=== PATIENT | female | born 1975 ===

== ENCOUNTER 2017-01-21 16:38 | Inpatient (IN) | payer MEDICAID ==
[2017-01-21 16:39] VITALS: BMI 31.3
--- NOTE | 2017-01-21 16:41 | ED PDOC ---
Arrival/HPI - General Time Seen by Provider: 01/21/17 16:39 Historian: Patient - History of Present Illness Narrative History of Present Illness (Text): 01/21/17 17:04 41 y/o female, no significant pmh, c/o feeling depression and nervous x 1 day. Pt. stated that she has chronic anxiety and depression, took her medication today but still feeling depressed and anxious, no chest pain or shortness of breath, admits feeling occasionally wants to hurt herself but not recently or now, no numbness or tingling, no other medical or psychological complaints. Past Medical History - Provider Review Nursing Documentation Reviewed: Yes - Past Medical History Past Medical History: No Previous - Cardiac Hx Cardiac Disorders: No (denies) Hx Hypertension: No - Pulmonary Hx Respiratory Disorders: No (denies) - Neurological Hx Neurological Disorder: No (denies) - HEENT Hx HEENT Disorder: No (denies) - Renal Hx Renal Disorder: No (denies) - Endocrine/Metabolic Hx Endocrine Disorders: No (denies) - Hematological/Oncological Hx Blood Disorders: No (denies) - Integumentary Hx Dermatological Disorder: No (denies) - Musculoskeletal/Rheumatological Hx Falls: Yes - Gastrointestinal Hx Gastrointestinal Disorders: No (denies) - Genitourinary/Gynecological Hx Genitourinary Disorders: No (denies) - Psychiatric Hx Depression: Yes Hx Substance Use: No - Past Surgical History Past Surgical History: No Previous - Anesthesia Hx Anesthesia: No - Suicidal Assessment Feels Threatened In Home Enviroment: No Family/Social History - Physician Review Nursing Documentation Reviewed: Yes Family/Social History: Unknown Family HX Smoking Status: Never Smoked Hx Alcohol Use: No Hx Substance Use: No Hx Substance Use Treatment: No Allergies/Home Meds Allergies/Adverse Reactions: Allergies No Known Allergies Allergy (Verified 01/21/17 22:40) Home Medications: Home Meds Medication Instructions Recorded Confirmed PARoxetine [Paxil] 20 mg PO DAILY 01/21/17 01/21/17 risperiDONE [RisperDAL] 2 mg PO HS 01/21/17 01/21/17 Review of Systems - Review of Systems Constitutional: absent: Fatigue, Fevers Eyes: absent: Vision Changes ENT: absent: Hearing Changes Respiratory: absent: SOB, Cough Cardiovascular: absent: Chest Pain Gastrointestinal: absent: Abdominal Pain, Nausea, Vomiting Neurological: absent: Headache, Dizziness Psychiatric: Depression. absent: Anxiety, Suicidal Ideation Physical Exam Vital Signs Reviewed: Yes Vital Signs Temp Pulse Resp BP Pulse Ox 01/21/17 18:11 116/81 01/21/17 17:30 72 18 119/77 99 01/21/17 16:53 98.6 F 70 16 99 Temperature: Afebrile Blood Pressure: Normal Pulse: Regular Respiratory Rate: Normal Appearance: Positive for: Well-Appearing, Non-Toxic, Comfortable Pain Distress: None Mental Status: Positive for: Alert and Oriented X 3 - Systems Exam Head: Present: Atraumatic, Normocephalic Pupils: Present: PERRL Extroacular Muscles: Present: EOMI Conjunctiva: Present: Normal Mouth: Present: Moist Mucous Membranes Neck: Present: Normal Range of Motion Respiratory/Chest: Present: Clear to Auscultation, Good Air Exchange. No: Respiratory Distress, Accessory Muscle Use Cardiovascular: Present: Regular Rate and Rhythm, Normal S1, S2. No: Murmurs Abdomen: Present: Normal Bowel Sounds. No: Tenderness, Distention, Peritoneal Signs Back: Present: Normal Inspection Upper Extremity: Present: Normal Inspection. No: Cyanosis, Edema Lower Extremity: Present: Normal Inspection. No: Edema Neurological: Present: GCS=15, Speech Normal, Motor Func Grossly Intact, Gait Normal, Memory Normal Skin: Present: Warm, Dry, Normal Color. No: Rashes Psychiatric: Present: Alert, Oriented x 3, Normal Insight, Normal Concentration , Depressed Mood Medical Decision Making ED Course and Treatment: 01/21/17 16:40 -labs/ua -ekg -chest x-ray -will call PES 01/21/17 18:54 -EKG: NSR @ 65 BPM, no ST elevation or depression, no T wave inversion. -Chest xray -Labs are non-significant -UA show +UTI, macrobid ordered. -Pt. evaluated by the PES Josephine, suggest to admit with dx depression to Dr. Nikki Lamb's service. -I discussed with Dr. Shaw about the case and he will put in the admission order. - Lab Interpretations Lab Results: 01/21/17 17:50 01/21/17 17:50 Lab Results 01/21/17 18:00: Urine Opiates Screen Negative, Urine Methadone Screen Negative, Ur Barbiturates Screen Negative, Ur Phencyclidine Scrn Negative, Ur Amphetamines Screen Negative, U Benzodiazepines Scrn Negative, U Oth Cocaine Metabols Negative, U Cannabinoids Screen Negative 01/21/17 18:00: Urine Color Yellow, Urine Appearance Cloudy, Urine pH 6.0, Ur Specific Sebastian 1.025, Urine Protein Negative, Urine Glucose (UA) Negative, Urine Ketones Trace H, Urine Blood Trace-lysed H, Urine Nitrate Negative, Urine Bilirubin Negative, Urine Urobilinogen 1.0 H, Ur Leukocyte Esterase Moderate H, Urine RBC 1 - 3, Urine WBC 15 - 20, Ur Epithelial Cells 10 - 12, Urine Bacteria Mod 01/21/17 17:50: Alcohol, Quantitative < 10 01/21/17 17:50: Sodium 140, Potassium 3.6, Chloride 103, Carbon Dioxide 26, Anion Gap 15, BUN 15, Creatinine 0.6, Est GFR ( Amer) > 60, Est GFR (Non- Af Amer) > 60, Random Glucose 84, Calcium 9.4, Total Bilirubin 1.0, AST 28, ALT 58 H, Alkaline Phosphatase 104, Total Protein 8.3, Albumin 4.6, Globulin 3.7, Albumin/Globulin Ratio 1.2 01/21/17 17:50: WBC 4.7, RBC 4.23, Hgb 13.0, Hct 37.0, MCV 87.5, MCH 30.7, MCHC 35.1, RDW 12.8, Plt Count 229, MPV 10.2, Gran % 52.6, Lymph % (Auto) 40.9 H, [place] % (Auto) 5.5, Eos % (Auto) 0.6 L, Baso % (Auto) 0.4, Gran # 2.48, Lymph # 1.9, [place] # 0.3, Eos # 0.0, Baso # 0.02 I have reviewed the lab results: Yes Interpretation: Abnormal lab values (+UTI) - RAD Interpretation Radiology Orders: 01/21/17 17:00 CHEST PORTABLE [RAD] Stat no active disease Rate Examiner: Radiologist - EKG Interpretation EKG Interpretation (Text): 01/21/17 17:45 NSR @ 65 BPM, no ST elevation or depression, no T wave inversion. Interpreted by ED Physician: Yes Type: 12 lead EKG - Medication Orders Current Medication Orders: Acetaminophen (Tylenol 325mg Tab) 650 mg PO Q4H PRN PRN Reason: Pain, Mild (1-3) Al Hydrox/Mg Hydrox/Simethicone (Maalox Plus 30 Ml) 30 ml PO DAILY PRN PRN Reason: Upset Stomach Fluoxetine HCl (Prozac) 10 mg PO DAILY [facility] Last Admin: 01/24/17 14:50 Dose: 10 mg Lorazepam (Ativan) 0.5 mg PO AMHS ENMANUEL PRN Reason: Protocol Last Admin: 01/24/17 11:38 Dose: 0.5 mg Re-Assess: Reassess Psych Meds Document 01/24/17 12:38 KM (Rec: 01/24/17 14:42 KM [id number]) Reassess Psych Med Effective Lorazepam (Ativan) 0.5 mg PO 1600 ENMANUEL PRN Reason: Protocol Last Admin: 01/24/17 15:33 Dose: 0.5 mg Magnesium Hydroxide (Milk Of Magnesia) 30 ml PO DAILY PRN PRN Reason: Constipation Mirtazapine (Remeron) 15 mg PO HS PRN PRN Reason: Insomnia Nitrofurantoin Macrocrystals (Macrobid) 100 mg PO Q12 [facility]EL Stop: 01/27/17 23:59 Last Admin: 01/24/17 07:58 Dose: 100 mg Paroxetine HCl (Paxil) 20 mg PO HS EN[facility]UEL Quetiapine Fumarate (Seroquel) 100 mg PO HS ENMANUEL PRN Reason: Protocol Discontinued Medications Lorazepam (Ativan) 1 mg PO ONCE ONE PRN Reason: Protocol Stop: 01/21/17 21:28 Last Admin: 01/21/17 22:09 Dose: 1 mg Mirtazapine (Remeron) 15 mg PO HS EN[facility]EL Last Admin: 01/23/17 21:22 Dose: 15 mg Nitrofurantoin Macrocrystals (Macrobid) 100 mg PO STAT STA Stop: 01/21/17 18:39 Last Admin: 01/21/17 19:15 Dose: 100 mg Paroxetine HCl (Paxil) 20 mg PO ONCE ONE Stop: 01/22/17 21:29 Paroxetine HCl (Paxil) 20 mg PO ONCE ONE Stop: 01/21/17 21:58 Last Admin: 01/21/17 22:09 Dose: 20 mg Paroxetine HCl (Paxil) 30 mg PO HS ENMANUEL Last Admin: 01/23/17 21:22 Dose: 30 mg Paroxetine HCl (Paxil) 40 mg PO HS EN[facility]EL Risperidone (Risperdal Tab) 1 mg PO ONCE ONE PRN Reason: Protocol Stop: 01/22/17 21:30 Risperidone (Risperdal Tab) 1 mg PO ONCE ONE PRN Reason: Protocol Stop: 01/21/17 21:56 Last Admin: 01/21/17 22:10 Dose: 1 mg Risperidone (Risperdal Tab) 1 mg PO HS ENMANUEL PRN Reason: Protocol Last Admin: 01/23/17 21:22 Dose: 1 mg - PA / [employer] / Resident Statement / has reviewed & agrees with the documentation as recorded. Disposition/Present on Arrival - Present on Arrival Any Indicators Present on Arrival: No History of DVT/PE: No History of Uncontrolled Diabetes: No Urinary Catheter: No History of Decub. Ulcer: No History Surgical Site Infection Following: None - Disposition Have Diagnosis and Disposition been Completed?: Yes Diagnosis: UTI (urinary tract infection), Depression Disposition: HOSPITALIZED Disposition Time: 17:05 Patient Plan: Admission Patient Problems: Current Active Problems Problem Status Onset UTI (urinary tract infection) Acute Depression Acute Condition: STABLE
[2017-01-21 17:05] VITALS: O2SAT 99
[2017-01-21 18:13] LABS: BASO # 0.02 K/mm3 (0.0-2.0); BASO % 0.4 % (0.0-3.0); EOS % 0.6 % (1.5-5.0); GRAN # 2.48 (1.4-6.5); GRAN % 52.6 % (50.0-68.0); LYMPH # 1.9 (1.2-3.4); LYMPH % 40.9 % (22.0-35.0); MEAN CELL VOLUME 87.5 fL (80.0-105.0); MEAN CORPUSCULAR HEMOGLOBIN 30.7 pg (25.0-35.0); MEAN CORPUSCULAR HGB CONC 35.1 g/dl (31.0-37.0); MEAN PLATELET VOLUME 10.2 fl (7.0-11.0); MONO # 0.3 (0.1-0.6); MONO % 5.5 % (1.0-6.0); PLATELET COUNT 229 10^3/uL (120.0-450.0); RBC 4.23 10^6/uL (3.5-6.1); RED CELL DISTRIBUTION WIDTH 12.8 % (11.5-14.5); WHITE BLOOD COUNT 4.7 10^3/ul (4.5-11.0)
[2017-01-21 18:15] LABS: ALB/GLOB RATIO 1.2 (1.1-1.8); ALBUMIN 4.6 g/dL (3.0-4.8); ALT/SGPT 58 U/L (7-56); AST/SGOT 28 U/L (15-39); BLOOD UREA NITROGEN 15 mg/dL (7-21); CALCIUM 9.4 mg/dL (8.4-10.5); GFR AFRICAN-AMERICAN > 60; GFR NON-AFRICAN AMERICAN > 60
[2017-01-21 18:24] LABS: URINE BILIRUBIN NEGATIVE (NEGATIVE); URINE BLOOD TRACE-LYSED (NEGATIVE); URINE GLUCOSE (UA) NEGATIVE (NEGATIVE); URINE LEUKOCYTE ESTERASE MODERATE Leu/uL (NEGATIVE); URINE NITRATE NEGATIVE (NEGATIVE); URINE PROTEIN NEGATIVE mg/dL (<30 mg/dL)
[2017-01-21 18:25] LABS: URINE APPEARANCE CLOUDY (CLEAR); URINE COLOR YELLOW (YELLOW)
[2017-01-21 18:41] LABS: URINE BACTERIA MOD (NEG); URINE WBC 15 - 20 /hpf (0-6)
[2017-01-21 18:49] LABS: BARBITURATES, UR NEGATIVE (NEGATIVE); BENZODIAZEPINES, UR NEGATIVE (NEGATIVE); OPIATES, UR NEGATIVE (NEGATIVE); PHENCYCLIDINE, UR NEGATIVE (NEGATIVE)
--- NOTE | 2017-01-22 06:07 | PCM.BM ---
<Aaron Bang O - Last Filed: 01/22/17 06:04> Treatment Plan Problems - Problems identified on initial assessmt poor sleep Date Initiated: 01/21/17 Time Initiated: 21:00 Assessment reference: NA Status: Active anxiety Date Initiated: 01/21/17 Time Initiated: 21:20 Assessment reference: NA Status: Active depression Date Initiated: 01/21/17 Time Initiated: 21:00 Assessment reference: NA Status: Active Treatment assets and liabiliti Patient Assests: cooperative, ADL independent, good past tx response Patient Liabilities: poor support system - Milieu Protocol Maintain good personal hygiene: daily Encourage regular showers, daily Remind patient to perform daily oral care, daily Assist patient to perform ADL's Maintain personal safety: daily Educate patient to report safety concerns to staff, daily Monitor environment for contraband/sharps Medication safety: Monitor for expected outcome, potential side effects: daily, Assess barriers to learning: daily, Assess readiness for medication education: daily Milieu Narrative: * group, mile[place] and supportive tx * risperdal 1 mg am and 1 mg hs for psychosis * paxil 20mg po hs for depression and anxiety * ativan 1 mg HS for anxiety * Remeron 7.5 mg with depression and insomnia * Awaiting medical consult * Vitals reviewed and noted below: Selected Entries 04/27/16 01/21/17 01/21/17 09:30 16:53 17:30 Temperature 98.6 F Pulse Rate 92 H 70 72 Respiratory 16 18 Rate Blood Pressure 112/67 119/77 O2 Sat by Pulse 99 99 Oximetry 01/21/17 18:11 Temperature Pulse Rate Respiratory Rate Blood Pressure 116/81 O2 Sat by Pulse Oximetry ER LABS AND STUDIES 01/21/17 18:54 -EKG: NSR @ 65 BPM, no ST elevation or depression, no T wave inversion. -UA show +UTI, macrobid ordered. 01/21/17 18:00: Urine Color Yellow, Urine Appearance Cloudy, Urine pH 6.0, Ur Specific [place] 1.025, Urine Protein Negative, Urine Glucose (UA) Negative, Urine Ketones Trace H, Urine Blood Trace-lysed H, Urine Nitrate Negative, Urine Bilirubin Negative, Urine Urobilinogen 1.0 H, Ur Leukocyte Esterase Moderate H, Urine RBC 1 - 3, Urine WBC 15 - 20, Ur Epithelial Cells 10 - 12, Urine Bacteria Mod 01/21/17 17:50: Alcohol, Quantitative < 10 01/21/17 17:50: Sodium 140, Potassium 3.6, Chloride 103, Carbon Dioxide 26, Anion Gap 15, BUN 15, Creatinine 0.6, Est GFR ( Amer) > 60, Est GFR (Non- Af Amer) > 60, Random Glucose 84, Calcium 9.4, Total Bilirubin 1.0, AST 28, ALT 58 H, Alkaline Phosphatase 104, Total Protein 8.3, Albumin 4.6, Globulin 3.7, Albumin/Globulin Ratio 1.2 01/21/17 17:50: WBC 4.7, RBC 4.23, Hgb 13.0, Hct 37.0, MCV 87.5, MCH 30.7, MCHC 35.1, RDW 12.8, Plt Count 229, MPV 10.2, Gran % 52.6, Lymph % (Auto) 40.9 H, [place] % (Auto) 5.5, Eos % (Auto) 0.6 L, Baso % (Auto) 0.4, Gran # 2.48, Lymph # 1.9, [place] # 0.3, Eos # 0.0, Baso # 0.02 Family Contact Family involvement: Patient does not wish Family/SO involvement Family contact: Patient declines to allow family contact at present Family contact name: Kam Discharge/Continuing Care - Education Needs Education Needs: Patient Medication, Patient Diagnosis/Disease Process, Patient Coping Skills, Patient Activities of Daily Living, Patient Nutrition - Treatment Team Participation Patient/Family/SO Statement: * group, mile[place] and supportive tx * risperdal 1 mg am and 1 mg hs for psychosis * paxil 20mg po hs for depression and anxiety * ativan 1 mg HS for anxiety * Remeron 7.5 mg with depression and insomnia * Awaiting medical consult * Vitals reviewed and noted below: Selected Entries 04/27/16 01/21/17 01/21/17 09:30 16:53 17:30 Temperature 98.6 F Pulse Rate 92 H 70 72 Respiratory 16 18 Rate Blood Pressure 112/67 119/77 O2 Sat by Pulse 99 99 Oximetry 01/21/17 18:11 Temperature Pulse Rate Respiratory Rate Blood Pressure 116/81 O2 Sat by Pulse Oximetry ER LABS AND STUDIES 01/21/17 18:54 -EKG: NSR @ 65 BPM, no ST elevation or depression, no T wave inversion. -UA show +UTI, macrobid ordered. 01/21/17 18:00: Urine Color Yellow, Urine Appearance Cloudy, Urine pH 6.0, Ur Specific [place] 1.025, Urine Protein Negative, Urine Glucose (UA) Negative, Urine Ketones Trace H, Urine Blood Trace-lysed H, Urine Nitrate Negative, Urine Bilirubin Negative, Urine Urobilinogen 1.0 H, Ur Leukocyte Esterase Moderate H, Urine RBC 1 - 3, Urine WBC 15 - 20, Ur Epithelial Cells 10 - 12, Urine Bacteria Mod 01/21/17 17:50: Alcohol, Quantitative < 10 01/21/17 17:50: Sodium 140, Potassium 3.6, Chloride 103, Carbon Dioxide 26, Anion Gap 15, BUN 15, Creatinine 0.6, Est GFR ( Amer) > 60, Est GFR (Non- Af Amer) > 60, Random Glucose 84, Calcium 9.4, Total Bilirubin 1.0, AST 28, ALT 58 H, Alkaline Phosphatase 104, Total Protein 8.3, Albumin 4.6, Globulin 3.7, Albumin/Globulin Ratio 1.2 01/21/17 17:50: WBC 4.7, RBC 4.23, Hgb 13.0, Hct 37.0, MCV 87.5, MCH 30.7, MCHC 35.1, RDW 12.8, Plt Count 229, MPV 10.2, Gran % 52.6, Lymph % (Auto) 40.9 H, [place] % (Auto) 5.5, Eos % (Auto) 0.6 L, Baso % (Auto) 0.4, Gran # 2.48, Lymph # 1.9, [place] # 0.3, Eos # 0.0, Baso # 0.02 <Reyna Hardin - Last Filed: 01/24/17 16:36> Family Contact - Outside Agency [facility] Care involvment: Following patient during stay, Not involved <Nikki Lockhart - Last Filed: 01/26/17 13:39> - Diagnosis (1) MDD (major depressive disorder), recurrent episode Status: Acute Interventions: 01/26/17 13:39 Psychoeducation Psychopharmacology/adjustment of medications as needed/ monitoring possible side effects Evaluate pt on daily basis Compliance with medications and follow up appointments Suicide and homicide risk assessment and prevention Relapse prevention Reduction of symptoms Improve functional status Family intervention As outpatient: cognitive behavioral therapy/interpersonal psychotherapy/ psychodynamic psychotherapy/problem-solving therapy
[2017-01-22 07:49] VITALS: RESP 20
--- NOTE | 2017-01-22 08:36 | CP.PCM.CON ---
<Irving Olson - Last Filed: 01/22/17 15:12> History of Present Illness - History of Present Illness History of Present Illness: Medicine Consult Note for Dr. Winkler 41 y/o F with PMH of depression/psychosis presented to the ED after feeling depressed and anxious for the past 2 days. Pt states she has been progressively feeling worse over the past several days. She states she has been taking all of her medication routinely. She also admits to having suicidal ideation. She does have a plan in which to harm herself, which she states she would overdose on pills. 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 During this time she stayed in the hospital for several days and was discharged home on Paxil and Risperdal, which she still currently takes. She currently denies CP, SOB, N/V/D, dysuria, fevers, chills. PMH: Post psychosis/depression Surgical Hx: None FMH: Noncontributory Social Hx: Denies alcohol, tobacco, or illicit drug use Allergies: NKDA Review of Systems - Constitutional Constitutional: Fatigue. absent: Chills, Fever - EENT Eyes: absent: Change in Vision, Diplopia - Cardiovascular Cardiovascular: absent: Chest Pain, Irregular Heart Rhythm - Respiratory Respiratory: absent: Cough, Dyspnea - Gastrointestinal Gastrointestinal: absent: Abdominal Pain, Diarrhea, Nausea, Vomiting - Genitourinary Genitourinary: absent: Dysuria, Urinary Frequency - Integumentary Integumentary: absent: New Lesions, Rash - Neurological Neurological: absent: Numbness, Tingling - Psychiatric Psychiatric: Anxiety, Depression - Hematologic/Lymphatic Hematologic: absent: Easy Bleeding, Easy Bruising Past Patient History - Past Medical History & Family History Past Medical History?: No - Past Social History Smoking Status: Never Smoked - CARDIAC Hx Cardiac Disorders: No (denies) Hx Hypertension: No - PULMONARY Hx Respiratory Disorders: No (denies) - NEUROLOGICAL Hx Neurological Disorder: No (denies) - HEENT Hx HEENT Problems: No (denies) - RENAL Hx Chronic Kidney Disease: No (denies) - ENDOCRINE/METABOLIC Hx Endocrine Disorders: No (denies) - HEMATOLOGICAL/ONCOLOGICAL Hx Blood Disorders: No (denies) - INTEGUMENTARY Hx Dermatological Problems: No (denies) - MUSCULOSKELETAL/RHEUMATOLOGICAL Hx Falls: Yes - GASTROINTESTINAL Hx Gastrointestinal Disorders: No (denies) - GENITOURINARY/GYNECOLOGICAL Hx Genitourinary Disorders: No (denies) - PSYCHIATRIC Hx Anxiety: Yes Hx Depression: Yes Hx Substance Use: No - SURGICAL HISTORY Hx Surgeries: No (denies) - ANESTHESIA Hx Anesthesia: No Meds Allergies/Adverse Reactions: Allergies Allergy/AdvReac Type Severity Reaction Status Date / Time No Known Allergies Allergy Verified 01/21/17 22:40 Physical Exam - Constitutional Appears: Well, No Acute Distress - Head Exam Head Exam: ATRAUMATIC, NORMAL INSPECTION, NORMOCEPHALIC - Eye Exam Eye Exam: EOMI - ENT Exam ENT Exam: Mucous Membranes Moist - Neck Exam Neck exam: Negative for: Lymphadenopathy, Normal Inspection - Respiratory Exam Respiratory Exam: Clear to Auscultation Bilateral, NORMAL BREATHING PATTERN. absent: Rales, Rhonchi, Wheezes - Cardiovascular Exam Cardiovascular Exam: RRR, +S1, +S2 - GI/Abdominal Exam GI & Abdominal Exam: Normal Bowel Sounds, Soft. absent: Tenderness - Extremities Exam Extremities exam: Positive for: normal inspection. Negative for: calf tenderness, pedal edema - Neurological Exam Neurological exam: Alert, CN II-XII Intact, Oriented x3 - Psychiatric Exam Psychiatric exam: Depressed, Normal Affect - Skin Skin Exam: Intact, Normal Color, Warm Results - Vital Signs Recent Vital Signs: Last Vital Signs Temp 97.9 F 01/22/17 07:49 Pulse 85 01/22/17 07:49 Resp 20 01/22/17 07:49 BP 98/61 L 01/22/17 07:49 Pulse Ox 99 01/21/17 17:30 - Labs Result Diagrams: 01/21/17 17:50 01/21/17 17:50 Assessment & Plan - Assessment and Plan (Free Text) Plan: 41 y/o F with PMH of post depression/psychosis presents to with worsening depression and anxiety. Pt was found to have a UTI on UA and will be started on Macrobid for 5 days. Pt has been admitted to the psychiatric unit and will continue treatment there. Pt is stable from medical standpoint, will sign off at this time. Please reconsult as needed. 1. Depression and Anxiety - Management as per psych - Will check TSH 2. UTI - Macrobid x 5 days - Will follow urine culture 3. PPX Protonix Seen, reviewed, and discussed with attending Wesley, PGY-2 <Santiago Winkler - Last Filed: 01/22/17 16:22> Meds - Medications Medications: Current Medications Mirtazapine (Remeron) 15 mg PO HS ENMANUEL Nitrofurantoin Macrocrystals (Macrobid) 100 mg PO Q12 ENMANUEL Stop: 01/27/17 23:59 Last Admin: 01/22/17 09:43 Dose: 100 mg Paroxetine HCl (Paxil) 30 mg PO HS ENMANUEL Risperidone (Risperdal Tab) 1 mg PO HS ENMANUEL PRN Reason: Protocol Results - Vital Signs Recent Vital Signs: Last Vital Signs Temp 97.9 F 01/22/17 07:49 Pulse 85 01/22/17 07:49 Resp 20 01/22/17 07:49 BP 98/61 L 01/22/17 07:49 Pulse Ox 99 01/21/17 17:30 - Labs Result Diagrams: 01/21/17 17:50 01/21/17 17:50 Labs: Laboratory Results - last 24 hr 01/22/17 01/22/17 07:10 08:30 Triglycerides 72 Cholesterol 170 LDL Cholesterol Direct 98 HDL Cholesterol 53 TSH 3rd Generation 0.58 Attending/Attestation - Attestation I have personally seen and examined this patient.: Yes I have fully participated in the care of the patient.: Yes I have reviewed all pertinent clinical information: Yes Notes (Text): 01/22/17 16:20 attending note; Patient seen and examined with resident in psychiatric floor. Patient is resting comfortably. denies any fevers, Chills. Denies any urinary symptoms. Patient is currently getting treated for depression. positive UA; urine culture ordered. Started on nitrofurantoin. Please follow up culture results. Patient is medically stable. Please reconsult as needed. Thank you for the courtesy of this consultation.
[2017-01-22 09:00] LABS: HDL CHOLESTEROL 53 mg/dL (29-60)
[2017-01-22 09:11] LABS: LDL CHOLESTEROL 98 mg/dL (0-129)
--- NOTE | 2017-01-22 09:27 | PCM.PSYCH ---
Initial Psychiatric Evaluation - Initial Psychiatric Evaluation Type of Admission: Voluntary Legal Status: Capacity History of Present Illness and Precipitating Events: Patient is 41 years old female with history of depression and psychosis, one prior admission at [facility] in 03/2016, denied history of suicidal attempts, reportedly compliant with Risperdal 2 mg HS and Paxil 20 mg HS prescribed by her outpatient psychiatrist who presented to the ER with depression, anxiety and SI to overdose on pills. I reviewed prior admission records and recent notes. I met with patient at bedside. Iraqi translation was aided by staff member, Mona. Patient is calm, cooperative and oriented x3. Patient reports depression x 8 months with symptoms of low mood, low energy, moodiness, poor sleep and low self-esteem. She admits to having suicidal thoughts to overdose on pills however denies any thoughts of harming her children, including her 1 year old son. Patient indicates she has been compliant with her medications. Presently denies any suicidal thoughts or hallucinations (please note, patient presented with hallucinations during her previous admission). Patient has been in good control on the unit thus far. Of note: patient received Macrobid 100 mg po x1 dose in the ER for UTI PSYCHIATRIC HISTORY 04/15/16-04/27/16 Admitted to [facility] with diagnosis of Severe depressive episode with psychotic symptoms in period. Patient also had UTI during that admission, given additional possible diagnosis of r/o delirium due to UTI. Discharge medications: risperdal 1mg am and 2mg hs for psychosis paxil 30mg po hs for depression and anxiety Remeron 15mg for depression and insomnia Patient has been following up with a psychiatrist in [place]. Last follow up was 2 months ago and she is prescribed Paxil and Risperdal. Patient reports compliance with medications. Patient cannot recall the name of her psychiatrist. SOCIAL HISTORY Patient was born and raised in [facility]. She lives with her two children 1-year- old son and a 13-year-old. Her boyfriend is the father of her one year-old son. Boyfriend is currently watching her two children. Patient is unemployed. Patient denies any tobacco, alcohol or drug use. Past Psychiatric History - Past Psychiatric History Pertinent Medical Hx (Current Medical&Sleep Prob, Allergies): Allergies Allergy/AdvReac Type Severity Reaction Status Date / Time No Known Allergies Allergy Verified 01/21/17 22:40 PARoxetine [Paxil] 20 mg PO DAILY 01/21/17 risperiDONE [RisperDAL] 2 mg PO HS 01/21/17 Mental Status Examination - Personal Presentation Personal Presentation: Looks stated age - Affect Affect: Constricted - Motor Activity Motor Activity: Calm - Reliability in Providing Information Reliability in Providing Information: Fair - Speech Speech: Organized - Mood Mood: Depressed - Formal Thought Process Formal Thought Process: No Impairment, Other (internally preoccupied) - Obsessions/Compulsions Obsessions: No Compulsions: No - Cognitive Functions Orientation: Person, Place, Situation Sensorium: Alert Attention/Concentration: Attentive Estimate of Intelligence: Average Judgement: Intact, as evidence by: Insight regarding need for hospitalization - Risk Risk: Suicidal, Diminished functioning - Strength & Assets Inventory Strength & Assets Inventory: Family support DSM 5 DX - DSM 5 DSM 5 Diagnosis: Severe depressive episode with psychotic symptoms in period r/o delirium due to UTI r/o psychosis r/o depression with psychosis - Recommended/Plan of Treatment Treatment Recommendations and Plan of Treatment: * group, mileau and supportive tx * risperdal 1 mg hs for history of psychosis * paxil 30mg po hs for depression and anxiety * Remeron 15 mg with depression and insomnia * Appreciate f/u by Dr. Olson on 01/22/17~to continue macrobid x5 days for UTI, checking TSH * Vitals reviewed and noted below: Selected Entries 04/27/16 01/21/17 01/21/17 09:30 16:53 17:30 Temperature 98.6 F Pulse Rate 92 H 70 72 Respiratory 16 18 Rate Blood Pressure 112/67 119/77 O2 Sat by Pulse 99 99 Oximetry 01/21/17 18:11 Temperature Pulse Rate Respiratory Rate Blood Pressure 116/81 O2 Sat by Pulse Oximetry ER LABS AND STUDIES 01/21/17 18:54 -EKG: NSR @ 65 BPM, no ST elevation or depression, no T wave inversion. 01/21/17 18:00: Urine Color Yellow, Urine Appearance Cloudy, Urine pH 6.0, Ur Specific [place] 1.025, Urine Protein Negative, Urine Glucose (UA) Negative, Urine Ketones Trace H, Urine Blood Trace-lysed H, Urine Nitrate Negative, Urine Bilirubin Negative, Urine Urobilinogen 1.0 H, Ur Leukocyte Esterase Moderate H, Urine RBC 1 - 3, Urine WBC 15 - 20, Ur Epithelial Cells 10 - 12, Urine Bacteria Mod 01/21/17 17:50: Alcohol, Quantitative < 10 01/21/17 17:50: Sodium 140, Potassium 3.6, Chloride 103, Carbon Dioxide 26, Anion Gap 15, BUN 15, Creatinine 0.6, Est GFR ( Amer) > 60, Est GFR (Non- Af Amer) > 60, Random Glucose 84, Calcium 9.4, Total Bilirubin 1.0, AST 28, ALT 58 H, Alkaline Phosphatase 104, Total Protein 8.3, Albumin 4.6, Globulin 3.7, Albumin/Globulin Ratio 1.2 01/21/17 17:50: WBC 4.7, RBC 4.23, Hgb 13.0, Hct 37.0, MCV 87.5, MCH 30.7, MCHC 35.1, RDW 12.8, Plt Count 229, MPV 10.2, Gran % 52.6, Lymph % (Auto) 40.9 H, [place] % (Auto) 5.5, Eos % (Auto) 0.6 L, Baso % (Auto) 0.4, Gran # 2.48, Lymph # 1.9, [place] # 0.3, Eos # 0.0, Baso # 0.02 FLOOR LABS 01/22/17 07:10 Triglycerides 72 Cholesterol 170 LDL Cholesterol Direct 98 HDL Cholesterol 53 - Smoking Cessation Smoking Cessation Initiated: No
--- NOTE | 2017-01-22 10:49 | CARD ---
APPROVED REPORT EKG Measurement Heart [id number] <Conclusion> Normal sinus rhythm NSSTW changes Q in 3
--- NOTE | 2017-01-22 12:15 | RAD ---
HISTORY: medical clearance COMPARISON: 04/13/2016 FINDINGS: LUNGS: No active pulmonary disease. PLEURA: No significant pleural effusion identified, no pneumothorax apparent. CARDIOVASCULAR: Normal. OSSEOUS STRUCTURES: No significant abnormalities. VISUALIZED UPPER ABDOMEN: Normal. OTHER FINDINGS: None. IMPRESSION: No active disease.
--- NOTE | 2017-01-23 09:30 | PCM.PYCHPN ---
Psychiatric Progress Note - Psychiatric Progress Note Patient seen today, length of contact: 25 min Problems Identified/Issues Discussed: History of Present Illness and Precipitating Events: Patient is 41 years old female with history of depression and psychosis, one prior admission at [facility] in 03/2016, denied history of suicidal attempts, reportedly compliant with Risperdal 2 mg HS and Paxil 20 mg HS prescribed by her outpatient psychiatrist who presented to the ER with depression, anxiety and SI to overdose on pills. I reviewed prior admission records and recent notes. I met with patient at bedside. Thai translation was aided by staff member, Mona. Patient is calm, cooperative and oriented x3. Patient reports depression x 8 months with symptoms of low mood, low energy, moodiness, poor sleep and low self-esteem. She admits to having suicidal thoughts to overdose on pills however denies any thoughts of harming her children, including her 1 year old son. Patient indicates she has been compliant with her medications. Presently denies any suicidal thoughts or hallucinations (please note, patient presented with hallucinations during her previous admission). Patient has been in good control on the unit thus far. Of note: patient received Macrobid 100 mg po x1 dose in the ER for UTI PSYCHIATRIC HISTORY 04/15/16-04/27/16 Admitted to [facility] with diagnosis of Severe depressive episode with psychotic symptoms in period. Patient also had UTI during that admission, given additional possible diagnosis of r/o delirium due to UTI. Discharge medications: risperdal 1mg am and 2mg hs for psychosis paxil 30mg po hs for depression and anxiety Remeron 15mg for depression and insomnia Patient has been following up with a psychiatrist in [place]. Last follow up was 2 months ago and she is prescribed Paxil and Risperdal. Patient reports compliance with medications. Patient cannot recall the name of her psychiatrist. SOCIAL HISTORY Patient was born and raised in [facility]. She lives with her two children 1-year- old son and a 13-year-old. Her boyfriend is the father of her one year-old son. Boyfriend is currently watching her two children. Patient is unemployed. Patient denies any tobacco, alcohol or drug use. ~~~~~~~~~~~~~~~~~~~~~~~~~~~~~~~~ I reviewed recent notes and met with patient at bedside. She has been calm and quiet on the unit. Generally keeps to herself. Patient remains well oriented to circumstances. Indicates she is still depressed but no longer suicidal. She is hopeful. Affect is constricted and preoccupied. Continues to deny hallucinations or paranoia. Responses remain relevant to questioning. Thus far patient is tolerating her medications well. Denies any new discomfort or pain. Slept well last night. There were no behavioral issues over the weekend. Diagnostic Results: Severe depressive episode with psychotic symptoms in period r/o delirium due to UTI r/o psychosis r/o depression with psychosis Medication Change: No Medical Record Reviewed: Yes Mental Status Examination - Cognitive Function Orientation: Person, Place, Situation - Mood Mood: Depressed (better) - Affect Affect: Constricted - Formal Thought Process Formal Thought Process: No Impairment, Other (internally preoccupied) - Suicidal Ideation Suicidal Ideation: No - Homicidal Ideation Homicidal Ideation: No Goal/Treatment Plan - Goal/Treatment Plan Progress Toward Problem(s) and Goals/Treatment Plan: * group, mileau and supportive tx * risperdal 1 mg hs for history of psychosis * paxil 30 mg po hs for depression and anxiety * Remeron 15 mg with depression and insomnia * Appreciate f/u by Dr. Olson/Cathi on 01/22/17~to continue macrobid x5 days for UTI, f/u Ucx, checking TSH ~signed off * Vitals reviewed and noted below: Selected Entries 01/22/17 01/22/17 07:49 16:00 Temperature 97.9 F Pulse Rate 85 65 Respiratory 20 Rate Blood Pressure 98/61 L 101/62 ER LABS AND STUDIES 01/21/17 18:54 -EKG: NSR @ 65 BPM, no ST elevation or depression, no T wave inversion. 01/21/17 18:00: Urine Color Yellow, Urine Appearance Cloudy, Urine pH 6.0, Ur Specific [place] 1.025, Urine Protein Negative, Urine Glucose (UA) Negative, Urine Ketones Trace H, Urine Blood Trace-lysed H, Urine Nitrate Negative, Urine Bilirubin Negative, Urine Urobilinogen 1.0 H, Ur Leukocyte Esterase Moderate H, Urine RBC 1 - 3, Urine WBC 15 - 20, Ur Epithelial Cells 10 - 12, Urine Bacteria Mod 01/21/17 17:50: Alcohol, Quantitative < 10 08/04/17 17:50: Sodium 140, Potassium 3.6, Chloride 103, Carbon Dioxide 26, Anion Gap 15, BUN 15, Creatinine 0.6, Est GFR ( Amer) > 60, Est GFR (Non- Af Amer) > 60, Random Glucose 84, Calcium 9.4, Total Bilirubin 1.0, AST 28, ALT 58 H, Alkaline Phosphatase 104, Total Protein 8.3, Albumin 4.6, Globulin 3.7, Albumin/Globulin Ratio 1.2 01/21/17 17:50: WBC 4.7, RBC 4.23, Hgb 13.0, Hct 37.0, MCV 87.5, MCH 30.7, MCHC 35.1, RDW 12.8, Plt Count 229, MPV 10.2, Gran % 52.6, Lymph % (Auto) 40.9 H, [place] % (Auto) 5.5, Eos % (Auto) 0.6 L, Baso % (Auto) 0.4, Gran # 2.48, Lymph # 1.9, [place] # 0.3, Eos # 0.0, Baso # 0.02 FLOOR LABS 01/22/17 07:10 Triglycerides 72 Cholesterol 170 LDL Cholesterol Direct 98 HDL Cholesterol 53 01/22/17 08:30 TSH 3rd Generation 0.58
[2017-01-23] MEDS ORDERED: Alum-Mag Hydrox-Simethicone Susp (30 mL) PO PRN (21:56)
[2017-01-23] MEDS ORDERED: Magnesium Hydroxide Susp 30 ml UD PO PRN (21:56)
--- NOTE | 2017-01-24 15:17 | PCM.PYCHPN ---
Psychiatric Progress Note - Psychiatric Progress Note Patient seen today, length of contact: 30min Patient Chief Complaint: "I came here because I had thought of overdose on medication, but I don't want to kill myself or others" Problems Identified/Issues Discussed: Suicide/ homicide prevention, past psychiatric h/o, current psychiatric symptoms , medical problems, risk/benefits and alternatives of medications, medications compliance, coping strategies, substance abuse h/o, relapse prevention, importance of follow up with psychiatrist and therapist, discharge plan. Medical Problems: UTI, on abx Diagnostic Results: 01/21/17 17:50 01/21/17 17:50 Lab Results 01/23/17 07:48: Hemoglobin A1c 5.5 01/22/17 08:30: TSH 3rd Generation 0.58 01/22/17 07:10: Triglycerides 72, Cholesterol 170, LDL Cholesterol Direct 98, HDL Cholesterol 53 01/21/17 18:00: Urine Opiates Screen Negative, Urine Methadone Screen Negative, Ur Barbiturates Screen Negative, Ur Phencyclidine Scrn Negative, Ur Amphetamines Screen Negative, U Benzodiazepines Scrn Negative, U Oth Cocaine Metabols Negative, U Cannabinoids Screen Negative 01/21/17 18:00: Urine Color Yellow, Urine Appearance Cloudy, Urine pH 6.0, Ur Specific [place] 1.025, Urine Protein Negative, Urine Glucose (UA) Negative, Urine Ketones Trace H, Urine Blood Trace-lysed H, Urine Nitrate Negative, Urine Bilirubin Negative, Urine Urobilinogen 1.0 H, Ur Leukocyte Esterase Moderate H, Urine RBC 1 - 3, Urine WBC 15 - 20, Ur Epithelial Cells 10 - 12, Urine Bacteria Mod 01/21/17 17:50: Alcohol, Quantitative < 10 01/21/17 17:50: Sodium 140, Potassium 3.6, Chloride 103, Carbon Dioxide 26, Anion Gap 15, BUN 15, Creatinine 0.6, Est GFR ( Amer) > 60, Est GFR (Non- Af Amer) > 60, Random Glucose 84, Calcium 9.4, Total Bilirubin 1.0, AST 28, ALT 58 H, Alkaline Phosphatase 104, Total Protein 8.3, Albumin 4.6, Globulin 3.7, Albumin/Globulin Ratio 1.2 01/21/17 17:50: WBC 4.7, RBC 4.23, Hgb 13.0, Hct 37.0, MCV 87.5, MCH 30.7, MCHC 35.1, RDW 12.8, Plt Count 229, MPV 10.2, Gran % 52.6, Lymph % (Auto) 40.9 H, [place] % (Auto) 5.5, Eos % (Auto) 0.6 L, Baso % (Auto) 0.4, Gran # 2.48, Lymph # 1.9, [place] # 0.3, Eos # 0.0, Baso # 0.02 Vital Signs Temp Pulse Resp BP Pulse Ox 01/23/17 16:00 63 114/58 L 01/23/17 07:00 98.4 F 72 20 110/67 01/22/17 16:00 65 101/62 01/22/17 07:49 97.9 F 85 20 98/61 L 01/21/17 18:11 116/81 01/21/17 17:30 72 18 119/77 99 01/21/17 16:53 98.6 F 70 16 99 DSM 5 Symptoms Update: as per 's assessment: Patient is 41 years old female with history of depression and psychosis, one prior admission at [facility] in 03/2016, denied history of suicidal attempts, reportedly compliant with Risperdal 2 mg HS and Paxil 20 mg HS prescribed by her outpatient psychiatrist who presented to the ER with depression, anxiety and SI to overdose on pills. pt was seen at the treatment team meeting, pt was interviewed with SW, pt is Kinyarwanda speaking, utilized [facility]. pt said that she was feeling more depressed than usual, pt also said that she had thoughts of overdosing on pills, but "it was just thought, I didn't want to kill myself", pt said that at night she cannot sleep, pt also said that she has poor appetite, pt denied losing weight. Pt reported that she was compliant with meds. pt denied any plan or intent of killing self or others. pt was seen by medical team, was started on abx. RN obtain collaterals from the pt's aunt who loves in [place], as per Ms. Arvizu [phone]/ [phone] pt had low energy, was sleepy, was not able to function well, pt condition affect pt's functionality. pt also was paranoid was afraid what other people would think about her. this sba underwriter will wean pt off from the paxil due to somnolence, will start prozac , d/c risperdal, start seroquel at the night time. Impression: r/o schizoaffective r/o mdd with psychosis Medication Change: Yes (paxil increased, ativan added, ) Medical Record Reviewed: Yes Consults ordered or reviewed: medical consult appreciated Mental Status Examination - Cognitive Function Orientation: Person, Place, Situation Memory: Intact Attention: Poor Concentration: Poor Association: WNL Fund of Knowledge: WNL - Mood Mood: Depressed (better) - Affect Affect: Constricted - Formal Thought Process Formal Thought Process: No Impairment, Paranoia (pt was concern what other people would think about her. ), Other (internally preoccupied) - Suicidal Ideation Suicidal Ideation: No - Homicidal Ideation Homicidal Ideation: No Goal/Treatment Plan - Goal/Treatment Plan Need for Continued Stay: Remain at risks for inpatient hospitalization, Severe depression anxiety, Discharge may exacerbated symptoms, Severe functional impairment Progress Toward Problem(s) and Goals/Treatment Plan: milieu, structure, supportive therapy and Risperdal will be discontinued Seroquel 100 mg will be started at the nighttime from mood stabilization as well as insomnia as well as psychosis Paxil will be weaned off today will be 20 mg at the nighttime with a plan to discontinue that within couple of days Prozac is more activating and 20 mg was started today at the morning time for depression as well as for anxiety We'll we will give Ativan for restlessness patient was observed moving lower extremity is constantly Collaterals were obtained from the patient on and from the [place] office worker evaluation Family involvement We'll monitor closely Estimated Date of D/C: 01/28/17
--- NOTE | 2017-01-25 13:29 | PCM.PYCHPN ---
Psychiatric Progress Note - Psychiatric Progress Note Patient seen today, length of contact: 30min Patient Chief Complaint: "I am doing little better" Problems Identified/Issues Discussed: Suicide/ homicide prevention, past psychiatric h/o, current psychiatric symptoms , medical problems, risk/benefits and alternatives of medications, medications compliance, coping strategies, substance abuse h/o, relapse prevention, importance of follow up with psychiatrist and therapist, discharge plan. Medical Problems: UTI, on abx Diagnostic Results: 01/21/17 17:50 01/21/17 17:50 Lab Results 01/23/17 07:48: Hemoglobin A1c 5.5 01/22/17 08:30: TSH 3rd Generation 0.58 01/22/17 07:10: Triglycerides 72, Cholesterol 170, LDL Cholesterol Direct 98, HDL Cholesterol 53 01/21/17 18:00: Urine Opiates Screen Negative, Urine Methadone Screen Negative, Ur Barbiturates Screen Negative, Ur Phencyclidine Scrn Negative, Ur Amphetamines Screen Negative, U Benzodiazepines Scrn Negative, U Oth Cocaine Metabols Negative, U Cannabinoids Screen Negative 01/21/17 18:00: Urine Color Yellow, Urine Appearance Cloudy, Urine pH 6.0, Ur Specific [place] 1.025, Urine Protein Negative, Urine Glucose (UA) Negative, Urine Ketones Trace H, Urine Blood Trace-lysed H, Urine Nitrate Negative, Urine Bilirubin Negative, Urine Urobilinogen 1.0 H, Ur Leukocyte Esterase Moderate H, Urine RBC 1 - 3, Urine WBC 15 - 20, Ur Epithelial Cells 10 - 12, Urine Bacteria Mod 01/21/17 17:50: Alcohol, Quantitative < 10 01/21/17 17:50: Sodium 140, Potassium 3.6, Chloride 103, Carbon Dioxide 26, Anion Gap 15, BUN 15, Creatinine 0.6, Est GFR ( Amer) > 60, Est GFR (Non- Af Amer) > 60, Random Glucose 84, Calcium 9.4, Total Bilirubin 1.0, AST 28, ALT 58 H, Alkaline Phosphatase 104, Total Protein 8.3, Albumin 4.6, Globulin 3.7, Albumin/Globulin Ratio 1.2 01/21/17 17:50: WBC 4.7, RBC 4.23, Hgb 13.0, Hct 37.0, MCV 87.5, MCH 30.7, MCHC 35.1, RDW 12.8, Plt Count 229, MPV 10.2, Gran % 52.6, Lymph % (Auto) 40.9 H, [place] % (Auto) 5.5, Eos % (Auto) 0.6 L, Baso % (Auto) 0.4, Gran # 2.48, Lymph # 1.9, [place] # 0.3, Eos # 0.0, Baso # 0.02 Vital Signs Temp Pulse Resp BP Pulse Ox 01/23/17 16:00 63 114/58 L 01/23/17 07:00 98.4 F 72 20 110/67 01/22/17 16:00 65 101/62 01/22/17 07:49 97.9 F 85 20 98/61 L 01/21/17 18:11 116/81 01/21/17 17:30 72 18 119/77 99 01/21/17 16:53 98.6 F 70 16 99 DSM 5 Symptoms Update: Patient is 41 years old female with history of depression and psychosis, one prior admission at [facility] [facility] in 03/2016, denied history of suicidal attempts, reportedly compliant with Risperdal 2 mg HS and Paxil 20 mg HS prescribed by her outpatient psychiatrist who presented to the ER with depression, anxiety and SI to overdose on pills. pt was seen at the treatment team meeting, pt was interviewed with SW, pt is Maltese speaking, utilized RN for translation. pt presented better, affect is more reactive, pt tolerates meds well, reported sleep is better, pt was educated about all meds and tx plan. pt was seen by medical team, was started on abx for UTI. RN obtain collaterals from the pt's aunt who loves in [place], as per Ms. Arvizu [phone]/ [phone] pt had low energy, was sleepy, was not able to function well, pt condition affect pt's functionality. pt also was paranoid was afraid what other people would think about her. this jingle writer will wean pt off from the paxil due to somnolence,was start seroquel at the night time. Impression: r/o schizoaffective r/o mdd with psychosis Medication Change: Yes (paxil increased, ativan added, ) Medical Record Reviewed: Yes Consults ordered or reviewed: medical consult appreciated, UTI Mental Status Examination - Cognitive Function Orientation: Person, Place, Situation Memory: Intact Attention: Poor Concentration: Poor Association: WNL Fund of Knowledge: WNL - Mood Mood: Depressed (better) - Affect Affect: Constricted - Formal Thought Process Formal Thought Process: No Impairment, Paranoia (pt was concern what other people would think about her. ), Other (internally preoccupied) - Suicidal Ideation Suicidal Ideation: No - Homicidal Ideation Homicidal Ideation: No Goal/Treatment Plan - Goal/Treatment Plan Need for Continued Stay: Remain at risks for inpatient hospitalization, Severe depression anxiety, Discharge may exacerbated symptoms, Severe functional impairment Progress Toward Problem(s) and Goals/Treatment Plan: milieu, structure, supportive therapy and Seroquel 100 mgfor mood stabilization as well as insomnia as well as psychosis Paxil will be weaned off today will be 10 mg at the nighttime with a plan to discontinue that within couple of days Prozac 20 mg at the morning time for depression as well as for anxiety Ativan for restlessness patient was observed moving lower extremity yesterday, much better today, will taper it down 0.5 bid today Collaterals were obtained from the patient on and from the [place] christmas tree farm worker evaluation Family involvement We'll monitor closely Estimated Date of D/C: 01/28/17
--- NOTE | 2017-01-26 15:18 | PCM.PYCHPN ---
Psychiatric Progress Note - Psychiatric Progress Note Patient seen today, length of contact: 30min Patient Chief Complaint: "I have difficulties to organize my thoughts" Problems Identified/Issues Discussed: Suicide/ homicide prevention, past psychiatric h/o, current psychiatric symptoms , medical problems, risk/benefits and alternatives of medications, medications compliance, coping strategies, substance abuse h/o, relapse prevention, importance of follow up with psychiatrist and therapist, discharge plan. Medical Problems: UTI, on abx Diagnostic Results: 01/21/17 17:50 01/21/17 17:50 Lab Results 01/23/17 07:48: Hemoglobin A1c 5.5 01/22/17 08:30: TSH 3rd Generation 0.58 01/22/17 07:10: Triglycerides 72, Cholesterol 170, LDL Cholesterol Direct 98, HDL Cholesterol 53 01/21/17 18:00: Urine Opiates Screen Negative, Urine Methadone Screen Negative, Ur Barbiturates Screen Negative, Ur Phencyclidine Scrn Negative, Ur Amphetamines Screen Negative, U Benzodiazepines Scrn Negative, U Oth Cocaine Metabols Negative, U Cannabinoids Screen Negative 01/21/17 18:00: Urine Color Yellow, Urine Appearance Cloudy, Urine pH 6.0, Ur Specific [place] 1.025, Urine Protein Negative, Urine Glucose (UA) Negative, Urine Ketones Trace H, Urine Blood Trace-lysed H, Urine Nitrate Negative, Urine Bilirubin Negative, Urine Urobilinogen 1.0 H, Ur Leukocyte Esterase Moderate H, Urine RBC 1 - 3, Urine WBC 15 - 20, Ur Epithelial Cells 10 - 12, Urine Bacteria Mod 01/21/17 17:50: Alcohol, Quantitative < 10 01/21/17 17:50: Sodium 140, Potassium 3.6, Chloride 103, Carbon Dioxide 26, Anion Gap 15, BUN 15, Creatinine 0.6, Est GFR ( Amer) > 60, Est GFR (Non- Af Amer) > 60, Random Glucose 84, Calcium 9.4, Total Bilirubin 1.0, AST 28, ALT 58 H, Alkaline Phosphatase 104, Total Protein 8.3, Albumin 4.6, Globulin 3.7, Albumin/Globulin Ratio 1.2 01/21/17 17:50: WBC 4.7, RBC 4.23, Hgb 13.0, Hct 37.0, MCV 87.5, MCH 30.7, MCHC 35.1, RDW 12.8, Plt Count 229, MPV 10.2, Gran % 52.6, Lymph % (Auto) 40.9 H, [place] % (Auto) 5.5, Eos % (Auto) 0.6 L, Baso % (Auto) 0.4, Gran # 2.48, Lymph # 1.9, [place] # 0.3, Eos # 0.0, Baso # 0.02 Vital Signs Temp Pulse Resp BP Pulse Ox 01/23/17 16:00 63 114/58 L 01/23/17 07:00 98.4 F 72 20 110/67 01/22/17 16:00 65 101/62 01/22/17 07:49 97.9 F 85 20 98/61 L 01/21/17 18:11 116/81 01/21/17 17:30 72 18 119/77 99 01/21/17 16:53 98.6 F 70 16 99 DSM 5 Symptoms Update: Patient is 41 years old female with history of depression and psychosis, one prior admission at [facility] [place] [facility] in 03/2016, denied history of suicidal attempts, reportedly compliant with Risperdal 2 mg HS and Paxil 20 mg HS prescribed by her outpatient psychiatrist who presented to the ER with depression, anxiety and SI to overdose on pills. pt was seen nest to the nursing station, pt was interviewed with SW, pt is Indonesian speaking, utilized RN for translation. pt presented better, affect is more reactive, pt tolerates meds well, reported sleep is better, pt was educated about all meds and tx plan. pt reported that her mood and energy is better, pt denied thoughts of harming self or others but pt c/o "difficulties to organized my thoughts" pt was seen by medical team, was started on abx for UTI. RN obtain collaterals from the pt's aunt who loves in [place], as per Ms. Arvizu [phone]/ [phone] pt had low energy, was sleepy, was not able to function well, pt condition affect pt's functionality. pt also was paranoid was afraid what other people would think about her. pt tolerated change in meds well, pt denied side effects, AIMS 0, no EPS. As per nursing report. Patient started going to groups, socializing with others , no behavioral incidents. Impression: r/o schizoaffective r/o mdd with psychosis Medication Change: Yes (paxil increased, ativan added, ) Medical Record Reviewed: Yes Mental Status Examination - Cognitive Function Orientation: Person, Place, Situation Memory: Intact Attention: Poor (some improvement) Concentration: Poor (some improvment) Association: WNL Fund of Knowledge: WNL - Mood Mood: Depressed (better) - Affect Affect: Constricted - Formal Thought Process Formal Thought Process: No Impairment, Paranoia (denied), Other (internally preoccupied) - Suicidal Ideation Suicidal Ideation: No - Homicidal Ideation Homicidal Ideation: No Goal/Treatment Plan - Goal/Treatment Plan Need for Continued Stay: Remain at risks for inpatient hospitalization, Severe depression anxiety, Discharge may exacerbated symptoms, Severe functional impairment Progress Toward Problem(s) and Goals/Treatment Plan: milieu, structure, supportive therapy and Seroquel 100 mgfor mood stabilization as well as insomnia as well as psychosis Paxil d/c today Prozac 30 mg at the morning time for depression as well as for anxiety Ativan 0.5 bid anxiety and restlessness Collaterals were obtained from the patient on and from the [place] foot worker evaluation Family involvement We'll monitor closely Estimated Date of D/C: 01/28/17
[2017-01-27 07:29] VITALS: TEMP 97.8
--- NOTE | 2017-01-27 18:00 | PCM.PYCHPN ---
Psychiatric Progress Note - Psychiatric Progress Note Patient seen today, length of contact: 30min Patient Chief Complaint: "I feel much better" Problems Identified/Issues Discussed: Suicide/ homicide prevention, past psychiatric h/o, current psychiatric symptoms , medical problems, risk/benefits and alternatives of medications, medications compliance, coping strategies, substance abuse h/o, relapse prevention, importance of follow up with psychiatrist and therapist, discharge plan. Medical Problems: UTI, on abx Diagnostic Results: 01/21/17 17:50 01/21/17 17:50 Lab Results 01/23/17 07:48: Hemoglobin A1c 5.5 01/22/17 08:30: TSH 3rd Generation 0.58 01/22/17 07:10: Triglycerides 72, Cholesterol 170, LDL Cholesterol Direct 98, HDL Cholesterol 53 01/21/17 18:00: Urine Opiates Screen Negative, Urine Methadone Screen Negative, Ur Barbiturates Screen Negative, Ur Phencyclidine Scrn Negative, Ur Amphetamines Screen Negative, U Benzodiazepines Scrn Negative, U Oth Cocaine Metabols Negative, U Cannabinoids Screen Negative 01/21/17 18:00: Urine Color Yellow, Urine Appearance Cloudy, Urine pH 6.0, Ur Specific [place] 1.025, Urine Protein Negative, Urine Glucose (UA) Negative, Urine Ketones Trace H, Urine Blood Trace-lysed H, Urine Nitrate Negative, Urine Bilirubin Negative, Urine Urobilinogen 1.0 H, Ur Leukocyte Esterase Moderate H, Urine RBC 1 - 3, Urine WBC 15 - 20, Ur Epithelial Cells 10 - 12, Urine Bacteria Mod 01/21/17 17:50: Alcohol, Quantitative < 10 01/21/17 17:50: Sodium 140, Potassium 3.6, Chloride 103, Carbon Dioxide 26, Anion Gap 15, BUN 15, Creatinine 0.6, Est GFR ( Amer) > 60, Est GFR (Non- Af Amer) > 60, Random Glucose 84, Calcium 9.4, Total Bilirubin 1.0, AST 28, ALT 58 H, Alkaline Phosphatase 104, Total Protein 8.3, Albumin 4.6, Globulin 3.7, Albumin/Globulin Ratio 1.2 01/21/17 17:50: WBC 4.7, RBC 4.23, Hgb 13.0, Hct 37.0, MCV 87.5, MCH 30.7, MCHC 35.1, RDW 12.8, Plt Count 229, MPV 10.2, Gran % 52.6, Lymph % (Auto) 40.9 H, [place] % (Auto) 5.5, Eos % (Auto) 0.6 L, Baso % (Auto) 0.4, Gran # 2.48, Lymph # 1.9, [place] # 0.3, Eos # 0.0, Baso # 0.02 Vital Signs Temp Pulse Resp BP Pulse Ox 01/23/17 16:00 63 114/58 L 01/23/17 07:00 98.4 F 72 20 110/67 01/22/17 16:00 65 101/62 01/22/17 07:49 97.9 F 85 20 98/61 L 01/21/17 18:11 116/81 01/21/17 17:30 72 18 119/77 99 01/21/17 16:53 98.6 F 70 16 99 DSM 5 Symptoms Update: Patient is 41 years old female with history of depression and psychosis, [place] [facility], denied history of suicidal attempts, reportedly compliant with Risperdal 2 mg HS and Paxil 20 mg HS prescribed by her outpatient psychiatrist who presented to the ER with depression, anxiety and SI to overdose on pills. pt was seen in her room, pt is less depressed, affect was more reactive, pt said she likes meds what she is taking now. pt said that she wants to continue on her current meds, willing to be f/u with outpatient psychiatrist. pt denied thoughts of harming self or others. Brought herself to the hospital looking for admission, patient was compliant with the medications, no signs of psychosis, behavioral control, right now patient has support in the community, patient has associate relations specialist, pt lives with the father of a child. SW will call him for collaterals. pt was seen by medical team, currently on abx for UTI. RN obtain collaterals from the pt's aunt who loves in [place], as per Ms. Arvizu [phone]/ [phone] pt had low energy, was sleepy, was not able to function well, pt condition affect pt's functionality. pt also was paranoid was afraid what other people would think about her. pt tolerated change in meds well, pt denied side effects, AIMS 0, no EPS. As per nursing report. Patient started going to groups, socializing with others , no behavioral incidents. Impression: r/o schizoaffective r/o mdd with psychosis Medication Change: No (djusted yesterday) Medical Record Reviewed: Yes Consults ordered or reviewed: medical consult appreciated, UTI Mental Status Examination - Cognitive Function Orientation: Person, Place, Situation Memory: Intact Attention: Poor (improvement) Concentration: Poor (improvement) Association: WNL Fund of Knowledge: WNL - Mood Mood: Depressed (I feel much better) - Affect Affect: Constricted (but reactive mood congruent) - Speech Speech: Appropriate - Formal Thought Process Formal Thought Process: No Impairment, Paranoia (denied), Other (internally preoccupied) - Suicidal Ideation Suicidal Ideation: No - Homicidal Ideation Homicidal Ideation: No Goal/Treatment Plan - Goal/Treatment Plan Need for Continued Stay: Remain at risks for inpatient hospitalization, Severe depression anxiety, Discharge may exacerbated symptoms, Severe functional impairment Progress Toward Problem(s) and Goals/Treatment Plan: milieu, structure, supportive therapy and Seroquel 100 mgfor mood stabilization as well as insomnia as well as psychosis Prozac 30 mg at the morning time for depression as well as for anxiety Ativan 0.5 bid anxiety and restlessness Collaterals were obtained from the patient on and from the [place] nursing home social worker will call to the patient for collateral information Family involvement We'll monitor closely Estimated Date of D/C: 01/28/17
[2017-01-28 07:50] VITALS: BP 95/57; PULSE 54
--- NOTE | 2017-01-28 15:24 | PCM.PYCHDC ---
Mental Status Examination - Mental Status Examination Orientation: Person, Place, Situation, Time Memory: Intact Mood: Neutral Affect: Broad (and mood congruent) Speech: Appropriate Attention: WNL Concentration: WNL Association: WNL Fund of Knowledge: WNL Formal Thought Process: No Impairment Description of patient's judgement and insight: Pt has improved insight into mental and medical illness, pt was compliant with medications and unit rules and regulations, pt was going to groups, was calm, cooperative, socially appropriate, no behavioral incidents, no agitation, no aggression. Psychotic Thoughts and Behaviors: Pt denied v/a/t hallucinations, denied paranoid ideations, pt does not appear to be psychotic, and thought process is goal directed. Suicidal Ideation: No Current Homicidal Ideation?: No Plan: pt adamantly denied thoughts of harming self or others denied intent or plan. Discharge Summary - Discharge Note Reason for Hospitalization: depression, possible suicidal ideation, inability to function Psychiatric History (includes Medical, Family, Personal Hx): patient has depression with psychosis Laboratory Data: 01/21/17 17:50 01/21/17 17:50 Lab Results 01/23/17 07:48: Hemoglobin A1c 5.5 01/22/17 08:30: TSH 3rd Generation 0.58 01/22/17 07:10: Triglycerides 72, Cholesterol 170, LDL Cholesterol Direct 98, HDL Cholesterol 53 01/21/17 18:00: Urine Opiates Screen Negative, Urine Methadone Screen Negative, Ur Barbiturates Screen Negative, Ur Phencyclidine Scrn Negative, Ur Amphetamines Screen Negative, U Benzodiazepines Scrn Negative, U Oth Cocaine Metabols Negative, U Cannabinoids Screen Negative 01/21/17 18:00: Urine Color Yellow, Urine Appearance Cloudy, Urine pH 6.0, Ur Specific [place] 1.025, Urine Protein Negative, Urine Glucose (UA) Negative, Urine Ketones Trace H, Urine Blood Trace-lysed H, Urine Nitrate Negative, Urine Bilirubin Negative, Urine Urobilinogen 1.0 H, Ur Leukocyte Esterase Moderate H, Urine RBC 1 - 3, Urine WBC 15 - 20, Ur Epithelial Cells 10 - 12, Urine Bacteria Mod 01/21/17 17:50: Alcohol, Quantitative < 10 01/21/17 17:50: Sodium 140, Potassium 3.6, Chloride 103, Carbon Dioxide 26, Anion Gap 15, BUN 15, Creatinine 0.6, Est GFR ( Amer) > 60, Est GFR (Non- Af Amer) > 60, Random Glucose 84, Calcium 9.4, Total Bilirubin 1.0, AST 28, ALT 58 H, Alkaline Phosphatase 104, Total Protein 8.3, Albumin 4.6, Globulin 3.7, Albumin/Globulin Ratio 1.2 01/21/17 17:50: WBC 4.7, RBC 4.23, Hgb 13.0, Hct 37.0, MCV 87.5, MCH 30.7, MCHC 35.1, RDW 12.8, Plt Count 229, MPV 10.2, Gran % 52.6, Lymph % (Auto) 40.9 H, [place] % (Auto) 5.5, Eos % (Auto) 0.6 L, Baso % (Auto) 0.4, Gran # 2.48, Lymph # 1.9, [place] # 0.3, Eos # 0.0, Baso # 0.02 Vital Signs Temp Pulse Resp BP Pulse Ox 01/28/17 07:49 97.8 F 54 L 20 95/57 L 01/27/17 22:00 50 L 98/52 L 01/27/17 07:28 97.8 F 48 L 20 91/54 L 01/26/17 18:41 59 L 97/55 L 01/26/17 07:26 97.9 F 59 L 106/64 01/25/17 16:00 54 L 99/58 L 01/25/17 07:51 98.1 F 54 L 20 93/60 L 01/24/17 15:34 85 131/86 01/23/17 16:00 63 114/58 L 01/23/17 07:00 98.4 F 72 20 110/67 01/22/17 16:00 65 101/62 01/22/17 07:49 97.9 F 85 20 98/61 L 01/21/17 18:11 116/81 01/21/17 17:30 72 18 119/77 99 01/21/17 16:53 98.6 F 70 16 99 Consultations:: List each consultation separately and include: 1. Reason for request. 2. Findings. 3. Follow-up Consultations: medical consult appreciated, UTI patient completed course of antibiotics Summary of Hospital Course include:: 1. Description of specific treatment plan utilized for patients during their course of treatmen. 2. Summarize the time- course for resolution of acute symptoms and/or regressed behaviors. 3. Describe issues identified and worked on during hospitalization. 4. Describe medication utilized. 5. Describe medical problems identified and treated. 6. Reassessment of suicide risk Summary of Hospital Course: Patient is 41 years old female with history of depression and psychosis, one prior admission at [facility] [place] in 03/2016, denied history of suicidal attempts, reportedly compliant with Risperdal 2 mg HS and Paxil 20 mg HS prescribed by her outpatient psychiatrist who presented to the ER with depression, anxiety and SI to overdose on pills. initially pt was seen at the treatment team meeting, pt was interviewed with SW , pt is Bel[place]ian speaking, utilized [employer]. pt said that she was feeling more depressed than usual, pt also said that she had thoughts of overdosing on pills, but "it was just thought, I didn't want to kill myself", pt said that at night she cannot sleep, pt also said that she has poor appetite, pt denied losing weight. Pt reported that she was compliant with meds. pt denied any plan or intent of killing self or others. pt was seen by medical team, was started on abx. RN obtain collaterals from the pt's aunt who loves in [place], as per Ms. Arvizu [phone]/ [phone] pt had low energy, was sleepy, was not able to function well, pt condition affect pt's functionality. pt also was paranoid was afraid what other people would think about her. ocial worker had prolonged conversation with patient's boyfriend and father of her 1 year old child, as per collateral information patient was stressed out about 2 old early kids, and about child support patient needs to pay for them. Please see executive secretary social welfare notes for more detailed information, at the same time patient boyfriend is willing to accept patient back home has no concerns at present moment. DY case was closed in November, no need to call them back again. patient initiated this admission herself, was compliant with the medication and follow- up appointments, no agitation, no aggression, was able to take care of her 1 year old child. pt was stabilized on the following meds: Seroquel 100 mgfor mood stabilization as well as insomnia as well as psychosis Prozac 30 mg at the morning time for depression as well as for anxiety Ativan 0.5 bid anxiety and restlessness Risperdal and Paxil for weaned off. Over the course of this hospitalization pt was attending groups, pt also had medication management, had therapeutic milieu. Overall pt improved significantly, pt's affect became brighter, pt was less depressed, has realistic future oriented plans, pt also does not appear to be psychotic, or anxious, pt was socially appropriate, no behavioral issues, pts insight improved as well and soon pt deemed to be ready for discharge. At the time of the discharge pt denied been depressed, denied thoughts of harming self or others, denied psychotic symptoms, and pt does not appeared to be psychotic, denied been anxious, was considered to pose no threat to self or others, will be following up with outpatient psychiatrist, information about follow up appointment, time and address provided to the pt, it is patient responsibility to follow up with outpatient clinic, PMD as well as specialists ( see SW note for more detailed information). In case pt will need to obtain results of studies pending at discharge pt was provided with contact information of Psychiatric Inpatient unit [phone] as well as Medical Record Department [phone]. pt was provided with prescriptions for all of medications (please see medication reconciliation form) Pt was educated about safety plan in case of worsening of symptoms or in case of suicidal or homicidal ideation call 911 or go to the nearest ER, also was educated to take meds as prescribed and stay away from drugs, pt verbalized understanding. - Diagnosis (1) MDD (major depressive disorder), recurrent episode Status: Chronic Priority: Medium - Final Diagnosis (DSM 5) Condition upon Discharge: STABLE Disposition: HOME/ ROUTINE Follow-up Treatment Plan: At the time of the discharge pt denied been depressed, denied thoughts of harming self or others, denied psychotic symptoms, and pt does not appeared to be psychotic, denied been anxious, was considered to pose no threat to self or others, will be following up with outpatient psychiatrist, information about follow up appointment, time and address provided to the pt, it is patient responsibility to follow up with outpatient clinic, PMD as well as specialists ( see SW note for more detailed information). In case pt will need to obtain results of studies pending at discharge pt was provided with contact information of Psychiatric Inpatient unit [phone] as well as Medical Record Department [phone]. pt was provided with prescriptions for all of medications (please see medication reconciliation form) Pt was educated about safety plan in case of worsening of symptoms or in case of suicidal or homicidal ideation call 911 or go to the nearest ER, also was educated to take meds as prescribed and stay away from drugs, pt verbalized understanding. Prescriptions/Medication Reconciliation: FLUoxetine [Prozac] 30 mg PO DAILY #45 cap LORazepam [Ativan] 0.5 mg PO AMHS #30 tab QUEtiapine [Seroquel] 100 mg PO HS #14 tab - Smoking Cessation Smoking Cessation Medication prescribed: No Reason for not providing: pt does not smoke - Antipsychotic Medications Pt discharged on 2 or more routine antipsychotic medications: No
== END 2017-01-28 14:46 | disposition home or self-care (01) | DRG 430 ==
LOC: ED 16:38 → ERH 18:55 → PSYC 20:51
PROVIDERS: ADMIT Psychiatry & Neurology Psychiatry; ATTEND Psychiatry & Neurology Psychiatry
DX: F33.9 Major depressive disorder, recurrent, unspecified (principal); N39.0 Urinary tract infection, site not specified

== ENCOUNTER 2017-02-25 12:39 | Inpatient (IN) | payer MEDICAID ==
[2017-02-25 12:42] VITALS: BMI 28.1
--- NOTE | 2017-02-25 13:06 | ED PDOC ---
Arrival/HPI - General Historian: Patient - History of Present Illness Time/Duration: Prior to Arrival Context: Home - General Chief Complaint: Psychiatric Evaluation Time Seen by Provider: 02/25/17 13:04 - History of Present Illness Narrative History of Present Illness (Text): 02/25/17 13:04 This 41 yo female presents to this ED tearful, anxious, and depressed. Patient admits stating that sometimes she wants to take a lot of pills , so she would not wake up. Patient denies HI, paranoia. Patient is not compliant to her meds. (Elise Parrish) Past Medical History - Provider Review Nursing Documentation Reviewed: Yes - Infectious Disease Hx of Infectious Diseases: None - Past Medical History Past Medical History: No Previous - Cardiac Hx Cardiac Disorders: No (denies) Hx Hypertension: No - Pulmonary Hx Respiratory Disorders: No (denies) - Neurological Hx Neurological Disorder: No (denies) - HEENT Hx HEENT Disorder: No (denies) - Renal Hx Renal Disorder: No (denies) - Endocrine/Metabolic Hx Endocrine Disorders: No (denies) - Hematological/Oncological Hx Blood Disorders: No (denies) - Integumentary Hx Dermatological Disorder: No (denies) - Musculoskeletal/Rheumatological Hx Falls: Yes - Gastrointestinal Hx Gastrointestinal Disorders: No (denies) - Genitourinary/Gynecological Hx Genitourinary Disorders: No (denies) - Psychiatric Hx Depression: Yes Hx Substance Use: No - Past Surgical History Past Surgical History: No Previous - Anesthesia Hx Anesthesia: No - Suicidal Assessment Feels Threatened In Home Enviroment: No Family/Social History - Physician Review Nursing Documentation Reviewed: Yes Family/Social History: Other (non-contributory) Smoking Status: Never Smoked Hx Alcohol Use: No Hx Substance Use: No Hx Substance Use Treatment: No Allergies/Home Meds Allergies/Adverse Reactions: Allergies No Known Allergies Allergy (Verified 01/21/17 22:40) Home Medications: Home Meds Medication Instructions Recorded Confirmed FLUoxetine [Prozac] 30 mg PO DAILY 02/25/17 02/25/17 Review of Systems - Review of Systems Constitutional: Normal. absent: Fatigue, Weight Change, Fevers, Night Sweats Eyes: Normal ENT: Normal Respiratory: Normal Cardiovascular: Normal Gastrointestinal: Normal Genitourinary Female: Normal Musculoskeletal: Normal Skin: Normal Neurological: Normal Endocrine: Normal Hemo/Lymphatic: Normal Psychiatric: Anxiety, Depression, Suicidal Ideation Physical Exam Temperature: Afebrile Blood Pressure: Normal Pulse: Regular Respiratory Rate: Normal Appearance: Positive for: Well-Appearing, Non-Toxic, Comfortable Pain Distress: None Mental Status: Positive for: Alert and Oriented X 3 - Systems Exam Head: Present: Atraumatic, Normocephalic Pupils: Present: PERRL Extroacular Muscles: Present: EOMI Conjunctiva: Present: Normal Mouth: Present: Moist Mucous Membranes Neck: Present: Normal Range of Motion Respiratory/Chest: Present: Clear to Auscultation, Good Air Exchange, Decreased Breath Sounds. No: Respiratory Distress, Accessory Muscle Use, Wheezes, Rales, Retracting Cardiovascular: Present: Regular Rate and Rhythm, Normal S1, S2. No: Murmurs Medical Decision Making Re-evaluation Time: 16:18 Reassessment Condition: Re-examined, Improved - Lab Interpretations I have reviewed the lab results: Yes Interpretation: No clinic. lab abnormalty - EKG Interpretation Interpreted by ED Physician: Yes (NSR @ 63 bpm. Normal interval) Type: 12 lead EKG Comparison: No previous EKG avail. ED Course and Treatment: 02/25/17 16:20 Justina MANCINI screener spoke with Psychiatrist and they are recommending admission ( Elise Parrish) I was available for consultation during PA evaluation. The chart was reviewed by me, and I agree with disposition. The documented history was done by the physician experience specialist. The documented procedures were done by the physician experience specialist. (Randal Kenyon) - Lab Interpretations Lab Results: 02/25/17 13:58 02/25/17 13:58 Lab Results 02/25/17 15:26: Urine Opiates Screen Negative, Urine Methadone Screen Negative, Ur Barbiturates Screen Negative, Ur Phencyclidine Scrn Negative, Ur Amphetamines Screen Negative, U Benzodiazepines Scrn Negative, U Oth Cocaine Metabols Negative, U Cannabinoids Screen Negative 02/25/17 15:26: Urine Color Straw, Urine Appearance Clear, Urine pH 6.5, Ur Specific [place] <= 1.005, Urine Protein Negative, Urine Glucose (UA) Negative, Urine Ketones Negative, Urine Blood Negative, Urine Nitrate Negative, Urine Bilirubin Negative, Urine Urobilinogen 0.2, Ur Leukocyte Esterase Negative, Urine HCG, Qual Negative 02/25/17 13:58: Alcohol, Quantitative < 10 02/25/17 13:58: Salicylates < 1 L, Acetaminophen < 10.0 L 02/25/17 13:58: Sodium 139, Potassium 3.7, Chloride 103, Carbon Dioxide 26, Anion Gap 14, BUN 12, Creatinine 0.6, Est GFR ( Amer) > 60, Est GFR (Non- Af Amer) > 60, Random Glucose 126 H, Calcium 9.4, Total Bilirubin 0.8, AST 41 H , ALT 80 H, Alkaline Phosphatase 99, Total Protein 7.7, Albumin 4.5, Globulin 3.2, Albumin/Globulin Ratio 1.4 02/25/17 13:58: WBC 5.7 D, RBC 4.26, Hgb 13.0, Hct 37.8, MCV 88.7, MCH 30.5, MCHC 34.4, RDW 12.9, Plt Count 210, MPV 10.4, Gran % 65.5, Lymph % (Auto) 30.5, [place] % (Auto) 3.3, Eos % (Auto) 0.5 L, Baso % (Auto) 0.2, Gran # 3.75, Lymph # 1.8, [place] # 0.2, Eos # 0.0, Baso # 0.01 02/25/17 13:56: POC Glucose (mg/dL) 126 H - RAD Interpretation Narrative RAD Interpretations (Text): 02/25/17 16:18 Chest x-rays: NAD (ParrishNahcam P) Radiology Orders: 02/25/17 13:06 CHEST PORTABLE [RAD] Stat - Medication Orders Current Medication Orders: Discontinued Medications Ibuprofen (Motrin Tab) 600 mg PO STAT STA Stop: 02/25/17 16:18 Last Admin: 02/25/17 17:06 Dose: 600 mg Disposition/Present on Arrival - Present on Arrival Any Indicators Present on Arrival: No History of DVT/PE: No History of Uncontrolled Diabetes: No Urinary Catheter: No History of Decub. Ulcer: No History Surgical Site Infection Following: None - Disposition Have Diagnosis and Disposition been Completed?: Yes Disposition Time: 16:22 Patient Plan: Admission - Disposition Diagnosis: MDD (major depressive disorder), recurrent episode Disposition: HOSPITALIZED Condition: STABLE Referrals: Essence Jaimes DO [Primary Care Provider] - Follow up with primary Forms: [facility] (Kazakh)
[2017-02-25 14:25] LABS: BASO # 0.01 K/mm3 (0.0-2.0); BASO % 0.2 % (0.0-3.0); EOS % 0.5 % (1.5-5.0); GRAN # 3.75 (1.4-6.5); GRAN % 65.5 % (50.0-68.0); HEMATOCRIT 37.8 % (36.0-48.0); LYMPH # 1.8 (1.2-3.4); LYMPH % 30.5 % (22.0-35.0); MEAN CELL VOLUME 88.7 fl (80.0-105.0); MEAN CORPUSCULAR HEMOGLOBIN 30.5 pg (25.0-35.0); MEAN CORPUSCULAR HGB CONC 34.4 g/dl (31.0-37.0); MEAN PLATELET VOLUME 10.4 fl (7.0-11.0); MONO # 0.2 (0.1-0.6); MONO % 3.3 % (1.0-6.0); RED CELL DISTRIBUTION WIDTH 12.9 % (11.5-14.5); WHITE BLOOD COUNT 5.7 10^3/ul (4.5-11.0)
[2017-02-25 14:35] LABS: ALB/GLOB RATIO 1.4 (1.1-1.8); ALKALINE PHOSPHATASE 99 U/L (38-126); ALT/SGPT 80 U/L (7-56); AST/SGOT 41 U/L (14-36); BILIRUBIN,TOTAL 0.8 mg/dL (0.2-1.3); BLOOD UREA NITROGEN 12 mg/dL (7-21); CALCIUM 9.4 mg/dL (8.4-10.5); CARBON DIOXIDE 26 mmol/L (21-33); CHLORIDE 103 mmol/L (98-107); GFR AFRICAN-AMERICAN > 60; GLUCOSE,RANDOM 126 mg/dL (70-110); POTASSIUM 3.7 mmol/L (3.6-5.0); SODIUM 139 mmol/L (132-148); TOTAL PROTEIN 7.7 g/dL (5.8-8.3)
[2017-02-25 15:37] LABS: PH,URINE 6.5 (4.7-8.0); URINE BILIRUBIN NEGATIVE (NEGATIVE); URINE BLOOD NEGATIVE (NEGATIVE); URINE GLUCOSE (UA) NEGATIVE (NEGATIVE); URINE KETONE NEGATIVE (NEGATIVE); URINE LEUKOCYTE ESTERASE NEGATIVE Leu/uL (NEGATIVE); URINE PROTEIN NEGATIVE mg/dL (<30 mg/dL); URINE UROBILINOGEN 0.2 E.U./dL (<1 E.U./dL)
[2017-02-25 15:38] LABS: URINE APPEARANCE CLEAR (CLEAR); URINE COLOR STRAW (YELLOW)
--- NOTE | 2017-02-25 16:48 | RAD ---
HISTORY: PES eval COMPARISON: 01/21/2017 FINDINGS: LUNGS: No active pulmonary disease. PLEURA: No significant pleural effusion identified, no pneumothorax apparent. CARDIOVASCULAR: Normal. OSSEOUS STRUCTURES: No significant abnormalities. VISUALIZED UPPER ABDOMEN: Normal. OTHER FINDINGS: None. IMPRESSION: No active disease.
--- NOTE | 2017-02-25 20:24 | CARD ---
APPROVED REPORT EKG Measurement Heart [id number] CT 118P60 [id number] <Conclusion> Normal sinus rhythm Normal ECG
[2017-02-25 20:47] VITALS: O2SAT 99
--- NOTE | 2017-02-26 00:51 | PCM.BM ---
Treatment Plan Problems - Problems identified on initial assessmt Depression Date Initiated: 02/25/17 Time Initiated: 22:00 Status: Active Priority: 1 Treatment assets and liabiliti Patient Assests: cooperative, ADL independent, good past tx response
[2017-02-26 06:54] VITALS: RESP 20
[2017-02-26] MEDS ORDERED: FLUoxetine Elix 20 MG/5 ML PO SCH ×2 (08:00→09:08)
--- NOTE | 2017-02-26 09:07 | PCM.PSYCH ---
Initial Psychiatric Evaluation - Initial Psychiatric Evaluation Type of Admission: Voluntary Chief Complaint (in patient's own words): depressed History of Present Illness and Precipitating Events: Patient is 41 year old single [place]ian female with history of depression and psychosis, two prior [place] [facility] [place], no reported history of suicidal attempts, noncompliant with aftercare recommendations after her admission last month who presented to the ER with depression, anxiety and SI to overdose on pills--similar to prior presentations. I reviewed prior admission records and recent notes. I met with patient at bedside. Nigerian translation was aided by a staff member. Patient is calm, cooperative and oriented x3. Patient reports depression with symptoms of low mood, lability, poor sleep and anxiety. She becomes emotional when discussing stressors however she appears reluctant to discuss them. Denies being abused by anyone. She is quite anxious about the possibility of [facility] being called again. They were involved in her life a year ago. Patient admits to having suicidal thoughts to overdose on pills prior to admission however denies any thoughts of harming her children. Patient indicates she was compliant with her discharge medications however did not follow up with aftercare referral so her supply of medications ran out. Presently denies any suicidal thoughts or hallucinations (please note, patient presented with hallucinations during her first admission). Patient has been in good control on the unit thus far. PSYCHIATRIC HISTORY 01/21/17-01/28/17 Admitted to [facility] with diagnosis of Major Depressive disorder, recurrent episode. Discharged medications: Prozac 30 mg PO DAILY Ativan 0.5 mg PO AMHS Seroquel 100 mg PO HS 04/15/16-04/27/16 Admitted to [facility] with diagnosis of Severe Depressive Episode with psychotic symptoms in period. Patient also had UTI during that admission, given additional possible diagnosis of r/o delirium due to UTI. Discharge medications: risperdal 1mg am and 2mg hs for psychosis paxil 30mg po hs for depression and anxiety Remeron 15mg for depression and insomnia Patient did not follow up with aftercare recommendations upon discharge from [facility] last month. Previously she had been following up with a psychiatrist in [place]. SOCIAL HISTORY Patient was born and raised in [facility]. She lives with her two children 1-year- old son and a 13-year-old. Her boyfriend is the father of her one year-old son. Boyfriend is currently watching her two children. Patient is unemployed. Patient denies any tobacco, alcohol or drug use. Current Medications: Active Medications Generic Name Dose Route Start Last Admin Trade Name Freq PRN Reason Stop Dose Admin Acetaminophen 650 mg 02/26/17 00:09 02/26/17 00:27 Tylenol 325mg Tab PO 650 mg Q4H PRN Administration Pain, moderate (4-7) Fluoxetine HCl 20 mg 02/26/17 08:00 Prozac PO DAILY ENMANUEL Lorazepam 0.5 mg 02/26/17 08:00 Ativan PO BID [facility] Protocol Quetiapine Fumarate 50 mg 02/26/17 10:00 Seroquel PO AMHS ENMANUEL Protocol Ziprasidone 20 mg 02/25/17 22:18 Geodon Inj IM TID PRN Agitation Protocol Past Psychiatric History - Past Psychiatric History Pertinent Medical Hx (Current Medical&Sleep Prob, Allergies): Allergies Allergy/AdvReac Type Severity Reaction Status Date / Time No Known Allergies Allergy Verified 02/25/17 22:34 LORazepam [Ativan] 0.5 mg PO AMHS #30 tab 01/27/17 QUEtiapine [Seroquel] 100 mg PO HS #14 tab 01/27/17 FLUoxetine [Prozac] 30 mg PO DAILY 02/25/17 Mental Status Examination - Personal Presentation Personal Presentation: Looks stated age - Affect Affect: Constricted - Motor Activity Motor Activity: Calm - Reliability in Providing Information Reliability in Providing Information: Fair - Speech Speech: Organized - Mood Mood: Depressed - Formal Thought Process Formal Thought Process: No Impairment - Obsessions/Compulsions Obsessions: No Compulsions: No - Cognitive Functions Orientation: Person, Place, Situation Sensorium: Alert Attention/Concentration: Attentive Estimate of Intelligence: Average Judgement: Imparied, as evidence by: Poor judgement, Imparied, as evidence by: Lack of insight into illness - Risk Risk: Suicidal, Diminished functioning - Strength & Assets Inventory Strength & Assets Inventory: Cooperative DSM 5 DX - DSM 5 DSM 5 Diagnosis: Major Depressive disorder, Severe, recurrent episode - Recommended/Plan of Treatment Treatment Recommendations and Plan of Treatment: * group, mileau and supportive tx * Seroquel 100 mg HS for history of psychosis * Prozac 30 mg po daily for depression and anxiety * Ativan 0.5 mg po bid for anxiety * Awaiting medical follow up * Vitals reviewed and noted below: Selected Entries 02/25/17 02/25/17 02/25/17 12:39 20:00 23:00 Temperature 98.1 F Pulse Rate 76 59 L Respiratory 18 16 16 Rate Blood Pressure 119/85 110/64 ER LABS AND STUDIES 02/25/17 15:26: Urine Opiates Screen Negative, Urine Methadone Screen Negative, Ur Barbiturates Screen Negative, Ur Phencyclidine Scrn Negative, Ur Amphetamines Screen Negative, U Benzodiazepines Scrn Negative, U Oth Cocaine Metabols Negative, U Cannabinoids Screen Negative 02/25/17 15:26: Urine Color Straw, Urine Appearance Clear, Urine pH 6.5, Ur Specific [place] <= 1.005, Urine Protein Negative, Urine Glucose (UA) Negative, Urine Ketones Negative, Urine Blood Negative, Urine Nitrate Negative, Urine Bilirubin Negative, Urine Urobilinogen 0.2, Ur Leukocyte Esterase Negative, Urine HCG, Qual Negative 02/25/17 13:58: Alcohol, Quantitative < 10 02/25/17 13:58: Salicylates < 1 L, Acetaminophen < 10.0 L 02/25/17 13:58: Sodium 139, Potassium 3.7, Chloride 103, Carbon Dioxide 26, Anion Gap 14, BUN 12, Creatinine 0.6, Est GFR ( Amer) > 60, Est GFR (Non- Af Amer) > 60, Random Glucose 126 H, Calcium 9.4, Total Bilirubin 0.8, AST 41 H , ALT 80 H, Alkaline Phosphatase 99, Total Protein 7.7, Albumin 4.5, Globulin 3.2, Albumin/Globulin Ratio 1.4 02/25/17 13:58: WBC 5.7 D, RBC 4.26, Hgb 13.0, Hct 37.8, MCV 88.7, MCH 30.5, MCHC 34.4, RDW 12.9, Plt Count 210, MPV 10.4, Gran % 65.5, Lymph % (Auto) 30.5, [place] % (Auto) 3.3, Eos % (Auto) 0.5 L, Baso % (Auto) 0.2, Gran # 3.75, Lymph # 1.8, [place] # 0.2, Eos # 0.0, Baso # 0.01 02/25/17 13:56: POC Glucose (mg/dL) 126 H 02/25/17 16:18 Chest x-rays: NAD - Smoking Cessation Smoking Cessation Initiated: No
--- NOTE | 2017-02-27 08:43 | PCM.PYCHPN ---
Psychiatric Progress Note - Psychiatric Progress Note Patient seen today, length of contact: 25 min Patient Chief Complaint: depressed Problems Identified/Issues Discussed: History of Present Illness and Precipitating Events: Patient is 41 year old single [place]ian female with history of depression and psychosis, two prior admissions at [facility] in 01/2017 and 03/2016, no reported history of suicidal attempts, noncompliant with aftercare recommendations after her admission last month who presented to the ER with depression, anxiety and SI to overdose on pills--similar to prior presentations. I reviewed prior admission records and recent notes. I met with patient at bedside. Mauritanian translation was aided by a staff member Karena Vegas. Patient is calm, cooperative and oriented x3. Patient reports depression with symptoms of low mood, lability, poor sleep and anxiety. She becomes emotional when discussing stressors however she appears reluctant to discuss them. Denies being abused by anyone. She is quite anxious about the possibility of [facility] being called again. They were involved in her life a year ago. Patient admits to having suicidal thoughts to overdose on pills prior to admission however denies any thoughts of harming her children. Patient indicates she was compliant with her discharge medications however did not follow up with aftercare referral so her supply of medications ran out. Presently denies any suicidal thoughts or hallucinations (please note, patient presented with hallucinations during her first admission). Patient has been in good control on the unit thus far. PSYCHIATRIC HISTORY 01/21/17-01/28/17 Admitted to [facility] with diagnosis of Major Depressive disorder, recurrent episode. Discharged medications: Prozac 30 mg PO DAILY Ativan 0.5 mg PO AMHS Seroquel 100 mg PO HS 04/15/16-04/27/16 Admitted to [facility] with diagnosis of Severe Depressive Episode with psychotic symptoms in period. Patient also had UTI during that admission, given additional possible diagnosis of r/o delirium due to UTI. Discharge medications: risperdal 1mg am and 2mg hs for psychosis paxil 30mg po hs for depression and anxiety Remeron 15mg for depression and insomnia Patient did not follow up with aftercare recommendations upon discharge from [facility] last month. Previously she had been following up with a psychiatrist in [place]. SOCIAL HISTORY Patient was born and raised in [facility]. She lives with her two children 1-year- old son and a 13-year-old. Her boyfriend is the father of her one year-old son. Boyfriend is currently watching her two children. Patient is unemployed. Patient denies any tobacco, alcohol or drug use. ~~~~~~~~~~~~~~~~~~~~~~ I reviewed recent notes and met with patient at bedside. She has been calm and quiet on the unit. Generally keeps to herself. Patient remains well oriented to circumstances. Indicates she is still depressed but no longer suicidal. She is hopeful. Affect is constricted and preoccupied. Indicates her headache is improved from yesterday. Patient continues to deny hallucinations or paranoia. Responses remain relevant to questioning. Thus far patient is tolerating her medications well. Denies any new discomfort or pain. Slept better last night. Appears anxious and tearful on the unit. There were no behavioral issues over the weekend. Diagnostic Results: Major Depressive disorder, Severe, recurrent episode Medication Change: No Medical Record Reviewed: Yes Mental Status Examination - Cognitive Function Orientation: Person, Place, Situation Attention: WNL Concentration: Poor - Mood Mood: Depressed - Affect Affect: Constricted - Formal Thought Process Formal Thought Process: No Impairment - Suicidal Ideation Suicidal Ideation: No - Homicidal Ideation Homicidal Ideation: No Goal/Treatment Plan - Goal/Treatment Plan Progress Toward Problem(s) and Goals/Treatment Plan: * group, [facility]au and supportive tx * Seroquel 100 mg HS for history of psychosis * Prozac 30 mg po daily for depression and anxiety * Ativan 0.5 mg po bid for anxiety * Awaiting medical follow up * Vitals reviewed and noted below: 02/26/17 02/26/17 06:53 16:38 Temperature 98.1 F Pulse Rate 56 L 80 Respiratory 20 Rate Blood Pressure 112/65 110/71 ER LABS AND STUDIES 02/25/17 15:26: Urine Opiates Screen Negative, Urine Methadone Screen Negative, Ur Barbiturates Screen Negative, Ur Phencyclidine Scrn Negative, Ur Amphetamines Screen Negative, U Benzodiazepines Scrn Negative, U Oth Cocaine Metabols Negative, U Cannabinoids Screen Negative 02/25/17 15:26: Urine Color Straw, Urine Appearance Clear, Urine pH 6.5, Ur Specific [place] <= 1.005, Urine Protein Negative, Urine Glucose (UA) Negative, Urine Ketones Negative, Urine Blood Negative, Urine Nitrate Negative, Urine Bilirubin Negative, Urine Urobilinogen 0.2, Ur Leukocyte Esterase Negative, Urine HCG, Qual Negative 02/25/17 13:58: Alcohol, Quantitative < 10 02/25/17 13:58: Salicylates < 1 L, Acetaminophen < 10.0 L 02/25/17 13:58: Sodium 139, Potassium 3.7, Chloride 103, Carbon Dioxide 26, Anion Gap 14, BUN 12, Creatinine 0.6, Est GFR ( Amer) > 60, Est GFR (Non- Af Amer) > 60, Random Glucose 126 H, Calcium 9.4, Total Bilirubin 0.8, AST 41 H , ALT 80 H, Alkaline Phosphatase 99, Total Protein 7.7, Albumin 4.5, Globulin 3.2, Albumin/Globulin Ratio 1.4 02/25/17 13:58: WBC 5.7 D, RBC 4.26, Hgb 13.0, Hct 37.8, MCV 88.7, MCH 30.5, MCHC 34.4, RDW 12.9, Plt Count 210, MPV 10.4, Gran % 65.5, Lymph % (Auto) 30.5, [place] % (Auto) 3.3, Eos % (Auto) 0.5 L, Baso % (Auto) 0.2, Gran # 3.75, Lymph # 1.8, [place] # 0.2, Eos # 0.0, Baso # 0.01 02/25/17 13:56: POC Glucose (mg/dL) 126 H 02/25/17 16:18 Chest x-rays: NAD
[2017-02-28 07:36] LABS: ALB/GLOB RATIO 1.2 (1.1-1.8); BILIRUBIN,DIRECT 0.2 mg/dL (0.0-0.4); BILIRUBIN,TOTAL 0.6 mg/dL (0.2-1.3)
--- NOTE | 2017-02-28 15:12 | PCM.PYCHPN ---
Psychiatric Progress Note - Psychiatric Progress Note Patient seen today, length of contact: 30 minutes Patient Chief Complaint: "I did not know that they have refill of my medications, my friend saw me crying and crying, I came to the pharmacy with my friend, but I never said that I want to harm myself" Problems Identified/Issues Discussed: Suicide/ homicide prevention, past psychiatric h/o, current psychiatric symptoms , medical problems, risk/benefits and alternatives of medications, medications compliance, coping strategies, substance abuse h/o, relapse prevention, importance of follow up with psychiatrist and therapist, discharge plan. Medical Problems: pt is healthy Diagnostic Results: 02/25/17 13:58 02/25/17 13:58 Lab Results 02/28/17 07:21: Hepatitis A IgM Ab Negative, Hep Bs Antigen Negative, Hep B Core IgM Ab Negative, Hepatitis C Antibody Negative 02/28/17 07:21: Hemoglobin A1c 5.5 02/28/17 07:21: Total Bilirubin 0.6, Direct Bilirubin 0.2, AST 36, ALT 83 H, Alkaline Phosphatase 90, Total Protein 7.0, Albumin 3.9, Globulin 3.1, Albumin/ Globulin Ratio 1.2 02/25/17 15:26: Urine Opiates Screen Negative, Urine Methadone Screen Negative, Ur Barbiturates Screen Negative, Ur Phencyclidine Scrn Negative, Ur Amphetamines Screen Negative, U Benzodiazepines Scrn Negative, U Oth Cocaine Metabols Negative, U Cannabinoids Screen Negative 02/25/17 15:26: Urine Color Straw, Urine Appearance Clear, Urine pH 6.5, Ur Specific [place] <= 1.005, Urine Protein Negative, Urine Glucose (UA) Negative, Urine Ketones Negative, Urine Blood Negative, Urine Nitrate Negative, Urine Bilirubin Negative, Urine Urobilinogen 0.2, Ur Leukocyte Esterase Negative, Urine HCG, Qual Negative 02/25/17 13:58: Alcohol, Quantitative < 10 02/25/17 13:58: Salicylates < 1 L, Acetaminophen < 10.0 L 02/25/17 13:58: Sodium 139, Potassium 3.7, Chloride 103, Carbon Dioxide 26, Anion Gap 14, BUN 12, Creatinine 0.6, Est GFR ( Amer) > 60, Est GFR (Non- Af Amer) > 60, Random Glucose 126 H, Calcium 9.4, Total Bilirubin 0.8, AST 41 H , ALT 80 H, Alkaline Phosphatase 99, Total Protein 7.7, Albumin 4.5, Globulin 3.2, Albumin/Globulin Ratio 1.4 02/25/17 13:58: WBC 5.7 D, RBC 4.26, Hgb 13.0, Hct 37.8, MCV 88.7, MCH 30.5, MCHC 34.4, RDW 12.9, Plt Count 210, MPV 10.4, Gran % 65.5, Lymph % (Auto) 30.5, [place] % (Auto) 3.3, Eos % (Auto) 0.5 L, Baso % (Auto) 0.2, Gran # 3.75, Lymph # 1.8, [place] # 0.2, Eos # 0.0, Baso # 0.01 02/25/17 13:56: POC Glucose (mg/dL) 126 H Vital Signs Temp Pulse Resp BP Pulse Ox 02/28/17 07:29 9801 F H 60 20 121/60 02/27/17 16:35 64 112/65 02/27/17 07:22 98.0 F 57 L 20 118/71 02/26/17 16:38 80 110/71 02/26/17 06:53 98.1 F 56 L 20 112/65 02/25/17 23:00 16 02/25/17 20:00 59 L 16 110/64 99 02/25/17 12:39 98.1 F 76 18 119/85 96 DSM 5 Symptoms Update: as per 's note: Patient is 41 year old single [place] female with history of depression and psychosis, two prior admissions at [facility] [place] in 01/2017 and 03/2016, no reported history of suicidal attempts, noncompliant with aftercare recommendations after her admission last month who presented to the ER with depression, anxiety and SI to overdose on pills--similar to prior presentations. pt was seen at the tx team meeting, acceptable personal hygiene, fair ADLs. pt said she never verbalized any thoughts of harming self or others, but as per ED report pt said she wants to take a lot of pills. pt said she did not realized that she has refill for her meds, that is why pt was feeling "depressed and crying". as per [facility] pt was at the [facility] outpatient program, was seen by psychiatrist, will call for collaterals. pt said when she was on meds she was feeling better. pt asked when she will be d/c, seems to be concerned about her kids (currently they are under care of pt's and DYFS involved). as per staff, no acute issues, pt is not agitated or aggressive. pt tolerates meds well, no side effects observed or reported, AIMS 0, no EPS. Impression: DSM 5 Diagnosis: Major Depressive disorder, Severe, recurrent episode Medication Change: Yes (was resumed by ) Medical Record Reviewed: Yes Consults ordered or reviewed: medical consult will be called Mental Status Examination - Cognitive Function Orientation: Person, Place, Situation Memory: Intact Attention: WNL Concentration: Poor Association: Loose Fund of Knowledge: Poor (baseline) - Mood Mood: Depressed - Affect Affect: Constricted - Formal Thought Process Formal Thought Process: No Impairment - Suicidal Ideation Suicidal Ideation: No - Homicidal Ideation Homicidal Ideation: No Goal/Treatment Plan - Goal/Treatment Plan Need for Continued Stay: Remain at risks for inpatient hospitalization, Severe depression anxiety, Discharge may exacerbated symptoms, Severe functional impairment Progress Toward Problem(s) and Goals/Treatment Plan: group, [place] and supportive tx Seroquel 100 mg HS for history of psychosis Prozac 30 mg po daily for depression and anxiety Ativan 0.5 mg po bid for anxiety ating medical follow up NANCY echevarria collaterals from psychiatrist, family Estimated Date of D/C: 03/04/17
--- NOTE | 2017-02-28 16:49 | CP.PCM.CON ---
"<Mac Marquez - Last Filed: 02/28/17 18:32> History of Present Illness - History of Present Illness History of Present Illness: This patient is a 41 year old female who was admitted to psych unit for treatment and evaluation of depression and anxiety. We were consulted on this patient for evaluation of any medical issues. Patient states she still feels depressed which has not improved since admission. She has no acute physical complaints. ROS Complains of: depression. Amenorrhea (6 months) Denies: Headache, changes in vision, lightheadedness, CP, SOB, palpitations, abdominal pain, N/V/D, constipation, urinary symptoms. PMH: Denies PSH: Denies Allergies: Denies Social: Denies tobacco, alcohol, or illicit drug use Hos: Denies Family Hx: Diabetes on maternal side Meds: per MAR Review of Systems - Review of Systems Review of Systems: As per HPI Past Patient History - Infectious Disease Hx of Infectious Diseases: None - Past Medical History & Family History Past Medical History?: No - Past Social History Smoking Status: Never Smoked - CARDIAC Hx Cardiac Disorders: No (denies) Hx Hypertension: No - PULMONARY Hx Respiratory Disorders: No (denies) - NEUROLOGICAL Hx Neurological Disorder: No (denies) - HEENT Hx HEENT Problems: No (denies) - RENAL Hx Chronic Kidney Disease: No (denies) - ENDOCRINE/METABOLIC Hx Endocrine Disorders: No (denies) - HEMATOLOGICAL/ONCOLOGICAL Hx Blood Disorders: No (denies) - INTEGUMENTARY Hx Dermatological Problems: No (denies) - MUSCULOSKELETAL/RHEUMATOLOGICAL Hx Falls: Yes - GASTROINTESTINAL Hx Gastrointestinal Disorders: No (denies) - GENITOURINARY/GYNECOLOGICAL Hx Genitourinary Disorders: No (denies) - PSYCHIATRIC Hx Psychophysiologic Disorder: No Hx Anxiety: No Hx Bipolar Disorder: No Hx Depression: Yes Hx Emotional Abuse: No Hx Physical Abuse: No Hx Schizophrenia: No Hx Sexual Abuse: No Hx Substance Use: No - SURGICAL HISTORY Hx Surgeries: No (denies) - ANESTHESIA Hx Anesthesia: No Meds Allergies/Adverse Reactions: Allergies Allergy/AdvReac Type Severity Reaction Status Date / Time No Known Allergies Allergy Verified 02/25/17 22:34 - Medications Medications: Current Medications Acetaminophen (Tylenol 325mg Tab) 650 mg PO Q4H PRN PRN Reason: Pain, moderate (4-7) Last Admin: 02/26/17 07:07 Dose: 650 mg Fluoxetine HCl (Prozac) 30 mg PO DAILY ENMANUEL Last Admin: 02/28/17 08:39 Dose: 30 mg Lorazepam (Ativan) 0.5 mg PO BID ENMANUEL PRN Reason: Protocol Last Admin: 02/28/17 08:39 Dose: 0.5 mg Quetiapine Fumarate (Seroquel) 100 mg PO HS ENMANULE PRN Reason: Protocol Last Admin: 02/27/17 21:19 Dose: 100 mg Ziprasidone (Geodon Inj) 20 mg IM TID PRN; Protocol PRN Reason: Agitation Physical Exam - Head Exam Head Exam: ATRAUMATIC, NORMOCEPHALIC - Eye Exam Eye Exam: EOMI, Normal appearance - ENT Exam ENT Exam: Mucous Membranes Moist - Respiratory Exam Respiratory Exam: Clear to Auscultation Bilateral, NORMAL BREATHING PATTERN. absent: Rales, Rhonchi, Wheezes, Stridor - Cardiovascular Exam Cardiovascular Exam: RRR, +S1, +S2. absent: JVD - GI/Abdominal Exam GI & Abdominal Exam: Normal Bowel Sounds, Soft. absent: Organomegaly, Tenderness - Extremities Exam Extremities exam: Positive for: normal inspection - Back Exam Back exam: absent: CVA tenderness (L), CVA tenderness (R) - Neurological Exam Neurological exam: Alert, Oriented x3 - Psychiatric Exam Psychiatric exam: Depressed - Skin Skin Exam: Dry, Intact, Normal Color, Warm Results - Vital Signs Recent Vital Signs: Last Vital Signs Temp 9801 F H 02/28/17 07:29 Pulse 60 02/28/17 16:00 Resp 20 02/28/17 07:29 BP 99/59 L 02/28/17 16:00 Pulse Ox 99 02/25/17 20:00 - Labs Result Diagrams: 02/25/17 13:58 02/25/17 13:58 Labs: Laboratory Results - last 24 hr 02/28/17 02/28/17 02/28/17 07:21 07:21 07:21 Hemoglobin A1c 5.5 Total Bilirubin 0.6 Direct Bilirubin 0.2 AST 36 ALT 83 H Alkaline Phosphatase 90 Total Protein 7.0 Albumin 3.9 Globulin 3.1 Albumin/Globulin Ratio 1.2 Hepatitis A IgM Ab Negative Hep Bs Antigen Negative Hep B Core IgM Ab Negative Hepatitis C Antibody Negative Assessment & Plan - Assessment and Plan (Free Text) Assessment: 41 y.o female with no significant medical history admitted to Psych unit for treatment and evaluation of depression an anxiety. 1.Hx of Amenorrhea -Outpatient [facility] f/u Dispo: We will sign off on this patient. Please feel free to contact us with any questions. Patient seen, examined, and reviewed with Attending Mac Marquez | PGY-1 - Date & Time Date: 02/28/17 Time: 18:38 <Santiago Winkler - Last Filed: 03/01/17 13:56> Meds - Medications Medications: Current Medications Acetaminophen (Tylenol 325mg Tab) 650 mg PO Q4H PRN PRN Reason: Pain, moderate (4-7) Last Admin: 02/26/17 07:07 Dose: 650 mg Fluoxetine HCl (Prozac) 30 mg PO DAILY ENMANUEL Last Admin: 03/01/17 09:19 Dose: 30 mg Lorazepam (Ativan) 0.5 mg PO BID ENMANUEL PRN Reason: Protocol Last Admin: 03/01/17 09:19 Dose: 0.5 mg Quetiapine Fumarate (Seroquel) 100 mg PO HS ENMANUEL PRN Reason: Protocol Last Admin: 02/28/17 21:12 Dose: 100 mg Ziprasidone (Geodon Inj) 20 mg IM TID PRN; Protocol PRN Reason: Agitation Results - Vital Signs Recent Vital Signs: Last Vital Signs Temp 97.5 F L 03/01/17 06:51 Pulse 95 H 03/01/17 06:51 Resp 20 03/01/17 06:51 BP 135/75 03/01/17 06:51 Pulse Ox 99 02/25/17 20:00 - Labs Result Diagrams: 02/25/17 13:58 02/25/17 13:58 Attending/Attestation - Attestation I have personally seen and examined this patient.: Yes I have fully participated in the care of the patient.: Yes I have reviewed all pertinent clinical information: Yes Notes (Text): 03/01/17 13:54 attending note; Patient seen and examined with the resident in psychiatric floor. History by Tajik-speaking nurse taking care of this patient. Patient is a 41-year-old female admitted with depression. No acute medical issues. Mildly elevated LFTs. Improved. Hepatitis profile negative. Patient is a nonsmoker. Denies history of alcohol abuse and drug abuse. amenorrhea; needs outpatient follow-up with [facility] to regulate menses. Urine test is negative. Patient is medically stable. Please reconsult as needed. Thank you for the courtesy of this consultation."
--- NOTE | 2017-03-01 14:12 | PCM.PYCHPN ---
Psychiatric Progress Note - Psychiatric Progress Note Patient seen today, length of contact: 30 minutes Patient Chief Complaint: "I feel better" Problems Identified/Issues Discussed: Suicide/ homicide prevention, past psychiatric h/o, current psychiatric symptoms , medical problems, risk/benefits and alternatives of medications, medications compliance, coping strategies, substance abuse h/o, relapse prevention, importance of follow up with psychiatrist and therapist, discharge plan. Medical Problems: pt is healthy Diagnostic Results: 02/25/17 13:58 02/25/17 13:58 Lab Results 02/28/17 07:21: Hepatitis A IgM Ab Negative, Hep Bs Antigen Negative, Hep B Core IgM Ab Negative, Hepatitis C Antibody Negative 02/28/17 07:21: Hemoglobin A1c 5.5 02/28/17 07:21: Total Bilirubin 0.6, Direct Bilirubin 0.2, AST 36, ALT 83 H, Alkaline Phosphatase 90, Total Protein 7.0, Albumin 3.9, Globulin 3.1, Albumin/ Globulin Ratio 1.2 02/25/17 15:26: Urine Opiates Screen Negative, Urine Methadone Screen Negative, Ur Barbiturates Screen Negative, Ur Phencyclidine Scrn Negative, Ur Amphetamines Screen Negative, U Benzodiazepines Scrn Negative, U Oth Cocaine Metabols Negative, U Cannabinoids Screen Negative 02/25/17 15:26: Urine Color Straw, Urine Appearance Clear, Urine pH 6.5, Ur Specific [place] <= 1.005, Urine Protein Negative, Urine Glucose (UA) Negative, Urine Ketones Negative, Urine Blood Negative, Urine Nitrate Negative, Urine Bilirubin Negative, Urine Urobilinogen 0.2, Ur Leukocyte Esterase Negative, Urine HCG, Qual Negative 02/25/17 13:58: Alcohol, Quantitative < 10 02/25/17 13:58: Salicylates < 1 L, Acetaminophen < 10.0 L 02/25/17 13:58: Sodium 139, Potassium 3.7, Chloride 103, Carbon Dioxide 26, Anion Gap 14, BUN 12, Creatinine 0.6, Est GFR ( Amer) > 60, Est GFR (Non- Af Amer) > 60, Random Glucose 126 H, Calcium 9.4, Total Bilirubin 0.8, AST 41 H , ALT 80 H, Alkaline Phosphatase 99, Total Protein 7.7, Albumin 4.5, Globulin 3.2, Albumin/Globulin Ratio 1.4 02/25/17 13:58: WBC 5.7 D, RBC 4.26, Hgb 13.0, Hct 37.8, MCV 88.7, MCH 30.5, MCHC 34.4, RDW 12.9, Plt Count 210, MPV 10.4, Gran % 65.5, Lymph % (Auto) 30.5, [place] % (Auto) 3.3, Eos % (Auto) 0.5 L, Baso % (Auto) 0.2, Gran # 3.75, Lymph # 1.8, [place] # 0.2, Eos # 0.0, Baso # 0.01 02/25/17 13:56: POC Glucose (mg/dL) 126 H Vital Signs Temp Pulse Resp BP Pulse Ox 02/28/17 07:29 9801 F H 60 20 121/60 02/27/17 16:35 64 112/65 02/27/17 07:22 98.0 F 57 L 20 118/71 02/26/17 16:38 80 110/71 02/26/17 06:53 98.1 F 56 L 20 112/65 02/25/17 23:00 16 02/25/17 20:00 59 L 16 110/64 99 02/25/17 12:39 98.1 F 76 18 119/85 96 DSM 5 Symptoms Update: Patient is 41 year old single [place] female with history of depression and psychosis, two prior admissions at [facility] [place] [place] in 01/2017 and 03/2016, no reported history of suicidal attempts, noncompliant with aftercare recommendations after her admission last month who presented to the ER with depression, anxiety and SI to overdose on pills--similar to prior presentations. pt was seen in her room, acceptable personal hygiene, fair ADLs. pt said that she feels better, pt no signs of psychosis, denied thoughts of harming self or others. as per collaterals from the outpatient clinic, pt missed two appts, pt has no reasonable explanation why. ICMS referral was made. as per staff, no acute issues, pt is not agitated or aggressive. pt tolerates meds well, no side effects observed or reported, AIMS 0, no EPS. Impression: DSM 5 Diagnosis: Major Depressive disorder, Severe, recurrent episode Medication Change: Yes (was resumed by ) Medical Record Reviewed: Yes Consults ordered or reviewed: medical consult appreciated Mental Status Examination - Cognitive Function Orientation: Person, Place, Situation Memory: Intact Attention: WNL Concentration: Poor Association: Loose Fund of Knowledge: Poor (baseline) - Mood Mood: Depressed - Affect Affect: Constricted - Formal Thought Process Formal Thought Process: No Impairment - Suicidal Ideation Suicidal Ideation: No - Homicidal Ideation Homicidal Ideation: No Goal/Treatment Plan - Goal/Treatment Plan Need for Continued Stay: Remain at risks for inpatient hospitalization, Severe depression anxiety, Discharge may exacerbated symptoms, Severe functional impairment Progress Toward Problem(s) and Goals/Treatment Plan: group, [place] and supportive tx Seroquel 100 mg HS for history of psychosis Prozac 30 mg po daily for depression and anxiety Ativan 0.5 mg po bid for anxiety medical evaluation appreciated NANCY echevarria collaterals from psychiatrist appreciated family involvement Estimated Date of D/C: 03/04/17
[2017-03-02 07:22] VITALS: BP 112/60; PULSE 62; TEMP 98.2
--- NOTE | 2017-03-02 16:05 | PCM.PYCHDC ---
Mental Status Examination - Mental Status Examination Orientation: Person, Place, Situation, Time Memory: Intact Mood: Neutral Affect: Constricted (but reactive mood congruent) Speech: Appropriate Attention: WNL Concentration: WNL Association: WNL Fund of Knowledge: WNL Formal Thought Process: No Impairment (I) Description of patient's judgement and insight: Pt has improved insight into mental and medical illness, pt was compliant with medications and unit rules and regulations, pt was going to groups, was calm, cooperative, socially appropriate, no behavioral incidents, no agitation, no aggression. Psychotic Thoughts and Behaviors: Pt denied v/a/t hallucinations, denied paranoid ideations, pt does not appear to be psychotic, and thought process is goal directed. Suicidal Ideation: No Current Homicidal Ideation?: No Plan: pt adamantly denied thoughts of harming self or others denied intent or plan. Discharge Summary - Discharge Note Reason for Hospitalization: worsening of depression, possible suicidal ideation, noncompliance with the medication, inability to function Psychiatric History (includes Medical, Family, Personal Hx): please see HPI Laboratory Data: 02/25/17 13:58 02/25/17 13:58 Lab Results 02/28/17 07:21: Hepatitis A IgM Ab Negative, Hep Bs Antigen Negative, Hep B Core IgM Ab Negative, Hepatitis C Antibody Negative 02/28/17 07:21: Hemoglobin A1c 5.5 02/28/17 07:21: Total Bilirubin 0.6, Direct Bilirubin 0.2, AST 36, ALT 83 H, Alkaline Phosphatase 90, Total Protein 7.0, Albumin 3.9, Globulin 3.1, Albumin/ Globulin Ratio 1.2 02/25/17 15:26: Urine Opiates Screen Negative, Urine Methadone Screen Negative, Ur Barbiturates Screen Negative, Ur Phencyclidine Scrn Negative, Ur Amphetamines Screen Negative, U Benzodiazepines Scrn Negative, U Oth Cocaine Metabols Negative, U Cannabinoids Screen Negative 02/25/17 15:26: Urine Color Straw, Urine Appearance Clear, Urine pH 6.5, Ur Specific [place] <= 1.005, Urine Protein Negative, Urine Glucose (UA) Negative, Urine Ketones Negative, Urine Blood Negative, Urine Nitrate Negative, Urine Bilirubin Negative, Urine Urobilinogen 0.2, Ur Leukocyte Esterase Negative, Urine HCG, Qual Negative 02/25/17 13:58: Alcohol, Quantitative < 10 02/25/17 13:58: Salicylates < 1 L, Acetaminophen < 10.0 L 02/25/17 13:58: Sodium 139, Potassium 3.7, Chloride 103, Carbon Dioxide 26, Anion Gap 14, BUN 12, Creatinine 0.6, Est GFR ( Amer) > 60, Est GFR (Non- Af Amer) > 60, Random Glucose 126 H, Calcium 9.4, Total Bilirubin 0.8, AST 41 H , ALT 80 H, Alkaline Phosphatase 99, Total Protein 7.7, Albumin 4.5, Globulin 3.2, Albumin/Globulin Ratio 1.4 02/25/17 13:58: WBC 5.7 D, RBC 4.26, Hgb 13.0, Hct 37.8, MCV 88.7, MCH 30.5, MCHC 34.4, RDW 12.9, Plt Count 210, MPV 10.4, Gran % 65.5, Lymph % (Auto) 30.5, [place] % (Auto) 3.3, Eos % (Auto) 0.5 L, Baso % (Auto) 0.2, Gran # 3.75, Lymph # 1.8, [place] # 0.2, Eos # 0.0, Baso # 0.01 02/25/17 13:56: POC Glucose (mg/dL) 126 H Vital Signs Temp Pulse Resp BP Pulse Ox 03/02/17 07:21 98.2 F 62 20 112/60 03/01/17 06:51 97.5 F L 95 H 20 135/75 02/28/17 16:00 60 99/59 L 02/28/17 07:29 9801 F H 60 20 121/60 02/27/17 16:35 64 112/65 02/27/17 07:22 98.0 F 57 L 20 118/71 02/26/17 16:38 80 110/71 02/26/17 06:53 98.1 F 56 L 20 112/65 02/25/17 23:00 16 02/25/17 20:00 59 L 16 110/64 99 02/25/17 12:39 98.1 F 76 18 119/85 96 Consultations:: List each consultation separately and include: 1. Reason for request. 2. Findings. 3. Follow-up Consultations: medical consult appreciated please see notes for more detailed information Summary of Hospital Course include:: 1. Description of specific treatment plan utilized for patients during their course of treatmen. 2. Summarize the time- course for resolution of acute symptoms and/or regressed behaviors. 3. Describe issues identified and worked on during hospitalization. 4. Describe medication utilized. 5. Describe medical problems identified and treated. 6. Reassessment of suicide risk Summary of Hospital Course: as per 's note: Patient is 41 year old single [place] female with history of depression and psychosis, two [place] [facility] [place], no reported history of suicidal attempts, noncompliant with aftercare recommendations after her admission last month who presented to the ER with depression, anxiety and SI to overdose on pills--similar to prior presentations. pt was seen at the tx team meeting, acceptable personal hygiene, fair ADLs. pt said she never verbalized any thoughts of harming self or others, but as per ED report pt said she wants to take a lot of pills. pt said she did not realized that she has refill for her meds, that is why pt was feeling "depressed and crying". as per [employer] pt was at the [facility] outpatient program, was seen by psychiatrist, ut as per [facility] reported, patient missed 2 appointments. pt said when she was on meds she was feeling better. pt asked when she will be d/c, seems to be concerned about her kids (currently they are under care of pt's and DYFS involved). as per staff, no acute issues, pt is not agitated or aggressive. pt tolerates meds well, no side effects observed or reported, AIMS 0, no EPS. patient was stabilized on the following medications: Seroquel 100 mg HS for history of psychosis Prozac 30 mg po daily for depression and anxiety Ativan 0.5 mg po bid for anxiety Over the course of this hospitalization pt was attending groups, pt also had medication management, had therapeutic milieu. Overall pt improved significantly, pt's affect became brighter, pt was less depressed, has realistic future oriented plans, pt also does not appear to be psychotic, or anxious, pt was socially appropriate, no behavioral issues, pts insight improved as well and soon pt deemed to be ready for discharge. this contract writer is really concerned about this patient because patient has chronic noncompliance with the medication and follow-up appointments, keep coming back to the hospital, patient might benefit from ICMS worker, case was referred, patient was accepted, patient will be seen by ICMS worker in the community. Please see public health social worker evaluation for more detailed information. At the time of the discharge pt denied been depressed, denied thoughts of harming self or others, denied psychotic symptoms, and pt does not appeared to be psychotic, denied been anxious, pt is not in imminent danger to self or others, will be following up at [facility], information about follow up appointment, time and address provided to the pt, it is patient responsibility to follow up with outpatient clinic, PMD as well as specialists ( see SW note for more detailed information). In case pt will need to obtain results of studies pending at discharge pt was provided with contact information of Psychiatric Inpatient unit [phone] as well as Medical Record Department [phone]. pt was provided with prescriptions for all of medications (please see medication reconciliation form) Pt was educated about safety plan in case of worsening of symptoms or in case of suicidal or homicidal ideation call 911 or go to the nearest ER, also was educated to take meds as prescribed and stay away from drugs, pt verbalized understanding. - Diagnosis (1) MDD (major depressive disorder), recurrent episode Current Visit: Yes Status: Chronic Priority: Medium - Final Diagnosis (DSM 5) Condition upon Discharge: STABLE Disposition: HOME/ ROUTINE Follow-up Treatment Plan: At the time of the discharge pt denied been depressed, denied thoughts of harming self or others, denied psychotic symptoms, and pt does not appeared to be psychotic, denied been anxious, pt is not in imminent danger to self or others, will be following up at [facility], information about follow up appointment, time and address provided to the pt, it is patient responsibility to follow up with outpatient clinic, PMD as well as specialists ( see SW note for more detailed information). In case pt will need to obtain results of studies pending at discharge pt was provided with contact information of Psychiatric Inpatient unit [phone] as well as Medical Record Department [phone]. pt was provided with prescriptions for all of medications, this contract writer called in to [facility] [place] all of the medications Pt was educated about safety plan in case of worsening of symptoms or in case of suicidal or homicidal ideation call 911 or go to the nearest ER, also was educated to take meds as prescribed and stay away from drugs, pt verbalized understanding. Prescriptions/Medication Reconciliation: FLUoxetine [Prozac] 30 mg PO DAILY #30 LORazepam [Ativan] 0.5 mg PO AMHS #30 tab QUEtiapine [Seroquel] 100 mg PO HS #14 tab - Smoking Cessation Smoking Cessation Medication prescribed: No Reason for not providing: patient denied smoking - Antipsychotic Medications Pt discharged on 2 or more routine antipsychotic medications: No
== END 2017-03-02 15:45 | disposition home or self-care (01) | DRG 430 ==
LOC: ED 12:39 → ERH 16:22 → PSYC 21:59
PROVIDERS: ADMIT Psychiatry & Neurology Psychiatry; ATTEND Psychiatry & Neurology Psychiatry
DX: F33.2 Major depressive disorder, recurrent severe without psychotic features (principal); Z91.14 Patient's other noncompliance with medication regimen

== ENCOUNTER 2017-08-13 16:28 | Emergency (ER) | payer MEDICAID ==
[2017-08-13 16:56] VITALS: BMI 27.1
--- NOTE | 2017-08-13 16:57 | ED PDOC ---
Arrival/HPI - General Historian: Patient <Amee Kovacs A - Last Filed: 08/14/17 01:22> <Jon Jara - Last Filed: 08/14/17 08:05> - General Chief Complaint: Psychiatric Evaluation Time Seen by Provider: 08/13/17 16:35 - History of Present Illness Narrative History of Present Illness (Text): 08/13/17 16:54 41yo female with psychiatric history of Major depression and anxiety bib BLS with complaint of anxiety and depression. Patient states she couldn't find her apartment, and she knocked on her neighbor's doors. the neighbors called the Police who called EMS. Pt however report nervousness, depression and hunger in Emergency department. She denies SI/Hi, hallucination, nausea, vomiting, abdominal pain, any other complaint. (Amee Kovacs A) Past Medical History - Provider Review Nursing Documentation Reviewed: Yes - Infectious Disease Hx of Infectious Diseases: None - Past Medical History Past Medical History: No Previous - Cardiac Hx Cardiac Disorders: No (denies) Hx Hypertension: No - Pulmonary Hx Respiratory Disorders: No (denies) - Neurological Hx Neurological Disorder: No (denies) - HEENT Hx HEENT Disorder: No (denies) - Renal Hx Renal Disorder: No (denies) - Endocrine/Metabolic Hx Endocrine Disorders: No (denies) - Hematological/Oncological Hx Blood Disorders: No (denies) - Integumentary Hx Dermatological Disorder: No (denies) - Musculoskeletal/Rheumatological Hx Falls: Yes - Gastrointestinal Hx Gastrointestinal Disorders: No (denies) - Genitourinary/Gynecological Hx Genitourinary Disorders: No (denies) - Psychiatric Hx Psychophysiologic Disorder: No Hx Anxiety: No Hx Bipolar Disorder: No Hx Depression: Yes Hx Emotional Abuse: No Hx Physical Abuse: No Hx Schizophrenia: No Hx Sexual Abuse: No Hx Substance Use: No - Past Surgical History Past Surgical History: No Previous - Anesthesia Hx Anesthesia: No - Suicidal Assessment Feels Threatened In Home Enviroment: No <Amee Kovacs A - Last Filed: 08/14/17 01:22> Family/Social History - Physician Review Nursing Documentation Reviewed: Yes Family/Social History: Unknown Family HX Smoking Status: Never Smoked Hx Alcohol Use: No Hx Substance Use: No Hx Substance Use Treatment: No <Amee Kovacs A - Last Filed: 08/14/17 01:22> Allergies/Home Meds <Amee Kovacs A - Last Filed: 08/14/17 01:22> <TolericoRickJon - Last Filed: 08/14/17 08:05> Allergies/Adverse Reactions: Allergies No Known Allergies Allergy (Verified 08/13/17 16:39) Review of Systems - Physician Review All systems were reviewed & negative as marked: Yes - Review of Systems Constitutional: Normal Eyes: Normal ENT: Normal Respiratory: Normal Cardiovascular: Normal Gastrointestinal: Normal Genitourinary Female: Normal Musculoskeletal: Normal Skin: Normal Neurological: Normal Endocrine: Normal Hemo/Lymphatic: Normal Psychiatric: Anxiety, Depression <uHappiness A - Last Filed: 08/14/17 01:22> Physical Exam Vital Signs Reviewed: Yes Temperature: Afebrile Blood Pressure: Hypertensive Pulse: Tachycardic Respiratory Rate: Normal Appearance: Positive for: Well-Appearing, Non-Toxic, Comfortable Pain Distress: None Mental Status: Positive for: Alert and Oriented X 3 - Systems Exam Head: Present: Atraumatic, Normocephalic Pupils: Present: PERRL Extroacular Muscles: Present: EOMI Conjunctiva: Present: Normal Mouth: Present: Moist Mucous Membranes Neck: Present: Normal Range of Motion Respiratory/Chest: Present: Clear to Auscultation, Good Air Exchange. No: Respiratory Distress, Accessory Muscle Use Cardiovascular: Present: Regular Rate and Rhythm, Normal S1, S2. No: Murmurs Abdomen: Present: Normal Bowel Sounds. No: Tenderness, Distention, Peritoneal Signs Back: Present: Normal Inspection Upper Extremity: Present: Normal Inspection. No: Cyanosis, Edema Lower Extremity: Present: Normal Inspection. No: Edema Neurological: Present: GCS=15, CN II-XII Intact, Speech Normal Skin: Present: Warm, Dry, Normal Color. No: Rashes Psychiatric: Present: Alert, Oriented x 3, Normal Insight, Normal Concentration , Anxious <Amee Kovacs A - Last Filed: 08/14/17 01:22> Vital Signs Temp Pulse Resp BP Pulse Ox 08/14/17 07:38 98.7 F 99 H 16 111/51 L 96 08/14/17 06:00 77 16 128/62 100 08/14/17 04:00 78 18 128/60 99 08/14/17 02:18 89 18 127/50 L 100 08/13/17 21:12 147/80 08/13/17 20:39 100 H 20 156/115 H 99 Medical Decision Making <Amee Kovacs - Last Filed: 08/14/17 01:22> <Jon Jara - Last Filed: 08/14/17 08:05> ED Course and Treatment: 08/13/17 22:00 PT was medically cleared for psych evaluation. she was seen in Emergency department by LIVE Rivera. He DC with the psychiatrist and pt will be admitted for MDD. PT will be transferred to [place]. EKG sinus tachy @105bpm Chest X-ray NAD He DC plan with the pt and she agreed. PT came to Emergency department with her two son's and states she have nobody to take the children. DYRADHA was notified and will come to Emergency department for the children. While Osiel was in Emergency department, the mother requested that both children go to the father and they went with the father who came to the Emergency department and Osiel was aware. She is pending transfer to [place] (Amee Kovacs) - Lab Interpretations Lab Results: 08/13/17 17:30 08/13/17 17:30 Lab Results 08/13/17 17:55: Urine HCG, Qual Negative 08/13/17 17:55: Urine Opiates Screen Negative, Urine Methadone Screen Negative, Ur Barbiturates Screen Negative, Ur Phencyclidine Scrn Negative, Ur Amphetamines Screen Negative, U Benzodiazepines Scrn Negative, U Oth Cocaine Metabols Negative, U Cannabinoids Screen Negative 08/13/17 17:55: Urine Color Light yellow, Urine Appearance Clear, Urine pH 6.5, Ur Specific [place] <= 1.005, Urine Protein Negative, Urine Glucose (UA) Negative, Urine Ketones Trace H, Urine Blood Negative, Urine Nitrate Negative, Urine Bilirubin Negative, Urine Urobilinogen 0.2, Ur Leukocyte Esterase Trace H , Urine RBC 0 - 2, Urine WBC 2 - 5, Ur Epithelial Cells 4 - 5, Urine Bacteria Many, Urine Other Uyeast 08/13/17 17:30: Alcohol, Quantitative < 10 08/13/17 17:30: Salicylates < 1 L, Acetaminophen < 10.0 L 08/13/17 17:30: Sodium 134, Potassium 3.3 L, Chloride 97 L, Carbon Dioxide 24, Anion Gap 17, BUN 7, Creatinine 0.5 L, Est GFR ( Amer) > 60, Est GFR (Non -Af Amer) > 60, Random Glucose 134 H, Calcium 10.5, Total Bilirubin 0.8, AST 27 , ALT 33, Alkaline Phosphatase 100, Total Protein 8.4 H, Albumin 4.8, Globulin 3.6, Albumin/Globulin Ratio 1.3 08/13/17 17:30: WBC 8.0 D, RBC 4.27, Hgb 13.2, Hct 37.7, MCV 88.3, MCH 30.9, MCHC 35.0, RDW 12.7, Plt Count 271, MPV 10.4, Gran % 75.8 H, Lymph % (Auto) 20.0 L, [place] % (Auto) 4.1, Eos % (Auto) 0.0 L, Baso % (Auto) 0.1, Gran # 6.08, Lymph # (Auto) 1.6, [place] # (Auto) 0.3, Eos # (Auto) 0.0, Baso # (Auto) 0.01 - RAD Interpretation Radiology Orders: 08/14/17 00:43 CHEST PORTABLE [RAD] Stat - Medication Orders Current Medication Orders: Discontinued Medications Potassium Chloride (K-Dur 20 Meq Er Tab) 20 meq PO STAT STA Stop: 08/13/17 18:02 Last Admin: 08/13/17 18:14 Dose: 20 meq Disposition/Present on Arrival - Present on Arrival Any Indicators Present on Arrival: No History of DVT/PE: No History of Uncontrolled Diabetes: No Urinary Catheter: No History of Decub. Ulcer: No History Surgical Site Infection Following: None - Disposition Have Diagnosis and Disposition been Completed?: Yes <Amee Kovacs A - Last Filed: 08/14/17 01:22> - Present on Arrival Any Indicators Present on Arrival: No History of DVT/PE: No History of Uncontrolled Diabetes: No Urinary Catheter: No History of Decub. Ulcer: No - Disposition Have Diagnosis and Disposition been Completed?: Yes Disposition Time: 08:05 Patient Plan: Transfer To <Jon Jara - Last Filed: 08/14/17 08:05> - Disposition Diagnosis: MDD (major depressive disorder), recurrent episode Disposition: Transfer [facility] Patient Problems: Current Active Problems Problem Status Onset MDD (major depressive disorder), recurrent episode Chronic Condition: STABLE Referrals: [email or web address], [Primary Care Provider] - Follow up with primary Forms: [employer] ([place]ian)
[2017-08-13 17:47] LABS: BASO # 0.01 K/mm3 (0.0-2.0); BASO % 0.1 % (0.0-3.0); GRAN # 6.08 (1.4-6.5); GRAN % 75.8 % (50.0-68.0); HEMOGLOBIN 13.2 g/dL (12.0-16.0); LYMPH # 1.6 (1.2-3.4); MEAN CELL VOLUME 88.3 fl (80.0-105.0); MEAN CORPUSCULAR HEMOGLOBIN 30.9 pg (25.0-35.0); MEAN PLATELET VOLUME 10.4 fl (7.0-11.0); MONO # 0.3 (0.1-0.6); MONO % 4.1 % (1.0-6.0); RBC 4.27 10^6/uL (3.5-6.1); RED CELL DISTRIBUTION WIDTH 12.7 % (11.5-14.5)
[2017-08-13 18:00] LABS: ALB/GLOB RATIO 1.3 (1.1-1.8); ALBUMIN 4.8 g/dL (3.0-4.8); ALT/SGPT 33 U/L (7-56); AST/SGOT 27 U/L (14-36); BLOOD UREA NITROGEN 7 mg/dL (7-21); CALCIUM 10.5 mg/dL (8.4-10.5); GFR AFRICAN-AMERICAN > 60; GFR NON-AFRICAN AMERICAN > 60
[2017-08-13 18:01] LABS: ACETAMINOPHEN < 10.0 ug/ml (10.0-20.0); SALICYLATE < 1 mg/dL (2.0-20.0)
[2017-08-13] MEDS ORDERED: Potassium Chloride 20 mEq ER Tab PO STA (18:01)
[2017-08-13 18:06] LABS: PH,URINE 6.5 (4.7-8.0); URINE BILIRUBIN NEGATIVE (NEGATIVE); URINE BLOOD NEGATIVE (NEGATIVE); URINE GLUCOSE (UA) NEGATIVE (NEGATIVE); URINE LEUKOCYTE ESTERASE TRACE Leu/uL (NEGATIVE); URINE NITRATE NEGATIVE (NEGATIVE); URINE PROTEIN NEGATIVE mg/dL (<30 mg/dL); URINE UROBILINOGEN 0.2 E.U./dL (<1 E.U./dL)
[2017-08-13 18:11] LABS: URINE APPEARANCE CLEAR (CLEAR); URINE COLOR LIGHT YELLOW (YELLOW)
[2017-08-13 18:14] LABS: URINE RBC 0 - 2 /hpf (0-2)
[2017-08-13 18:15] LABS: URINE BACTERIA MANY (NEG)
[2017-08-13 19:11] LABS: BARBITURATES, UR NEGATIVE (NEGATIVE); BENZODIAZEPINES, UR NEGATIVE (NEGATIVE); OPIATES, UR NEGATIVE (NEGATIVE); PHENCYCLIDINE, UR NEGATIVE (NEGATIVE)
[2017-08-14 07:34] VITALS: RESP 16
[2017-08-14 07:39] VITALS: BP 111/51; PULSE 99; TEMP 98.7; O2SAT 96
--- NOTE | 2017-08-14 09:00 | RAD ---
HISTORY: admission COMPARISON: 02/25/2017. FINDINGS: LUNGS: The lungs are clear. PLEURA: No significant pleural effusion identified, no pneumothorax apparent. CARDIOVASCULAR: Normal. OSSEOUS STRUCTURES: No significant abnormalities. VISUALIZED UPPER ABDOMEN: Normal. OTHER FINDINGS: None. IMPRESSION: No active pulmonary disease.
--- NOTE | 2017-08-14 15:01 | CARD ---
APPROVED REPORT EKG Measurement Heart [id number] <Conclusion> Normal sinus rhythm Possible Left atrial enlargement Inferior infarct, age undetermined Cannot rule out Anterior infarct, age undetermined Abnormal ECG
== END 2017-08-14 07:54 | disposition short-term general hospital (02) ==
LOC: ED 16:28
DX: F33.9 Major depressive disorder, recurrent, unspecified (principal)

== ENCOUNTER 2017-09-13 16:54 | Emergency (ER) | payer MEDICAID ==
[2017-09-13 17:29] VITALS: RESP 18; BMI 24.7
[2017-09-13 18:06] LABS: BASO # 0.01 K/mm3 (0.0-2.0); BASO % 0.1 % (0.0-3.0); EOS % 0.3 % (1.5-5.0); GRAN # 4.16 (1.4-6.5); GRAN % 59.7 % (50.0-68.0); HEMOGLOBIN 13.6 g/dL (12.0-16.0); LYMPH # 2.4 (1.2-3.4); LYMPH % 34.9 % (22.0-35.0); MEAN CELL VOLUME 89.2 fl (80.0-105.0); MEAN CORPUSCULAR HEMOGLOBIN 30.5 pg (25.0-35.0); MEAN CORPUSCULAR HGB CONC 34.2 g/dl (31.0-37.0); MEAN PLATELET VOLUME 10.6 fl (7.0-11.0); MONO # 0.4 (0.1-0.6); RBC 4.46 10^6/uL (3.5-6.1); RED CELL DISTRIBUTION WIDTH 12.9 % (11.5-14.5)
[2017-09-13 18:31] LABS: ALB/GLOB RATIO 1.3 (1.1-1.8); ALT/SGPT 66 U/L (7-56); AST/SGOT 73 U/L (14-36); BLOOD UREA NITROGEN 19 mg/dL (7-21); GFR AFRICAN-AMERICAN > 60; GFR NON-AFRICAN AMERICAN > 60
[2017-09-13 18:33] LABS: ACETAMINOPHEN < 10.0 ug/ml (10.0-20.0); SALICYLATE < 1 mg/dL (2.0-20.0)
[2017-09-13 19:03] LABS: URINE BILIRUBIN NEGATIVE (NEGATIVE); URINE BLOOD NEGATIVE (NEGATIVE); URINE GLUCOSE (UA) NEGATIVE (NEGATIVE); URINE LEUKOCYTE ESTERASE NEGATIVE Leu/uL (NEGATIVE); URINE PROTEIN 30 mg/dL (<30 mg/dL)
[2017-09-13 19:05] LABS: URINE APPEARANCE SL CLOUDY (CLEAR); URINE COLOR YELLOW (YELLOW)
[2017-09-13 19:13] LABS: URINE RBC NEGATIVE /hpf (0-2); URINE WBC 0 - 2 /hpf (0-6)
[2017-09-13 19:14] LABS: URINE BACTERIA FEW (NEG); URINE EPITHELIAL CELLS MANY /hpf (0-5)
[2017-09-13 19:24] LABS: BARBITURATES, UR NEGATIVE (NEGATIVE); BENZODIAZEPINES, UR NEGATIVE (NEGATIVE); OPIATES, UR NEGATIVE (NEGATIVE); PHENCYCLIDINE, UR NEGATIVE (NEGATIVE)
[2017-09-13] MEDS ORDERED: Potassium Chloride 20 mEq ER Tab PO STA (19:54)
--- NOTE | 2017-09-13 19:54 | ED PDOC ---
Arrival/HPI - General Historian: Patient - History of Present Illness Time/Duration: Prior to Arrival <Josephine Aranda - Last Filed: 09/14/17 10:28> <Fermin Rios - Last Filed: 09/14/17 19:37> - General Chief Complaint: Psychiatric Evaluation Time Seen by Provider: 09/13/17 17:25 - History of Present Illness Narrative History of Present Illness (Text): 09/13/17 19:55 42yr old female with hx of anxiety and depression presents today brought in by ambulance for evaluation for depression. Per EMS the patient was experiencing bizarre behavior during a child protective services evaluation in the home today. pt does not want to give much information. pt is C/o depression. denies SI. denies trauma or injury. denies abdominal pain. no other complaints. (Josephine Aranda) Past Medical History - Provider Review Nursing Documentation Reviewed: Yes - Travel History Have you recently traveled outside [place] w/in the past 3 mons?: No - Infectious Disease Hx of Infectious Diseases: None - Past Medical History Past Medical History: No Previous - Cardiac Hx Cardiac Disorders: No (denies) Hx Hypertension: No - Pulmonary Hx Respiratory Disorders: No (denies) - Neurological Hx Neurological Disorder: No (denies) - HEENT Hx HEENT Disorder: No (denies) - Renal Hx Renal Disorder: No (denies) - Endocrine/Metabolic Hx Endocrine Disorders: No (denies) - Hematological/Oncological Hx Blood Disorders: No (denies) - Integumentary Hx Dermatological Disorder: No (denies) - Musculoskeletal/Rheumatological Hx Falls: Yes - Gastrointestinal Hx Gastrointestinal Disorders: No (denies) - Genitourinary/Gynecological Hx Genitourinary Disorders: No (denies) - Psychiatric Hx Psychophysiologic Disorder: No Hx Anxiety: No Hx Bipolar Disorder: No Hx Depression: Yes Hx Emotional Abuse: No Hx Physical Abuse: No Hx Schizophrenia: No Hx Sexual Abuse: No Hx Substance Use: No - Past Surgical History Past Surgical History: No Previous - Anesthesia Hx Anesthesia: No - Suicidal Assessment Feels Threatened In Home Enviroment: No <Josephine Aranda - Last Filed: 09/14/17 10:28> Family/Social History - Physician Review Nursing Documentation Reviewed: Yes Family/Social History: Unknown Family HX Smoking Status: Never Smoked Hx Alcohol Use: No Hx Substance Use: No Hx Substance Use Treatment: No <ManojJosephine T - Last Filed: 09/14/17 10:28> Allergies/Home Meds <Josephine Aranda - Last Filed: 09/14/17 10:28> <Fermin Rios - Last Filed: 09/14/17 19:37> Allergies/Adverse Reactions: Allergies No Known Allergies Allergy (Verified 09/13/17 17:19) Home Medications: Home Meds Medication Instructions Recorded Confirmed Unobtainable 09/13/17 09/13/17 Review of Systems - Review of Systems Systems not reviewed;Unavailable: Psychotic Respiratory: absent: SOB, Cough Cardiovascular: absent: Chest Pain, Palpitations Gastrointestinal: absent: Abdominal Pain, Nausea, Vomiting Genitourinary Female: absent: Dysuria Musculoskeletal: absent: Arthralgias Skin: absent: Rash, Pruritis Neurological: absent: Headache, Dizziness Psychiatric: Anxiety, Depression. absent: Suicidal Ideation <Josephine Aranda - Last Filed: 09/14/17 10:28> Physical Exam Vital Signs Reviewed: Yes Temperature: Afebrile Blood Pressure: Normal Pulse: Regular Respiratory Rate: Normal Appearance: Positive for: Well-Appearing, Non-Toxic, Comfortable Pain Distress: None Mental Status: Positive for: Alert and Oriented X 3 - Systems Exam Head: Present: Atraumatic Mouth: Present: Moist Mucous Membranes Respiratory/Chest: Present: Clear to Auscultation Cardiovascular: Present: Regular Rate and Rhythm Abdomen: No: Tenderness Upper Extremity: Present: Normal ROM Lower Extremity: Present: Normal ROM Neurological: Present: Gait Normal Skin: Present: Warm, Dry, Normal Color. No: Rashes Psychiatric: Present: Alert, Depressed Mood. No: Suicidal Ideation <Josephine Aranda - Last Filed: 09/14/17 10:28> Vital Signs Temp Pulse Resp BP Pulse Ox 09/14/17 03:50 97.6 F 87 18 133/62 99 09/14/17 02:47 92 H 18 137/84 100 09/13/17 23:13 95 H 18 134/82 100 09/13/17 17:10 98.0 F 82 18 134/88 99 Medical Decision Making <Josephine Aranda - Last Filed: 09/14/17 10:28> <Fermin Rios - Last Filed: 09/14/17 19:37> ED Course and Treatment: 09/13/17 20:07 Patient is nontoxic well-appearing in no distress vital signs are stable. CBC WNL CMP potassium; 3.2 Tylenol WNL Salicylate WNL Alcohol level WNL Urine drug screen wnl UA; wnl cxr: wnl ekg: NSR 86b/m no st elevations; qtc 488, normal axis. pt is medically cleared for PES evaluation/psychiatric admission. Patient was seen and evaluated by PES screener: amelia pt does not want to sign voluntarily; will get [facility] screener. 09/13/17 20:41 pt became agitated; tried to elope from ER; pushing staff in an attempt to run; pt placed in 4 point restraints and 5mg of haldol given IM. 09/13/17 20:56 case signed out to dr. rios pending [facility] Screening and re-evaluation. (Josephine Aranda) [place] [facility] [place] (Fremin Rios) - Lab Interpretations Lab Results: 09/13/17 17:56 09/13/17 17:56 Lab Results 09/13/17 22:36: Urine HCG, Qual Negative 09/13/17 18:18: Urine Opiates Screen Negative, Urine Methadone Screen Negative, Ur Barbiturates Screen Negative, Ur Phencyclidine Scrn Negative, Ur Amphetamines Screen Negative, U Benzodiazepines Scrn Negative, U Oth Cocaine Metabols Negative, U Cannabinoids Screen Negative 09/13/17 18:18: Urine Color Yellow, Urine Appearance Sl cloudy, Urine pH 6.0, Ur Specific [place] >= 1.030, Urine Protein 30 H, Urine Glucose (UA) Negative, Urine Ketones >=80, Urine Blood Negative, Urine Nitrate Negative, Urine Bilirubin Negative, Urine Urobilinogen 1.0 H, Ur Leukocyte Esterase Negative, Urine RBC Negative, Urine WBC 0 - 2, Ur Epithelial Cells Many, Urine Bacteria Few 09/13/17 17:56: Alcohol, Quantitative < 10 09/13/17 17:56: Salicylates < 1 L, Acetaminophen < 10.0 L 09/13/17 17:56: Sodium 142, Potassium 3.2 L, Chloride 102, Carbon Dioxide 22, Anion Gap 20, BUN 19, Creatinine 0.6 L, Est GFR ( Amer) > 60, Est GFR ( Non-Af Amer) > 60, Random Glucose 95, Calcium 10.0, Total Bilirubin 1.4 H, AST 73 H D, ALT 66 H, Alkaline Phosphatase 110, Total Protein 8.8 H, Albumin 5.0 H, Globulin 3.8, Albumin/Globulin Ratio 1.3 09/13/17 17:56: WBC 7.0, RBC 4.46, Hgb 13.6, Hct 39.8, MCV 89.2, MCH 30.5, MCHC 34.2, RDW 12.9, Plt Count 299, MPV 10.6, Gran % 59.7, Lymph % (Auto) 34.9, Mcleod % (Auto) 5.0, Eos % (Auto) 0.3 L, Baso % (Auto) 0.1, Gran # 4.16, Lymph # (Auto ) 2.4, Mcleod # (Auto) 0.4, Eos # (Auto) 0.0, Baso # (Auto) 0.01 - RAD Interpretation Radiology Orders: 09/13/17 19:52 CHEST PORTABLE [RAD] Stat - Medication Orders Current Medication Orders: Discontinued Medications Haloperidol Lactate (Haldol) 5 mg IM STAT STA PRN Reason: Protocol Stop: 09/13/17 20:42 Last Admin: 09/13/17 20:41 Dose: 5 mg IM Administration Charges Document 09/13/17 20:41 AD (Rec: 09/13/17 21:23 AD [id number]) Injection Site MAR Injection Site Left Deltoid Charges for Administration # of IM Administrations 1 Potassium Chloride (K-Dur 20 Meq Er Tab) 40 meq PO STAT STA Stop: 09/13/17 19:55 Last Admin: 09/13/17 20:23 Dose: Not Given Non-Admin Reason: Patient Refused - PA / SENIOR NET ENGINEER / Resident Statement / has reviewed & agrees with the documentation as recorded. <Fermin Rios - Last Filed: 09/14/17 19:37> Disposition/Present on Arrival - Present on Arrival Any Indicators Present on Arrival: No History of DVT/PE: No History of Uncontrolled Diabetes: No Urinary Catheter: No History of Decub. Ulcer: No History Surgical Site Infection Following: None - Disposition Have Diagnosis and Disposition been Completed?: Yes Disposition Time: 04:00 <Josephine Aranda - Last Filed: 09/14/17 10:28> - Present on Arrival Any Indicators Present on Arrival: No - Disposition Have Diagnosis and Disposition been Completed?: Yes <Fermin Rios - Last Filed: 09/14/17 19:37> - Disposition Diagnosis: Depression Disposition: Transfer [facility] Condition: FAIR Additional Instructions: chest x ray nad pt medically stable for transfer Referrals: Rhina Carbone NP [Primary Care Provider] - Follow up with primary Forms: [employer] (Syrian)
[2017-09-14 03:50] VITALS: BP 133/62; PULSE 87; TEMP 97.6; O2SAT 99
--- NOTE | 2017-09-14 09:20 | RAD ---
HISTORY: pes eval COMPARISON: 08/14/2017 FINDINGS: LUNGS: No active pulmonary disease. PLEURA: No significant pleural effusion identified, no pneumothorax apparent. CARDIOVASCULAR: Normal. OSSEOUS STRUCTURES: No significant abnormalities. VISUALIZED UPPER ABDOMEN: Normal. OTHER FINDINGS: None. IMPRESSION: No active disease.
--- NOTE | 2017-09-14 19:38 | CARD ---
APPROVED REPORT EKG Measurement Heart [id number] <Conclusion> Normal sinus rhythm Prolonged QT Abnormal ECG
== END 2017-09-14 04:04 | disposition short-term general hospital (02) ==
LOC: ED 16:54
DX: F32.9 Major depressive disorder, single episode, unspecified (principal)
CPT/HCPCS: 71045; 80053; 80320; 80324; 80329; 80345; 80346; 80349; 80353; 80358; 80361; 81001; 83992; 84703; 85025; 90791; 93005; 96372; 99284; J1630

== ENCOUNTER 2017-12-19 20:30 | Emergency (ER) | payer MEDICAID ==
[2017-12-19 20:47] VITALS: BMI 27.3
--- NOTE | 2017-12-19 21:39 | ED PDOC ---
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 As per collateral info, EMS were notified by family after patient stated she was hearing voices and wanted to hurt herself. Limited HPI and ROS as patient is withdrawn, with slow responses/responding only partially to questions. Symptom Onset: Gradual Symptom Course: Unchanged Activities at Onset: Light Context: Home Past Medical History - Provider Review Nursing Documentation Reviewed: Yes - Infectious Disease Hx of Infectious Diseases: None - Past Medical History Past Medical History: No Previous - Cardiac Hx Cardiac Disorders: No (denies) - Pulmonary Hx Respiratory Disorders: No (denies) - Neurological Hx Neurological Disorder: No (denies) - HEENT Hx HEENT Disorder: No (denies) - Renal Hx Renal Disorder: No (denies) - Endocrine/Metabolic Hx Endocrine Disorders: No (denies) - Hematological/Oncological Hx Blood Disorders: No (denies) - Integumentary Hx Dermatological Disorder: No (denies) - Musculoskeletal/Rheumatological Hx Musculoskeletal Disorders: Yes Hx Falls: Yes - Gastrointestinal Hx Gastrointestinal Disorders: No (denies) - Genitourinary/Gynecological Hx Genitourinary Disorders: No (denies) - Psychiatric Hx Psychophysiologic Disorder: Yes Hx Depression: Yes Hx Substance Use: No - Past Surgical History Past Surgical History: No Previous - Anesthesia Hx Anesthesia: No - Suicidal Assessment Feels Threatened In Home Enviroment: No Family/Social History - Physician Review Nursing Documentation Reviewed: Yes Family/Social History: Unknown Family HX Smoking Status: Never Smoked Hx Alcohol Use: No Hx Substance Use: No Hx Substance Use Treatment: No Allergies/Home Meds Allergies/Adverse Reactions: Allergies No Known Allergies Allergy (Verified 12/19/17 20:46) Home Medications: Home Meds Medication Instructions Recorded Confirmed Unobtainable 09/13/17 12/19/17 Review of Systems - Review of Systems Systems not reviewed;Unavailable: Other (Depressed, withdrawn, slow/partial response to questioning) Psychiatric: Depression, Suicidal Ideation Physical Exam Vital Signs Reviewed: Yes Vital Signs Temp Pulse Resp BP Pulse Ox 12/19/17 20:45 98.7 F 93 H 18 117/77 100 Temperature: Afebrile Blood Pressure: Normal Pulse: Regular Respiratory Rate: Normal Appearance: Positive for: Well-Appearing, Non-Toxic, Comfortable Pain Distress: None Mental Status: Positive for: Alert and Oriented X 3 - Systems Exam Head: Present: Atraumatic, Normocephalic Pupils: Present: PERRL Extroacular Muscles: Present: EOMI Conjunctiva: Present: Normal Mouth: Present: Moist Mucous Membranes Neck: Present: Normal Range of Motion Respiratory/Chest: Present: Clear to Auscultation, Good Air Exchange. No: Respiratory Distress, Accessory Muscle Use Cardiovascular: Present: Regular Rate and Rhythm, Normal S1, S2. No: Murmurs Abdomen: No: Tenderness, Distention, Peritoneal Signs Back: Present: Normal Inspection Upper Extremity: Present: Normal Inspection. No: Cyanosis, Edema Lower Extremity: Present: Normal Inspection. No: Edema Neurological: Present: GCS=15, CN II-XII Intact Skin: Present: Warm, Dry, Normal Color. No: Rashes Psychiatric: Present: Depressed Mood (Withdrawn), Other (Slow/partial response to questioning). No: Normal Affect (Tyrese affect) Medical Decision Making ED Course and Treatment: 12/19/17 21:37 Impression: 42 year old female brought in for depression and suicidal ideation. Plan: -- EKG -- Chest X-ray -- Labs, alcohol level -- Urine drug screen -- Reassess and disposition Prior Visits: Notes and results from previous visits were reviewed. On 09/13/2017, pt was seen in the Emergency department for evaluation of depression and bizarre behavior. Pt was transferred to [facility] for psychiatric admission. Progress Notes: Reviewed EKG, NSR at 86 bpm. Inferior and anterior infarct. No acute changes. Unchanged from EKG on 08/13/2017. 12/20/17 01:16 Pt seen and evaluated PES screenyamileth Verde, who discussed case with psychiatrist program evaluation consultant. Pt will be screened by [facility]. 12/20/17 02:18 Chest X-ray reviewed, shows no acute processes. 12/20/17 07:[address] Cardenas, pending [facility] PES screening and disposition. - Lab Interpretations Lab Results: 12/19/17 23:39 12/19/17 23:39 Lab Results 12/20/17 00:17: Urine Color Yellow, Urine Appearance Sl cloudy, Urine pH 7.5, Ur Specific [place] 1.015, Urine Protein Trace H, Urine Glucose (UA) Negative, Urine Ketones Trace H, Urine Blood Negative, Urine Nitrate Negative, Urine Bilirubin Negative, Urine Urobilinogen 0.2, Ur Leukocyte Esterase Negative, Urine RBC 0 - 2, Urine WBC 0 - 2, Ur Epithelial Cells 1 - 3, Amorphous Sediment Small, Urine Bacteria Occ 12/20/17 00:17: Urine Opiates Screen Negative, Urine Methadone Screen Negative, Ur Barbiturates Screen Negative, Ur Phencyclidine Scrn Negative, Ur Amphetamines Screen Negative, U Benzodiazepines Scrn Negative, U Oth Cocaine Metabols Negative, U Cannabinoids Screen Negative 12/19/17 23:39: WBC 7.2, RBC 3.98, Hgb 12.3, Hct 35.5 L, MCV 89.2, MCH 30.9, MCHC 34.6, RDW 13.4, Plt Count 255, MPV 9.8 12/19/17 23:39: Alcohol, Quantitative < 10 12/19/17 23:39: Sodium 141, Potassium 3.7, Chloride 102, Carbon Dioxide 27, Anion Gap 16, BUN 11, Creatinine 0.5 L, Est GFR ( Amer) > 60, Est GFR ( Non-Af Amer) > 60, Random Glucose 120 H, Calcium 9.1, Total Bilirubin 0.9, AST 40 H D, ALT 50, Alkaline Phosphatase 86, Total Protein 7.7, Albumin 4.4, Globulin 3.3, Albumin/Globulin Ratio 1.4 I have reviewed the lab results: Yes - RAD Interpretation Radiology Orders: 12/19/17 21:38 CHEST PORTABLE [RAD] Stat Clinical Transformation Specialist: ED Physician - EKG Interpretation Interpreted by ED Physician: Yes Type: 12 lead EKG - Scribe Statement The provider has reviewed the documentation as recorded by the Rafita Bundy Provider Scribe Attestation: All medical record entries made by the Scribe were at my direction and personally dictated by me. I have reviewed the chart and agree that the record accurately reflects my personal performance of the history, physical exam, medical decision making, and the department course for this patient. I have also personally directed, reviewed, and agree with the discharge instructions and disposition. Disposition/Present on Arrival - Present on Arrival Any Indicators Present on Arrival: No History of DVT/PE: No History of Uncontrolled Diabetes: No Urinary Catheter: No History of Decub. Ulcer: No History Surgical Site Infection Following: None - Disposition Have Diagnosis and Disposition been Completed?: No Diagnosis: Depression Disposition Time: 07:00 Condition: STABLE Referrals: Rhina Carbone NP [Primary Care Provider] - Follow up with primary Forms: [employer] (Cameroonian)
[2017-12-20 00:07] LABS: HEMOGLOBIN 12.3 g/dL (12.0-16.0); MEAN CELL VOLUME 89.2 fl (80.0-105.0); MEAN CORPUSCULAR HEMOGLOBIN 30.9 pg (25.0-35.0); MEAN CORPUSCULAR HGB CONC 34.6 g/dl (31.0-37.0); MEAN PLATELET VOLUME 9.8 fl (7.0-11.0); RBC 3.98 10^6/uL (3.5-6.1); RED CELL DISTRIBUTION WIDTH 13.4 % (11.5-14.5); WHITE BLOOD COUNT 7.2 10^3/ul (4.5-11.0)
[2017-12-20 00:20] LABS: ALB/GLOB RATIO 1.4 (1.1-1.8); ALBUMIN 4.4 g/dL (3.0-4.8); ALT/SGPT 50 U/L (7-56); AST/SGOT 40 U/L (14-36); BLOOD UREA NITROGEN 11 mg/dL (7-21); CALCIUM 9.1 mg/dL (8.4-10.5); GFR AFRICAN-AMERICAN > 60; GFR NON-AFRICAN AMERICAN > 60
[2017-12-20 01:15] LABS: BARBITURATES, UR NEGATIVE (NEGATIVE); BENZODIAZEPINES, UR NEGATIVE (NEGATIVE); OPIATES, UR NEGATIVE (NEGATIVE); PHENCYCLIDINE, UR NEGATIVE (NEGATIVE)
[2017-12-20 03:13] LABS: PH,URINE 7.5 (4.7-8.0); URINE BILIRUBIN NEGATIVE (NEGATIVE); URINE BLOOD NEGATIVE (NEGATIVE); URINE GLUCOSE (UA) NEGATIVE (NEGATIVE); URINE LEUKOCYTE ESTERASE NEGATIVE Leu/uL (NEGATIVE); URINE PROTEIN TRACE mg/dL (<30 mg/dL); URINE UROBILINOGEN 0.2 E.U./dL (<1 E.U./dL)
[2017-12-20 03:21] LABS: URINE APPEARANCE SL CLOUDY (CLEAR); URINE COLOR YELLOW (YELLOW)
[2017-12-20 03:23] LABS: URINE RBC 0 - 2 /hpf (0-2); URINE WBC 0 - 2 /hpf (0-6)
[2017-12-20 03:24] LABS: URINE AMORPHOUS SEDIMENT SMALL; URINE BACTERIA OCC (NEG)
--- NOTE | 2017-12-20 07:36 | ED PDOC ---
Physical Exam Vital Signs Reviewed: Yes Vital Signs Temp Pulse Resp BP Pulse Ox 12/20/17 00:15 90 18 119/82 98 12/19/17 20:45 98.7 F 93 H 18 117/77 100 Temperature: Afebrile Blood Pressure: Normal Pulse: Tachycardic Respiratory Rate: Normal Medical Decision Making ED Course and Treatment: 12/20/17 07:36 Patient endorsed to me by Dr. Santos, pending [facility] PES screening. - Lab Interpretations Lab Results: 12/19/17 23:39 12/19/17 23:39 Lab Results 12/20/17 00:17: Urine Color Yellow, Urine Appearance Sl cloudy, Urine pH 7.5, Ur Specific [place] 1.015, Urine Protein Trace H, Urine Glucose (UA) Negative, Urine Ketones Trace H, Urine Blood Negative, Urine Nitrate Negative, Urine Bilirubin Negative, Urine Urobilinogen 0.2, Ur Leukocyte Esterase Negative, Urine RBC 0 - 2, Urine WBC 0 - 2, Ur Epithelial Cells 1 - 3, Amorphous Sediment Small, Urine Bacteria Occ 12/20/17 00:17: Urine Opiates Screen Negative, Urine Methadone Screen Negative, Ur Barbiturates Screen Negative, Ur Phencyclidine Scrn Negative, Ur Amphetamines Screen Negative, U Benzodiazepines Scrn Negative, U Oth Cocaine Metabols Negative, U Cannabinoids Screen Negative 12/19/17 23:39: WBC 7.2, RBC 3.98, Hgb 12.3, Hct 35.5 L, MCV 89.2, MCH 30.9, MCHC 34.6, RDW 13.4, Plt Count 255, MPV 9.8 12/19/17 23:39: Alcohol, Quantitative < 10 12/19/17 23:39: Sodium 141, Potassium 3.7, Chloride 102, Carbon Dioxide 27, Anion Gap 16, BUN 11, Creatinine 0.5 L, Est GFR ( Amer) > 60, Est GFR ( Non-Af Amer) > 60, Random Glucose 120 H, Calcium 9.1, Total Bilirubin 0.9, AST 40 H D, ALT 50, Alkaline Phosphatase 86, Total Protein 7.7, Albumin 4.4, Globulin 3.3, Albumin/Globulin Ratio 1.4 - RAD Interpretation Radiology Orders: 12/19/17 21:38 CHEST PORTABLE [RAD] Stat - Scribe Statement The provider has reviewed the documentation as recorded by the Sydniibjoyce Huerta Provider Scribe Attestation: All medical record entries made by the Scribe were at my direction and personally dictated by me. I have reviewed the chart and agree that the record accurately reflects my personal performance of the history, physical exam, medical decision making, and the department course for this patient. I have also personally directed, reviewed, and agree with the discharge instructions and disposition. Disposition/Present on Arrival - Present on Arrival Any Indicators Present on Arrival: No History of DVT/PE: No History of Uncontrolled Diabetes: No Urinary Catheter: No History of Decub. Ulcer: No History Surgical Site Infection Following: None - Disposition Have Diagnosis and Disposition been Completed?: Yes Diagnosis: Depression Disposition: Transfer [facility] Disposition Time: 10:00 Condition: STABLE Referrals: Rhina Carbone NP [Primary Care Provider] - Follow up with primary Forms: [employer] (Khmer)
--- NOTE | 2017-12-20 08:14 | RAD ---
HISTORY: medical clearance COMPARISON: 09/13/2017 FINDINGS: LUNGS: No active pulmonary disease. Current lung volumes less than before PLEURA: No significant pleural effusion identified, no pneumothorax apparent. CARDIOVASCULAR: Normal. OSSEOUS STRUCTURES: No significant abnormalities. VISUALIZED UPPER ABDOMEN: Normal. OTHER FINDINGS: None. IMPRESSION: No active disease. No interval pathology noted.
--- NOTE | 2017-12-20 10:27 | CARD ---
APPROVED REPORT EKG Measurement Heart [id number] [place] [id number] <Conclusion> Normal sinus rhythm Possible Left atrial enlargement Inferior infarct, age undetermined PRWP NSSTW changes Prolonged QTc
--- NOTE | 2017-12-20 16:12 | CON ---
DATE: 12/20/2017 HISTORY OF PRESENT ILLNESS: In short, the patient is 42-year-old female with reported history of schizophrenia, possible schizoaffective disorder. The patient has chronic noncompliance with the medications and followup appointments. This typewriters functional tester is very familiar with this patient with the multiple admissions to the Psychiatric Inpatient Unit, most recent took place in [facility] in 01/2017. The patient was brought in by EMS after the patient was verbalizing that she is hearing voices and had suicidal ideations. The patient was evaluated by PAS worker overnight. The patient was recommended to be seen by [facility] and recommended screening process. The patient is waiting for [facility] screeners. The patient was seen in the emergency room at the morning time as per medical team request. The patient presented to be older than her chronological age, did not look good to compare with the previous admission. The patient presented to be completely psychotic. The patient is pacing in the room nonstop. The patient has no eye contact and mumbling something to herself. The patient presented to be psychotic, disorganized in her thoughts and disorganized in her behavior and also the patient appears to be responding to internal stimuli. Based on the previous history, the patient was discharged from [facility] In[facility] Unit in 08/2017. Medications were haloperidol 3 mg at the nighttime, Cogentin as well as Prozac 40 mg daily. The patient most likely was noncompliant with the medications and followup appointments. This typewriters functional tester reviewed the vital signs. Temperature 98.8, pulse of 72, blood pressure 126/72, respirations 18. Medications reviewed, nothing. Labs reviewed. Chemistry reviewed. AST seems to be elevated. Urinalysis negative for any substances and there are no signs of infection. MENTAL STATUS EXAMINATION: The patient presented to be alert, disorganized. No eye contact. Speech was incoherent, mumbling something to herself. The patient was not able to describe her mood. Affect flat. Thought process disorganized. Thought content, the patient was not able to tell if she is hearing voices or seeing things, but obviously the patient is responding to internal stimuli. The patient has history of psychosis. The patient has history of paranoia as well. Insight and judgment seems to be impaired. Impulses are unpredictable. IMPRESSION: As per history, schizophrenia spectrum or schizoaffective, history of depressive disorder in the past. PLANS: Screening was initiated by psychiatrist on-call. This typewriters functional tester will start psychotropic medications, most likely it will be Zyprexa to help the patient with her psychotic symptoms. We will follow up on this patient and advise accordingly. The patient meets criteria for involuntary commitment and the patient has 2 kids, which are minors and under care of the patient and PES worker was advised to call Child Protective Services as well. Thank you very much for letting me participate in the care of your patient. Should you have any questions, give me a call back. Nikki Lockhart MD
[2017-12-21 00:51] VITALS: RESP 18; TEMP 98.2
[2017-12-21 04:06] VITALS: BP 109/66; PULSE 79; O2SAT 99
== END 2017-12-21 01:35 | disposition short-term general hospital (02) ==
LOC: ED 20:30
DX: F32.9 Major depressive disorder, single episode, unspecified (principal)

== ENCOUNTER 2018-04-22 21:04 | Inpatient (IN) | payer MEDICAID ==
[2018-04-22 21:05] VITALS: BMI 27.3
--- NOTE | 2018-04-22 21:38 | ED PDOC ---
Arrival/HPI <DanielleMarvel - Last Filed: 04/23/18 00:43> - General Historian: Patient, Parent, EMS - History of Present Illness Narrative History of Present Illness (Text): 04/22/18 21:35 42 y/o female, no significant pmh, nkda, psychiatric history including dep ression/psychosis, airway controller provided by ER staff Pita Sharp as patient requested, reggie as she was found outside wondering around the street c/o rt. lower back pain started today after bending down and get up from bend position. Aching pain, aggravated by movement, no urinary or bowel incontinence or retention, no palpitation or chest pain, no change in vision, no rash, no auditory or visual hallucination, no homocidal or suicidal ideation, no other medical or psychological complaints. <Lloyd Aldridge - Last Filed: 04/23/18 01:55 EDT> - General Time Seen by Provider: 04/22/18 21:32 Past Medical History - Provider Review Nursing Documentation Reviewed: Yes - Infectious Disease Hx of Infectious Diseases: None - Past Medical History Past Medical History: No Previous - Cardiac Hx Cardiac Disorders: No (denies) - Pulmonary Hx Respiratory Disorders: No (denies) - Neurological Hx Neurological Disorder: No (denies) - HEENT Hx HEENT Disorder: No (denies) - Renal Hx Renal Disorder: No (denies) - Endocrine/Metabolic Hx Endocrine Disorders: No (denies) - Hematological/Oncological Hx Blood Disorders: No (denies) - Integumentary Hx Dermatological Disorder: No (denies) - Musculoskeletal/Rheumatological Hx Musculoskeletal Disorders: Yes Hx Falls: Yes - Gastrointestinal Hx Gastrointestinal Disorders: No (denies) - Genitourinary/Gynecological Hx Genitourinary Disorders: No (denies) - Psychiatric Hx Psychophysiologic Disorder: Yes Hx Depression: Yes Hx Substance Use: No - Past Surgical History Past Surgical History: No Previous - Anesthesia Hx Anesthesia: No - Suicidal Assessment Feels Threatened In Home Enviroment: No <Lloyd Aldridge - Last Filed: 04/23/18 01:55 EDT> Family/Social History - Physician Review Nursing Documentation Reviewed: Yes Family/Social History: Unknown Family HX Smoking Status: Never Smoked Hx Alcohol Use: No Hx Substance Use: No Hx Substance Use Treatment: No <Lloyd Aldridge - Last Filed: 04/23/18 01:55 EDT> Allergies/Home Meds <DanielleMarvel - Last Filed: 04/23/18 00:43> <Lloyd Aldridge - Last Filed: 04/23/18 01:55 EDT> Allergies/Adverse Reactions: Allergies No Known Allergies Allergy (Verified 12/19/17 20:46) Home Medications: Home Meds Medication Instructions Recorded Confirmed Unobtainable 09/13/17 12/19/17 Review of Systems - Review of Systems Constitutional: absent: Fatigue, Fevers Eyes: absent: Vision Changes ENT: absent: Hearing Changes Respiratory: absent: SOB, Cough Cardiovascular: absent: Chest Pain Gastrointestinal: absent: Abdominal Pain, Diarrhea, Nausea, Vomiting Musculoskeletal: Back Pain, Myalgias. absent: Arthralgias, Neck Pain, Joint Swelling Skin: absent: Rash, Pruritis, Skin Lesions Neurological: absent: Headache, Dizziness Psychiatric: absent: Anxiety, Depression, Suicidal Ideation <Lloyd Aldridge Monica - Last Filed: 04/23/18 01:55 EDT> Physical Exam Vital Signs Temp Pulse Resp BP Pulse Ox 04/22/18 22:57 98.0 F 90 17 128/80 100 <DanielleMarvel - Last Filed: 04/23/18 00:43> Vital Signs Reviewed: Yes Temperature: Afebrile Blood Pressure: Normal Pulse: Regular Respiratory Rate: Normal Appearance: Positive for: Well-Appearing, Non-Toxic, Comfortable Pain Distress: None Mental Status: Positive for: Alert and Oriented X 3 - Systems Exam Head: Present: Atraumatic, Normocephalic Pupils: Present: PERRL Extroacular Muscles: Present: EOMI Conjunctiva: Present: Normal Ears: Present: NORMAL TM, Normal Canal. No: Erythema Mouth: Present: Moist Mucous Membranes Pharnyx: No: ERYTHEMA, EXUDATE, TONSILS ENLARGED Nose (External): Present: Atraumatic. No: Abrasion, Contusion, Laceration Nose (Internal): Present: Normal Inspection, No Active Bleeding. No: Rhinorrhea, Septal Hematoma, Epistaxis Neck: Present: Normal Range of Motion, Trachea Midline. No: Meningeal Signs, MIDLINE TENDERNESS, Paraspinal Tenderness, Lymphadenopathy Respiratory/Chest: Present: Clear to Auscultation, Good Air Exchange. No: Respiratory Distress, Accessory Muscle Use Cardiovascular: Present: Regular Rate and Rhythm, Normal S1, S2. No: Murmurs Abdomen: No: Tenderness, Distention, Peritoneal Signs Back: Present: Normal Inspection, Paraspinal Tenderness (mild rt. paraspinal tenderness on the lumbar region with no rash. ). No: CVA Tenderness, Midline Tenderness Upper Extremity: Present: Normal Inspection. No: Cyanosis, Edema Lower Extremity: Present: Normal Inspection. No: Edema Neurological: Present: GCS=15, CN II-XII Intact, Speech Normal Skin: Present: Warm, Dry, Normal Color. No: Rashes Psychiatric: Present: Alert, Oriented x 3, Normal Insight, Normal Concentration <Lloyd Aldridge Q - Last Filed: 04/23/18 01:55 EDT> Medical Decision Making - Lab Interpretations Lab Results: 04/22/18 22:21 04/22/18 22:21 Lab Results 04/22/18 23:24: Urine Color Yellow, Urine Appearance Sl cloudy, Urine pH 6.5, Ur Specific [place] 1.025, Urine Protein 30 H, Urine Glucose (UA) Negative, Urine Ketones >=80, Urine Blood Negative, Urine Nitrate Negative, Urine Bilirubin Negative, Urine Urobilinogen 0.2, Ur Leukocyte Esterase Small H, Urine RBC 0 - 2, Urine WBC 1 - 3, Ur Epithelial Cells 3 - 4, Urine Bacteria Mod 04/22/18 23:04: Urine Opiates Screen Negative, Urine Methadone Screen Negative, Ur Barbiturates Screen Negative, Ur Phencyclidine Scrn Negative, Ur Amphetamines Screen Negative, U Benzodiazepines Scrn Negative, U Oth Cocaine Metabols Negative, U Cannabinoids Screen Negative 04/22/18 22:21: WBC 8.3, RBC 3.77, Hgb 11.3 L, Hct 33.6 L, MCV 89.1, MCH 30.0, MCHC 33.6, RDW 13.8, Plt Count 251, MPV 9.7, Gran % 78.0 H, Lymph % (Auto) 16.3 L, [place] % (Auto) 5.6, Eos % (Auto) 0.0 L, Baso % (Auto) 0.1, Gran # 6.50, Lymph # (Auto) 1.4, [place] # (Auto) 0.5, Eos # (Auto) 0.0, Baso # (Auto) 0.01 04/22/18 22:21: Alcohol, Quantitative < 10 04/22/18 22:21: Salicylates < 1 L, Acetaminophen < 10.0 L 04/22/18 22:21: Sodium 137, Potassium 3.6, Chloride 100, Carbon Dioxide 24, Anion Gap 16, BUN 17, Creatinine 0.5 L, Est GFR ( Amer) > 60, Est GFR (Non-Af Amer) > 60, Random Glucose 115 H, Calcium 9.2, Total Bilirubin 0.9, AST 84 H D, ALT 77 H, Alkaline Phosphatase 98, Total Creatine Kinase 2608 H, CK-MB (CK-2) 26.6 H, CK-MB (CK-2) % 1.0 L, Total Protein 8.1, Albumin 4.5, Globulin 3.5, Albumin/Globulin Ratio 1.3 - RAD Interpretation Radiology Orders: 04/22/18 21:40 CHEST PORTABLE [RAD] Stat LS SPINE WITH OBL > 18 YRS OLD [RAD] Stat 04/22/18 21:43 HEAD W/O CONTRAST [CT] Stat - Medication Orders Current Medication Orders: Sodium Chloride (Sodium Chloride 0.9%) 1,000 mls @ 999 mls/hr IV .Q1H1M STA Stop: 04/23/18 00:55 Last Admin: 04/23/18 00:22 Dose: 999 mls/hr eMAR Start Stop Document 04/23/18 00:22 IT (Rec: 04/23/18 00:22 IT [id number]) Intravenous Solution Start Date 04/23/18 Start Time 00:22 Sodium Chloride (Sodium Chloride 0.9%) 1,000 mls @ 100 mls/hr IV .Q10H ENMANUEL Discontinued Medications Ketorolac Tromethamine (Toradol) 30 mg IVP STAT STA Stop: 04/22/18 21:41 Last Admin: 04/23/18 00:21 Dose: 30 mg MAR Pain Assessment Document 04/23/18 00:21 IT (Rec: 04/23/18 00:21 IT [id number]) Pain Reassessment Is this a pain reassessment? No Sleep Is patient sleeping during reassessment? No Presence of Pain Presence of Pain Yes IVP Administration Document 04/23/18 00:21 IT (Rec: 04/23/18 00:21 IT [id number]) Charges for Administration # of IVP Administrations 1 Lidocaine (Lidoderm) 1 ea TD STAT STA Stop: 04/22/18 21:42 Last Admin: 04/23/18 00:21 Dose: 1 ea MAR Transdermal Patch Site Document 04/23/18 00:21 IT (Rec: 04/23/18 00:21 IT [id number]) Transdermal Patch Site Transdermal Patch Site Right Lower Back Nitrofurantoin Macrocrystals (Macrobid) 100 mg PO STAT STA; Protocol Stop: 04/23/18 00:02 Last Admin: 04/23/18 00:22 Dose: 100 mg <Marvel Santos - Last Filed: 04/23/18 00:43> ED Course and Treatment: 04/22/18 21:42 -Labs -EKG -CXR and LS spine -PES notified -Observe and reassess 04/23/18 01:24 EDT -Urine hcg is negative -EKG: NSR @ 90 BPM, no ST elevation or depression, no T wave inversion. -LS spine xray ER wet read: no fracture or subluxation. -Chest xray ER wet read: no active disease -CT head show -Labs show no acute findings except transminitis -Alcohol within normal limi -[id number] (rhabdomylosis, 2000cc fluid IV ordered) -UA show mild trace leuko, macrobid ordered. -UDS no acute findings. -Back pain decreased, discussed about labs, will need admission for the rhabdomylosis. 04/23/18 01:51 EDT -I spoke to the internist medical doctor md and the admitting night doctor, Dr. Hummel, discussed about the labs/radiology result, agreed on the admission. - RAD Interpretation Radiology Orders: -LS spine xray -Chest xray -CT head EXAM: CT Head without Intravenous Contrast. CLINICAL HISTORY: Ams TECHNIQUE: Axial computed tomography images of the head/brain without intravenous contrast. 942.68 mGy-cm COMPARISON: None provided. FINDINGS: BRAIN No acute intraparenchymal hemorrhage. No mass lesion. No CT evidence for acute territorial infarct. No midline shift or extra-axial collections. VENTRICLES: No hydrocephalus. ORBITS: The orbits are unremarkable. SINUSES AND MASTOIDS: The paranasal sinuses and mastoid air cells are clear. BONES: No fracture. SOFT TISSUES: Unremarkable. IMPRESSION: No acute intracranial abnormality. Electronically signed on Apr 23, 2018 12:16:15 AM EDT by: Brody Kaur M.D., MBA Certified By ABR & CBC[facility] Fellowship Trained MRI and CT Specialist Hand Tennis Ball Coverer: Radiologist - EKG Interpretation EKG Interpretation (Text): 04/23/18 00:00 -EKG: NSR @ 90 BPM, no ST elevation or depression, no T wave inversion. Interpreted by ED Physician: Yes Type: 12 lead EKG <Lloyd Aldridge - Last Filed: 04/23/18 01:55 EDT> - PA / TEACHER VISUALLY IMPAIRED / Resident Statement FABIOLA has reviewed & agrees with the documentation as recorded. FABIOLA has examined the patient and agrees with the treatment plan. <Marvel Santos - Last Filed: 04/23/18 00:43> - PA / TEACHER VISUALLY IMPAIRED / Resident Statement FABIOLA has reviewed & agrees with the documentation as recorded. FABIOLA has examined the patient and agrees with the treatment plan. <Lloyd Aldridge - Last Filed: 04/23/18 01:55 EDT> Disposition/Present on Arrival <Marvel Santos - Last Filed: 04/23/18 00:43> - Present on Arrival Any Indicators Present on Arrival: No History of DVT/PE: No History of Uncontrolled Diabetes: No Urinary Catheter: No History of Decub. Ulcer: No History Surgical Site Infection Following: None - Disposition Have Diagnosis and Disposition been Completed?: Yes Disposition Time: 00:04 Patient Plan: Admission, Observation <Lloyd Aldridge - Last Filed: 04/23/18 01:55 EDT> - Disposition Diagnosis: Rhabdomyolysis, Low back pain, UTI (urinary tract infection) Disposition: HOSPITALIZED Patient Problems: Current Active Problems Problem Status Onset Low back pain Acute Rhabdomyolysis Acute UTI (urinary tract infection) Acute Condition: STABLE Referrals: Rhina Carbone NP [Primary Care Provider] - Follow up with primary
[2018-04-22] MEDS ORDERED: Lidocaine 5% Patch TD STA (21:41)
[2018-04-22 22:35] LABS: BASO # 0.01 K/mm3 (0.0-2.0); BASO % 0.1 % (0.0-3.0); GRAN # 6.5 (1.4-6.5); HEMOGLOBIN 11.3 g/dL (12.0-16.0); LYMPH # 1.4 (1.2-3.4); LYMPH % 16.3 % (22.0-35.0); MEAN CELL VOLUME 89.1 fl (80.0-105.0); MEAN CORPUSCULAR HGB CONC 33.6 g/dl (31.0-37.0); MEAN PLATELET VOLUME 9.7 fl (7.0-11.0); MONO # 0.5 (0.1-0.6); MONO % 5.6 % (1.0-6.0); RBC 3.77 10^6/uL (3.5-6.1); RED CELL DISTRIBUTION WIDTH 13.8 % (11.5-14.5); WHITE BLOOD COUNT 8.3 10^3/uL (4.5-11.0)
[2018-04-22 22:46] LABS: ALB/GLOB RATIO 1.3 (1.1-1.8); ALBUMIN 4.5 g/dL (3.0-4.8); ALT/SGPT 77 U/L (7-56); AST/SGOT 84 U/L (14-36); BLOOD UREA NITROGEN 17 mg/dL (7-21); CALCIUM 9.2 mg/dL (8.4-10.5); GFR NON-AFRICAN AMERICAN > 60
[2018-04-22 22:47] LABS: ACETAMINOPHEN < 10.0 ug/ml (10.0-20.0); SALICYLATE < 1 mg/dL (2.0-20.0)
[2018-04-22 23:17] LABS: CK-MB 26.6 ng/mL (0.0-3.6)
[2018-04-22] MEDS ORDERED: Sodium Chloride 0.9% 1,000 ML IV SCH (23:45)
[2018-04-22 23:51] LABS: PH,URINE 6.5 (4.7-8.0); URINE BILIRUBIN NEGATIVE (NEGATIVE); URINE BLOOD NEGATIVE (NEGATIVE); URINE GLUCOSE (UA) NEGATIVE (NEGATIVE); URINE LEUKOCYTE ESTERASE SMALL Leu/uL (NEGATIVE); URINE PROTEIN 30 mg/dL (<30 mg/dL); URINE UROBILINOGEN 0.2 E.U./dL (<1 E.U./dL)
[2018-04-22 23:52] LABS: BARBITURATES, UR NEGATIVE (NEGATIVE); BENZODIAZEPINES, UR NEGATIVE (NEGATIVE); OPIATES, UR NEGATIVE (NEGATIVE); PHENCYCLIDINE, UR NEGATIVE (NEGATIVE)
[2018-04-22 23:54] LABS: URINE APPEARANCE SL CLOUDY (CLEAR); URINE COLOR YELLOW (YELLOW)
[2018-04-22] MEDS ORDERED: Sodium Chloride 0.9% 1,000 ML IV STA (23:55)
[2018-04-23 00:13] LABS: URINE RBC 0 - 2 /hpf (0-2)
[2018-04-23 00:14] LABS: URINE BACTERIA MOD (NEG)
--- NOTE | 2018-04-23 01:53 | CP.PCM.HP ---
<Enrique Milian - Last Filed: 04/23/18 04:07> History of Present Illness - History of Present Illness History of Present Illness: Enrique Milian, PGY1 H&P for Hospital This is a 42 year old Citizen Of [place] speaking female with PMH of depression and psychosis with multiple psych inpatient admissions in past presenting the ED via EMS after being found wandering in the street. Per EMS, she was complaining of right lower back pain and denied visual/auditory hallucinations as well as suicidal ideations when questioned initially. At time of examination, patient was not cooperative and refused to answer any questions. Patient was provided with Citizen Of [place] speaking [employer] [place] [employer]. 12 point ROS is unobtainable due to patient status. In ED, EKG showed NSR at [address] changes. Lumbar spine xray shows no fracture, CXR shows no acute abnormality and head CT shows no acute intracranial abnormality (f/u final imaging reads). UDS was unremarkable and alcohol level was <10. CPK is elevated and LFT's are elevated. U/A showed small leukocyte esterase with no nitrates. Patient given 2L NS in ED and nitrofurantoin 100mg. Per chart review, in 2016: PMH: denies SH: lives by herself in section 8 housing, does not work. Denies tobacco, drug and alcohol use Sx: denies surgeries FH: denies significant psych history in family All: NKDA Present on Admission - Present on Admission Any Indicators Present on Admission: No Review of Systems - Review of Systems Systems not reviewed;Unavailable: Uncooperative Past Patient History - Infectious Disease Hx of Infectious Diseases: None - Past Social History Smoking Status: Smoker Currrent Status Unknown - CARDIAC Hx Cardiac Disorders: No (denies) - PULMONARY Hx Respiratory Disorders: No (denies) - NEUROLOGICAL Hx Neurological Disorder: No (denies) - HEENT Hx HEENT Problems: No (denies) - RENAL Hx Chronic Kidney Disease: No (denies) - ENDOCRINE/METABOLIC Hx Endocrine Disorders: No (denies) - HEMATOLOGICAL/ONCOLOGICAL Hx Blood Disorders: No (denies) - INTEGUMENTARY Hx Dermatological Problems: No (denies) - MUSCULOSKELETAL/RHEUMATOLOGICAL Hx Musculoskeletal Disorders: Yes Hx Falls: Yes - GASTROINTESTINAL Hx Gastrointestinal Disorders: No (denies) - GENITOURINARY/GYNECOLOGICAL Hx Genitourinary Disorders: No (denies) - PSYCHIATRIC Hx Psychophysiologic Disorder: Yes Hx Depression: Yes Hx Substance Use: No - SURGICAL HISTORY Hx Surgeries: No (denies) - ANESTHESIA Hx Anesthesia: No Meds Allergies/Adverse Reactions: Allergies Allergy/AdvReac Type Severity Reaction Status Date / Time No Known Allergies Allergy Verified 12/19/17 20:46 Physical Exam - Constitutional Appears: No Acute Distress - Head Exam Head Exam: ATRAUMATIC, NORMAL INSPECTION - Eye Exam Eye Exam: EOMI Pupil Exam: PERRL - ENT Exam ENT Exam: Mucous Membranes Moist - Respiratory Exam Respiratory Exam: Clear to Auscultation Bilateral. absent: Respiratory Distress - Cardiovascular Exam Cardiovascular Exam: REGULAR RHYTHM, +S1, +S2 - GI/Abdominal Exam GI & Abdominal Exam: Normal Bowel Sounds. absent: Firm, Guarding - Extremities Exam Extremities exam: Positive for: normal inspection. Negative for: calf tenderness - Back Exam Back exam: NORMAL INSPECTION. absent: tenderness - Neurological Exam Neurological exam: Alert Additional comments: does not follow commands - Psychiatric Exam Psychiatric exam: Flat Affect - Skin Skin Exam: Normal Color, Warm Results - Vital Signs Recent Vital Signs: Last Vital Signs Temp 98.0 F 04/22/18 22:57 Pulse 90 04/22/18 22:57 Resp 17 04/22/18 22:57 BP 128/80 04/22/18 22:57 Pulse Ox 100 04/22/18 22:57 - Labs Result Diagrams: 04/22/18 22:21 04/22/18 22:21 Labs: Laboratory Results - last 24 hr 04/22/18 04/22/18 04/22/18 22:21 22:21 22:21 WBC RBC Hgb Hct MCV MCH MCHC RDW Plt Count MPV Gran % Lymph % (Auto) [place] % (Auto) Eos % (Auto) Baso % (Auto) Gran # Lymph # (Auto) [place] # (Auto) Eos # (Auto) Baso # (Auto) Sodium 137 Potassium 3.6 Chloride 100 Carbon Dioxide 24 Anion Gap 16 BUN 17 Creatinine 0.5 L Est GFR ( Amer) > 60 Est GFR (Non-Af Amer) > 60 Random Glucose 115 H Calcium 9.2 Total Bilirubin 0.9 AST 84 H D ALT 77 H Alkaline Phosphatase 98 Total Creatine Kinase 2608 H CK-MB (CK-2) 26.6 H CK-MB (CK-2) % 1.0 L Total Protein 8.1 Albumin 4.5 Globulin 3.5 Albumin/Globulin Ratio 1.3 Urine Color Urine Appearance Urine pH Ur Specific [place] Urine Protein Urine Glucose (UA) Urine Ketones Urine Blood Urine Nitrate Urine Bilirubin Urine Urobilinogen Ur Leukocyte Esterase Urine RBC Urine WBC Ur Epithelial Cells Urine Bacteria Salicylates < 1 L Urine Opiates Screen Urine Methadone Screen Acetaminophen < 10.0 L Ur Barbiturates Screen Ur Phencyclidine Scrn Ur Amphetamines Screen U Benzodiazepines Scrn U Oth Cocaine Metabols U Cannabinoids Screen Alcohol, Quantitative < 10 04/22/18 04/22/18 04/22/18 22:21 23:04 23:24 WBC 8.3 RBC 3.77 Hgb 11.3 L Hct 33.6 L MCV 89.1 MCH 30.0 MCHC 33.6 RDW 13.8 Plt Count 251 MPV 9.7 Gran % 78.0 H Lymph % (Auto) 16.3 L [place] % (Auto) 5.6 Eos % (Auto) 0.0 L Baso % (Auto) 0.1 Gran # 6.50 Lymph # (Auto) 1.4 [place] # (Auto) 0.5 Eos # (Auto) 0.0 Baso # (Auto) 0.01 Sodium Potassium Chloride Carbon Dioxide Anion Gap BUN Creatinine Est GFR ( Amer) Est GFR (Non-Af Amer) Random Glucose Calcium Total Bilirubin AST ALT Alkaline Phosphatase Total Creatine Kinase CK-MB (CK-2) CK-MB (CK-2) % Total Protein Albumin Globulin Albumin/Globulin Ratio Urine Color Yellow Urine Appearance Sl cloudy Urine pH 6.5 Ur Specific [place] 1.025 Urine Protein 30 H Urine Glucose (UA) Negative Urine Ketones >=80 Urine Blood Negative Urine Nitrate Negative Urine Bilirubin Negative Urine Urobilinogen 0.2 Ur Leukocyte Esterase Small H Urine RBC 0 - 2 Urine WBC 1 - 3 Ur Epithelial Cells 3 - 4 Urine Bacteria Mod Salicylates Urine Opiates Screen Negative Urine Methadone Screen Negative Acetaminophen Ur Barbiturates Screen Negative Ur Phencyclidine Scrn Negative Ur Amphetamines Screen Negative U Benzodiazepines Scrn Negative U Oth Cocaine Metabols Negative U Cannabinoids Screen Negative Alcohol, Quantitative Assessment & Plan - Assessment and Plan (Free Text) Assessment: This is a 42 year old female with PMH of depression and psychosis with multiple psych inpatient admissions in past presenting the ED via EMS after being found wandering in the street. Plan: Rhabdomyolysis: -CPK elevated on admission -continue NS @125 cc/hr -f/u CPK Hx of depression/psychosis: -Head CT shows no acute pathology, f/u final read -CXR shows no acute pathology, f/u final read -patient does not respond when asked about current psych meds or pharmacy -psych on consult, Dr. Tyler Transaminitis: -AST/ALT 84/77 on admission -unclear etiology -GI on consult, Dr. Atkinson Anemia: -Hg of 11.3 on admission -iron studies pending Low Back pain: -Lumbar spine xray shows no fracture, f/u final read UTI: -U/A positive for small leukocyte esterase, moderate bacteria in urine -patient does not respond when asked about urinary symptoms -will not start antibiotics at this time due to afebrile and no white count. Awaiting urine culture -received nitrofurantoin in ED PPX with heparin and protonix Patient seen and case discussed with attending, Dr. Hummel <Costa Hummel - Last Filed: 04/23/18 05:08> Results - Vital Signs Recent Vital Signs: Last Vital Signs Temp 98.0 F 04/22/18 22:57 Pulse 90 04/22/18 22:57 Resp 20 04/23/18 03:15 BP 128/80 04/22/18 22:57 Pulse Ox 100 04/22/18 22:57 - Labs Result Diagrams: 04/22/18 22:21 04/22/18 22:21 Labs: Laboratory Results - last 24 hr 04/22/18 04/22/18 04/22/18 22:21 22:21 22:21 WBC RBC Hgb Hct MCV MCH MCHC RDW Plt Count MPV Gran % Lymph % (Auto) [place] % (Auto) Eos % (Auto) Baso % (Auto) Gran # Lymph # (Auto) [place] # (Auto) Eos # (Auto) Baso # (Auto) Sodium 137 Potassium 3.6 Chloride 100 Carbon Dioxide 24 Anion Gap 16 BUN 17 Creatinine 0.5 L Est GFR ( Amer) > 60 Est GFR (Non-Af Amer) > 60 Random Glucose 115 H Calcium 9.2 Total Bilirubin 0.9 AST 84 H D ALT 77 H Alkaline Phosphatase 98 Total Creatine Kinase 2608 H CK-MB (CK-2) 26.6 H CK-MB (CK-2) % 1.0 L Total Protein 8.1 Albumin 4.5 Globulin 3.5 Albumin/Globulin Ratio 1.3 Urine Color Urine Appearance Urine pH Ur Specific [place] Urine Protein Urine Glucose (UA) Urine Ketones Urine Blood Urine Nitrate Urine Bilirubin Urine Urobilinogen Ur Leukocyte Esterase Urine RBC Urine WBC Ur Epithelial Cells Urine Bacteria Salicylates < 1 L Urine Opiates Screen Urine Methadone Screen Acetaminophen < 10.0 L Ur Barbiturates Screen Ur Phencyclidine Scrn Ur Amphetamines Screen U Benzodiazepines Scrn U Oth Cocaine Metabols U Cannabinoids Screen Alcohol, Quantitative < 10 04/22/18 04/22/18 04/22/18 22:21 23:04 23:24 WBC 8.3 RBC 3.77 Hgb 11.3 L Hct 33.6 L MCV 89.1 MCH 30.0 MCHC 33.6 RDW 13.8 Plt Count 251 MPV 9.7 Gran % 78.0 H Lymph % (Auto) 16.3 L [place] % (Auto) 5.6 Eos % (Auto) 0.0 L Baso % (Auto) 0.1 Gran # 6.50 Lymph # (Auto) 1.4 [place] # (Auto) 0.5 Eos # (Auto) 0.0 Baso # (Auto) 0.01 Sodium Potassium Chloride Carbon Dioxide Anion Gap BUN Creatinine Est GFR ( Amer) Est GFR (Non-Af Amer) Random Glucose Calcium Total Bilirubin AST ALT Alkaline Phosphatase Total Creatine Kinase CK-MB (CK-2) CK-MB (CK-2) % Total Protein Albumin Globulin Albumin/Globulin Ratio Urine Color Yellow Urine Appearance Sl cloudy Urine pH 6.5 Ur Specific [place] 1.025 Urine Protein 30 H Urine Glucose (UA) Negative Urine Ketones >=80 Urine Blood Negative Urine Nitrate Negative Urine Bilirubin Negative Urine Urobilinogen 0.2 Ur Leukocyte Esterase Small H Urine RBC 0 - 2 Urine WBC 1 - 3 Ur Epithelial Cells 3 - 4 Urine Bacteria Mod Salicylates Urine Opiates Screen Negative Urine Methadone Screen Negative Acetaminophen Ur Barbiturates Screen Negative Ur Phencyclidine Scrn Negative Ur Amphetamines Screen Negative U Benzodiazepines Scrn Negative U Oth Cocaine Metabols Negative U Cannabinoids Screen Negative Alcohol, Quantitative Attending/Attestation - Attestation I have personally seen and examined this patient.: Yes I have fully participated in the care of the patient.: Yes I have reviewed all pertinent clinical information: Yes Notes (Text): 04/23/18 05:07 Patient was seen when she was in the ER. Medical record was reviewed. Agree with history, physical examination, assessment and plan.
[2018-04-23] MEDS: Sodium Chloride 0.9% 1,000 ML IV SCH ×3 (03:33→20:30)
[2018-04-23] MEDS: Pantoprazole 40 mg EC Tab PO SCH (06:15)
[2018-04-23 07:52] LABS: EOS % 0.1 % (1.5-5.0); GRAN # 5.25 (1.4-6.5); GRAN % 75.7 % (50.0-68.0); HEMOGLOBIN 11.5 g/dL (12.0-16.0); LYMPH # 1.3 (1.2-3.4); LYMPH % 19.2 % (22.0-35.0); MEAN CELL VOLUME 89.8 fl (80.0-105.0); MEAN CORPUSCULAR HEMOGLOBIN 30.2 pg (25.0-35.0); MEAN CORPUSCULAR HGB CONC 33.6 g/dl (31.0-37.0); MEAN PLATELET VOLUME 9.9 fl (7.0-11.0); MONO # 0.4 (0.1-0.6); RBC 3.81 10^6/uL (3.5-6.1); RED CELL DISTRIBUTION WIDTH 13.7 % (11.5-14.5); WHITE BLOOD COUNT 6.9 10^3/uL (4.5-11.0)
[2018-04-23 08:04] LABS: IRON 139 ug/dL (45-180)
[2018-04-23 08:09] LABS: ALB/GLOB RATIO 1.2 (1.1-1.8); ALBUMIN 4.5 g/dL (3.0-4.8); ALT/SGPT 77 U/L (7-56); AST/SGOT 96 U/L (14-36); BLOOD UREA NITROGEN 10 mg/dL (7-21); CALCIUM 8.7 mg/dL (8.4-10.5); GFR NON-AFRICAN AMERICAN > 60
[2018-04-23 08:13] LABS: % IRON SATURATION 39 % (20-55); TOTAL IRON BINDING CAPACITY 359 ug/dL (265-497)
--- NOTE | 2018-04-23 08:32 | CT ---
Date of service: 04/22/2018 PROCEDURE: CT HEAD WITHOUT CONTRAST. HISTORY: found wondering on the street, r/o bleed COMPARISON: 04/13/2016 TECHNIQUE: Axial computed tomography images were obtained through the head/brain without intravenous contrast. Radiation dose: Total exam DLP = 942.68 mGy-cm. This CT exam was performed using one or more of the following dose reduction techniques: Automated exposure control, adjustment of the mA and/or kV according to patient size, and/or use of iterative reconstruction technique. FINDINGS: HEMORRHAGE: No intracranial hemorrhage. BRAIN: No mass effect or edema. No atrophy or chronic microvascular ischemic changes. VENTRICLES: Unremarkable. No hydrocephalus. CALVARIUM: Unremarkable. PARANASAL SINUSES: Unremarkable as visualized. No significant inflammatory changes. MASTOID AIR CELLS: Unremarkable as visualized. No inflammatory changes. OTHER FINDINGS: The report concurs with the preliminary [facility] report IMPRESSION: No acute findings
--- NOTE | 2018-04-23 09:09 | RAD ---
Date of service: 04/22/2018 HISTORY: medical clearance COMPARISON: 12/20/2017 FINDINGS: LUNGS: No active pulmonary disease. PLEURA: No significant pleural effusion identified, no pneumothorax apparent. CARDIOVASCULAR: No aortic atherosclerotic calcification present. Normal cardiac size. No pulmonary vascular congestion. OSSEOUS STRUCTURES: No significant abnormalities. VISUALIZED UPPER ABDOMEN: Normal. OTHER FINDINGS: None. IMPRESSION: No active disease.
--- NOTE | 2018-04-23 09:31 | RAD ---
Date of service: 04/22/2018 PROCEDURE: Radiographs of the Lumbar Spine. HISTORY: rt. lower back pain COMPARISON: No prior. FINDINGS: BONES: Normal alignment. No listhesis. No fracture. DISC SPACES: Unremarkable. OTHER FINDINGS: None. IMPRESSION: Unremarkable radiographs of the lumbar spine.
--- NOTE | 2018-04-23 09:42 | US ---
Date of service: 04/23/2018 HISTORY: increased lft COMPARISON: None. TECHNIQUE: Sonographic evaluation of the right upper quadrant of the abdomen. FINDINGS: LIVER: Measures 13.42 x 10.24 cm in length. Increased echogenicity of the liver parenchyma. No mass. No intrahepatic bile duct dilatation. GALLBLADDER: Gallstones. No evidence of cholecystitis COMMON BILE DUCT: Measures 4.5 mm. No stones. No dilatation. PANCREAS: Unremarkable as visualized. No mass. No ductal dilatation. RIGHT KIDNEY: Measures 11.22 x 4.21 x 5.42 cm in length. Normal echogenicity. No calculus, mass, or hydronephrosis. AORTA: No aneurysmal dilatation. IVC: Unremarkable. OTHER FINDINGS: None . IMPRESSION: Gallstone. No evidence of cholecystitis Fatty infiltration of the liver
--- NOTE | 2018-04-23 10:10 | CARD ---
APPROVED REPORT Date of service: 04/22/2018 EKG Measurement Heart [id number] <Conclusion> Normal sinus rhythm Normal ECG
--- NOTE | 2018-04-23 13:49 | CON ---
DATE OF CONSULTATION: 04/23/2018 HISTORY OF PRESENT ILLNESS: I evaluated the patient this morning. She is a 42-year-old female with past medical history of depression, psychosis, admitted after being found wandering in the street. According to the notes, she was apparently complaining about low back pain and there is no indication of nausea, vomiting, hematemesis, or rectal bleeding. Note that the patient speaks Hungarian and was babbling this morning at the bedside. According to the patient, there was no indication of her abdominal pain. She denied any alcohol use. When I asked about the etiology of pain, the patient did not answer. PHYSICAL EXAMINATION: VITAL SIGNS: I reviewed this patient's vital signs. HEENT: Noncontributory. LUNGS: Decreased breath sounds basilar. HEART: Irregular rhythm. ABDOMEN: Soft, no tenderness elicited in any quadrants. LABORATORY DATA: Consisted of normal electrolytes as well as BUN and creatinine. She has mild elevation of AST and ALT with the ratio of 84/77. Bilirubin within normal limits. Alk phos 98. Total creatine kinase 2608 with a CK-MB 26. CBC noncontributory except for mild decrease in hemoglobin. Toxicology was for the most part noncontributory. ASSESSMENT: This is a 42-year-old female with a history of psychosis and with elevated CPK, probably secondary to rhabdomyolysis. Etiology undetermined at this time point. Consult was called for elevated LFTs. Note that in all cases of rhabdomyolysis, there is an elevation of both the AST and the ALT. AST is usually much larger than the ALT elevation. Note also that the AST concentration decreases along with CPK as treatment continues. PLAN: Since the patient is not answering questions appropriately, we might consider an ultrasound to clarify her rhabdomyolysis. Also, we may consider if not already done a hepatitis profile. In view of the patient's orders, I think the regimen so far is adequate. The patient will be examined by the house staff later on this morning. Ky Atkinson DO, PhD REGIS
[2018-04-23 20:13] LABS: CK MB% 0.7 % (2.5-3.0); CK-MB 28.5 ng/mL (0.0-3.6)
--- NOTE | 2018-04-23 22:47 | CON ---
DATE: 04/23/2018 HISTORY OF PRESENT ILLNESS: The [facility] 42[facility] with a psychiatric history of depression and psychosis, multiple psychiatric admissions, who was brought into the ER by EMS after she was found wandering in the street. She was medically admitted and Psychiatry was consulted due to the patient's abnormal mental status and prior psychiatric history. I am familiar with the patient from her prior hospitalizations for psychiatric illness. When I met with her at bedside this morning, the patient does appear to have decompensated since her hospitalization in the unit back in 01/2017, over a year ago. The patient was unable to participate in interview and this is consistent with her prior presentations of prominently negative symptoms of depression and disorientation. At times, the patient was mumbling to herself, but not coherently. She seems guarded, paranoid, and acutely disorganized and feels like she is unpredictable. The patient requires further management on the medical floor for her medical issues; however, she will also need psychiatric followup as well as likely transfer to the psychiatric unit for psychiatric optimization in consideration of her disorganized status at this time. Her insight and judgement are poor. Vital signs were reviewed and recent labs were reviewed by this provider. MEDICATIONS: The patient is not currently on any psychiatric medications. PSYCHIATRIC HISTORY: She was admitted to the psychiatric unit in 03/2016 and 01/2017. Most recent discharge was 01/28/2017, and the patient was given a diagnosis of major depressive disorder; current episode, and discharged on Prozac 30 mg daily, Ativan 0.5 mg a.m. and at bedtime, and Seroquel 100 mg at bedtime. It is unclear how longer she followed up with aftercare recommendations. She does not have any history of suicide attempt. SOCIAL HISTORY: The patient was born and raised in [facility]. She lives with her 2 children, probably a [id number] son and a 14 or 15-year-old child. Her boyfriend is the father of 2-year-old son. Her boyfriend usually should be watching the patient's children at this time. The patient is unemployed and involved in the care. IMPRESSION: Major depression with psychotic features, rule out delirium, as the patient has a history of this affecting her mental status in the past. Rule out anxiety. RECOMMENDATIONS: At this time, we will start Prozac, Ativan, and Seroquel at lower doses and titrate to current doses and try to obtain collateral from family once the patient provides consent. At this time, she does not provide consent for this provider to speak to anybody in her family. Psychiatry will continue to follow up. Next followup will be on 04/24/2018. Please not,e I strongly urged social media director and medical team follow up with the patient regarding current care of her 2 children and ensure that they are being taken care of. Akilah Tyler MD
[2018-04-24] MEDS: Sodium Chloride 0.9% 1,000 ML IV SCH ×2 (04:30→10:00)
[2018-04-24] MEDS: Pantoprazole 40 mg EC Tab PO SCH (05:24)
[2018-04-24 07:13] LABS: BASO # 0.01 K/mm3 (0.0-2.0); BASO % 0.2 % (0.0-3.0); EOS % 0.9 % (1.5-5.0); GRAN # 2.52 (1.4-6.5); GRAN % 57.5 % (50.0-68.0); HEMOGLOBIN 10.9 g/dL (12.0-16.0); LYMPH # 1.5 (1.2-3.4); LYMPH % 35.2 % (22.0-35.0); MEAN CELL VOLUME 89.6 fl (80.0-105.0); MEAN CORPUSCULAR HEMOGLOBIN 29.8 pg (25.0-35.0); MEAN CORPUSCULAR HGB CONC 33.2 g/dl (31.0-37.0); MEAN PLATELET VOLUME 9.6 fl (7.0-11.0); MONO # 0.3 (0.1-0.6); MONO % 6.2 % (1.0-6.0); RBC 3.66 10^6/uL (3.5-6.1); RED CELL DISTRIBUTION WIDTH 13.8 % (11.5-14.5); WHITE BLOOD COUNT 4.4 10^3/uL (4.5-11.0)
[2018-04-24 07:33] LABS: ALB/GLOB RATIO 1.1 (1.1-1.8); ALBUMIN 3.7 g/dL (3.0-4.8); ALT/SGPT 80 U/L (7-56); AST/SGOT 69 U/L (14-36); BLOOD UREA NITROGEN 8 mg/dL (7-21); CALCIUM 8.3 mg/dL (8.4-10.5); GFR NON-AFRICAN AMERICAN > 60
[2018-04-24] MEDS ORDERED: Potassium Chloride 20 mEq ER Tab PO ONE (08:04)
[2018-04-24 09:01] LABS: HEPATITIS B SURFACE AG Negative (NEGATIVE)
[2018-04-24 09:06] LABS: HEPATITIS A IGM NEGATIVE (NEGATIVE); HEPATITIS B CORE AB NEGATIVE (NEGATIVE)
--- NOTE | 2018-04-24 09:11 | CP.PCM.PN ---
<Gabe Blue - Last Filed: 04/24/18 20:25> Subjective - Date & Time of Evaluation Date of Evaluation: 04/24/18 Time of Evaluation: 09:11 - Subjective Subjective: PGY-1 Medicine Progress Note for Dr. Galo Patient seen and examined at bedside this AM. No acute overnight events reported. Patient tolerating diet well. Alert and oriented x 3 but continues to be internally preoccupied. HPI and ROS difficult to obtain due to patient's affect/mood. Per old notes, pt has hx of depression with psychosis. DYFS called in the past for patient's 2 children, now around 2 and 14 years old. Social work and case management on board to evaluate pt's living conditions and well being of children. Objective - Vital Signs/Intake and Output Vital Signs (last 24 hours): Temp Pulse Resp BP Pulse Ox 98.5 F 85 18 133/78 99 04/23/18 22:59 04/23/18 22:59 04/23/18 22:59 04/23/18 22:59 04/23/18 22:59 - Medications Medications: Current Medications Fluoxetine HCl (Prozac) 10 mg PO DAILY [facility] Last Admin: 04/23/18 12:36 Dose: 10 mg Heparin Sodium (Porcine) (Heparin) 5,000 units SC Q8 [facility]; Protocol Last Admin: 04/24/18 05:24 Dose: Not Given Sodium Chloride (Sodium Chloride 0.9%) 1,000 mls @ 125 mls/hr IV .Q8H [facility] Last Admin: 04/24/18 04:30 Dose: 125 mls/hr Lorazepam (Ativan) 0.5 mg PO AMHS [facility]; Protocol Last Admin: 04/23/18 22:17 Dose: 0.5 mg Pantoprazole Sodium (Protonix Ec Tab) 40 mg PO 0600 [facility] Last Admin: 04/24/18 05:24 Dose: 40 mg Quetiapine Fumarate (Seroquel) 25 mg PO HS [facility]; Protocol Last Admin: 04/23/18 23:17 Dose: 25 mg - Labs Labs: 04/24/18 06:30 04/24/18 06:30 - Constitutional Appears: No Acute Distress - Head Exam Head Exam: ATRAUMATIC, NORMAL INSPECTION, NORMOCEPHALIC - Eye Exam Eye Exam: EOMI, Normal appearance - ENT Exam ENT Exam: Mucous Membranes Moist, Normal Exam - Neck Exam Neck Exam: Full ROM, Normal Inspection - Respiratory Exam Respiratory Exam: Clear to Ausculation Bilateral, NORMAL BREATHING PATTERN. absent: Rales, Rhonchi, Wheezes, Respiratory Distress, Stridor - Cardiovascular Exam Cardiovascular Exam: REGULAR RHYTHM, +S1, +S2 - GI/Abdominal Exam GI & Abdominal Exam: Soft, Normal Bowel Sounds. absent: Distended, Firm, Guarding, Rigid, Tenderness, Organomegaly - Extremities Exam Extremities Exam: Full ROM, Normal Capillary Refill, Normal Inspection. absent: Calf Tenderness, Joint Swelling, Pedal Edema - Back Exam Back Exam: NORMAL INSPECTION - Neurological Exam Neurological Exam: Alert, Awake, Oriented x3 - Psychiatric Exam Psychiatric exam: Normal Affect, Normal Mood - Skin Skin Exam: Dry, Intact, Normal Color, Warm Assessment and Plan - Assessment and Plan (Free Text) Assessment: 42 yo F with PMHx of depression and psychosis with multiple psych inpatient admissions in past presenting the ED via EMS after being found wander ing in the street, being medically evaluated for rhabdomyolsis. Plan: Rhabdomyolysis -CPK 1364 (04/24), downtrending -continue NS @125 cc/hr -continue to monitor for level < 1000 Hx of depression/psychosis -Head CT shows no acute pathology -CXR shows no acute pathology -patient does not respond when asked about current psych meds or pharmacy -psych recs (Dr. Tyler) appreciated -restart prozac, ativan, seroquel -at this time, she does not provide consent for provider to speak to anybody in her family -strongly urge social services technician to f/u with pt regarding current care of her 2 children Transaminitis -AST/ALT 69/80 -unclear etiology -GI (Dr. Atkinson) recs appreciated -in all case of rhabdo, there are elevated AST/ALT -gallbladder u/s: gallstone, no cholecystitis Anemia -Hg of 10.9 -iron studies wnl Low Back pain -Lumbar spine xray: no acute findings UTI -U/A positive for small leukocyte esterase, moderate bacteria in urine -patient does not respond when asked about urinary symptoms -pt afebrile, no leukocytosis -UCx: no growth -will not start antibiotics at this time due to afebrile and no white count -received nitrofurantoin in ED PPx, Diet, Disposition -DVT: heparin -GI: protonix -Diet: regular diet -Dispo: case mgmt, social work on board Case discussed with Dr. Clover Blue DO, PGY-1 <Polly Galo - Last Filed: 04/25/18 07:01> Objective - Vital Signs/Intake and Output Vital Signs (last 24 hours): Temp Pulse Resp BP Pulse Ox 97.8 F 87 20 136/88 98 04/24/18 22:47 04/24/18 22:47 04/24/18 22:47 04/24/18 22:47 04/24/18 22:47 Intake and Output: 04/24/18 04/25/18 18:59 06:59 Intake Total 180 Balance 180 - Medications Medications: Current Medications Fluoxetine HCl (Prozac) 10 mg PO DAILY [facility] Last Admin: 04/24/18 09:34 Dose: 10 mg Heparin Sodium (Porcine) (Heparin) 5,000 units SC Q8 [facility]; Protocol Last Admin: 04/25/18 03:54 Dose: 5,000 units Sodium Chloride (Sodium Chloride 0.9%) 1,000 mls @ 125 mls/hr IV .Q8H [facility] Last Admin: 04/25/18 03:55 Dose: 125 mls/hr Lorazepam (Ativan) 0.5 mg PO AMHS [facility]; Protocol Last Admin: 04/25/18 03:53 Dose: 0.5 mg Pantoprazole Sodium (Protonix Ec Tab) 40 mg PO 0600 [facility] Last Admin: 04/24/18 05:24 Dose: 40 mg Quetiapine Fumarate (Seroquel) 50 mg PO AMHS [facility]; Protocol Last Admin: 04/25/18 03:54 Dose: 50 mg - Labs Labs: 04/24/18 06:30 04/24/18 06:30 Attending/Attestation - Attestation I have personally seen and examined this patient.: Yes I have fully participated in the care of the patient.: Yes I have reviewed all pertinent clinical information, including history, physical exam and plan: Yes Notes (Text): 04/24/18 42 year old female with past medical history of depression and psychosis who was admitted after she was found wandering in the streets. She was found to have rhabdomyolysis and started on iv fluids. CPK is improving. LFTs are mildly elevated but stable. GI is following. Ultrasound abdomen showed gallstone but no cholecystitis. Patient denies any abdominal pain and is tolerating diet. Psychiatry evaluation was appreciated; psychiatry follow up requested for possible transfer to inpatient psychiatric unit once medically clear. Polly Galo MD Hospitalist.
[2018-04-24 09:17] LABS: CK MB% 0.6 % (2.5-3.0); CK-MB 7.8 ng/mL (0.0-3.6)
[2018-04-24 09:18] LABS: HEPATITIS C ANTIBODY NEGATIVE (NEGATIVE)
--- NOTE | 2018-04-24 20:54 | PN ---
DATE: 04/24/2018 SUBJECTIVE: In short, the patient is a 42-year-old female, reported history of schizophrenia. The patient was admitted on the medical site because the patient was wandering on the streets. Psych consult was called because the patient presented to be disorganized and the patient has history of mental illness. The patient is very familiar to this repairer typewriter from the multiple admissions to the psychiatric inpatient unit. The patient was seen and examined today. The patient is [place] speaking, that is why this repairer typewriter utilized voice translation system, welding machine operator gas number is [id number]. The patient presented to be disorganized, mumbling something. The patient is very poor and unreliable historian, even site supervising technical operator was not able to understand what the patient is talking about. The patient presented to be acutely psychotic and talking gibberish. The patient has small kids. This repairer typewriter talked to the Supervisor Net Making, child protective services need to be involved. The patient responded well in the past with Risperdal, Prozac, and Seroquel. Seroquel was started by psychiatrist on-call. VITAL SIGNS: Reviewed. Temperature 98.5, pulse is 85, blood pressure 133/78, respirations 18, oxygen saturation is 98. MEDICATIONS: Reviewed. The patient is on Prozac 10 mg, heparin, Ativan 0.5 mg twice a day, Protonix, Seroquel will be increased to 50 mg twice a day, and sodium chloride. LABORATORY DATA: Labs reviewed. Toxicology reviewed. Serology reviewed. MENTAL STATUS EXAMINATION: The patient presented to be disorganized, marginal personal hygiene, mumbling something to herself, very hard to understand. The patient talks gibberish. Thought process is disorganized. Thought content: The patient is presented to be psychotic, talking to herself and responding to internal stimuli. Insight and judgment seem to be very impaired at present moment, and impulses are not predictable. IMPRESSION: As per history, schizophrenia. PLAN: The patient obviously required psych admission, but at the present moment, the patient lacks capacity to sign herself into the psych unit. We will follow up and advise accordingly. Staff was educated about importance to move the patient closer to the nursing station because the patient presented to be disorganized and needs to closer observation. Thank you very much for letting me to participate in the care of your patient. Nikki Lockhart MD [place] # [id number] REGIS
[2018-04-25] MEDS: Sodium Chloride 0.9% 1,000 ML IV SCH ×2 (03:55→19:49)
[2018-04-25] MEDS: Pantoprazole 40 mg EC Tab PO SCH (07:00)
[2018-04-25 07:27] LABS: BASO # 0.01 K/mm3 (0.0-2.0); BASO % 0.2 % (0.0-3.0); EOS % 0.7 % (1.5-5.0); GRAN # 3.52 (1.4-6.5); HEMOGLOBIN 11.7 g/dL (12.0-16.0); LYMPH # 1.9 (1.2-3.4); LYMPH % 32.6 % (22.0-35.0); MEAN CELL VOLUME 88.6 fl (80.0-105.0); MEAN CORPUSCULAR HEMOGLOBIN 30.4 pg (25.0-35.0); MEAN CORPUSCULAR HGB CONC 34.3 g/dl (31.0-37.0); MEAN PLATELET VOLUME 9.2 fl (7.0-11.0); MONO # 0.3 (0.1-0.6); MONO % 5.5 % (1.0-6.0); RBC 3.85 10^6/uL (3.5-6.1); RED CELL DISTRIBUTION WIDTH 13.7 % (11.5-14.5); WHITE BLOOD COUNT 5.8 10^3/uL (4.5-11.0)
[2018-04-25 07:43] LABS: ALB/GLOB RATIO 1.1 (1.1-1.8); ALBUMIN 3.9 g/dL (3.0-4.8); ALT/SGPT 73 U/L (7-56); AST/SGOT 50 U/L (14-36); BLOOD UREA NITROGEN 8 mg/dL (7-21); CALCIUM 8.2 mg/dL (8.4-10.5); GFR NON-AFRICAN AMERICAN > 60
[2018-04-25] MEDS ORDERED: Potassium Chloride 20 mEq ER Tab PO ONE (08:06)
[2018-04-25 08:08] LABS: CK-MB 3.5 ng/mL (0.0-3.6)
--- NOTE | 2018-04-25 09:56 | PN ---
DATE: 04/25/2018 SUBJECTIVE: Ms. Diallo is a 42-year-old female with past medical history of depression, psychosis, admitted several days ago after being found wandering in the street with elevated CPK. I reviewed the results of the gallbladder ultrasound as well as respective progress notes, also psych notes. Followup laboratory indicates hepatitis profile is negative. Gallbladder ultrasound that was performed revealed gallstones, but no evidence of cholecystitis, also some fatty infiltration of the liver. Laboratory data indicates decrease in transaminases from day of admission, also decrease in CPK current value 1364, which was obtained yesterday. Note that there is a decreasing trend of AST with parallel decrease in the CPK as indicated in my consult. PLAN: Overall not much to add in this case. Will sign off. Ky Atkinson DO, PhD REGIS
--- NOTE | 2018-04-25 12:05 | PN ---
DATE: 04/25/2018 FOLLOWUP NOTE SUBJECTIVE: The patient was admitted on the medical site for wandering on the streets. The patient has history of mental illness, schizophrenia, history of noncompliance with the medications. This field underwriter seen this patient yesterday. Dr. Tyler saw the patient over the weekend. The patient presented to be psychotic, mumbling something to herself. Please see yesterday's note for more detailed information. The patient has young son and as per Skin Toggler, the patient's son under custody of his father. Overnight, the patient was moved closer to the nursing station. This field underwriter attempted to speak to the patient, but the patient is lying with eyes closed. This field underwriter tried to utilize voice translation system for the patient to understand, number is [phone]. The patient does not want to participate in interview. Even though that she is not sleeping, the patient is laying down with no movements and not opening her eyes, but breathing normally. The patient is not in acute distress, but it seems to be that the patient is in catatonic stage. As per report, the patient was rumbling and mumbling something to herself, but no agitation, no aggression. Vital signs seems to be stable. Temperature 98.6, pulse is 97, blood pressure 108/74, respirations 20, oxygen saturation is 97. Medications reviewed. The patient is on Prozac 10 mg daily, heparin, Ativan 0.5 mg which will be increased to 1 mg twice a day for catatonia, Protonix 40 mg daily, Seroquel will be increased to 100 mg twice a day. Labs reviewed, most recent from today. Urinalysis: Leukocyte esterase small. Serology reviewed. Notes from primary team reviewed. The patient had transaminases for unknown etiology. Gallbladder ultrasound showed gallstones. No cholecystitis. Rhabdomyolysis down trending. CT scan of the head: No acute pathology. Anemia, lower back pain, urinary tract infection. The patient was given nitrofurantoin in the emergency room. MENTAL STATUS EXAMINATION: As this field underwriter described above, the patient is lying with no movement. The patient is not in acute distress, but not willing to participate in interview. IMPRESSION: The patient has history of schizophrenia, chronic noncompliance with the medications and followup appointments. At present moment, the patient is in catatonic stage. PLAN: Seroquel as well as Prozac as well as benzodiazepines were started. Most likely, the patient requires further hospitalization, but at this point, the patient lacks capacity to sign consent for treatment. The patient is acutely psychotic, was mumbling something yesterday incoherently. If the patient will continue to be in the same stage, we have no other choice than to initiate screening by [facility]. As per administrator social welfare's note, the patient younger son is under custody of his father. The patient has two other sons who are adults and live with the father. DYFS case was closed few months back. At present moment, the patient requires further hospitalization and stabilization. Should you have any questions, give me a call back. We will follow up and advise accordingly. Nikki Lockhart MD [id number]
--- NOTE | 2018-04-25 16:27 | CP.PCM.PN ---
<Gabe Blue - Last Filed: 04/25/18 16:23> Subjective - Date & Time of Evaluation Date of Evaluation: 04/25/18 Time of Evaluation: 08:00 - Subjective Subjective: PGY-1 Medicine Progress Note for Dr. Galo Patient seen and examined at bedside this AM. No acute overnight events reported. Patient continues to be internally occupied, occasionally mumbles to herself. Difficult to obtain history from her, even with use of control electrician. She continues to remain alert and oriented x3, seen tolerating PO intake well, ambulating steadily on feet. Objective - Vital Signs/Intake and Output Vital Signs (last 24 hours): Temp Pulse Resp BP Pulse Ox 98.3 F 92 H 20 130/82 100 04/25/18 14:00 04/25/18 14:00 04/25/18 14:00 04/25/18 14:00 04/25/18 14:00 Intake and Output: 04/25/18 04/25/18 06:59 18:59 Intake Total 180 Balance 180 - Medications Medications: Current Medications Fluoxetine HCl (Prozac) 10 mg PO DAILY [facility] Last Admin: 04/25/18 10:04 Dose: 10 mg Heparin Sodium (Porcine) (Heparin) 5,000 units SC Q8 [facility]; Protocol Last Admin: 04/25/18 14:58 Dose: Not Given Lorazepam (Ativan) 1 mg PO [facility]; Protocol Pantoprazole Sodium (Protonix Ec Tab) 40 mg PO 0600 [facility] Last Admin: 04/25/18 07:00 Dose: 40 mg Quetiapine Fumarate (Seroquel) 100 mg PO [facility]; Protocol - Labs Labs: 04/25/18 07:00 04/25/18 07:00 - Constitutional Appears: Non-toxic, No Acute Distress - Head Exam Head Exam: ATRAUMATIC, NORMAL INSPECTION, NORMOCEPHALIC - Eye Exam Eye Exam: EOMI, Normal appearance Pupil Exam: NORMAL ACCOMODATION - ENT Exam ENT Exam: Mucous Membranes Moist, Normal Exam - Neck Exam Neck Exam: Full ROM, Normal Inspection - Respiratory Exam Respiratory Exam: Clear to Ausculation Bilateral, NORMAL BREATHING PATTERN. absent: Accessory Muscle Use, Rales, Rhonchi, Wheezes, Respiratory Distress, Stridor - Cardiovascular Exam Cardiovascular Exam: REGULAR RHYTHM, +S1, +S2 - GI/Abdominal Exam GI & Abdominal Exam: Soft, Normal Bowel Sounds. absent: Distended, Firm, Guarding, Rigid, Tenderness, Organomegaly, Rebound - Extremities Exam Extremities Exam: Full ROM, Normal Capillary Refill, Normal Inspection. absent: Calf Tenderness, Joint Swelling, Pedal Edema - Back Exam Back Exam: NORMAL INSPECTION - Neurological Exam Neurological Exam: Alert, Awake, Normal Gait, Oriented x3 - Psychiatric Exam Psychiatric exam: Depressed, Flat Affect - Skin Skin Exam: Dry, Intact, Normal Color, Warm Assessment and Plan - Assessment and Plan (Free Text) Assessment: 42 year old female with PMHx of depression and psychosis with multiple psych inpatient admissions in past presenting the ED via EMS after being found wandering in the street. Plan: Rhabdomyolysis -CPK 664 (04/25), downtrending -continue NS @125 cc/hr Hx of depression/psychosis -Head CT shows no acute pathology -CXR shows no acute pathology -patient does not respond when asked about current psych meds or pharmacy -Psych recs (Dr. Tyler) appreciated -restart prozac, ativan, seroquel -at this time, she does not provide consent for provider to speak to anybody in her family -strongly urge social media manager to f/u with pt regarding current care of her 2 children Transaminitis -AST/ALT 50/73 -unclear etiology -GI (Dr. Atkinson) recs appreciated -cleared from GI perspective Anemia -Hg of 11.7 (04/25) -iron studies wnl Low Back pain -Lumbar spine xray: no acute findings UTI -U/A positive for small leukocyte esterase, moderate bacteria in urine -patient does not respond when asked about urinary symptoms -pt afebrile, no leukocytosis -UCx: no growth -will not start antibiotics at this time due to afebrile and no white count -received nitrofurantoin in ED PPx, Diet, Disposition -DVT: heparin -GI: protonix -Diet: regular diet -*Dispo: patient is medically stable at this point for psychiatric admission; awaiting Psych f/u for plan going forward Case discussed with Dr. Clover Blue DO, PGY-1 <Polly Galo - Last Filed: 04/25/18 17:53> Objective - Vital Signs/Intake and Output Vital Signs (last 24 hours): Temp Pulse Resp BP Pulse Ox 98.3 F 92 H 20 130/82 100 04/25/18 14:00 04/25/18 14:00 04/25/18 14:00 04/25/18 14:00 04/25/18 14:00 Intake and Output: 04/25/18 04/25/18 06:59 18:59 Intake Total 180 Balance 180 - Medications Medications: Current Medications Fluoxetine HCl (Prozac) 10 mg PO DAILY [facility] Last Admin: 04/25/18 10:04 Dose: 10 mg Heparin Sodium (Porcine) (Heparin) 5,000 units SC Q8 [facility]; Protocol Last Admin: 04/25/18 14:58 Dose: Not Given Lorazepam (Ativan) 1 mg PO [facility]; Protocol Pantoprazole Sodium (Protonix Ec Tab) 40 mg PO 0600 [facility] Last Admin: 04/25/18 07:00 Dose: 40 mg Quetiapine Fumarate (Seroquel) 100 mg PO [facility]; Protocol - Labs Labs: 04/25/18 07:00 04/25/18 07:00 Attending/Attestation - Attestation I have personally seen and examined this patient.: Yes I have fully participated in the care of the patient.: Yes I have reviewed all pertinent clinical information, including history, physical exam and plan: Yes Notes (Text): 04/25/18 17:49 42 year old female with past medical history of depression and psychosis who was admitted after she was found wandering in the streets. She was found to have rhabdomyolysis and started on iv fluids. CPK has been improving. LFTs are mildly elevated but stable. GI is following. Ultrasound abdomen showed gallstone but no cholecystitis. Patient denies any abdominal pain and is tolerating diet. Psychiatry is following as well. Patient is on prozac and sta rted on seroquel and ativan as well. Will monitor for response and discuss with psychiatry tomorrow regarding possible inpatient psychiatric unit transfer if patient is agreeable vs involuntary commitment. Polly Galo MD Hospitalist.
[2018-04-26] MEDS: Pantoprazole 40 mg EC Tab PO SCH (05:32)
[2018-04-26 07:12] LABS: BASO # 0.01 K/mm3 (0.0-2.0); BASO % 0.2 % (0.0-3.0); EOS # 0.1 (0.0-0.7); GRAN # 2.66 (1.4-6.5); GRAN % 52.3 % (50.0-68.0); HEMOGLOBIN 11.2 g/dL (12.0-16.0); MEAN CORPUSCULAR HEMOGLOBIN 30.1 pg (25.0-35.0); MEAN CORPUSCULAR HGB CONC 33.8 g/dl (31.0-37.0); MEAN PLATELET VOLUME 9.6 fl (7.0-11.0); MONO # 0.3 (0.1-0.6); MONO % 5.5 % (1.0-6.0); RBC 3.72 10^6/uL (3.5-6.1); RED CELL DISTRIBUTION WIDTH 13.8 % (11.5-14.5); WHITE BLOOD COUNT 5.1 10^3/uL (4.5-11.0)
[2018-04-26 07:37] LABS: ALB/GLOB RATIO 1.1 (1.1-1.8); ALBUMIN 3.8 g/dL (3.0-4.8); ALT/SGPT 53 U/L (7-56); AST/SGOT 33 U/L (14-36); BLOOD UREA NITROGEN 11 mg/dL (7-21); CALCIUM 8.7 mg/dL (8.4-10.5); GFR NON-AFRICAN AMERICAN > 60
[2018-04-26 08:18] LABS: CK-MB 1.6 ng/mL (0.0-3.6)
[2018-04-26 08:33] VITALS: RESP 16
--- NOTE | 2018-04-26 13:34 | CON ---
DATE: 04/26/2018 HISTORY OF PRESENT ILLNESS: In short, the patient is 42-year-old female with reported history of schizophrenia. The patient has chronic noncompliance with the medications and followup appointments. The patient is very familiar to this jingle writer from the previous admissions to the psychiatric inpatient unit. The patient was admitted on the medical site for rhabdomyolysis. The patient was found wandering on the streets in confused stage. First couple of days, the patient was on catatonic stage. This jingle writer was able to convince the patient to take medications of Seroquel and Ativan. Today, the patient was followed up. The patient presented a little bit better, was able to communicate her needs. This jingle writer utilized a Greek-speaking nurse for translation as well as voice translation system yesterday. The patient reported that she does not feel good. The patient reported that she came here because of the hip pain, which is not true. The patient denied that she was wandering on the streets. At the same time, the patient presented to be confused. In the middle of the conversation, the patient stayed quiet and started to mumble something to herself. The patient then said that she does not want to talk. This jingle writer advised the patient that she needs to stay in the hospital to complete her treatment for psychosis. The patient said I do not know, I do not know. This jingle writer educated the patient about [facility] involuntary commitment. The patient said she will think about it. Later on, this jingle writer as well as medical students came over. The patient was willing to sign consent for treatment, willing to get better, willing to be on medications. This jingle writer had prolonged conversation with the patient's primary care physician, Dr. Galo. At present moment, rhabdomyolysis is much better and the patient is medically stable to transfer to the psychiatric inpatient unit. The patient also has 3 kids, which are under custody of her ex- and boyfriend. was involved. Ship Scraper involved. The patient has no kids under her custody. Vital signs reviewed. Temperature 98.2, pulse is 86, blood pressure 102/56, respirations 16, oxygen saturation is 96. Medications reviewed. The patient is on Prozac 10 mg daily, heparin, Ativan 1 mg twice a day for catatonia, Protonix as well as Seroquel 100 mg twice a day at the morning time and at the nighttime. Labs reviewed. Most recent was from today. Toxicology reviewed. Serology reviewed. MENTAL STATUS EXAMINATION: The patient presented to be disheveled, flat affect, oddly related. At times, no eye contact. When the patient has contact, it is very intense. Mood described, the patient was not able to describe her mood, but mumbles something to herself. Thought process disorganized. Thought content, the patient is obviously responding to internal stimuli, psychotic, guarded and paranoid. Denied thoughts of harming herself or others. Denied intents or plan. Insight and judgment seems to be very limited, but improving. Impulses are well controlled. IMPRESSION: As per history, schizophrenia. PLAN: The patient is willing to sign consent for treatment. The patient is willing to be on medication. The patient is willing to stay in the hospital and complete her treatment. Dr. Galo agreed with the transfer. The patient is medically stable. Seroquel will be titrated slowly. The patient is on Prozac and Ativan for catatonia. The patient requires further hospitalization and stabilization in acute psychiatric inpatient unit. If the patient refused to stay in the hospital, screening needs to be initiated. Thank you very much for letting me participate in the care of your patient. Nikki Lockhart MD
--- NOTE | 2018-04-26 13:43 | CP.PCM.DIS ---
<Rick Ramosophe - Last Filed: 04/26/18 13:39> Provider - Provider Date of Admission: 04/23/18 10:53 Attending physician: Polly Galo MD Primary care physician: Rhina Carbone NP Time Spent in preparation of Discharge (in minutes): 35 Diagnosis - Discharge Diagnosis (1) Rhabdomyolysis Status: Acute (2) Depression Status: Acute Hospital Course - Lab Results Lab Results: Micro Results 04/23/18 00:30 Urine,Clean Catch Urine Culture - Final No Growth (<1,000 CFU/ML) Most Recent Lab Values WBC 5.1 10^3/uL (4.5-11.0) 04/26/18 06:30 RBC 3.72 10^6/uL (3.5-6.1) 04/26/18 06:30 Hgb 11.2 g/dL (12.0-16.0) L 04/26/18 06:30 Hct 33.1 % (36.0-48.0) L 04/26/18 06:30 MCV 89.0 fl (80.0-105.0) 04/26/18 06:30 MCH 30.1 pg (25.0-35.0) 04/26/18 06:30 MCHC 33.8 g/dl (31.0-37.0) 04/26/18 06:30 RDW 13.8 % (11.5-14.5) 04/26/18 06:30 Plt Count 267 10^3/uL (120.0-450.0) 04/26/18 06:30 MPV 9.6 fl (7.0-11.0) 04/26/18 06:30 Gran % 52.3 % (50.0-68.0) 04/26/18 06:30 Lymph % (Auto) 40.0 % (22.0-35.0) H 04/26/18 06:30 Person % (Auto) 5.5 % (1.0-6.0) 04/26/18 06:30 Eos % (Auto) 2.0 % (1.5-5.0) 04/26/18 06:30 Baso % (Auto) 0.2 % (0.0-3.0) 04/26/18 06:30 Gran # 2.66 (1.4-6.5) 04/26/18 06:30 Lymph # (Auto) 2.0 (1.2-3.4) 04/26/18 06:30 Person # (Auto) 0.3 (0.1-0.6) 04/26/18 06:30 Eos # (Auto) 0.1 (0.0-0.7) 04/26/18 06:30 Baso # (Auto) 0.01 K/mm3 (0.0-2.0) 04/26/18 06:30 Sodium 138 mmol/L (132-148) 04/26/18 06:30 Potassium 3.7 mmol/L (3.6-5.0) 04/26/18 06:30 Chloride 105 mmol/L (98-107) 04/26/18 06:30 Carbon Dioxide 25 mmol/L (21-33) 04/26/18 06:30 Anion Gap 12 (10-20) 04/26/18 06:30 BUN 11 mg/dL (7-21) 04/26/18 06:30 Creatinine 0.5 mg/dl (0.7-1.2) L 04/26/18 06:30 Est GFR ( Amer) > 60 04/26/18 06:30 Est GFR (Non-Af Amer) > 60 04/26/18 06:30 Random Glucose 98 mg/dL (70-110) 04/26/18 06:30 Calcium 8.7 mg/dL (8.4-10.5) 04/26/18 06:30 Phosphorus 3.5 mg/dL (2.5-4.5) 04/23/18 07:00 Magnesium 2.0 mg/dL (1.7-2.2) 04/23/18 07:00 Iron 139 ug/dL (45-180) 04/23/18 07:00 TIBC 359 ug/dL (265-497) 04/23/18 07:00 % Saturation 39 % (20-55) 04/23/18 07:00 Total Bilirubin 0.5 mg/dL (0.2-1.3) 04/26/18 06:30 AST 33 U/L (14-36) 04/26/18 06:30 ALT 53 U/L (7-56) 04/26/18 06:30 Alkaline Phosphatase 82 U/L (38-126) 04/26/18 06:30 Ammonia < 9 umol/L (9-33) L 04/23/18 11:20 Total Creatine Kinase 303 U/L (35-230) H 04/26/18 06:30 CK-MB (CK-2) 1.6 ng/mL (0.0-3.6) 04/26/18 06:30 CK-MB (CK-2) % 0.6 % (2.5-3.0) L 04/24/18 07:39 Total Protein 7.2 g/dL (5.8-8.3) 04/26/18 06:30 Albumin 3.8 g/dL (3.0-4.8) 04/26/18 06:30 Globulin 3.4 gm/dL 04/26/18 06:30 Albumin/Globulin Ratio 1.1 (1.1-1.8) 04/26/18 06:30 Urine Color Yellow (YELLOW) 04/22/18 23:24 Urine Appearance Sl cloudy (CLEAR) 04/22/18 23:24 Urine pH 6.5 (4.7-8.0) 04/22/18 23:24 Ur Specific [place] 1.025 (1.005-1.035) 04/22/18 23:24 Urine Protein 30 mg/dL (<30 mg/dL) H 04/22/18 23:24 Urine Glucose (UA) Negative mg/dL (NEGATIVE) 04/22/18 23:24 Urine Ketones >=80 mg/dL (NEGATIVE) 04/22/18 23:24 Urine Blood Negative (NEGATIVE) 04/22/18 23:24 Urine Nitrate Negative (NEGATIVE) 04/22/18 23:24 Urine Bilirubin Negative (NEGATIVE) 04/22/18 23:24 Urine Urobilinogen 0.2 E.U./dL (<1 E.U./dL) 04/22/18 23:24 Ur Leukocyte Esterase Small Oracio/uL (NEGATIVE) H 04/22/18 23:24 Urine RBC 0 - 2 /hpf (0-2) 04/22/18 23:24 Urine WBC 1 - 3 /hpf (0-6) 04/22/18 23:24 Ur Epithelial Cells 3 - 4 /hpf (0-5) 04/22/18 23:24 Urine Bacteria Mod (NEG) 04/22/18 23:24 Salicylates < 1 mg/dL (2.0-20.0) L 04/22/18 22:21 Urine Opiates Screen Negative (NEGATIVE) 04/22/18 23:04 Urine Methadone Screen Negative (NEGATIVE) 04/22/18 23:04 Acetaminophen < 10.0 ug/ml (10.0-20.0) L 04/22/18 22:21 Ur Barbiturates Screen Negative (NEGATIVE) 04/22/18 23:04 Ur Phencyclidine Scrn Negative (NEGATIVE) 04/22/18 23:04 Ur Amphetamines Screen Negative (NEGATIVE) 04/22/18 23:04 U Benzodiazepines Scrn Negative (NEGATIVE) 04/22/18 23:04 U Oth Cocaine Metabols Negative (NEGATIVE) 04/22/18 23:04 U Cannabinoids Screen Negative (NEGATIVE) 04/22/18 23:04 Alcohol, Quantitative < 10 mg/dL (0-10) 04/22/18 22:21 Hepatitis A IgM Ab Negative (NEGATIVE) 04/23/18 07:00 Hep Bs Antigen Negative (NEGATIVE) 04/23/18 07:00 Hep B Core IgM Ab Negative (NEGATIVE) 04/23/18 07:00 Hepatitis C Antibody Negative (NEGATIVE) 04/23/18 07:00 Discharge Exam - Head Exam Head Exam: ATRAUMATIC, NORMAL INSPECTION, NORMOCEPHALIC - Eye Exam Eye Exam: PERRL - ENT Exam ENT Exam: Mucous Membranes Moist - Neck Exam Neck exam: Full Rom - Respiratory Exam Respiratory Exam: Clear to PA & Lateral, NORMAL BREATHING PATTERN - Cardiovascular Exam Cardiovascular Exam: REGULAR RHYTHM, +S1, +S2 - GI/Abdominal Exam GI & Abdominal Exam: Normal Bowel Sounds, Soft, Unremarkable - Extremities Exam Extremities exam: full ROM, pedal pulses present - Neurological Exam Neurological exam: Alert, CN II-XII Intact, Normal Gait, Oriented x3 - Psychiatric Exam Psychiatric exam: Depressed, Flat Affect - Skin Skin Exam: Dry, Warm Discharge Plan - Follow Up Plan Condition: STABLE Disposition: DISCHARGE TO PSYCH HOSPITAL Instructions: Rhabdomyolysis, Depression, Flu Vaccine, Urinary Tract Infection in Women (DC) Additional Instructions: Patient to be discharged to [facility] psychiatric floor Take medications as prescribed to you Follow up with primary care physician within 1-2 weeks upon discharge from psychiatric floor Adhere to psychiatric instructions upon discharge from psychiatric floor Referrals: Rhina Carbone NP [Primary Care Provider] - <Polly Galo - Last Filed: 04/27/18 07:19> Provider - Provider Date of Admission: 04/23/18 10:53 Attending physician: Polly Galo MD Primary care physician: Rhina Carbone NP Hospital Course - Lab Results Lab Results: Micro Results 04/23/18 00:30 Urine,Clean Catch Urine Culture - Final No Growth (<1,000 CFU/ML) Most Recent Lab Values WBC 5.1 10^3/uL (4.5-11.0) 04/26/18 06:30 RBC 3.72 10^6/uL (3.5-6.1) 04/26/18 06:30 Hgb 11.2 g/dL (12.0-16.0) L 04/26/18 06:30 Hct 33.1 % (36.0-48.0) L 04/26/18 06:30 MCV 89.0 fl (80.0-105.0) 04/26/18 06:30 MCH 30.1 pg (25.0-35.0) 04/26/18 06:30 MCHC 33.8 g/dl (31.0-37.0) 04/26/18 06:30 RDW 13.8 % (11.5-14.5) 04/26/18 06:30 Plt Count 267 10^3/uL (120.0-450.0) 04/26/18 06:30 MPV 9.6 fl (7.0-11.0) 04/26/18 06:30 Gran % 52.3 % (50.0-68.0) 04/26/18 06:30 Lymph % (Auto) 40.0 % (22.0-35.0) H 04/26/18 06:30 Person % (Auto) 5.5 % (1.0-6.0) 04/26/18 06:30 Eos % (Auto) 2.0 % (1.5-5.0) 04/26/18 06:30 Baso % (Auto) 0.2 % (0.0-3.0) 04/26/18 06:30 Gran # 2.66 (1.4-6.5) 04/26/18 06:30 Lymph # (Auto) 2.0 (1.2-3.4) 04/26/18 06:30 Person # (Auto) 0.3 (0.1-0.6) 04/26/18 06:30 Eos # (Auto) 0.1 (0.0-0.7) 04/26/18 06:30 Baso # (Auto) 0.01 K/mm3 (0.0-2.0) 04/26/18 06:30 Sodium 138 mmol/L (132-148) 04/26/18 06:30 Potassium 3.7 mmol/L (3.6-5.0) 04/26/18 06:30 Chloride 105 mmol/L (98-107) 04/26/18 06:30 Carbon Dioxide 25 mmol/L (21-33) 04/26/18 06:30 Anion Gap 12 (10-20) 04/26/18 06:30 BUN 11 mg/dL (7-21) 04/26/18 06:30 Creatinine 0.5 mg/dl (0.7-1.2) L 04/26/18 06:30 Est GFR ( Amer) > 60 04/26/18 06:30 Est GFR (Non-Af Amer) > 60 04/26/18 06:30 Random Glucose 98 mg/dL (70-110) 04/26/18 06:30 Calcium 8.7 mg/dL (8.4-10.5) 04/26/18 06:30 Phosphorus 3.5 mg/dL (2.5-4.5) 04/23/18 07:00 Magnesium 2.0 mg/dL (1.7-2.2) 04/23/18 07:00 Iron 139 ug/dL (45-180) 04/23/18 07:00 TIBC 359 ug/dL (265-497) 04/23/18 07:00 % Saturation 39 % (20-55) 04/23/18 07:00 Total Bilirubin 0.5 mg/dL (0.2-1.3) 04/26/18 06:30 AST 33 U/L (14-36) 04/26/18 06:30 ALT 53 U/L (7-56) 04/26/18 06:30 Alkaline Phosphatase 82 U/L (38-126) 04/26/18 06:30 Ammonia < 9 umol/L (9-33) L 04/23/18 11:20 Total Creatine Kinase 303 U/L (35-230) H 04/26/18 06:30 CK-MB (CK-2) 1.6 ng/mL (0.0-3.6) 04/26/18 06:30 CK-MB (CK-2) % 0.6 % (2.5-3.0) L 04/24/18 07:39 Total Protein 7.2 g/dL (5.8-8.3) 04/26/18 06:30 Albumin 3.8 g/dL (3.0-4.8) 04/26/18 06:30 Globulin 3.4 gm/dL 04/26/18 06:30 Albumin/Globulin Ratio 1.1 (1.1-1.8) 04/26/18 06:30 Urine Color Yellow (YELLOW) 04/22/18 23:24 Urine Appearance Sl cloudy (CLEAR) 04/22/18 23:24 Urine pH 6.5 (4.7-8.0) 04/22/18 23:24 Ur Specific [place] 1.025 (1.005-1.035) 04/22/18 23:24 Urine Protein 30 mg/dL (<30 mg/dL) H 04/22/18 23:24 Urine Glucose (UA) Negative mg/dL (NEGATIVE) 04/22/18 23:24 Urine Ketones >=80 mg/dL (NEGATIVE) 04/22/18 23:24 Urine Blood Negative (NEGATIVE) 04/22/18 23:24 Urine Nitrate Negative (NEGATIVE) 04/22/18 23:24 Urine Bilirubin Negative (NEGATIVE) 04/22/18 23:24 Urine Urobilinogen 0.2 E.U./dL (<1 E.U./dL) 04/22/18 23:24 Ur Leukocyte Esterase Small Oracio/uL (NEGATIVE) H 04/22/18 23:24 Urine RBC 0 - 2 /hpf (0-2) 04/22/18 23:24 Urine WBC 1 - 3 /hpf (0-6) 04/22/18 23:24 Ur Epithelial Cells 3 - 4 /hpf (0-5) 04/22/18 23:24 Urine Bacteria Mod (NEG) 04/22/18 23:24 Salicylates < 1 mg/dL (2.0-20.0) L 04/22/18 22:21 Urine Opiates Screen Negative (NEGATIVE) 04/22/18 23:04 Urine Methadone Screen Negative (NEGATIVE) 04/22/18 23:04 Acetaminophen < 10.0 ug/ml (10.0-20.0) L 04/22/18 22:21 Ur Barbiturates Screen Negative (NEGATIVE) 04/22/18 23:04 Ur Phencyclidine Scrn Negative (NEGATIVE) 04/22/18 23:04 Ur Amphetamines Screen Negative (NEGATIVE) 04/22/18 23:04 U Benzodiazepines Scrn Negative (NEGATIVE) 04/22/18 23:04 U Oth Cocaine Metabols Negative (NEGATIVE) 04/22/18 23:04 U Cannabinoids Screen Negative (NEGATIVE) 04/22/18 23:04 Alcohol, Quantitative < 10 mg/dL (0-10) 04/22/18 22:21 Hepatitis A IgM Ab Negative (NEGATIVE) 04/23/18 07:00 Hep Bs Antigen Negative (NEGATIVE) 04/23/18 07:00 Hep B Core IgM Ab Negative (NEGATIVE) 04/23/18 07:00 Hepatitis C Antibody Negative (NEGATIVE) 04/23/18 07:00 Attending/Attestation - Attestation I have personally seen and examined this patient.: Yes I have fully participated in the care of the patient.: Yes I have reviewed all pertinent clinical information, including history, physical exam and plan: Yes Notes (Text): 04/26/18 42 year old female with past medical history of depression and psychosis who was admitted after she was found wandering in the streets. She was found to have rhabdomyolysis and started on iv fluids with significant improvement of her CPK. LFTs were mildly elevated but also improved. GI was following. Ultrasound abdomen showed gallstone but no cholecystitis. Patient denied any abdominal pain and is tolerating diet. Initially she appeared in catatonic state, not responding to interview. She was seen by psychiatry and started on prozac, seroquel and ativan. Today she is more responsive and agreeable to be transferred to inpatient psychiatric unit. Patient will be transferred to inpatient psychiatric unit. Encouraged adequate fluid hydration. Polly Galo MD Hospitalist.
[2018-04-26] MEDS ORDERED: Influenza Vaccine 60 mcg/0.5 mL SYR (4YR UP) IM ONE (15:24)
[2018-04-26 15:52] VITALS: BP 91/62; PULSE 73; TEMP 98.1; O2SAT 98
== END 2018-04-26 17:21 | DRG 351 ==
LOC: ED 21:04 → ERH 04-23 01:06 → 5RSO 04-23 02:15 → OBSVTOIN 04-23 10:53 → 5RSO 04-24 18:19
PROVIDERS: ADMIT Internal Medicine; ATTEND Internal Medicine
DX: M62.82 Rhabdomyolysis (principal); F32.3 Major depressive disorder, single episode, severe with psychotic features; F20.2 Catatonic schizophrenia; N39.0 Urinary tract infection, site not specified; D64.9 Anemia, unspecified; K80.20 Calculus of gallbladder without cholecystitis without obstruction; Z79.899 Other long term (current) drug therapy; Z91.14 Patient's other noncompliance with medication regimen; Z91.83 Wandering in diseases classified elsewhere; F32.9 Major depressive disorder, single episode, unspecified; M54.5 Low back pain; Z23 Encounter for immunization

== ENCOUNTER 2018-04-26 17:20 | Inpatient (IN) | payer MEDICAID ==
--- NOTE | 2018-04-26 18:32 | PCM.BM ---
<AlyciaGordy - Last Filed: 04/26/18 18:34> Treatment Plan Problems - Problems identified on initial assessmt ALTERATION IN EMOTIONAL STATUS Date Initiated: 04/26/18 (ANGRY MOOD) Time Initiated: 18:30 Assessment reference: HP, NA, Other GUARDED BEHAVIOR Date Initiated: 04/26/18 (REFUSED TO GIVE INFORMATION) Time Initiated: 18:30 Assessment reference: HP, Other Status: Active MEDICATION NONADHERENCE Date Initiated: 04/26/18 (DID NOT TAKE MEDS AT HOME) Time Initiated: 18:33 Assessment reference: HP, NA, Other THOUGHT PROCESS ALTERATION Date Initiated: 04/26/18 (TALKS TO HERSELF) Time Initiated: 18:33 Assessment reference: HP, NA, Other Treatment assets and liabiliti Patient Assests: adapts well, cooperative, ADL independent (pt currently unable to tend to ADL's fully independently secondary to acute psychosis), physically healthy, strong mary anne Patient Liabilities: live alone, imparied memory, other - Milieu Protocol Maintain good personal hygiene: daily Encourage regular showers, daily Remind patient to perform daily oral care, daily Assist patient to perform ADL's Maintain personal safety: daily Educate patient to report safety concerns to staff, daily Monitor environment for contraband/sharps Medication safety: Monitor for expected outcome, potential side effects: daily, Assess barriers to learning: daily, Assess readiness for medication education: daily Discharge/Continuing Care - Education Needs Education Needs: Patient Medication, Patient Diagnosis/Disease Process, Patient Coping Skills, Patient Anger Management skills, Patient Placement options, Patient Community resources, Patient Uses of Medical Equipment, Patient Health Practices/Safety, Patient Personal Hygiene/Grooming - Discharge Discharge Criteria: Free of Suicidal thoughts, Free of Homicidal thoughts, Free of paranoid thoughts, Free of agitation, Normal sleep pattern, Ability to care for self <Akilah Tyler - Last Filed: 04/27/18 13:49> - Diagnosis (1) Psychosis Status: Acute Interventions: 04/27/18 13:50 group, milieu and supportive tx * Seroquel 100 mg AMHS for psychosis * Prozac increased to 20 mg po daily for depression and anxiety * Ativan 0.5 mg po bid for anxiety * Awaiting medical follow up (2) Depression Status: Acute Interventions: 04/27/18 13:50 group, milieu and supportive tx * Seroquel 100 mg AMHS for psychosis * Prozac increased to 20 mg po daily for depression and anxiety * Ativan 0.5 mg po bid for anxiety * Awaiting medical follow up <Reyna Hardin - Last Filed: 04/28/18 14:12> Family Contact Family involvement: Famliy/SO not involved - Outside Agency Involuntary Outpatient Committment Care involvment: Following patient during stay, Information-sharing Agency contact name: Sophy Hunt, heel caser
[2018-04-27] MEDS: Pantoprazole 40 mg EC Tab PO SCH (06:24)
[2018-04-27 08:05] LABS: GLUCOSE,FASTING 120 mg/dL (65-110); HDL CHOLESTEROL 62 mg/dL (29-60)
[2018-04-27 08:16] LABS: LDL CHOLESTEROL 79 mg/dL (0-129)
[2018-04-27 08:30] LABS: FREE T4 1.07 ng/dL (0.78-2.19)
--- NOTE | 2018-04-27 13:49 | PCM.PSYCH ---
Initial Psychiatric Evaluation - Initial Psychiatric Evaluation Type of Admission: Voluntary Legal Status: Capacity History of Present Illness and Precipitating Events: Patient is 42 year old single [place] female with history of depression and psychosis, likely diagnosis of Schizoaffective disorder, three prior admissions at [facility] in 02/2017, 01/2017 and 03/2016, no reported history of suicidal attempts, noncompliance with aftercare recommendations and medications who was transferred to the psychiatric unit after being treated for rhabdomyolysis on on the medical floor. ER notes indicate that patient was found wandering on the streets in a state of confusion. She was seen by this writer editor as well as Dr. Lockhart on the medical floor. Initially patient presented as catatonic and actively responding to internal stimuli. She could not participate in any meaningful interview due to profound thought blocking. She improved a little s/p restart of her psychiatric medications prozac, seroquel and ativan however still remains disorganized with negative symptoms. I interview her today with the aid of a paraprofessional interpreter, Андрей Carrero and she is more communicative than our prior encounter x4 days ago. Focus and eye contact are improved and she is no longer mumbling to herself during my questioning. Patient can provide the correct month, year, location. Affect is blunt, guarded and preoccupied. Patient denies any new concerns including side effects, new discomfort or pain. Noted by staff to be irritable, preoccupied and responding to internal stimuli. Patient mainly keeps to herself and has been in fair control on the unit. PSYCHIATRIC HISTORY 02/25/17- Admitted to [facility] with diagnosis of Major Depressive disorder, Severe recurrent episode. Discharged medications: Prozac 30 mg PO DAILY Ativan 0.5 mg PO AMHS Seroquel 100 mg PO HS 01/21/17-01/28/17 Admitted to [facility] with diagnosis of Major Depressive disorder, recurrent episode. Discharged medications: Prozac 30 mg PO DAILY Ativan 0.5 mg PO AMHS Seroquel 100 mg PO HS 04/15/16-04/27/16 Admitted to [facility] with diagnosis of Severe Depressive Episode with psychotic symptoms in period. Patient also had UTI during that admission, given additional possible diagnosis of r/o delirium due to UTI. Discharge medications: risperdal 1mg am and 2mg hs for psychosis paxil 30mg po hs for depression and anxiety Remeron 15mg for depression and insomnia SOCIAL HISTORY Patient was born and raised in [facility]. She used to reside with her two children 2-year-old son and a 14-year-old however it appears that the children's fathers have custody of them (per Dr. Lockhart's consultation from 04/26/18). KATHY has been involved in the past. Patient is unemployed. Patient denies any tobacco, alcohol or drug use. Current Medications: Active Medications Generic Name Dose Route Start Last Admin Trade Name Freq PRN Reason Stop Dose Admin Fluoxetine HCl 10 mg 04/27/18 08:00 Prozac PO DAILY ENMANUEL Lorazepam 2 mg 04/26/18 18:14 Ativan PO Q6H PRN Agitation Protocol Lorazepam 2 mg 04/26/18 18:17 Ativan IM Q6H PRN Agitation Protocol Pantoprazole Sodium 40 mg 04/27/18 06:00 Protonix Ec Tab PO 0600 ENMANUEL Quetiapine Fumarate 100 mg 04/26/18 22:00 04/26/18 21:49 Seroquel PO 100 mg AMHS ENMANUEL Administration Protocol Ziprasidone 20 mg 04/26/18 18:12 Geodon Cap PO Q6H PRN Agitation Protocol Ziprasidone 20 mg 04/26/18 18:15 Geodon Inj IM Q6H PRN Agitation Protocol Present on Admission - Present on Admission Any Indicators Present on Admission: No - Notes: Notes:: See medical evaluations and discharge note from her medical admission for rhabdomyolysis from 04/23/18-04/26/18. Review of Systems - Review of Systems All systems: reviewed and no additional remarkable complaints except (See medical evaluations and discharge note from her medical admission for rhabdomyolysis from 04/23/18-04/26/18.) - Constitutional Constitutional: As Per HPI (See medical evaluations and discharge note from her medical admission for rhabdomyolysis from 04/23/18-04/26/18. ) - EENT Eyes: As Per HPI (See medical evaluations and discharge note from her medical admission for rhabdomyolysis from 04/23/18-04/26/18. ) Ears: As Per HPI (See medical evaluations and discharge note from her medical admission for rhabdomyolysis from 04/23/18-04/26/18. ) Nose/Mouth/Throat: As Per HPI (See medical evaluations and discharge note from her medical admission for rhabdomyolysis from 04/23/18-04/26/18. ) - Breasts Breasts: As Per HPI (See medical evaluations and discharge note from her medical admission for rhabdomyolysis from 04/23/18-04/26/18. ) - Cardiovascular Cardiovascular: As Per HPI (See medical evaluations and discharge note from her medical admission for rhabdomyolysis from 04/23/18-04/26/18. ) - Respiratory Respiratory: As Per HPI (See medical evaluations and discharge note from her medical admission for rhabdomyolysis from 04/23/18-04/26/18. ) - Gastrointestinal Gastrointestinal: As Per HPI (See medical evaluations and discharge note from her medical admission for rhabdomyolysis from 04/23/18-04/26/18. ) - Genitourinary Genitourinary: As Per HPI (See medical evaluations and discharge note from her medical admission for rhabdomyolysis from 04/23/18-04/26/18. ) - Reproductive: Female Reproductive:Female: As Per HPI (See medical evaluations and discharge note from her medical admission for rhabdomyolysis from 04/23/18-04/26/18. ) - Menstruation Menstruation: As Per HPI (See medical evaluations and discharge note from her medical admission for rhabdomyolysis from 04/23/18-04/26/18. ) - Musculoskeletal Musculoskeletal: As Per HPI (See medical evaluations and discharge note from her medical admission for rhabdomyolysis from 04/23/18-04/26/18. ) - Integumentary Integumentary: As Per HPI (See medical evaluations and discharge note from her medical admission for rhabdomyolysis from 04/23/18-04/26/18. ) - Neurological Neurological: As Per HPI (See medical evaluations and discharge note from her medical admission for rhabdomyolysis from 04/23/18-04/26/18. ) - Psychiatric Psychiatric: Anhedonia, Anxiety, Auditory Hallucinations, Behavioral Changes, Confusion, Depression, Hallucinations, Paranoia - Endocrine Endocrine: As Per HPI (See medical evaluations and discharge note from her medical admission for rhabdomyolysis from 04/23/18-04/26/18. ) - Hematologic/Lymphatic Hematologic: As Per HPI (See medical evaluations and discharge note from her medical admission for rhabdomyolysis from 04/23/18-04/26/18. ) Past Patient History - Past Psychiatric History Previous Treatment History: Inpatient Prior Professional Help: See HPI - PSYCHIATRIC Hx Substance Use: No - Infectious Disease Hx of Infectious Diseases: None - Past Medical History & Family History Past Medical History?: No - CARDIAC Hx Cardiac Disorders: No (denies) - PULMONARY Hx Respiratory Disorders: No (denies) - NEUROLOGICAL Hx Neurological Disorder: No (denies) - HEENT Hx HEENT Problems: No (denies) - RENAL Hx Chronic Kidney Disease: No (denies) - ENDOCRINE/METABOLIC Hx Endocrine Disorders: No (denies) - HEMATOLOGICAL/ONCOLOGICAL Hx Blood Disorders: No (denies) - INTEGUMENTARY Hx Dermatological Problems: No (denies) - MUSCULOSKELETAL/RHEUMATOLOGICAL Hx Musculoskeletal Disorders: Yes Hx Falls: Yes - GASTROINTESTINAL Hx Gastrointestinal Disorders: No (denies) - GENITOURINARY/GYNECOLOGICAL Hx Genitourinary Disorders: No (denies) - SURGICAL HISTORY Hx Surgeries: No (denies) - ANESTHESIA Hx Anesthesia: No - Medical/Surgical History Reviewed & confirmed: by tx Meds Allergies/Adverse Reactions: Allergies Allergy/AdvReac Type Severity Reaction Status Date / Time No Known Allergies Allergy Verified 04/26/18 18:28 Mental Status Examination - Personal Presentation Personal Presentation: Looks stated age - Affect Affect: Constricted, Blunted, Flat - Reliability in Providing Information Reliability in Providing Information: Poor, due to alteration in thoughts - Speech Speech: Disorganized - Mood Mood: Depressed - Formal Thought Process Formal Thought Process: Hallucinations, Delusions, Paranoia, Loosening of associations - Hallucinations/Delusions Hallucinations: Auditory (though denies) - Obsessions/Compulsions Obsessions: No Compulsions: No - Cognitive Functions Orientation: Person, Place Sensorium: Alert Attention/Concentration: Easily distracted Abstract Thinking: [place] Estimate of Intelligence: Average Judgement: Imparied, as evidence by: Poor judgement, Imparied, as evidence by: Lack of insight into illness Memory: Recent impaired, as evidence by: Inability to recall events of the day - Risk Risk: Diminished functioning - Strength & Assets Inventory Strength & Assets Inventory: Cooperative Psychiatric Physical Exam - Physical Exam Reviewed and confirmed: Medical Physical Exam (See medical evaluations and discharge note from her medical admission for rhabdomyolysis from 04/23/18- 04/26/18. ) Results - Vital Signs Recent Vital Signs: Selected Entries 04/27/18 07:18 Temperature 98.3 F Pulse Rate 71 Respiratory 20 Rate Blood Pressure 119/73 - EKG Data EKG Interpreted by: Other (See medical evaluations and discharge note from her medical admission for rhabdomyolysis from 04/23/18-04/26/18.) - Impressions Impression: See medical evaluations and discharge note from her medical admission for rhabdomyolysis from 04/23/18-04/26/18. DSM Plan - DSM 5 DSM 5 Diagnosis: Schizoaffective Disorder - Recommended/Plan of Treatment Treatment Recommendations and Plan of Treatment: * group, milieu and supportive tx * Seroquel 100 mg AMHS for psychosis * Prozac increased to 20 mg po daily for depression and anxiety * Ativan 0.5 mg po bid for anxiety * Awaiting medical follow up * Vitals reviewed and noted below 04/27/18 07:18 Temperature 98.3 F Pulse Rate 71 Respiratory 20 Rate Blood Pressure 119/73 * Please refer to medical evaluations and d/c summary from patient's medical hospitalization 04/23/18-04/26/18 for full physical exam and ROS * Recent floor labs noted below: Laboratory Results - last 24 hr 04/27/18 04/27/18 07:45 07:45 Fasting Glucose 120 H Triglycerides 96 Cholesterol 157 LDL Cholesterol Direct 79 HDL Cholesterol 62 H Free T4 1.07 TSH 3rd Generation 0.55 Initial Psych Certification - Initial Certification I certify that the inpatient psychiatric facility admission was medically necessary for either: Treatment which could reasonbly be expected to improve pt's condition, Diagnostic study I estimate of hospitalization is necessary for proper treatment of the patient: 7 Unit of Time: Days
[2018-04-28] MEDS: Pantoprazole 40 mg EC Tab PO SCH (06:24)
--- NOTE | 2018-04-28 10:08 | PCM.PYCHPN ---
Psychiatric Progress Note - Psychiatric Progress Note Patient seen today, length of contact: 30 min Problems Identified/Issues Discussed: History of Present Illness and Precipitating Events: Patient is 42 year old single [place] female with history of depression and psychosis, likely diagnosis of Schizoaffective disorder, three prior admissions at [facility] in 02/2017, 01/2017 and 03/2016, no reported history of suicidal attempts, noncompliance with aftercare recommendations and medications who was transferred to the psychiatric unit after being treated for rhabdomyolysis on on the medical floor. ER notes indicate that patient was found wandering on the streets in a state of confusion. She was seen by this inspector automatic typewriter as well as Dr. Lockhart on the medical floor. Initially patient presented as catatonic and actively responding to internal stimuli. She could not participate in any meaningful interview due to profound thought blocking. She improved a little s/p restart of her psychiatric medications prozac, seroquel and ativan however still remains disorganized with negative symptoms. I interview her today with the aid of a chili pepper grinder, Андрей Carrero and she is more communicative than our prior encounter x4 days ago. Focus and eye contact are improved and she is no longer mumbling to herself during my questioning. Patient can provide the correct month, year, location. Affect is blunt, guarded and preoccupied. Patient denies any new concerns including side effects, new discomfort or pain. Noted by staff to be irritable, preoccupied and responding to internal stimuli. Patient mainly keeps to herself and has been in fair control on the unit. PSYCHIATRIC HISTORY 02/25/17- Admitted to [facility] with diagnosis of Major Depressive disorder, Severe recurrent episode. Discharged medications: Prozac 30 mg PO DAILY Ativan 0.5 mg PO AMHS Seroquel 100 mg PO HS 01/21/17-01/28/17 Admitted to [facility] with diagnosis of Major Depressive disorder, recurrent episode. Discharged medications: Prozac 30 mg PO DAILY Ativan 0.5 mg PO AMHS Seroquel 100 mg PO HS 04/15/16-04/27/16 Admitted to [facility] with diagnosis of Severe Depressive Episode with psychotic symptoms in period. Patient also had UTI during that admission, given additional possible diagnosis of r/o delirium due to UTI. Discharge medications: risperdal 1mg am and 2mg hs for psychosis paxil 30mg po hs for depression and anxiety Remeron 15mg for depression and insomnia SOCIAL HISTORY Patient was born and raised in [facility]. She used to reside with her two children 2-year-old son and a 14-year-old however it appears that the children's fathers have custody of them (per Dr. Lockhart's consultation from 04/26/18). DY has been involved in the past. Patient is unemployed. Patient denies any tobacco, alcohol or drug use. PROGRESS NOTE I reviewed recent notes and patient was interviewed in her room using [employer] and translate luz for hebrew translation and then again during treatment team meeting with staff member, Lavell acting as whizzer hand. Patient remains cooperative and calm with good hygiene and grooming. Affect is still constricted and blunt. Fluency and spontaneity of speech are remain impaired though patient denies any new concerns or issues, including depression. She is seen mumbling to herself on the unit and will not comment on this behavior when I bring it up during treatment team meeting, stating only "I don't know". She denies experiencing hallucinations on the unit. Patient appears to comprehend my explanation of her diagnosis, symptoms and treatment goals on the unit though reactivity remains subdued. Overall her focus and organization are improving. She is mumbling to herself less visibly and less frequently. Denies SI or HI. She is compliant with her medications and denies s/e, discomfort or pain. Staff observe patient pacing on the unit. She keeps to herself without any motivation to interact with other patients. There were no behavioral issues overnight. Diagnostic Results: Schizoaffective Disorder Medication Change: No Medical Record Reviewed: Yes Mental Status Examination - Cognitive Function Orientation: Person, Place - Mood Mood: Depressed - Affect Affect: Constricted, Blunted, Flat - Speech Speech: Soft (underproductive) - Formal Thought Process Formal Thought Process: Hallucinations, Delusions, Paranoia, Loosening of as sociations, Other (thought blocking, negative symptoms) - Suicidal Ideation Suicidal Ideation: No - Homicidal Ideation Homicidal Ideation: No Goal/Treatment Plan - Goal/Treatment Plan Progress Toward Problem(s) and Goals/Treatment Plan: * group, milieu and supportive tx * Seroquel 100 mg AMHS for psychosis * Prozac increased to 20 mg po daily for depression and anxiety on 04/27/18 * Ativan 0.5 mg po bid for anxiety * Vitals reviewed and noted below 04/28/18 07:10 Temperature 97.8 F Pulse Rate 86 Respiratory 20 Rate Blood Pressure 119/64 * Please refer to medical evaluations and d/c summary from patient's medical hospitalization 04/23/18-04/26/18 for full physical exam and ROS * Recent floor labs noted below: Laboratory Results - last 24 hr 04/27/18 04/27/18 07:45 07:45 Fasting Glucose 120 H Triglycerides 96 Cholesterol 157 LDL Cholesterol Direct 79 HDL Cholesterol 62 H Free T4 1.07 TSH 3rd Generation 0.55 - Smoking Cessation Smoking Cessation Initiated: No
[2018-04-29] MEDS: Pantoprazole 40 mg EC Tab PO SCH (06:09)
--- NOTE | 2018-04-29 08:45 | PCM.PYCHPN ---
Psychiatric Progress Note - Psychiatric Progress Note Patient seen today, length of contact: 30 min Problems Identified/Issues Discussed: History of Present Illness and Precipitating Events: Patient is 42 year old single [place] female with history of depression and psychosis, likely diagnosis of Schizoaffective disorder, three prior admissions at [facility] in 02/2017, 01/2017 and 03/2016, no reported history of suicidal attempts, noncompliance with aftercare recommendations and medications who was transferred to the psychiatric unit after being treated for rhabdomyolysis on on the medical floor. ER notes indicate that patient was found wandering on the streets in a state of confusion. She was seen by this technical writer as well as Dr. Lockhart on the medical floor. Initially patient presented as catatonic and actively responding to internal stimuli. She could not participate in any meaningful interview due to profound thought blocking. She improved a little s/p restart of her psychiatric medications prozac, seroquel and ativan however still remains disorganized with negative symptoms. I interview her today with the aid of a restaurant service manager, Андрей Carrero and she is more communicative than our prior encounter x4 days ago. Focus and eye contact are improved and she is no longer mumbling to herself during my questioning. Patient can provide the correct month, year, location. Affect is blunt, guarded and preoccupied. Patient denies any new concerns including side effects, new discomfort or pain. Noted by staff to be irritable, preoccupied and responding to internal stimuli. Patient mainly keeps to herself and has been in fair control on the unit. PSYCHIATRIC HISTORY 02/25/17- Admitted to [facility] with diagnosis of Major Depressive disorder, Severe recurrent episode. Discharged medications: Prozac 30 mg PO DAILY Ativan 0.5 mg PO AMHS Seroquel 100 mg PO HS 01/21/17-01/28/17 Admitted to [facility] with diagnosis of Major Depressive disorder, recurrent episode. Discharged medications: Prozac 30 mg PO DAILY Ativan 0.5 mg PO AMHS Seroquel 100 mg PO HS 04/15/16-04/27/16 Admitted to [facility] with diagnosis of Severe Depressive Episode with psychotic symptoms in period. Patient also had UTI during that admission, given additional possible diagnosis of r/o delirium due to UTI. Discharge medications: risperdal 1mg am and 2mg hs for psychosis paxil 30mg po hs for depression and anxiety Remeron 15mg for depression and insomnia SOCIAL HISTORY Patient was born and raised in [facility]. She used to reside with her two children 2-year-old son and a 14-year-old however it appears that the children's fathers have custody of them (per Dr. Lockhart's consultation from 04/26/18). DY has been involved in the past. Patient is unemployed. Patient denies any tobacco, alcohol or drug use. PROGRESS NOTE I reviewed recent notes and patient was interviewed in her room using speak and translate luz for romansh translation. Patient remains superficially cooperative and calm with good hygiene and grooming. Affect is still constricted, disengaged and blunt. Fluency and spontaneity of speech remain impaired though patient denies any new concerns or issues, including depression. Patient continues to deny experiencing hallucinations though has been observed mumbling to herself on the unit. She will not comment on this behavior when I brought it up during treatment team meeting on TuesdayApril 28, stating only "I don't know". Patient appeared to comprehend my explanation of her diagnosis, symptoms and treatment goals on the unit though reactivity remains subdued. She's maintaining improved comprehension however poverty of speech, internal preoccupation and thought blocking are still notable. Overall her focus and organization are improving. She is mumbling to herself less visibly and less frequently--hopefully we wont see these behaviors over the weekend. Denies SI or HI. She is compliant with her medications and denies s/e, discomfort or pain. Staff observe patient pacing on the unit. She keeps to herself without any motivation to interact with other patients. There were no behavioral issues overnight. Diagnostic Results: Schizoaffective Disorder Medication Change: No ( ) Medical Record Reviewed: Yes Mental Status Examination - Cognitive Function Orientation: Person, Place - Mood Mood: Depressed - Affect Affect: Constricted, Blunted, Flat - Speech Speech: Soft (underproductive) - Formal Thought Process Formal Thought Process: Hallucinations, Delusions, Paranoia, Loosening of associations, Other (thought blocking, negative symptoms) - Suicidal Ideation Suicidal Ideation: No - Homicidal Ideation Homicidal Ideation: No Goal/Treatment Plan - Goal/Treatment Plan Progress Toward Problem(s) and Goals/Treatment Plan: * group, milieu and supportive tx * Continue Prozac 30 mg po daily for depression and anxiety * Appreciate f/u by Reyna regarding patient's recent hospitalization at [facility] and subsequent outpatient commitment. Patient's more recent Invega Sustenna injection (156mg) was March 28, 2018. I will order Sustenna to be given on the unit. Consider increasing the maintenance dose to 234 mg monthly due to patient's recent decompensation on 156 mg monthly. * Seroquel 100 mg AMHS for psychosis * Ativan 0.5 mg po bid for anxiety, catatonia * Vitals reviewed and noted below Selected Entries 04/29/18 07:00 Temperature 97.5 F L Pulse Rate 85 Respiratory 20 Rate Blood Pressure 112/61 * Please refer to medical evaluations and d/c summary from patient's medical hospitalization 04/23/18-04/26/18 for full physical exam and ROS * Recent floor labs noted below: Laboratory Results - last 24 hr 04/27/18 04/27/18 07:45 07:45 Fasting Glucose 120 H Triglycerides 96 Cholesterol 157 LDL Cholesterol Direct 79 HDL Cholesterol 62 H Free T4 1.07 TSH 3rd Generation 0.55
[2018-04-30] MEDS: Pantoprazole 40 mg EC Tab PO SCH (07:15)
--- NOTE | 2018-04-30 09:55 | PCM.PYCHPN ---
Psychiatric Progress Note - Psychiatric Progress Note Patient seen today, length of contact: 30 min Problems Identified/Issues Discussed: History of Present Illness and Precipitating Events: Patient is 42 year old single [place] female with history of depression and psychosis, likely diagnosis of Schizoaffective disorder, three prior admissions at [facility] in 02/2017, 01/2017 and 03/2016, no reported history of suicidal attempts, noncompliance with aftercare recommendations and medications who was transferred to the psychiatric unit after being treated for rhabdomyolysis on on the medical floor. ER notes indicate that patient was found wandering on the streets in a state of confusion. She was seen by this underwriter solicitation director as well as Dr. Lockhart on the medical floor. Initially patient presented as catatonic and actively responding to internal stimuli. She could not participate in any meaningful interview due to profound thought blocking. She improved a little s/p restart of her psychiatric medications prozac, seroquel and ativan however still remains disorganized with negative symptoms. I interview her today with the aid of a plate put in worker, Андрей Carrero and she is more communicative than our prior encounter x4 days ago. Focus and eye contact are improved and she is no longer mumbling to herself during my questioning. Patient can provide the correct month, year, location. Affect is blunt, guarded and preoccupied. Patient denies any new concerns including side effects, new discomfort or pain. Noted by staff to be irritable, preoccupied and responding to internal stimuli. Patient mainly keeps to herself and has been in fair control on the unit. PSYCHIATRIC HISTORY 02/25/17- Admitted to [facility] with diagnosis of Major Depressive disorder, Severe recurrent episode. Discharged medications: Prozac 30 mg PO DAILY Ativan 0.5 mg PO AMHS Seroquel 100 mg PO HS 01/21/17-01/28/17 Admitted to [facility] with diagnosis of Major Depressive disorder, recurrent episode. Discharged medications: Prozac 30 mg PO DAILY Ativan 0.5 mg PO AMHS Seroquel 100 mg PO HS 04/15/16-04/27/16 Admitted to [facility] with diagnosis of Severe Depressive Episode with psychotic symptoms in period. Patient also had UTI during that admission, given additional possible diagnosis of r/o delirium due to UTI. Discharge medications: risperdal 1mg am and 2mg hs for psychosis paxil 30mg po hs for depression and anxiety Remeron 15mg for depression and insomnia SOCIAL HISTORY Patient was born and raised in [facility]. She used to reside with her two children 2-year-old son and a 14-year-old however it appears that the children's fathers have custody of them (per Dr. Lockhart's consultation from 04/26/18). DYFS has been involved in the past. Patient is unemployed. Patient denies any tobacco, alcohol or drug use. PROGRESS NOTE I reviewed recent notes and patient was interviewed in her room using speak and translate luz for croatian translation. Patient remains superficially cooperative and calm with good hygiene and grooming. Affect is still constricted, disengaged and blunt. Fluency and spontaneity of speech remain impaired though patient denies any new concerns or issues, including depression.She seems evasive. Patient continues to deny experiencing hallucinations though has been observed mumbling to herself on the unit. She will not comment on this behavior when I brought it up during treatment team meeting on TuesdayApril 28, stating only "I don't know". Patient appeared to comprehend my explanation of her diagnosis, symptoms and treatment goals on the unit though reactivity remains subdued. She's maintaining improved comprehension however poverty of speech, internal preoccupation and thought blocking are still notable. Overall her focus and organization are improving. She is mumbling to herself less visibly and less frequently--I observed this behavior during our interview this morning. She denies SI or HI. She is compliant with her medications and denies s/e, discomfort or pain. Staff observe patient pacing on the unit. She keeps to herself without any motivation to interact with other patients. There were no behavioral issues overnight. Diagnostic Results: Schizoaffective Disorder Medication Change: Yes (Increased prozac to 40 mg ) Medical Record Reviewed: Yes Mental Status Examination - Cognitive Function Orientation: Person, Place - Mood Mood: Depressed - Affect Affect: Constricted, Blunted, Flat - Speech Speech: Soft (underproductive) - Formal Thought Process Formal Thought Process: Hallucinations, Delusions, Paranoia, Loosening of associations, Other (thought blocking, negative symptoms) - Suicidal Ideation Suicidal Ideation: No - Homicidal Ideation Homicidal Ideation: No Goal/Treatment Plan - Goal/Treatment Plan Progress Toward Problem(s) and Goals/Treatment Plan: * group, milieu and supportive tx * Increase Prozac to 40 mg po daily for depression and anxiety on 04/30/18 * Appreciate f/u by Reyna regarding patient's recent hospitalization at [facility] and subsequent outpatient commitment. Patient's more recent Invega Sustenna injection (156mg) was March 28, 2018. To order Sustenna to be given on the unit. Consider increasing the maintenance dose to 234 mg monthly due to patient's recent decompensation on 156 mg monthly. * Seroquel 100 mg AMHS for psychosis * Ativan 0.5 mg po bid for anxiety, catatonia * Vitals reviewed and noted below Selected Entries 04/29/18 04/29/18 07:00 17:00 Temperature 97.5 F L Pulse Rate 85 70 Respiratory 20 20 Rate Blood Pressure 112/61 121/69 * Please refer to medical evaluations and d/c summary from patient's medical hospitalization 04/23/18-04/26/18 for full physical exam and ROS * Recent floor labs noted below: Laboratory Results - last 24 hr 04/27/18 04/27/18 07:45 07:45 Fasting Glucose 120 H Triglycerides 96 Cholesterol 157 LDL Cholesterol Direct 79 HDL Cholesterol 62 H Free T4 1.07 TSH 3rd Generation 0.55
[2018-05-01] MEDS: Pantoprazole 40 mg EC Tab PO SCH (06:58)
--- NOTE | 2018-05-01 15:08 | PCM.PYCHPN ---
Psychiatric Progress Note - Psychiatric Progress Note Patient seen today, length of contact: 30 min Patient Chief Complaint: "I am alright" Problems Identified/Issues Discussed: Suicide/ homicide prevention, past psychiatric h/o, current psychiatric symptoms, medical problems, risk/benefits and alternatives of medications, medications compliance, coping strategies, substance abuse h/o, relapse prevention, importance of follow up with psychiatrist and therapist, discharge plan. Medical Problems: patient is relatively healthy, patient was cleared by medical team,, patient had rhabdomyolysis prior to come to the hospital which is resolved. Diagnostic Results: Lab Results 04/27/18 07:45: RPR Nonreactive 04/27/18 07:45: Free T4 1.07, TSH 3rd Generation 0.55 04/27/18 07:45: Fasting Glucose 120 H, Triglycerides 96, Cholesterol 157, LDL Cholesterol Direct 79, HDL Cholesterol 62 H Vital Signs Temp Pulse Resp BP 05/01/18 07:00 97.6 F 84 18 108/69 04/30/18 16:25 75 116/70 04/30/18 06:58 98.2 F 70 18 110/72 04/29/18 17:00 70 20 121/69 04/29/18 07:00 97.5 F L 85 20 112/61 04/28/18 15:00 97.3 F L 82 20 112/74 04/28/18 07:10 97.8 F 86 20 119/64 04/27/18 07:18 98.3 F 71 20 119/73 DSM 5 Symptoms Update: shortly, patient is 42 year old single [place] female with history of depression and psychosis, likely diagnosis of Schizoaffective disorder, three prior admissions at [facility] in 02/2017, 01/2017 and 03/2016, no reported history of suicidal attempts, noncompliance with aftercare recommendations and medications who was transferred to the psychiatric unit after being treated for rhabdomyolysis on on the medical floor. ER notes indicate that patient was found wandering on the streets in a state of confusion. pt was medically stable, pt was willing to get treatment and was transferred to the psych unit last week. pt is very familiar to this conventional mortgage underwriter and unit from multiple psych admissions. as per staff pt is compliant with her medications, denied discomfort or pain. Staff observe patient pacing on the unit. She keeps to herself without any motivation to interact with other patients. There were no behavioral issues overnight. as per collaterals from the , pt currently under care of [facility], patient's last Invega Sustanna injection(156mg) was March 28, 2018, was due on April 25, pt is willing to get injection. pt was seen in her room, pt presented better to compare to the last interaction on the medical floor. pt was able to hold conversation, was not catatonic. but at the same time pt is passing in the unit, felt that she is homeless, but she is not. affect is blunt, guarded and preoccupied, but pt is less irritable. as per staff patient mainly keeps to herself and has been in fair control on the unit. patient denied thoughts of harming herself or others, denied intent or plan. Diagnostic Results: Schizoaffective Disorder Medication Change: Yes (invega sustenna 156mg Given today 05/01/2018) Medical Record Reviewed: Yes Consults ordered or reviewed: patient was cleared by medical team Mental Status Examination - Cognitive Function Orientation: Person, Place Memory: Impaired Attention: Poor Concentration: Poor Association: Loose Fund of Knowledge: Poor - Mood Mood: Depressed - Affect Affect: Constricted, Blunted, Flat - Speech Speech: Soft (underproductive) - Formal Thought Process Formal Thought Process: Hallucinations, Delusions, Paranoia, Loosening of associations, Other (thought blocking, negative symptoms) - Suicidal Ideation Suicidal Ideation: No - Homicidal Ideation Homicidal Ideation: No Goal/Treatment Plan - Goal/Treatment Plan Need for Continued Stay: Remain at risks for inpatient hospitalization, Severe depression anxiety, Discharge may exacerbated symptoms, Severe functional impairment Progress Toward Problem(s) and Goals/Treatment Plan: group, milieu and supportive tx Increase Prozac to 40 mg po daily for depression and anxiety on 04/30/18 Appreciate f/u by Reyna regarding patient's recent hospitalization at [facility] and subsequent outpatient commitment. Patient's more recent Invega Sustenna injection (156mg) was March 28, 2018. WILL Consider increasing the maintenance dose to 234 mg monthly due to patient's recent decompensation on 156 mg monthly. Seroquel 100 mg AMHS for psychosis Ativan 0.5 mg po bid for anxiety, catatonia consultation for discharge plan and social issues Family involvement Follow up on labs Will monitor closely Pt was educated about risk/benefits and alternatives of medications, coping strategies (safety plan, suicide prevention), relapse prevention, importance of follow up with psychiatrist and therapist, stay away from drugs/alcohol/smoking Estimated Date of D/C: 05/08/18 - Smoking Cessation Smoking Cessation Initiated: No Reason for not providing: pt does not smoke
[2018-05-01] MEDS ORDERED: INVEGA 156 MG IM SCH (18:00)
[2018-05-02] MEDS: Pantoprazole 40 mg EC Tab PO SCH (05:45)
--- NOTE | 2018-05-02 15:08 | PCM.PYCHPN ---
Psychiatric Progress Note - Psychiatric Progress Note Patient seen today, length of contact: 30 min Patient Chief Complaint: "I am alright" Problems Identified/Issues Discussed: Suicide/ homicide prevention, past psychiatric h/o, current psychiatric symptoms, medical problems, risk/benefits and alternatives of medications, medications compliance, coping strategies, substance abuse h/o, relapse prevention, importance of follow up with psychiatrist and therapist, discharge plan. Medical Problems: patient is relatively healthy, patient was cleared by medical team,, patient had rhabdomyolysis prior to come to the hospital which is resolved. Diagnostic Results: Lab Results 04/27/18 07:45: RPR Nonreactive 04/27/18 07:45: Free T4 1.07, TSH 3rd Generation 0.55 04/27/18 07:45: Fasting Glucose 120 H, Triglycerides 96, Cholesterol 157, LDL Cholesterol Direct 79, HDL Cholesterol 62 H Vital Signs Temp Pulse Resp BP 05/01/18 07:00 97.6 F 84 18 108/69 04/30/18 16:25 75 116/70 04/30/18 06:58 98.2 F 70 18 110/72 04/29/18 17:00 70 20 121/69 04/29/18 07:00 97.5 F L 85 20 112/61 04/28/18 15:00 97.3 F L 82 20 112/74 04/28/18 07:10 97.8 F 86 20 119/64 04/27/18 07:18 98.3 F 71 20 119/73 DSM 5 Symptoms Update: shortly, patient is 42 year old single [place] female with history of depression and psychosis, likely diagnosis of Schizoaffective disorder, three prior admissions at [facility] in 02/2017, 01/2017 and 03/2016, no reported history of suicidal attempts, noncompliance with aftercare recommendations and medications who was transferred to the psychiatric unit after being treated for rhabdomyolysis on on the medical floor. ER notes indicate that patient was found wandering on the streets in a state of confusion. pt was medically stable, pt was willing to get treatment and was transferred to the psych unit last week. As per staff pt is compliant with her medications, denied discomfort or pain, patient observed wandering in the unit, but patient is more directable, less psychotic. pt was able to hold conversation, was not catatonic. pt was educated abut her mental illness, pt was receptive. this typewriter ribbon winder utilized PCP for translation. Invega Sustanna injection(156mg) was May 01,tolerated well. as per staff patient mainly keeps to herself and has been in fair control on the unit. patient denied thoughts of harming herself or others, denied intent or plan. Diagnostic Results: Schizoaffective Disorder Medication Change: Yes (invega sustenna 156mg Given 05/01/2018) Medical Record Reviewed: Yes Consults ordered or reviewed: patient was cleared by medical team Mental Status Examination - Cognitive Function Orientation: Person, Place Memory: Impaired Attention: Poor Concentration: Poor Association: Loose Fund of Knowledge: Poor - Mood Mood: Depressed - Affect Affect: Constricted, Blunted, Flat - Speech Speech: Soft (underproductive) - Formal Thought Process Formal Thought Process: Hallucinations, Delusions, Paranoia, Loosening of associations, Other (thought blocking, negative symptoms) - Suicidal Ideation Suicidal Ideation: No - Homicidal Ideation Homicidal Ideation: No Goal/Treatment Plan - Goal/Treatment Plan Need for Continued Stay: Remain at risks for inpatient hospitalization, Severe depression anxiety, Discharge may exacerbated symptoms, Severe functional impairment Progress Toward Problem(s) and Goals/Treatment Plan: group, milieu and supportive tx Increase Prozac to 40 mg po daily for depression and anxiety on 04/30/18 Appreciate f/u by Reyna regarding patient's recent hospitalization at [place] and subsequent outpatient commitment. Patient's more Invega Sustenna injection (156mg) was March 28, 2018, pt got injection 05/01/18 Seroquel 100 mg AMHS for psychosis/ Ativan 0.5 mg po bid for anxiety, catatonia SW consultation for discharge plan and social issues Family involvement Follow up on labs Will monitor closely Pt was educated about risk/benefits and alternatives of medications, coping strategies (safety plan, suicide prevention), relapse prevention, importance of follow up with psychiatrist and therapist, stay away from drugs/alcohol/smoking Estimated Date of D/C: 05/08/18
[2018-05-03] MEDS: Pantoprazole 40 mg EC Tab PO SCH (06:08)
--- NOTE | 2018-05-03 13:25 | PCM.PYCHPN ---
Psychiatric Progress Note - Psychiatric Progress Note Patient seen today, length of contact: 30 min Patient Chief Complaint: "I feel better" Problems Identified/Issues Discussed: Suicide/ homicide prevention, past psychiatric h/o, current psychiatric symptoms, medical problems, risk/benefits and alternatives of medications, medications compliance, coping strategies, substance abuse h/o, relapse prevention, importance of follow up with psychiatrist and therapist, discharge plan. Medical Problems: patient is relatively healthy, patient was cleared by medical team,, patient had rhabdomyolysis prior to come to the hospital which is resolved. Diagnostic Results: Lab Results 04/27/18 07:45: RPR Nonreactive 04/27/18 07:45: Free T4 1.07, TSH 3rd Generation 0.55 04/27/18 07:45: Fasting Glucose 120 H, Triglycerides 96, Cholesterol 157, LDL Cholesterol Direct 79, HDL Cholesterol 62 H Vital Signs Temp Pulse Resp BP 05/01/18 07:00 97.6 F 84 18 108/69 04/30/18 16:25 75 116/70 04/30/18 06:58 98.2 F 70 18 110/72 04/29/18 17:00 70 20 121/69 04/29/18 07:00 97.5 F L 85 20 112/61 04/28/18 15:00 97.3 F L 82 20 112/74 04/28/18 07:10 97.8 F 86 20 119/64 04/27/18 07:18 98.3 F 71 20 119/73 DSM 5 Symptoms Update: shortly, patient is 42 year old single [place] female with history of depression and psychosis, likely diagnosis of Schizoaffective disorder, three prior admissions at [facility] in 02/2017, 01/2017 and 03/2016, no reported history of suicidal attempts, noncompliance with aftercare recommendations and medications who was transferred to the psychiatric unit after being treated for rhabdomyolysis on on the medical floor. ER notes indicate that patient was found wandering on the streets in a state of confusion. pt was medically stable, pt was willing to get treatment and was transferred to the psych unit last week. As per staff pt is compliant with her medications, denied discomfort or pain. pt was seen next to the nursing station, utilized DAYANARA Monte for translation. pt presented to be more organized, still was not sure what have happened prior to this admission, pt said that she had some pain in her back and she ended up in the hospital. pt said that she was compliant with meds and f/u appts. as per staff patient observed wandering in the unit, but no agitation no aggression, patient mainly keeps to herself and has been in fair control on the unit. pt was educated abut her mental illness, pt was receptive. Invega Sustanna injection(156mg) was May 01,tolerated well. patient denied thoughts of harming herself or others, denied intent or plan. Diagnostic Results: Schizoaffective Disorder Medication Change: Yes (seroquel increased) Medical Record Reviewed: Yes Mental Status Examination - Cognitive Function Orientation: Person, Place Memory: Impaired Attention: Poor (some improvement) Concentration: Poor (some improvement) Association: Loose (some improvement) Fund of Knowledge: Poor - Mood Mood: Depressed ("I feel better") - Affect Affect: Constricted (but more reactive) - Speech Speech: Soft (underproductive) - Formal Thought Process Formal Thought Process: Hallucinations (denied today), Delusions (improving), Paranoia (improving), Loosening of associations - Suicidal Ideation Suicidal Ideation: No - Homicidal Ideation Homicidal Ideation: No Goal/Treatment Plan - Goal/Treatment Plan Need for Continued Stay: Remain at risks for inpatient hospitalization, Severe depression anxiety, Discharge may exacerbated symptoms, Severe functional impairment Progress Toward Problem(s) and Goals/Treatment Plan: group, milieu and supportive tx Increase Prozac to 40 mg po daily for depression and anxiety on 04/30/18 Appreciate f/u by Reyna regarding patient's recent hospitalization at [place] and subsequent outpatient commitment. Patient's more Invega Sustenna injection (156mg) was March 28, 2018, pt got injection 05/01/18 Seroquel 100 mg AM150 mg po HS for psychosis/ Ativan 0.5 mg po bid for anxiety, catatonia SW consultation for discharge plan and social issues Family involvement Follow up on labs Will monitor closely Pt was educated about risk/benefits and alternatives of medications, coping stra tegies (safety plan, suicide prevention), relapse prevention, importance of follow up with psychiatrist and therapist, stay away from drugs/alcohol/smoking Estimated Date of D/C: 05/08/18
[2018-05-04] MEDS: Pantoprazole 40 mg EC Tab PO SCH (06:31)
--- NOTE | 2018-05-04 13:53 | PCM.PYCHPN ---
Psychiatric Progress Note - Psychiatric Progress Note Patient seen today, length of contact: 30 min Patient Chief Complaint: "I feel better" Problems Identified/Issues Discussed: Suicide/ homicide prevention, past psychiatric h/o, current psychiatric symptoms, medical problems, risk/benefits and alternatives of medications, medications compliance, coping strategies, substance abuse h/o, relapse prevention, importance of follow up with psychiatrist and therapist, discharge plan. Medical Problems: patient is relatively healthy, patient was cleared by medical team,, patient had rhabdomyolysis prior to come to the hospital which is resolved. Diagnostic Results: Lab Results 04/27/18 07:45: RPR Nonreactive 04/27/18 07:45: Free T4 1.07, TSH 3rd Generation 0.55 04/27/18 07:45: Fasting Glucose 120 H, Triglycerides 96, Cholesterol 157, LDL Cholesterol Direct 79, HDL Cholesterol 62 H Vital Signs Temp Pulse Resp BP 05/01/18 07:00 97.6 F 84 18 108/69 04/30/18 16:25 75 116/70 04/30/18 06:58 98.2 F 70 18 110/72 04/29/18 17:00 70 20 121/69 04/29/18 07:00 97.5 F L 85 20 112/61 04/28/18 15:00 97.3 F L 82 20 112/74 04/28/18 07:10 97.8 F 86 20 119/64 04/27/18 07:18 98.3 F 71 20 119/73 DSM 5 Symptoms Update: shortly, patient is 42 year old single [place] female with history of depression and psychosis, likely diagnosis of Schizoaffective disorder, three prior admissions at [facility] in 02/2017, 01/2017 and 03/2016, no reported history of suicidal attempts, noncompliance with aftercare recommendations and medications who was transferred to the psychiatric unit after being treated for rhabdomyolysis on on the medical floor. ER notes indicate that patient was found wandering on the streets in a state of confusion. pt was medically stable, pt was willing to get treatment and was transferred to the psych unit last week. As per staff pt is compliant with her medications, denied discomfort or pain. pt was seen in her room, as per staff pt presents better, less psychotic, pt is more engaged. pt presented to be more organized, still was not sure what have happened prior to this admission, pt said that she had some pain in her back and she ended up in the hospital. pt said that she was compliant with meds and f/u appts. as per staff patient observed wandering in the unit, but no agitation no aggression, patient mainly keeps to herself and has been in fair control on the unit. pt was educated abut her mental illness, pt was receptive. Invega Sustanna injection(156mg) was May 01,tolerated well. considering the fact pt was confused and was wondering prior to this admission, pt requires IOP program in [facility], most likely pt requires to stay in the psych unit till Tuesday, and be discharge directly to IOP. patient denied thoughts of harming herself or others, denied intent or plan. Diagnostic Results: Schizoaffective Disorder Medication Change: Yes (seroquel increased) Medical Record Reviewed: Yes Mental Status Examination - Cognitive Function Orientation: Person, Place Memory: Impaired Attention: Poor (some improvement) Concentration: Poor (some improvement) Association: Loose (some improvement) Fund of Knowledge: Poor - Mood Mood: Depressed ("I feel better") - Affect Affect: Constricted (but more reactive) - Speech Speech: Soft (underproductive) - Formal Thought Process Formal Thought Process: Hallucinations (denied today), Delusions (improving), Paranoia (improving), Loosening of associations - Suicidal Ideation Suicidal Ideation: No - Homicidal Ideation Homicidal Ideation: No Goal/Treatment Plan - Goal/Treatment Plan Need for Continued Stay: Remain at risks for inpatient hospitalization, Severe depression anxiety, Discharge may exacerbated symptoms, Severe functional impairment Progress Toward Problem(s) and Goals/Treatment Plan: group, milieu and supportive tx Prozac to 40 mg po daily for depression and anxiety on 04/30/18 Appreciate f/u by Reyna regarding patient's recent hospitalization at [place] and subsequent outpatient commitment. Patient's more Invega Sustenna injection (156mg) was March 28, 2018, pt got injection 05/01/18 Seroquel 100 mg AM150 mg po HS for psychosis/ Ativan 0.5 mg po bid for anxiety, catatonia SW consultation for discharge plan and social issues Family involvement Follow up on labs Will monitor closely Pt was educated about risk/benefits and alternatives of medications, coping strategies (safety plan, suicide prevention), relapse prevention, importance of follow up with psychiatrist and therapist, stay away from drugs/alcohol/smoking Estimated Date of D/C: 05/08/18
[2018-05-05] MEDS: Pantoprazole 40 mg EC Tab PO SCH (06:07)
--- NOTE | 2018-05-05 12:03 | PCM.BM ---
<Reyna Hardin Y - Last Filed: 05/05/18 12:03> Treatment Plan Problems - Problems identified on initial assessmt ALTERATION IN EMOTIONAL STATUS Date Initiated: 04/26/18 (ANGRY MOOD) Time Initiated: 18:30 Assessment reference: HP, NA, Other GUARDED BEHAVIOR Date Initiated: 04/26/18 (REFUSED TO GIVE INFORMATION) Time Initiated: 18:30 Assessment reference: HP, Other Status: Active MEDICATION NONADHERENCE Date Initiated: 04/26/18 (DID NOT TAKE MEDS AT HOME) Time Initiated: 18:33 Assessment reference: HP, NA, Other THOUGHT PROCESS ALTERATION Date Initiated: 04/26/18 (TALKS TO HERSELF) Time Initiated: 18:33 Assessment reference: HP, NA, Other Treatment assets and liabiliti Patient Assests: adapts well, cooperative, ADL independent (pt currently unable to tend to ADL's fully independently secondary to acute psychosis), physically healthy, strong mary anne Patient Liabilities: live alone, imparied memory, other - Milieu Protocol Maintain good personal hygiene: daily Encourage regular showers, daily Remind patient to perform daily oral care, daily Assist patient to perform ADL's Maintain personal safety: daily Educate patient to report safety concerns to staff, daily Monitor environment for contraband/sharps Medication safety: Monitor for expected outcome, potential side effects: daily, Assess barriers to learning: daily, Assess readiness for medication education: daily Milieu Narrative: * group, milieu and supportive tx * Prozac 40 mg po daily for depression and anxiety on 04/30/18 * Appreciate f/u by Reyna regarding patient's recent hospitalization at [place] and subsequent outpatient commitment. Patient's more recent Invega Sustenna injection (156mg) was March 28, 2018. Patient received f/u injection 05/01/18 * Seroquel 100 mg AM and 150 mg HS for psychosis * Vitals reviewed and noted below * Please refer to medical evaluations and d/c summary from patient's medical hospitalization 04/23/18-04/26/18 for full physical exam and ROS * Prior floor labs noted below: Laboratory Results - last 24 hr 04/27/18 04/27/18 07:45 07:45 Fasting Glucose 120 H Triglycerides 96 Cholesterol 157 LDL Cholesterol Direct 79 HDL Cholesterol 62 H Free T4 1.07 TSH 3rd Generation 0.55 Family Contact Family involvement: Famliy/SO not involved - Outside Agency Involuntary Outpatient Committment Care involvment: Following patient during stay, Information-sharing Agency contact name: Sophy Hunt, lead case manager Discharge/Continuing Care - Education Needs Education Needs: Patient Medication, Patient Diagnosis/Disease Process, Patient Coping Skills, Patient Anger Management skills, Patient Placement options, Patient Community resources, Patient Uses of Medical Equipment, Patient Health Practices/Safety, Patient Personal Hygiene/Grooming - Discharge Discharge Criteria: Free of Suicidal thoughts, Free of Homicidal thoughts, Free of paranoid thoughts, Free of agitation, Normal sleep pattern, Ability to care for self - Treatment Team Participation Patient/Family/SO Statement: * group, milieu and supportive tx * Prozac 40 mg po daily for depression and anxiety on 04/30/18 * Appreciate f/u by Reyna regarding patient's recent hospitalization at [place] and subsequent outpatient commitment. Patient's more recent Invega Sustenna injection (156mg) was March 28, 2018. Patient received f/u injection 05/01/18 * Seroquel 100 mg AM and 150 mg HS for psychosis * Vitals reviewed and noted below * Please refer to medical evaluations and d/c summary from patient's medical hospitalization 04/23/18-04/26/18 for full physical exam and ROS * Prior floor labs noted below: Laboratory Results - last 24 hr 04/27/18 04/27/18 07:45 07:45 Fasting Glucose 120 H Triglycerides 96 Cholesterol 157 LDL Cholesterol Direct 79 HDL Cholesterol 62 H Free T4 1.07 TSH 3rd Generation 0.55 Treatment Plan Review - Problem ALTERATION IN EMOTIONAL STATUS Time Initiated: 18:30 GUARDED BEHAVIOR Time Initiated: 18:30 MEDICATION NONADHERENCE Time Initiated: 18:33 THOUGHT PROCESS ALTERATION Time Initiated: 18:33 <Nikki Lockhart - Last Filed: 05/05/18 13:05> - Diagnosis (1) Schizophrenia Status: Acute Interventions: 05/05/18 12:40 Psychoeducation/psychotherapy Psychopharmacology/adjustment of medications as needed/ monitoring possible side effects Evaluate pt on daily basis Compliance with medications and follow up appointments Long acting medication provided denied any thoughts of harming self or others Relapse prevention Reduction of symptoms Improve functional status IOP program
--- NOTE | 2018-05-05 14:57 | PCM.BM ---
Treatment Plan Problems - Problems identified on initial assessmt ALTERATION IN EMOTIONAL STATUS Date Initiated: 04/26/18 (ANGRY MOOD) Time Initiated: 18:30 Assessment reference: HP, NA, Other GUARDED BEHAVIOR Date Initiated: 04/26/18 (REFUSED TO GIVE INFORMATION) Time Initiated: 18:30 Assessment reference: HP, Other Status: Active MEDICATION NONADHERENCE Date Initiated: 04/26/18 (DID NOT TAKE MEDS AT HOME) Time Initiated: 18:33 Assessment reference: HP, NA, Other THOUGHT PROCESS ALTERATION Date Initiated: 04/26/18 (TALKS TO HERSELF) Time Initiated: 18:33 Assessment reference: HP, NA, Other Treatment assets and liabiliti Patient Assests: adapts well, cooperative, ADL independent (pt currently unable to tend to ADL's fully independently secondary to acute psychosis), physically healthy, strong mary anne Patient Liabilities: live alone, imparied memory, other - Milieu Protocol Maintain good personal hygiene: daily Encourage regular showers, daily Remind patient to perform daily oral care, daily Assist patient to perform ADL's Maintain personal safety: daily Educate patient to report safety concerns to staff, daily Monitor environment for contraband/sharps Medication safety: Monitor for expected outcome, potential side effects: daily, Assess barriers to learning: daily, Assess readiness for medication education: daily Milieu Narrative: * group, milieu and supportive tx * Prozac 40 mg po daily for depression and anxiety on 04/30/18 * Appreciate f/u by Reyna regarding patient's recent hospitalization at [place] and subsequent outpatient commitment. Patient's more recent Invega Sustenna injection (156mg) was March 28, 2018. Patient received f/u injection 05/01/18 * Seroquel 100 mg AM and 150 mg HS for psychosis * Vitals reviewed and noted below * Please refer to medical evaluations and d/c summary from patient's medical hospitalization 04/23/18-04/26/18 for full physical exam and ROS * Prior floor labs noted below: Laboratory Results - last 24 hr 04/27/18 04/27/18 07:45 07:45 Fasting Glucose 120 H Triglycerides 96 Cholesterol 157 LDL Cholesterol Direct 79 HDL Cholesterol 62 H Free T4 1.07 TSH 3rd Generation 0.55 Family Contact Family involvement: Famliy/SO not involved - Outside Agency Involuntary Outpatient Committment Care involvment: Following patient during stay, Information-sharing Agency contact name: Sophy Hunt, caser Discharge/Continuing Care - Education Needs Education Needs: Patient Medication, Patient Diagnosis/Disease Process, Patient Coping Skills, Patient Anger Management skills, Patient Placement options, Patient Community resources, Patient Uses of Medical Equipment, Patient Health Practices/Safety, Patient Personal Hygiene/Grooming - Discharge Discharge Criteria: Free of Suicidal thoughts, Free of Homicidal thoughts, Free of paranoid thoughts, Free of agitation, Normal sleep pattern, Ability to care for self - Treatment Team Participation Patient/Family/SO Statement: * group, milieu and supportive tx * Prozac 40 mg po daily for depression and anxiety on 04/30/18 * Appreciate f/u by Reyna regarding patient's recent hospitalization at [place] and subsequent outpatient commitment. Patient's more recent Invega Sustenna injection (156mg) was March 28, 2018. Patient received f/u injection 05/01/18 * Seroquel 100 mg AM and 150 mg HS for psychosis * Vitals reviewed and noted below * Please refer to medical evaluations and d/c summary from patient's medical hospitalization 04/23/18-04/26/18 for full physical exam and ROS * Prior floor labs noted below: Laboratory Results - last 24 hr 04/27/18 04/27/18 07:45 07:45 Fasting Glucose 120 H Triglycerides 96 Cholesterol 157 LDL Cholesterol Direct 79 HDL Cholesterol 62 H Free T4 1.07 TSH 3rd Generation 0.55 Treatment Plan Review Patient participation: Yes - Problem ALTERATION IN EMOTIONAL STATUS Date Initiated: 05/05/18 Time Initiated: 18:30 Progress toward outcomes: improved GUARDED BEHAVIOR Date Initiated: 05/05/18 Time Initiated: 18:30 Progress toward outcomes: improved MEDICATION NONADHERENCE Time Initiated: 18:33 Progress toward outcomes: improved THOUGHT PROCESS ALTERATION Time Initiated: 18:33 Progress toward outcomes: improved
--- NOTE | 2018-05-05 14:57 | PCM.PYCHPN ---
Psychiatric Progress Note - Psychiatric Progress Note Patient seen today, length of contact: 30 min Patient Chief Complaint: "I completed the program already" Problems Identified/Issues Discussed: Suicide/ homicide prevention, past psychiatric h/o, current psychiatric sympt oms, medical problems, risk/benefits and alternatives of medications, medications compliance, coping strategies, substance abuse h/o, relapse prevention, importance of follow up with psychiatrist and therapist, discharge plan. Medical Problems: patient is relatively healthy, patient was cleared by medical team,, patient had rhabdomyolysis prior to come to the hospital which is resolved. Diagnostic Results: Lab Results 04/27/18 07:45: RPR Nonreactive 04/27/18 07:45: Free T4 1.07, TSH 3rd Generation 0.55 04/27/18 07:45: Fasting Glucose 120 H, Triglycerides 96, Cholesterol 157, LDL Cholesterol Direct 79, HDL Cholesterol 62 H Vital Signs Temp Pulse Resp BP 05/01/18 07:00 97.6 F 84 18 108/69 04/30/18 16:25 75 116/70 04/30/18 06:58 98.2 F 70 18 110/72 04/29/18 17:00 70 20 121/69 04/29/18 07:00 97.5 F L 85 20 112/61 04/28/18 15:00 97.3 F L 82 20 112/74 04/28/18 07:10 97.8 F 86 20 119/64 04/27/18 07:18 98.3 F 71 20 119/73 DSM 5 Symptoms Update: shortly, patient is 42 year old single [place] female with history of depression and psychosis, likely diagnosis of Schizoaffective disorder, three prior admissions at [facility] in 02/2017, 01/2017 and 03/2016, no reported history of suicidal attempts, noncompliance with aftercare recommendations and medications who was transferred to the psychiatric unit after being treated for rhabdomyolysis on on the medical floor. ER notes indicate that patient was found wandering on the streets in a state of confusion. pt was medically stable, pt was willing to get treatment and was transferred to the psych unit last week. As per staff pt is compliant with her medications, denied discomfort or pain. pt was seen at the treatment team meeting, utilized [employer] translation system for translation #[phone] at the beginning of the interview pt presented superficially better, when discharge plan was discussed, pt appeared to be angry, flat affect, started to mumble something to herself. pt was insisted that she completed the IOP program. pt was educated that she is court mandated to resume the program. as per staff patient observed wandering in the unit, but no agitation no aggression, patient mainly keeps to herself and has been in fair control on the unit. pt was educated abut her mental illness, pt was receptive. Invega Sustanna injection(156mg) was May 01,tolerated well. considering the fact pt was confused and was wondering prior to this admission, pt [place] [facility] most likely pt requires to stay in the psych unit till Tuesday, and be discharge directly to [facility]. patient denied thoughts of harming herself or others, denied intent or plan. Diagnostic Results: Schizoaffective Disorder Medication Change: Yes (Seroquel increased) Medical Record Reviewed: Yes Mental Status Examination - Cognitive Function Orientation: Person, Place Memory: Impaired Attention: Poor (some improvement) Concentration: Poor (some improvement) Association: Loose (some improvement) Fund of Knowledge: Poor - Mood Mood: Depressed ("I feel better") - Affect Affect: Constricted (but more reactive) - Speech Speech: Soft (underproductive) - Formal Thought Process Formal Thought Process: Hallucinations (denied today), Delusions (improving), Paranoia (improving), Loosening of associations - Suicidal Ideation Suicidal Ideation: No - Homicidal Ideation Homicidal Ideation: No Goal/Treatment Plan - Goal/Treatment Plan Need for Continued Stay: Remain at risks for inpatient hospitalization, Severe depression anxiety, Discharge may exacerbated symptoms, Severe functional impairment Progress Toward Problem(s) and Goals/Treatment Plan: group, milieu and supportive tx Prozac to 40 mg po daily for depression and anxiety on 04/30/18 Appreciate f/u by Reyna regarding patient's recent hospitalization at [place] and subsequent outpatient commitment. Patient's more Invega Sustenna injection (156mg) was March 28, 2018, pt got injection 05/01/18 Seroquel 100 mg AM and 200 mg po HS for psychosis/ Ativan 0.5 mg po bid for anxiety, catatonia SW consultation for discharge plan and social issues Family involvement Follow up on labs Will monitor closely Pt was educated about risk/benefits and alternatives of medications, coping strategies (safety plan, suicide prevention), relapse prevention, importance of follow up with psychiatrist and therapist, stay away from drugs/alcohol/smoking Estimated Date of D/C: 05/08/18
--- NOTE | 2018-05-05 15:01 | PCM.BM ---
Treatment Plan Problems - Problems identified on initial assessmt ALTERATION IN EMOTIONAL STATUS Date Initiated: 04/26/18 (ANGRY MOOD) Time Initiated: 18:30 Assessment reference: HP, NA, Other GUARDED BEHAVIOR Date Initiated: 04/26/18 (REFUSED TO GIVE INFORMATION) Time Initiated: 18:30 Assessment reference: HP, Other Status: Active MEDICATION NONADHERENCE Date Initiated: 04/26/18 (DID NOT TAKE MEDS AT HOME) Time Initiated: 18:33 Assessment reference: HP, NA, Other THOUGHT PROCESS ALTERATION Date Initiated: 04/26/18 (TALKS TO HERSELF) Time Initiated: 18:33 Assessment reference: HP, NA, Other Treatment assets and liabiliti Patient Assests: adapts well, cooperative, ADL independent (pt currently unable to tend to ADL's fully independently secondary to acute psychosis), physically healthy, strong mary anne Patient Liabilities: live alone, imparied memory, other - Milieu Protocol Maintain good personal hygiene: daily Encourage regular showers, daily Remind patient to perform daily oral care, daily Assist patient to perform ADL's Maintain personal safety: daily Educate patient to report safety concerns to staff, daily Monitor environment for contraband/sharps Medication safety: Monitor for expected outcome, potential side effects: daily, Assess barriers to learning: daily, Assess readiness for medication education: daily Milieu Narrative: * group, milieu and supportive tx * Prozac 40 mg po daily for depression and anxiety on 04/30/18 * Appreciate f/u by Reyna regarding patient's recent hospitalization at [place] and subsequent outpatient commitment. Patient's more recent Invega Sustenna injection (156mg) was March 28, 2018. Patient received f/u injection 05/01/18 * Seroquel 100 mg AM and 150 mg HS for psychosis * Vitals reviewed and noted below * Please refer to medical evaluations and d/c summary from patient's medical hospitalization 04/23/18-04/26/18 for full physical exam and ROS * Prior floor labs noted below: Laboratory Results - last 24 hr 04/27/18 04/27/18 07:45 07:45 Fasting Glucose 120 H Triglycerides 96 Cholesterol 157 LDL Cholesterol Direct 79 HDL Cholesterol 62 H Free T4 1.07 TSH 3rd Generation 0.55 Family Contact Family involvement: Famliy/SO not involved - Outside Agency Involuntary Outpatient Committment Care involvment: Following patient during stay, Information-sharing Agency contact name: Sophy Hunt, shelter case manager Discharge/Continuing Care - Education Needs Education Needs: Patient Medication, Patient Diagnosis/Disease Process, Patient Coping Skills, Patient Anger Management skills, Patient Placement options, Patient Community resources, Patient Uses of Medical Equipment, Patient Health Practices/Safety, Patient Personal Hygiene/Grooming - Discharge Discharge Criteria: Free of Suicidal thoughts, Free of Homicidal thoughts, Free of paranoid thoughts, Free of agitation, Normal sleep pattern, Ability to care for self - Treatment Team Participation Patient/Family/SO Statement: * group, milieu and supportive tx * Prozac 40 mg po daily for depression and anxiety on 04/30/18 * Appreciate f/u by Reyna regarding patient's recent hospitalization at [place] and subsequent outpatient commitment. Patient's more recent Invega Sustenna injection (156mg) was March 28, 2018. Patient received f/u injection 05/01/18 * Seroquel 100 mg AM and 150 mg HS for psychosis * Vitals reviewed and noted below * Please refer to medical evaluations and d/c summary from patient's medical hospitalization 04/23/18-04/26/18 for full physical exam and ROS * Prior floor labs noted below: Laboratory Results - last 24 hr 04/27/18 04/27/18 07:45 07:45 Fasting Glucose 120 H Triglycerides 96 Cholesterol 157 LDL Cholesterol Direct 79 HDL Cholesterol 62 H Free T4 1.07 TSH 3rd Generation 0.55 Treatment Plan Review - Problem ALTERATION IN EMOTIONAL STATUS Date Initiated: 05/05/18 Time Initiated: 18:30 Progress toward outcomes: improved GUARDED BEHAVIOR Date Initiated: 05/05/18 Time Initiated: 18:30 Progress toward outcomes: improved MEDICATION NONADHERENCE Time Initiated: 18:33 Progress toward outcomes: improved THOUGHT PROCESS ALTERATION Time Initiated: 18:33 Progress toward outcomes: improved
[2018-05-06] MEDS: Pantoprazole 40 mg EC Tab PO SCH (06:10)
--- NOTE | 2018-05-06 09:30 | PCM.PYCHPN ---
Psychiatric Progress Note - Psychiatric Progress Note Patient seen today, length of contact: 30 min Problems Identified/Issues Discussed: History of Present Illness and Precipitating Events: Patient is 42 year old single [place]ian female with history of depression and psychosis, likely diagnosis of Schizoaffective disorder, three prior admissions at [facility] in 02/2017, 01/2017 and 03/2016, no reported history of suicidal attempts, noncompliance with aftercare recommendations and medications who was transferred to the psychiatric unit after being treated for rhabdomyolysis on on the medical floor. ER notes indicate that patient was found wandering on the streets in a state of confusion. She was seen by this blog writer as well as Dr. Lockhart on the medical floor. Initially patient presented as catatonic and actively responding to internal stimuli. She could not participate in any meaningful interview due to profound thought blocking. She improved a little s/p restart of her psychiatric medications prozac, seroquel and ativan however still remains disorganized with negative symptoms. I interview her today with the aid of a tool dresser, Андрей Carrero and she is more communicative than our prior encounter x4 days ago. Focus and eye contact are improved and she is no longer mumbling to herself during my questioning. Patient can provide the correct month, year, location. Affect is blunt, guarded and preoccupied. Patient denies any new concerns including side effects, new discomfort or pain. Noted by staff to be irritable, preoccupied and responding to internal stimuli. Patient mainly keeps to herself and has been in fair control on the unit. PSYCHIATRIC HISTORY 02/25/17- Admitted to [facility] with diagnosis of Major Depressive disorder, Severe recurrent episode. Discharged medications: Prozac 30 mg PO DAILY Ativan 0.5 mg PO AMHS Seroquel 100 mg PO HS 01/21/17-01/28/17 Admitted to [facility] with diagnosis of Major Depressive disorder, recurrent episode. Discharged medications: Prozac 30 mg PO DAILY Ativan 0.5 mg PO AMHS Seroquel 100 mg PO HS 04/15/16-04/27/16 Admitted to [facility] with diagnosis of Severe Depressive Episode with psychotic symptoms in period. Patient also had UTI during that admission, given additional possible diagnosis of r/o delirium due to UTI. Discharge medications: risperdal 1mg am and 2mg hs for psychosis paxil 30mg po hs for depression and anxiety Remeron 15mg for depression and insomnia SOCIAL HISTORY Patient was born and raised in [facility]. She used to reside with her two children 2-year-old son and a 14-year-old however it appears that the children's fathers have custody of them (per Dr. Lockhart's consultation from 04/26/18). [facility] has been involved in the past. Patient is unemployed. Patient denies any tobacco, alcohol or drug use. PROGRESS NOTE I reviewed recent notes and patient was interviewed in her room using speak and translate luz for thai translation. Patient remains superficially cooperative and calm with fair hygiene and grooming. Affect is still constricted, disengaged and blunt. Fluency and spontaneity of speech remain impaired though patient denies any new concerns or issues, including depression.She still seems evasive. Patient continues to deny experiencing hallucinations however was noted to be mumbling to herself during treatment team meeting yesterday. She's maintaining improved comprehension, focus and organization however poverty of speech, internal preoccupation and thought blocking persist. She does appear to have these symptoms to some degree at baseline. She is compliant with her medications and denies s/e, discomfort or pain. Staff observe patient pacing and wandering on the unit. She keeps to herself without any motivation to interact with other patients. There were no behavioral issues overnight. Diagnostic Results: Schizoaffective Disorder Medication Change: Yes (Seroquel increased) Medical Record Reviewed: Yes Mental Status Examination - Cognitive Function Orientation: Person, Place Memory: Impaired Attention: Poor (some improvement) Concentration: Poor (some improvement) Association: Loose (some improvement) Fund of Knowledge: Poor - Mood Mood: Depressed ("I feel better") - Affect Affect: Constricted (but more reactive) - Speech Speech: Soft (underproductive) - Formal Thought Process Formal Thought Process: Hallucinations (denied today), Delusions (improving), Paranoia (improving), Loosening of associations - Suicidal Ideation Suicidal Ideation: No - Homicidal Ideation Homicidal Ideation: No Goal/Treatment Plan - Goal/Treatment Plan Need for Continued Stay: Remain at risks for inpatient hospitalization, Severe depression anxiety, Discharge may exacerbated symptoms, Severe functional impairment Progress Toward Problem(s) and Goals/Treatment Plan: * group, milieu and supportive tx * Prozac 40 mg po daily for depression and anxiety * Appreciate f/u by Reyna regarding patient's recent hospitalization at [place] and subsequent outpatient commitment. Patient's more recent Invega Sustenna injection (156mg) was March 28, 2018. Patient received f/u injection 05/01/18 * Seroquel 100 mg AM and 150 mg HS for psychosis * Vitals reviewed and noted below Selected Entries 05/05/18 05/05/18 07:21 15:00 Temperature 98.9 F Pulse Rate 75 79 Respiratory 20 Rate Blood Pressure 125/68 126/74 * Please refer to medical evaluations and d/c summary from patient's medical hospitalization 04/23/18-04/26/18 for full physical exam and ROS * Prior floor labs noted below: Laboratory Results - last 24 hr 04/27/18 04/27/18 07:45 07:45 Fasting Glucose 120 H Triglycerides 96 Cholesterol 157 LDL Cholesterol Direct 79 HDL Cholesterol 62 H Free T4 1.07 TSH 3rd Generation 0.55 Estimated Date of D/C: 05/08/18
[2018-05-07] MEDS: Pantoprazole 40 mg EC Tab PO SCH (06:19)
[2018-05-07 07:40] VITALS: RESP 20; TEMP 98.4
--- NOTE | 2018-05-07 09:25 | PCM.PYCHPN ---
Psychiatric Progress Note - Psychiatric Progress Note Patient seen today, length of contact: 30 min Problems Identified/Issues Discussed: History of Present Illness and Precipitating Events: Patient is 42 year old single [place]ian female with history of depression and psychosis, likely diagnosis of Schizoaffective disorder, three prior admissions at [facility] in 02/2017, 01/2017 and 03/2016, no reported history of suicidal attempts, noncompliance with aftercare recommendations and medications who was transferred to the psychiatric unit after being treated for rhabdomyolysis on on the medical floor. ER notes indicate that patient was found wandering on the streets in a state of confusion. She was seen by this underwriter solicitation director as well as Dr. Lockhart on the medical floor. Initially patient presented as catatonic and actively responding to internal stimuli. She could not participate in any meaningful interview due to profound thought blocking. She improved a little s/p restart of her psychiatric medications prozac, seroquel and ativan however still remains disorganized with negative symptoms. I interview her today with the aid of a rn family, Андрей Carrero and she is more communicative than our prior encounter x4 days ago. Focus and eye contact are improved and she is no longer mumbling to herself during my questioning. Patient can provide the correct month, year, location. Affect is blunt, guarded and preoccupied. Patient denies any new concerns including side effects, new discomfort or pain. Noted by staff to be irritable, preoccupied and responding to internal stimuli. Patient mainly keeps to herself and has been in fair control on the unit. PSYCHIATRIC HISTORY 02/25/17- Admitted to [facility] with diagnosis of Major Depressive disorder, Severe recurrent episode. Discharged medications: Prozac 30 mg PO DAILY Ativan 0.5 mg PO AMHS Seroquel 100 mg PO HS 01/21/17-01/28/17 Admitted to [facility] with diagnosis of Major Depressive disorder, recurrent episode. Discharged medications: Prozac 30 mg PO DAILY Ativan 0.5 mg PO AMHS Seroquel 100 mg PO HS 04/15/16-04/27/16 Admitted to [facility] with diagnosis of Severe Depressive Episode with psychotic symptoms in period. Patient also had UTI during that admission, given additional possible diagnosis of r/o delirium due to UTI. Discharge medications: risperdal 1mg am and 2mg hs for psychosis paxil 30mg po hs for depression and anxiety Remeron 15mg for depression and insomnia SOCIAL HISTORY Patient was born and raised in [facility]. She used to reside with her two children 2-year-old son and a 14-year-old however it appears that the children's fathers have custody of them (per Dr. Lockhart's consultation from 04/26/18). [facility] has been involved in the past. Patient is unemployed. Patient denies any tobacco, alcohol or drug use. PROGRESS NOTE I reviewed recent notes and patient was interviewed in her room with the help of guinean-speaking staff member for translation. Patient remains superficially cooperative and calm with fair hygiene and grooming. Affect is still constricted, disengaged and blunt. Fluency and spontaneity of speech remain impaired though patient denies any new concerns or issues, including depression. She still seems evasive and flat. Patient continues to deny experiencing hallucinations however was noted to be mumbling to herself during treatment team meeting on Tuesday. She's maintaining improved comprehension, focus and organization however poverty of speech, internal preoccupation and thought blocking persist. She does appear to have these symptoms to some degree at baseline. She is compliant with her medications and denies s/e, discomfort or pain. Staff observe patient pacing and wandering on the unit. She keeps to herself without any motivation to interact with other patients. This provider encouraged patient to socialize with the milieu. There were no behavioral issues over the weekend. Diagnostic Results: Schizoaffective Disorder Medication Change: Yes (Seroquel increased) Medical Record Reviewed: Yes Mental Status Examination - Cognitive Function Orientation: Person, Place Memory: Impaired Attention: Poor (some improvement) Concentration: Poor (some improvement) Association: Loose (some improvement) Fund of Knowledge: Poor - Mood Mood: Depressed ("I feel better") - Affect Affect: Constricted (but more reactive), Blunted, Flat, Other (preoccupied) - Speech Speech: Soft (underproductive) - Formal Thought Process Formal Thought Process: Hallucinations (denied all weekend), Delusions (improving), Paranoia (improving), Loosening of associations - Suicidal Ideation Suicidal Ideation: No - Homicidal Ideation Homicidal Ideation: No Goal/Treatment Plan - Goal/Treatment Plan Need for Continued Stay: Remain at risks for inpatient hospitalization, Severe depression anxiety, Discharge may exacerbated symptoms, Severe functional impairment Progress Toward Problem(s) and Goals/Treatment Plan: * group, milieu and supportive tx * Prozac 40 mg po daily for depression and anxiety * Appreciate f/u by Reyna regarding patient's recent hospitalization at [facility] and subsequent outpatient commitment. Patient's more recent Invega Sustenna injection (156mg) was March 28, 2018. Patient received f/u injection 05/01/18 * Seroquel 100 mg AM and 150 mg HS for psychosis * Vitals reviewed and noted below Selected Entries 05/06/18 05/06/18 06:44 15:36 Temperature 97.9 F Pulse Rate 86 89 Respiratory 16 Rate Blood Pressure 102/63 97/63 L * Please refer to medical evaluations and d/c summary from patient's medical hospitalization 04/23/18-04/26/18 for full physical exam and ROS * Prior floor labs noted below: Laboratory Results - last 24 hr 04/27/18 04/27/18 07:45 07:45 Fasting Glucose 120 H Triglycerides 96 Cholesterol 157 LDL Cholesterol Direct 79 HDL Cholesterol 62 H Free T4 1.07 TSH 3rd Generation 0.55 Estimated Date of D/C: 05/08/18
[2018-05-08 07:18] VITALS: BP 108/59; PULSE 83
[2018-05-08] MEDS: Pantoprazole 40 mg EC Tab PO SCH (09:24)
--- NOTE | 2018-05-09 16:33 | PCM.PYCHDC ---
Mental Status Examination - Mental Status Examination Orientation: Person, Place, Situation, Time Memory: Intact Mood: Neutral Affect: Constricted (but reactive and mood congruent) Speech: Appropriate (but underproductive) Attention: WNL (much improved) Concentration: WNL (mmuch improved) Association: Loose (baseline) Fund of Knowledge: Poor (baseline) Formal Thought Process: Loosening of associations (chronic), Other (thought blocking which seems to be chronic) Description of patient's judgement and insight: Pt has improved insight into mental and medical illness, pt was compliant with medications and unit rules and regulations, pt was going to groups, was calm, cooperative, socially appropriate, no behavioral incidents, no agitation, no aggression. Psychotic Thoughts and Behaviors: Pt denied v/a/t hallucinations, denied paranoid ideations, pt does not appear to be psychotic, and thought process is goal directed. Suicidal Ideation: No Current Homicidal Ideation?: No Plan: pt adamantly denied thoughts of harming self or others denied intent or plan. Discharge Summary - Discharge Note Reason for Hospitalization: psychosis, inability to function, catatonia Psychiatric History (includes Medical, Family, Personal Hx): long history of schizophrenia Laboratory Data: Lab Results 04/27/18 07:45: RPR Nonreactive 04/27/18 07:45: Free T4 1.07, TSH 3rd Generation 0.55 04/27/18 07:45: Fasting Glucose 120 H, Triglycerides 96, Cholesterol 157, LDL Cholesterol Direct 79, HDL Cholesterol 62 H Vital Signs Temp Pulse Resp BP 05/08/18 07:17 98.4 F 83 20 108/59 L 05/07/18 07:39 98.4 F 78 20 109/69 05/06/18 15:36 89 97/63 L 05/06/18 06:44 97.9 F 86 16 102/63 05/05/18 15:00 79 126/74 05/05/18 07:21 98.9 F 75 20 125/68 05/04/18 16:00 80 106/66 05/04/18 07:26 98.4 F 68 20 113/59 L 05/03/18 15:00 86 H 129/78 05/03/18 07:19 98.1 F 75 16 88/56 L 05/02/18 16:00 82 107/63 05/02/18 07:16 98.6 F 69 20 107/57 L 05/01/18 15:09 67 94/51 L 05/01/18 07:00 97.6 F 84 18 108/69 04/30/18 16:25 75 116/70 04/30/18 06:58 98.2 F 70 18 110/72 04/29/18 17:00 70 20 121/69 04/29/18 07:00 97.5 F L 85 20 112/61 04/28/18 15:00 97.3 F L 82 20 112/74 04/28/18 07:10 97.8 F 86 20 119/64 04/27/18 07:18 98.3 F 71 20 119/73 Consultations:: List each consultation separately and include: 1. Reason for request. 2. Findings. 3. Follow-up Consultations: patient was cleared by medical team, rhabdomyolysis much better Summary of Hospital Course include:: 1. Description of specific treatment plan utilized for patients during their course of treatmen. 2. Summarize the time- course for resolution of acute symptoms and/or regressed behaviors. 3. Describe issues identified and worked on during hospitalization. 4. Describe medication utilized. 5. Describe medical problems identified and treated. 6. Reassessment of suicide risk Summary of Hospital Course: patient was admitted to the medical floor after was found to be wandering on the streets, was found to have rhabdomyolysis, patient was seen on the medical side for psychosis, catatonia, inability to function. Please see consultation more detailed information. Patient was stabilized on the following medications: Prozac to 40 mg po daily for depression and anxiety Invega Sustenna injection (156mg) was due on March 28, 2018, pt got injection 05/01/18 Seroquel 100 mg AM and 200 mg po HS for psychosis Ativan 0.5 mg po bid for anxiety, catatonia patient tolerated meds well, no side effects observed or reported, aims 0, no EPS. Over the course of this hospitalization pt was attending groups, pt also had medication management, had therapeutic milieu. Overall pt improved significantly,psychosis improved, no behavioral issues, pts insight improved as well and soon pt deemed to be ready for discharge. At the time of the discharge pt denied been depressed, denied thoughts of harming self or others, denied psychotic symptoms, and pt does not appeared to be psychotic, denied been anxious, pt is not in imminent danger to self or others, pt was will be continued [facility] program, information about follow up appointment, time and address provided to the pt, it is patient responsibility to follow up with outpatient clinic, PMD as well as specialists (see SW note for more detailed information). In case pt will need to obtain results of studies pending at discharge pt was provided with contact information of Psychiatric Inpatient unit [phone] as well as Medical Record Department [phone]. pt does not use any drugs, does not smoke pt was provided with prescriptions for all of medications (please see medication reconciliation form) Pt was educated about safety plan in case of worsening of symptoms or in case of suicidal or homicidal ideation call 911 or go to the nearest ER, also was educated to take meds as prescribed and stay away from drugs, pt verbalized understanding. - Diagnosis (1) Schizophrenia Status: Chronic Priority: High - Final Diagnosis (DSM 5) Condition upon Discharge: GOOD Disposition: HOME/ ROUTINE Follow-up Treatment Plan: At the time of the discharge pt denied been depressed, denied thoughts of harming self or others, denied psychotic symptoms, and pt does not appeared to be psychotic, denied been anxious, pt is not in imminent danger to self or others, pt was will be continued [facility] program, information about follow up appointment, time and address provided to the pt, it is patient responsibility to follow up with outpatient clinic, PMD as well as specialists (see SW note for more detailed information). In case pt will need to obtain results of studies pending at discharge pt was provided with contact information of Psychiatric Inpatient unit [phone] as well as Medical Record Department [phone]. pt does not use any drugs, does not smoke pt was provided with prescriptions for all of medications (please see medication reconciliation form) Pt was educated about safety plan in case of worsening of symptoms or in case of suicidal or homicidal ideation call 911 or go to the nearest ER, also was educated to take meds as prescribed and stay away from drugs, pt verbalized understanding. Prescriptions/Medication Reconciliation: Paliperidone Palmitate [Invega Sustenna] 156 mg IM Q30D #1 ser Fluoxetine HCl [Prozac] 40 mg PO DAILY #14 capsule Lorazepam [Ativan] 0.5 mg PO AMHS #30 tab Paliperidone Palmitate [Invega Sustenna] 156 mg IM SAT #1 ser Pantoprazole [Protonix EC Tab] 40 mg PO 0600 #7 ect QUEtiapine [Seroquel] 200 mg PO AMHS #30 tab - Smoking Cessation Smoking Cessation Medication prescribed: No Reason for not providing: pt does not smoke - Antipsychotic Medications Pt discharged on 2 or more routine antipsychotic medications: No
== END 2018-05-08 18:00 | disposition home or self-care (01) ==
LOC: PSYC 17:20
PROVIDERS: ADMIT Psychiatry & Neurology Psychiatry; ATTEND Psychiatry & Neurology Psychiatry
PROC: GZ3ZZZZ Medication Management (ICD-10-PCS; principal; 2018-04-26)
DX: F25.9 Schizoaffective disorder, unspecified (principal); G47.00 Insomnia, unspecified; F41.9 Anxiety disorder, unspecified; Z91.83 Wandering in diseases classified elsewhere

== ENCOUNTER 2018-05-13 08:23 | Observation (INO) | payer MEDICAID ==
--- NOTE | 2018-05-13 08:45 | ED PDOC ---
Arrival/HPI - General Chief Complaint: Altered Mental Status Time Seen by Provider: 05/13/18 08:26 Historian: Police EM Caveat: Altered Mental Status (lethargic) - History of Present Illness Narrative History of Present Illness (Text): 05/13/18 08:42 A 42 year old female, whose past medical history includes schizophrenia, presents to the emergency department brought in by [employer] who found her wandering on the streets earlier this morning. ROS and HPI are not fully obtainable due to patient being lethargic. Time/Duration: 1-3 hours (earlier this morning) Symptom Onset: Gradual Symptom Course: Unchanged Activities at Onset: Light Context: Street Past Medical History - Provider Review Nursing Documentation Reviewed: Yes - Infectious Disease Hx of Infectious Diseases: None - Past Medical History Past Medical History: No Previous - Cardiac Hx Cardiac Disorders: No (denies) - Pulmonary Hx Respiratory Disorders: No (denies) - Neurological Hx Neurological Disorder: No (denies) - HEENT Hx HEENT Disorder: No (denies) - Renal Hx Renal Disorder: No (denies) - Endocrine/Metabolic Hx Endocrine Disorders: No (denies) - Hematological/Oncological Hx Blood Disorders: No (denies) - Integumentary Hx Dermatological Disorder: No (denies) - Musculoskeletal/Rheumatological Hx Musculoskeletal Disorders: Yes Hx Falls: Yes - Gastrointestinal Hx Gastrointestinal Disorders: No (denies) - Genitourinary/Gynecological Hx Genitourinary Disorders: No (denies) - Psychiatric Hx Schizophrenia: Yes Hx Substance Use: No - Past Surgical History Past Surgical History: No Previous - Surgical History Hx Amputation: No Hx Appendectomy: No Hx Cardiac Catheterization: No Hx Cholecystectomy: No Hx Coronary Stent: No Hx Gastric Bypass Surgery: No Hx Hysterectomy: No Hx Inguinal Hernia Repair: No Hx Joint Replacement: No Hx Kidney Transplant: No Hx Liver Transplant: No Hx Mastectomy: No Hx Musculoskeletal Surgery: No Hx Open Heart Surgery: No Hx Orthopedic Surgery: No Hx Splenectomy: No Hx Valve Replacement: No - Anesthesia Hx Anesthesia: No - Suicidal Assessment Feels Threatened In Home Enviroment: No Family/Social History - Physician Review Nursing Documentation Reviewed: Yes Family/Social History: No Known Family HX Smoking Status: Smoker Currrent Status Unknown Hx Alcohol Use: No Hx Substance Use: No Hx Substance Use Treatment: No Allergies/Home Meds Allergies/Adverse Reactions: Allergies No Known Allergies Allergy (Verified 05/13/18 08:29) Review of Systems - Review of Systems Systems not reviewed;Unavailable: Altered Mental Status (lethargic) Physical Exam - Physical Exam Narrative Physical Exam (Text): 05/13/18 08:45 Constitutional: No acute distress. Head: Normocephalic. Atraumatic. Eyes: PERRL. ENT: Moist mucous membranes. Neck: Supple. Cardiovascular: Regular rate. Chest: No tenderness. Respiratory: Clear to auscultation bilaterally. GI: Soft. Nontender. Nondistended. Back: No CVA tenderness. Musculoskeletal: No tenderness or swelling of extremities. Moving spontaneously. Skin: No rash. Neurologic: Lethargic. Vital Signs Reviewed: Yes Vital Signs Temp Pulse Resp BP Pulse Ox 05/13/18 08:35 98.0 F 83 18 145/82 98 Temperature: Afebrile Blood Pressure: Normal Pulse: Regular Respiratory Rate: Normal Finger Stick Blood Glucose: 118 Medical Decision Making ED Course and Treatment: 05/13/18 08:47 Impression: 42 year old female brought in by [facility] for altered mental status. Plan: -- Head CT without contrast -- Labs -- CBC -- Chest X-ray -- HCG urine stat -- Urinalysis -- Reassess and disposition Prior Visits: Notes and results from previous visits were reviewed. Progress Notes: 05/13/18 08:50 EKG: Ordered, reviewed, and independently interpreted the EKG. Rate : 80 BPM Rhythm : NSR Interpretation : No ST-segment elevations or depressions. 05/13/18 11:06 Procedure: CT Head without contrast Impression: No acute intracranial pathology identified. Dictator: Angela Najera Procedure: Chest X-ray Impression: Hypoinflation. No focal consolidation identified. Dictator: Angela Najera - RAD Interpretation Radiology Orders: 05/13/18 08:31 HEAD W/O CONTRAST [CT] Stat CHEST PORTABLE [RAD] Stat - Scribe Statement The provider has reviewed the documentation as recorded by the Rafita Manzo All medical record entries made by the Rafita were at my direction and personally dictated by me. I have reviewed the chart and agree that the record accurately reflects my personal performance of the history, physical exam, medical decision making, and the department course for this patient. I have also personally directed, reviewed, and agree with the discharge instructions and disposition. Disposition/Present on Arrival - Present on Arrival Any Indicators Present on Arrival: No History of DVT/PE: No History of Uncontrolled Diabetes: No Urinary Catheter: No History of Decub. Ulcer: No History Surgical Site Infection Following: None - Disposition Have Diagnosis and Disposition been Completed?: Yes Diagnosis: Rhabdomyolysis, UTI (urinary tract infection) Disposition: HOSPITALIZED Disposition Time: 11:24 Patient Plan: Admission Condition: GUARDED
[2018-05-13 08:51] LABS: URINE APPEARANCE CLEAR (CLEAR); URINE BILIRUBIN NEGATIVE (NEGATIVE); URINE BLOOD NEGATIVE (NEGATIVE); URINE COLOR YELLOW (YELLOW); URINE GLUCOSE (UA) NEGATIVE (NEGATIVE); URINE LEUKOCYTE ESTERASE SMALL Leu/uL (NEGATIVE); URINE PROTEIN NEGATIVE mg/dL (<30 mg/dL); URINE UROBILINOGEN 0.2 E.U./dL (<1 E.U./dL)
[2018-05-13 09:00] LABS: HCG,QUALITATIVE URINE NEGATIVE (NEGATIVE)
[2018-05-13 09:05] LABS: URINE BACTERIA MANY (NEG)
[2018-05-13 09:15] LABS: BARBITURATES, UR NEGATIVE (NEGATIVE); BENZODIAZEPINES, UR NEGATIVE (NEGATIVE); OPIATES, UR NEGATIVE (NEGATIVE); PHENCYCLIDINE, UR NEGATIVE (NEGATIVE)
[2018-05-13 10:07] LABS: BASO # 0.01 K/mm3 (0.0-2.0); BASO % 0.1 % (0.0-3.0); EOS % 0.1 % (1.5-5.0); GRAN # 7.75 (1.4-6.5); GRAN % 81.3 % (50.0-68.0); LYMPH # 1.4 (1.2-3.4); LYMPH % 14.5 % (22.0-35.0); MEAN CELL VOLUME 90.5 fl (80.0-105.0); MEAN CORPUSCULAR HEMOGLOBIN 30.8 pg (25.0-35.0); MEAN PLATELET VOLUME 9.7 fl (7.0-11.0); MONO # 0.4 (0.1-0.6); RBC 3.9 10^6/uL (3.5-6.1); RED CELL DISTRIBUTION WIDTH 13.6 % (11.5-14.5); WHITE BLOOD COUNT 9.5 10^3/uL (4.5-11.0)
--- NOTE | 2018-05-13 10:30 | CT ---
Date of service: 05/13/2018 PROCEDURE: CT HEAD WITHOUT CONTRAST. HISTORY: ams COMPARISON: Noncontrast head CT performed 04/22/18 TECHNIQUE: Axial computed tomography images were obtained through the head/brain without intravenous contrast. Radiation dose: Total exam DLP = 985.89 mGy-cm. This CT exam was performed using one or more of the following dose reduction techniques: Automated exposure control, adjustment of the mA and/or kV according to patient size, and/or use of iterative reconstruction technique. FINDINGS: Streak artifact obscures evaluation of the skull base. HEMORRHAGE: No intracranial hemorrhage. BRAIN: No mass effect or edema. Hummel-white matter differentiation appears intact. Please note that MRI with diffusion imaging is more sensitive in the detection of acute ischemic event. VENTRICLES: No hydrocephalus. CALVARIUM: Unremarkable. PARANASAL SINUSES: Unremarkable as visualized. No significant inflammatory changes. MASTOID AIR CELLS: Unremarkable as visualized. No inflammatory changes. OTHER FINDINGS: None. IMPRESSION: No acute intracranial pathology identified.
[2018-05-13 10:58] LABS: ALB/GLOB RATIO 1.2 (1.1-1.8); ALBUMIN 4.4 g/dL (3.0-4.8); ALT/SGPT 99 U/L (7-56); AST/SGOT 76 U/L (14-36); BLOOD UREA NITROGEN 7 mg/dL (7-21); CALCIUM 8.9 mg/dL (8.4-10.5); GFR NON-AFRICAN AMERICAN > 60
--- NOTE | 2018-05-13 11:03 | RAD ---
HISTORY: ams COMPARISON: Chest x-ray performed 04/22/18 TECHNIQUE: Chest, one view. FINDINGS: Examination limited by habitus and hypoinflation. LUNGS: No focal consolidation. Please note that chest x-ray has limited sensitivity for the detection of pulmonary masses. PLEURA: No significant pleural effusion identified. No definite pneumothorax . CARDIOVASCULAR: Heart size appears top-normal. No atherosclerotic calcification identified. OSSEOUS STRUCTURES: No acute osseous abnormality identified. VISUALIZED UPPER ABDOMEN: Unremarkable. OTHER FINDINGS: None. IMPRESSION: Hypoinflation. No focal consolidation identified.
[2018-05-13 11:04] LABS: ACETAMINOPHEN < 10.0 ug/ml (10.0-20.0); SALICYLATE < 1 mg/dL (2.0-20.0)
[2018-05-13 11:08] LABS: CK MB% 1.1 % (2.5-3.0); CK-MB 16.1 ng/mL (0.0-3.6)
[2018-05-13] MEDS ORDERED: Sodium Chloride 0.9% 1,000 ML IV STA (11:25)
[2018-05-13] MEDS ORDERED: Non Formulary Medication (Fluoxetine Hcl [Prozac] 40 MG) PO SCH (13:00)
--- NOTE | 2018-05-13 13:07 | CP.PCM.HP ---
<Ken Whitten - Last Filed: 05/13/18 13:24> History of Present Illness - History of Present Illness History of Present Illness: HISTORY & PHYSICAL NOTE FOR DR. NIKA Whitten PGY1 42 y/o armenian speaking F with PMHx of psychosis, schizophrenia presented to [facility] ED after being brought in by EMS after being found on the street wandering around. She was recently admitted for a similar where she was found on the street wandering, admitted to medicine service for rhabdomyolysis and evaluated by psychiatry. She was stabilized by psychiatry with prozac, invega sustenna injection, seroquel, ativan. She is scheduled to get another invega sustenna injection on 05/29/18. Upon interview, patient was not responding to questions or commands but was awake and alert. She was seen talking to her herself. She repeatedly tried walking out of her hospital bed, despite being told not to, as she had her IV line attached. 12 point ROS was unable to be obtained d/t mariana ent's mental status. (obtained from chart review) PMH: Hx of rhabdo All: NKDA PSH: None SH: Patient was born and raised in [facility]. She used to reside with her two children 2-year-old son and a 14-year-old however it appears that the children's fathers have custody of them (per Dr. Lockhart's consultation from 04/26/18). [facility] has been involved in the past. Patient is unemployed. Patient denies any tobacco, alcohol or drug use. Hosp: 04/28/18. Rhabdomyolysis after being found wander on street Meds: Paliperidone Palmitate [Invega Sustenna] 156 mg IM Q30D #1 ser Fluoxetine HCl [Prozac] 40 mg PO DAILY #14 capsule Lorazepam [Ativan] 0.5 mg PO AMHS #30 tab Paliperidone Palmitate [Invega Sustenna] 156 mg IM SAT #1 ser Pantoprazole [Protonix EC Tab] 40 mg PO 0600 #7 ect QUEtiapine [Seroquel] 200 mg PO AMHS #30 tab Present on Admission - Present on Admission Any Indicators Present on Admission: No Review of Systems - Review of Systems Review of Systems: per HPI Past Patient History - Infectious Disease Hx of Infectious Diseases: None - Past Medical History & Family History Past Medical History?: No - Past Social History Smoking Status: Smoker Currrent Status Unknown - CARDIAC Hx Cardiac Disorders: No (denies) - PULMONARY Hx Respiratory Disorders: No (denies) - NEUROLOGICAL Hx Neurological Disorder: No (denies) - HEENT Hx HEENT Problems: No (denies) - RENAL Hx Chronic Kidney Disease: No (denies) - ENDOCRINE/METABOLIC Hx Endocrine Disorders: No (denies) - HEMATOLOGICAL/ONCOLOGICAL Hx Blood Disorders: No (denies) - INTEGUMENTARY Hx Dermatological Problems: No (denies) - MUSCULOSKELETAL/RHEUMATOLOGICAL Hx Musculoskeletal Disorders: Yes Hx Falls: Yes - GASTROINTESTINAL Hx Gastrointestinal Disorders: No (denies) - GENITOURINARY/GYNECOLOGICAL Hx Genitourinary Disorders: No (denies) - PSYCHIATRIC Hx Schizophrenia: Yes Hx Substance Use: No - SURGICAL HISTORY Hx Amputation: No Hx Appendectomy: No Hx Cardiac Catheterization: No Hx Cholecystectomy: No Hx Coronary Stent: No Hx Gastric Bypass Surgery: No Hx Hysterectomy: No Hx Joint Replacement: No Hx Kidney Transplant: No Hx Liver Transplant: No Hx Mastectomy: No Hx Musculoskeletal Surgery: No Hx Open Heart Surgery: No Hx Orthopedic Surgery: No Hx Splenectomy: No Hx Valve Replacement: No - ANESTHESIA Hx Anesthesia: No Meds Allergies/Adverse Reactions: Allergies Allergy/AdvReac Type Severity Reaction Status Date / Time No Known Allergies Allergy Verified 05/13/18 08:29 Physical Exam - Constitutional Appears: Non-toxic, Agitated, Confused - Head Exam Head Exam: NORMAL INSPECTION, NORMOCEPHALIC - Eye Exam Eye Exam: EOMI, Normal appearance - ENT Exam ENT Exam: Mucous Membranes Moist - Neck Exam Neck exam: Positive for: Normal Inspection - Respiratory Exam Respiratory Exam: Clear to Auscultation Bilateral, NORMAL BREATHING PATTERN - Cardiovascular Exam Cardiovascular Exam: REGULAR RHYTHM, +S1, +S2 - GI/Abdominal Exam GI & Abdominal Exam: Soft. absent: Tenderness - Extremities Exam Extremities exam: Positive for: normal inspection. Negative for: calf tenderness - Back Exam Back exam: NORMAL INSPECTION - Neurological Exam Neurological exam: Alert Additional comments: doesn't obey commands - Psychiatric Exam Psychiatric exam: Flat Affect - Skin Skin Exam: Dry, Intact, Warm Results - Vital Signs Recent Vital Signs: Last Vital Signs Temp 98.1 F 05/13/18 12:41 Pulse 79 05/13/18 12:41 Resp 18 05/13/18 12:41 BP 147/71 05/13/18 12:41 Pulse Ox 99 05/13/18 12:41 - Labs Result Diagrams: 05/13/18 09:27 05/13/18 10:30 Labs: Laboratory Results - last 24 hr 05/13/18 05/13/18 05/13/18 08:34 08:40 08:40 WBC RBC Hgb Hct MCV MCH MCHC RDW Plt Count MPV Gran % Lymph % (Auto) [place] % (Auto) Eos % (Auto) Baso % (Auto) Gran # Lymph # (Auto) [place] # (Auto) Eos # (Auto) Baso # (Auto) Sodium Potassium Chloride Carbon Dioxide Anion Gap BUN Creatinine Est GFR ( Amer) Est GFR (Non-Af Amer) POC Glucose (mg/dL) 118 H Random Glucose Calcium Total Bilirubin AST ALT Alkaline Phosphatase Total Creatine Kinase CK-MB (CK-2) CK-MB (CK-2) % Total Protein Albumin Globulin Albumin/Globulin Ratio Urine Color Yellow Urine Appearance Clear Urine pH 6.0 Ur Specific [place] <= 1.005 Urine Protein Negative Urine Glucose (UA) Negative Urine Ketones Trace H Urine Blood Negative Urine Nitrate Negative Urine Bilirubin Negative Urine Urobilinogen 0.2 Ur Leukocyte Esterase Small H Urine RBC 1 - 3 Urine WBC 10 - 15 Ur Epithelial Cells 6 - 8 Urine Bacteria Many Urine HCG, Qual Negative Salicylates Urine Opiates Screen Negative Urine Methadone Screen Negative Acetaminophen Ur Barbiturates Screen Negative Ur Phencyclidine Scrn Negative Ur Amphetamines Screen Negative U Benzodiazepines Scrn Negative U Oth Cocaine Metabols Negative U Cannabinoids Screen Negative Alcohol, Quantitative 05/13/18 05/13/18 05/13/18 09:27 09:27 09:27 WBC 9.5 D RBC 3.90 Hgb 12.0 Hct 35.3 L MCV 90.5 MCH 30.8 MCHC 34.0 RDW 13.6 Plt Count 293 MPV 9.7 Gran % 81.3 H Lymph % (Auto) 14.5 L [place] % (Auto) 4.0 Eos % (Auto) 0.1 L Baso % (Auto) 0.1 Gran # 7.75 H Lymph # (Auto) 1.4 [place] # (Auto) 0.4 Eos # (Auto) 0.0 Baso # (Auto) 0.01 Sodium Potassium Chloride Carbon Dioxide Anion Gap BUN Creatinine Est GFR ( Amer) Est GFR (Non-Af Amer) POC Glucose (mg/dL) Random Glucose Calcium Total Bilirubin AST ALT Alkaline Phosphatase Total Creatine Kinase CK-MB (CK-2) CK-MB (CK-2) % Total Protein Albumin Globulin Albumin/Globulin Ratio Urine Color Urine Appearance Urine pH Ur Specific [place] Urine Protein Urine Glucose (UA) Urine Ketones Urine Blood Urine Nitrate Urine Bilirubin Urine Urobilinogen Ur Leukocyte Esterase Urine RBC Urine WBC Ur Epithelial Cells Urine Bacteria Urine HCG, Qual Salicylates < 1 L Urine Opiates Screen Urine Methadone Screen Acetaminophen < 10.0 L Ur Barbiturates Screen Ur Phencyclidine Scrn Ur Amphetamines Screen U Benzodiazepines Scrn U Oth Cocaine Metabols U Cannabinoids Screen Alcohol, Quantitative < 10 05/13/18 10:30 WBC RBC Hgb Hct MCV MCH MCHC RDW Plt Count MPV Gran % Lymph % (Auto) [place] % (Auto) Eos % (Auto) Baso % (Auto) Gran # Lymph # (Auto) [place] # (Auto) Eos # (Auto) Baso # (Auto) Sodium 131 L Potassium 3.4 L Chloride 95 L Carbon Dioxide 27 Anion Gap 13 BUN 7 Creatinine 0.4 L Est GFR ( Amer) > 60 Est GFR (Non-Af Amer) > 60 POC Glucose (mg/dL) Random Glucose 130 H Calcium 8.9 Total Bilirubin 0.9 AST 76 H D ALT 99 H Alkaline Phosphatase 94 Total Creatine Kinase 1409 H CK-MB (CK-2) 16.1 H CK-MB (CK-2) % 1.1 L Total Protein 8.0 Albumin 4.4 Globulin 3.6 Albumin/Globulin Ratio 1.2 Urine Color Urine Appearance Urine pH Ur Specific [place] Urine Protein Urine Glucose (UA) Urine Ketones Urine Blood Urine Nitrate Urine Bilirubin Urine Urobilinogen Ur Leukocyte Esterase Urine RBC Urine WBC Ur Epithelial Cells Urine Bacteria Urine HCG, Qual Salicylates Urine Opiates Screen Urine Methadone Screen Acetaminophen Ur Barbiturates Screen Ur Phencyclidine Scrn Ur Amphetamines Screen U Benzodiazepines Scrn U Oth Cocaine Metabols U Cannabinoids Screen Alcohol, Quantitative Assessment & Plan - Assessment and Plan (Free Text) Assessment: 42 y/o F with PMHx of schizophrenia, recent admission for rhabdomyolysis admitted for rhabdomyolysis in the setting of schizophrenia Plan: Rhabdomyolysis Elevated CK of 1409 on admission 1L NS bolus given in ED continue NS @100mls/hr repeat cpk Hx of schizophrenia/depression Continue medications prescribed by psychiatry upon discharge on 05/09/18 Paliperidone Palmitate [Invega Sustenna] 156 mg IM Q30D #1 ser Fluoxetine HCl [Prozac] 40 mg PO DAILY #14 capsule Lorazepam [Ativan] 0.5 mg PO AMHS #30 tab Paliperidone Palmitate [Invega Sustenna] 156 mg IM SAT #1 ser Pantoprazole [Protonix EC Tab] 40 mg PO 0600 #7 ect QUEtiapine [Seroquel] 200 mg PO AMHS #30 tab Consult psychiatry for medication management, and inpatient psychiatry evaluation Ativan prn for agitation Transaminitis unclear etiology May be 2/2 to hypoperfusion repeat CMP in am Case seen, examined and discussed with attending physician, Dr. Feldman <Donna Feldman R - Last Filed: 05/13/18 16:48> Results - Vital Signs Recent Vital Signs: Last Vital Signs Temp 97.8 F 05/13/18 15:40 Pulse 92 H 05/13/18 15:40 Resp 20 05/13/18 16:32 BP 140/79 05/13/18 15:40 Pulse Ox 97 05/13/18 15:40 - Labs Result Diagrams: 05/13/18 09:27 05/13/18 10:30 Labs: Laboratory Results - last 24 hr 05/13/18 05/13/18 05/13/18 08:34 08:40 08:40 WBC RBC Hgb Hct MCV MCH MCHC RDW Plt Count MPV Gran % Lymph % (Auto) [place] % (Auto) Eos % (Auto) Baso % (Auto) Gran # Lymph # (Auto) [place] # (Auto) Eos # (Auto) Baso # (Auto) Sodium Potassium Chloride Carbon Dioxide Anion Gap BUN Creatinine Est GFR ( Amer) Est GFR (Non-Af Amer) POC Glucose (mg/dL) 118 H Random Glucose Calcium Total Bilirubin AST ALT Alkaline Phosphatase Total Creatine Kinase CK-MB (CK-2) CK-MB (CK-2) % Total Protein Albumin Globulin Albumin/Globulin Ratio Urine Color Yellow Urine Appearance Clear Urine pH 6.0 Ur Specific [place] <= 1.005 Urine Protein Negative Urine Glucose (UA) Negative Urine Ketones Trace H Urine Blood Negative Urine Nitrate Negative Urine Bilirubin Negative Urine Urobilinogen 0.2 Ur Leukocyte Esterase Small H Urine RBC 1 - 3 Urine WBC 10 - 15 Ur Epithelial Cells 6 - 8 Urine Bacteria Many Urine HCG, Qual Negative Salicylates Urine Opiates Screen Negative Urine Methadone Screen Negative Acetaminophen Ur Barbiturates Screen Negative Ur Phencyclidine Scrn Negative Ur Amphetamines Screen Negative U Benzodiazepines Scrn Negative U Oth Cocaine Metabols Negative U Cannabinoids Screen Negative Alcohol, Quantitative 05/13/18 05/13/18 05/13/18 09:27 09:27 09:27 WBC 9.5 D RBC 3.90 Hgb 12.0 Hct 35.3 L MCV 90.5 MCH 30.8 MCHC 34.0 RDW 13.6 Plt Count 293 MPV 9.7 Gran % 81.3 H Lymph % (Auto) 14.5 L [place] % (Auto) 4.0 Eos % (Auto) 0.1 L Baso % (Auto) 0.1 Gran # 7.75 H Lymph # (Auto) 1.4 [place] # (Auto) 0.4 Eos # (Auto) 0.0 Baso # (Auto) 0.01 Sodium Potassium Chloride Carbon Dioxide Anion Gap BUN Creatinine Est GFR ( Amer) Est GFR (Non-Af Amer) POC Glucose (mg/dL) Random Glucose Calcium Total Bilirubin AST ALT Alkaline Phosphatase Total Creatine Kinase CK-MB (CK-2) CK-MB (CK-2) % Total Protein Albumin Globulin Albumin/Globulin Ratio Urine Color Urine Appearance Urine pH Ur Specific [place] Urine Protein Urine Glucose (UA) Urine Ketones Urine Blood Urine Nitrate Urine Bilirubin Urine Urobilinogen Ur Leukocyte Esterase Urine RBC Urine WBC Ur Epithelial Cells Urine Bacteria Urine HCG, Qual Salicylates < 1 L Urine Opiates Screen Urine Methadone Screen Acetaminophen < 10.0 L Ur Barbiturates Screen Ur Phencyclidine Scrn Ur Amphetamines Screen U Benzodiazepines Scrn U Oth Cocaine Metabols U Cannabinoids Screen Alcohol, Quantitative < 10 05/13/18 10:30 WBC RBC Hgb Hct MCV MCH MCHC RDW Plt Count MPV Gran % Lymph % (Auto) [place] % (Auto) Eos % (Auto) Baso % (Auto) Gran # Lymph # (Auto) [place] # (Auto) Eos # (Auto) Baso # (Auto) Sodium 131 L Potassium 3.4 L Chloride 95 L Carbon Dioxide 27 Anion Gap 13 BUN 7 Creatinine 0.4 L Est GFR ( Amer) > 60 Est GFR (Non-Af Amer) > 60 POC Glucose (mg/dL) Random Glucose 130 H Calcium 8.9 Total Bilirubin 0.9 AST 76 H D ALT 99 H Alkaline Phosphatase 94 Total Creatine Kinase 1409 H CK-MB (CK-2) 16.1 H CK-MB (CK-2) % 1.1 L Total Protein 8.0 Albumin 4.4 Globulin 3.6 Albumin/Globulin Ratio 1.2 Urine Color Urine Appearance Urine pH Ur Specific [place] Urine Protein Urine Glucose (UA) Urine Ketones Urine Blood Urine Nitrate Urine Bilirubin Urine Urobilinogen Ur Leukocyte Esterase Urine RBC Urine WBC Ur Epithelial Cells Urine Bacteria Urine HCG, Qual Salicylates Urine Opiates Screen Urine Methadone Screen Acetaminophen Ur Barbiturates Screen Ur Phencyclidine Scrn Ur Amphetamines Screen U Benzodiazepines Scrn U Oth Cocaine Metabols U Cannabinoids Screen Alcohol, Quantitative Attending/Attestation - Attestation I have personally seen and examined this patient.: Yes I have fully participated in the care of the patient.: Yes I have reviewed all pertinent clinical information: Yes Notes (Text): Patient seen and examined by me with resident at 1PM on 05/13/18. Case including HPI, physical exam, and assessment and plan discussed with resident. Agree with above with following additions/corrections. Patient is a 42-year-old German-speaking female with past medical history significant for rhabdomyolysis, transaminitis, low back pain, anemia, psychosis, schizophrenia, and depression that presented to the emergency room after being found by [place] [employer] wandering the streets. environmental health technologist used. Patient not answering any questions. Patient mumbling to herself. History taken from patient's chart and ED notes. Patient was recently admitted with similar symptoms on 04/23/2018 and discharged to voluntary psychiatric unit on 04/26/2018. At that time patient was treated for rhabdomyolysis and was seen by GI for transaminitis. She was stabilized on the psychiatric unit with Prozac, Invega Sustenna injection, Seroquel, and Ativan. It is unclear if patient continued to take her medications once discharged. In the ED, patient trying to get out of bed. Patient was pacing back and forth. Patient placed on 1:1 and given ativan. Family history: Unable to obtain secondary to patient not answering questions. Physical exam: General: Awake and alert lying in bed in no acute distress HEENT: Normocephalic, atraumatic. Extraocular muscles intact, pupils equal and reactive, no scleral icterus. Oropharynx is pink and moist. Neck is supple. Cardiovascular: Regular rhythm. Normal S1 and S2. No murmurs, rubs, or gallops appreciated Pulmonary: Normal respiratory effort. No rhonchi, rales, or wheezing appreciated. Gastrointestinal: Soft, nondistended. Nontender. Positive bowel sounds all 4 quadrants. No guarding. Musculoskeletal: Moves all extremities. No calf tenderness. No edema appreciated. Central nervous system: Awake and alert. Not answering questions. Mumbling to self. Dermatologic: Skin warm and dry. Assessment and plan: Patient is a 42-year-old German-speaking female with past medical history significant for rhabdomyolysis, transaminitis, low back pain, anemia, psychosis, schizophrenia, and depression that presented to the emergency room after being found by [place] [employer] wandering the streets. 1. Altered mental status likely secondary to psychosis. Patient restarted on Prozac and Seroquel. Psychiatrist consulted, follow-up recommendations. Patient started on Ativan 1 mg IV every 6 when necessary agitation. Placed on one-to-one. Patient with no leukocytosis. Afebrile. UDS negative. Patient with abnormal urinalysis, however, unsure if patient is symptomatic. Pending urine culture. 2. Rhabdomyolysis. CPK elevated. Placed on IV fluids. Follow up repeat CPK in a.m. 3. Hyponatremia/hypochloremia. Likely secondary to dehydration. Placed on IV fluids. Follow-up repeat labs in a.m. 4. Hypokalemia. Potassium replaced. Follow up repeat labs in a.m. 5. Transaminitis. Unclear etiology. Hepatitis panel at previous admission negative. Tylenol level less than 10. Alcohol level less than 10. Follow up repeat labs in a.m. 6. Schizophrenia, depression. Restarted on Prozac and Seroquel. Psychiatrist consulted, follow-up recommendations. 7. GI/DVT prophylaxis. Protonix/SCDS
[2018-05-13] MEDS: Sodium Chloride 0.9% 1,000 ML IV SCH ×2 (13:26→22:56)
[2018-05-13] MEDS ORDERED: Potassium Chloride 20 mEq ER Tab PO STA (13:34)
[2018-05-13 16:32] VITALS: BMI 29.9
--- NOTE | 2018-05-14 01:03 | CP.PCM.PN ---
Subjective - Date & Time of Evaluation Date of Evaluation: 05/14/18 Time of Evaluation: 01:03 - Subjective Subjective: # 22 angiocath was inserted in left arm. Objective - Vital Signs/Intake and Output Vital Signs (last 24 hours): Temp Pulse Resp BP Pulse Ox 97.8 F 92 H 20 140/79 97 05/13/18 15:40 05/13/18 15:40 05/13/18 16:32 05/13/18 15:40 05/13/18 15:40 Intake and Output: 05/13/18 05/14/18 18:59 06:59 Intake Total 540 Balance 540 - Medications Medications: Current Medications Acetaminophen (Tylenol 325mg Tab) 650 mg PO Q6H PRN PRN Reason: Pain, moderate (4-7) Fluoxetine HCl (Prozac) 40 mg PO DAILY ENMANUEL Sodium Chloride (Sodium Chloride 0.9%) 1,000 mls @ 100 mls/hr IV .Q10H ENMANUEL Last Admin: 05/13/18 22:56 Dose: Not Given Lorazepam (Ativan) 1 mg IVP Q6H PRN; Protocol PRN Reason: Agitation Pantoprazole Sodium (Protonix Ec Tab) 40 mg PO 0600 ENMANUEL Quetiapine Fumarate (Seroquel) 100 mg PO QAM ENMANUEL; Protocol Quetiapine Fumarate (Seroquel) 200 mg PO HS ENMANUEL; Protocol Last Admin: 05/13/18 22:16 Dose: 200 mg - Labs Labs: 05/13/18 09:27 05/13/18 10:30
[2018-05-14] MEDS ORDERED: Pantoprazole 40 mg EC Tab PO SCH (06:00)
[2018-05-14] MEDS: Sodium Chloride 0.9% 1,000 ML IV SCH (06:11)
[2018-05-14 06:50] LABS: EOS % 0.2 % (1.5-5.0); GRAN # 4.35 (1.4-6.5); GRAN % 68.7 % (50.0-68.0); HEMOGLOBIN 11.1 g/dL (12.0-16.0); LYMPH # 1.7 (1.2-3.4); LYMPH % 26.2 % (22.0-35.0); MEAN CELL VOLUME 91.1 fl (80.0-105.0); MEAN CORPUSCULAR HGB CONC 32.9 g/dl (31.0-37.0); MEAN PLATELET VOLUME 9.6 fl (7.0-11.0); MONO # 0.3 (0.1-0.6); MONO % 4.9 % (1.0-6.0); RBC 3.7 10^6/uL (3.5-6.1); RED CELL DISTRIBUTION WIDTH 13.9 % (11.5-14.5); WHITE BLOOD COUNT 6.3 10^3/uL (4.5-11.0)
[2018-05-14 07:06] LABS: ALB/GLOB RATIO 1.1 (1.1-1.8); ALBUMIN 3.6 g/dL (3.0-4.8); ALT/SGPT 76 U/L (7-56); AST/SGOT 47 U/L (14-36); BLOOD UREA NITROGEN 7 mg/dL (7-21); CALCIUM 8.3 mg/dL (8.4-10.5); GFR NON-AFRICAN AMERICAN > 60
[2018-05-14] MEDS ORDERED: Potassium Chloride 20 mEq ER Tab PO STA (07:12)
--- NOTE | 2018-05-14 07:27 | CARD ---
APPROVED REPORT Date of service: 05/13/2018 EKG Measurement Heart [id number] <Conclusion> Normal sinus rhythm Q in lll Lead V 3 obscured by artifact Probably no change
[2018-05-14 08:24] LABS: CK-MB 3.7 ng/mL (0.0-3.6)
[2018-05-14] MEDS ORDERED: Sodium Chloride 0.9% 1,000 ML IV SCH ×2 (10:05→10:30)
--- NOTE | 2018-05-14 10:37 | CON ---
DATE OF CONSULTATION: 05/13/2018 HISTORY OF PRESENT ILLNESS: The patient is a 42-year-old female, long and debilitating history of mental illness, most likely schizophrenia versus schizoaffective. The patient had multiple hospitalizations to the psychiatric inpatient unit. Most recently, the patient was discharged from the psychiatric inpatient unit here in [place] on 05/08/2018. The patient came back on 05/13/2018 after found to be wandering on the streets in confused state. The patient was admitted on the medical side for evaluation of electrolyte imbalance as well as rhabdomyolysis. Psych consult was called because the patient has history of mental illness and the patient presented to be disorganized. This song writer is very familiar with this patient from the multiple admissions to the psychiatric inpatient unit. The patient was discharged back home on 05/08/2018 with a planned intensive outpatient program at [facility], which is court mandated. The patient presented well prior to discharge, was alert and oriented, not psychotic. This song writer is not sure why the patient is in confused and disorganized state. This song writer evaluated the patient on the medical side. Discussed with Dr. Winkler, primary care physician. The patient was interviewed in her lower sioux language with nurse, Lizeth. The patient appears to be confused. The patient said that she fell, that is why she came to the hospital. The patient had no answers why she was wandering on the streets. The patient is not homeless. The patient reported that she was taking her medication, but the patient told medical team that she was not taking any medications. The patient observed talking to herself confused. Most likely, the patient required psych admission. This song writer discussed case with Dr. Winkler. As per Dr. Winkler, most likely the patient would need to have IV hydration for her rhabdomyolysis and potassium supplement. After medical clearance, the patient will be transferred to the psychiatric inpatient unit. The patient gave consent to do so, but it was verbal, the patient did not sign consent yet. PHYSICAL EXAMINATION: VITAL SIGNS: Seem to be stable. Temperature 98.3, pulse is 109, blood pressure 127/79, respirations 18, oxygen saturation is 97. MEDICATIONS: Reviewed. The patient is on Tylenol, Prozac 40 mg daily, Ativan 1 mg IV push every 6 hours p.r.n., Protonix, K-Dur, Seroquel 200 mg at the nighttime and 100 mg at the morning time. LABORATORY DATA: Reviewed. Hemoglobin and hematocrit 11.1 and 33.7. Chemistry reviewed. Sodium was 131, today 139; potassium 3.2. Creatine kinase from 1409 trended down to 467. Microbiology reviewed. Blood bank reviewed. Reports reviewed. Electrocardiogram reviewed. MENTAL STATUS EXAM: The patient presented to be sleepy, easily arousable, intermittent eye contact. The patient presented with some psychomotor retardation and catatonia. The patient was not able to describe her mood. The patient was observed talking to herself, mumbling something incoherently. Thought process disorganized. The patient observed talking to herself and responding to internal stimuli. Insight and judgment seems to be limited, but improving. Impulses are well controlled. IMPRESSION: Schizophrenia versus schizoaffective disorder, rhabdomyolysis is better. Electrolytes imbalance also better. PLAN: The patient is willing to sign herself in, but we are not sure if she will sign consent or not. 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 The patient was on injectable form of Invega Sustenna. The patient was on 200 mg of Seroquel, Protonix, lorazepam as well as Prozac 40 mg, which needs to be resumed. We will wait for medical clearance and after that we need to sign consent for treatment. Thank you very much for letting me participate in care of your patient. Should you have any questions, give me a call back. Nikki Lockhart MD
--- NOTE | 2018-05-14 11:52 | CP.PCM.DIS ---
<Ken Whitten - Last Filed: 05/14/18 11:43> Provider - Provider Date of Admission: 05/13/18 11:13 Attending physician: Santiago Winkler MD Consults: Psychiatry: Dr. Nikki Lockhart Time Spent in preparation of Discharge (in minutes): 45 Hospital Course - Lab Results Lab Results: Most Recent Lab Values WBC 6.3 10^3/uL (4.5-11.0) D 05/14/18 06:00 RBC 3.70 10^6/uL (3.5-6.1) 05/14/18 06:00 Hgb 11.1 g/dL (12.0-16.0) L 05/14/18 06:00 Hct 33.7 % (36.0-48.0) L 05/14/18 06:00 MCV 91.1 fl (80.0-105.0) 05/14/18 06:00 MCH 30.0 pg (25.0-35.0) 05/14/18 06:00 MCHC 32.9 g/dl (31.0-37.0) 05/14/18 06:00 RDW 13.9 % (11.5-14.5) 05/14/18 06:00 Plt Count 272 10^3/uL (120.0-450.0) 05/14/18 06:00 MPV 9.6 fl (7.0-11.0) 05/14/18 06:00 Gran % 68.7 % (50.0-68.0) H 05/14/18 06:00 Lymph % (Auto) 26.2 % (22.0-35.0) 05/14/18 06:00 [place] % (Auto) 4.9 % (1.0-6.0) 05/14/18 06:00 Eos % (Auto) 0.2 % (1.5-5.0) L 05/14/18 06:00 Baso % (Auto) 0.0 % (0.0-3.0) 05/14/18 06:00 Gran # 4.35 (1.4-6.5) 05/14/18 06:00 Lymph # (Auto) 1.7 (1.2-3.4) 11/25/18 06:00 [place] # (Auto) 0.3 (0.1-0.6) 05/14/18 06:00 Eos # (Auto) 0.0 (0.0-0.7) 05/14/18 06:00 Baso # (Auto) 0.00 K/mm3 (0.0-2.0) 05/14/18 06:00 Sodium 139 mmol/L (132-148) 05/14/18 06:00 Potassium 3.2 mmol/L (3.6-5.0) L 05/14/18 06:00 Chloride 108 mmol/L (98-107) H 05/14/18 06:00 Carbon Dioxide 24 mmol/L (21-33) 05/14/18 06:00 Anion Gap 11 (10-20) 05/14/18 06:00 BUN 7 mg/dL (7-21) 05/14/18 06:00 Creatinine 0.5 mg/dl (0.7-1.2) L 05/14/18 06:00 Est GFR ( Amer) > 60 05/14/18 06:00 Est GFR (Non-Af Amer) > 60 05/14/18 06:00 POC Glucose (mg/dL) 118 mg/dL (65-110) H 05/13/18 08:34 Random Glucose 93 mg/dL (70-110) 05/14/18 06:00 Calcium 8.3 mg/dL (8.4-10.5) L 05/14/18 06:00 Total Bilirubin 0.7 mg/dL (0.2-1.3) 05/14/18 06:00 AST 47 U/L (14-36) H D 05/14/18 06:00 ALT 76 U/L (7-56) H 05/14/18 06:00 Alkaline Phosphatase 78 U/L (38-126) 05/14/18 06:00 Total Creatine Kinase 467 U/L (35-230) H 05/14/18 06:00 CK-MB (CK-2) 3.7 ng/mL (0.0-3.6) H 05/14/18 06:00 CK-MB (CK-2) % 1.1 % (2.5-3.0) L 05/13/18 10:30 Total Protein 6.8 g/dL (5.8-8.3) 05/14/18 06:00 Albumin 3.6 g/dL (3.0-4.8) 05/14/18 06:00 Globulin 3.2 gm/dL 05/14/18 06:00 Albumin/Globulin Ratio 1.1 (1.1-1.8) 05/14/18 06:00 Urine Color Yellow (YELLOW) 05/13/18 08:40 Urine Appearance Clear (CLEAR) 05/13/18 08:40 Urine pH 6.0 (4.7-8.0) 05/13/18 08:40 Ur Specific Micro <= 1.005 (1.005-1.035) 05/13/18 08:40 Urine Protein Negative mg/dL (<30 mg/dL) 05/13/18 08:40 Urine Glucose (UA) Negative mg/dL (NEGATIVE) 05/13/18 08:40 Urine Ketones Trace mg/dL (NEGATIVE) H 05/13/18 08:40 Urine Blood Negative (NEGATIVE) 05/13/18 08:40 Urine Nitrate Negative (NEGATIVE) 05/13/18 08:40 Urine Bilirubin Negative (NEGATIVE) 05/13/18 08:40 Urine Urobilinogen 0.2 E.U./dL (<1 E.U./dL) 05/13/18 08:40 Ur Leukocyte Esterase Small Oracio/uL (NEGATIVE) H 05/13/18 08:40 Urine RBC 1 - 3 /hpf (0-2) 05/13/18 08:40 Urine WBC 10 - 15 /hpf (0-6) 05/13/18 08:40 Ur Epithelial Cells 6 - 8 /hpf (0-5) 05/13/18 08:40 Urine Bacteria Many (NEG) 05/13/18 08:40 Urine HCG, Qual Negative (NEGATIVE) 05/13/18 08:40 Salicylates < 1 mg/dL (2.0-20.0) L 05/13/18 09:27 Urine Opiates Screen Negative (NEGATIVE) 05/13/18 08:40 Urine Methadone Screen Negative (NEGATIVE) 05/13/18 08:40 Acetaminophen < 10.0 ug/ml (10.0-20.0) L 05/13/18 09:27 Ur Barbiturates Screen Negative (NEGATIVE) 05/13/18 08:40 Ur Phencyclidine Scrn Negative (NEGATIVE) 05/13/18 08:40 Ur Amphetamines Screen Negative (NEGATIVE) 05/13/18 08:40 U Benzodiazepines Scrn Negative (NEGATIVE) 05/13/18 08:40 U Oth Cocaine Metabols Negative (NEGATIVE) 05/13/18 08:40 U Cannabinoids Screen Negative (NEGATIVE) 05/13/18 08:40 Alcohol, Quantitative < 10 mg/dL (0-10) 05/13/18 09:27 - Hospital Course Hospital Course: Upon Admission: 42 y/o russian speaking F with PMHx of psychosis, schizophrenia presented to [facility] after being brought in by EMS after being found on the street wandering around. She was recently admitted for a similar episode where she was found on the street wandering, admitted to medicine service for rhabdomyolysis and evaluated by psychiatry. She was stabilized by psychiatry with prozac, invega sustenna injection, seroquel, ativan. She is scheduled to get another invega sustenna injection on 05/29/18. Upon interview, patient was not responding to questions or commands but was awake and alert. She was seen talking to her herself. She repeatedly tried walking out of her hospital bed, despite being told not to, as she had her IV line attached. She was admitted for rhabdomyolysis with an elevated CK level and started on IV hydration. She require 1 dose of Ativan as she kept trying to leave her bed, which pulled the IV line out Hospital Course Pt was found to have an elevated CK level, as well as hyponatreamia, hypochloremia and hypokalemia. She had repeatedly tried leaving her bed in the ER to pace around. A 1:1 sitter was placed. She was treated overnight with IV hydration with NS. She was also restarted on her home psychiatric medications. Psychiatry was consulted, and evaluated the patient. Psychiatry had accepted to patient for admission on to psychiatry service. Upon Discharge: Pt was much calmer, and responsive to questions when interview the next morning. She is russian speaking. She appeared confused and reported that she doesn't remember being picked up by EMS and brought to [facility]. She is seen talking to herself. Her CK has improved with IV fluid hydration. Vital signs are stable. She is medically stable for discharge to psychiatry unit for further management of her underlying psychiatric conditions. Discharge Exam - Head Exam Head Exam: NORMAL INSPECTION, NORMOCEPHALIC - Eye Exam Eye Exam: EOMI, Normal appearance - ENT Exam ENT Exam: Mucous Membranes Moist, Normal Exam - Neck Exam Neck exam: Normal Inspection - Respiratory Exam Respiratory Exam: NORMAL BREATHING PATTERN, UNREMARKABLE - Cardiovascular Exam Cardiovascular Exam: Tachycardia, +S1, +S2 - GI/Abdominal Exam GI & Abdominal Exam: Soft. absent: Tenderness - Extremities Exam Extremities exam: normal inspection - Back Exam Back exam: NORMAL INSPECTION - Neurological Exam Neurological exam: Alert, Oriented x3 - Psychiatric Exam Psychiatric exam: Flat Affect Additional comments: Seen talking to herself, possibly responding to internal stimuli - Skin Skin Exam: Dry, Intact, Warm Discharge Plan - Follow Up Plan Condition: GUARDED Disposition: DISCHARGE TO [facility] Instructions: Rhabdomyolysis (DC) Additional Instructions: Please follow instructions of care given by DR. GAINES Referrals: Nikki Lockhart MD [Staff Provider] - <Santiago Winkler - Last Filed: 05/14/18 18:53> Provider - Provider Date of Admission: 05/13/18 11:13 Attending physician: Santiago Winkler MD [facility] Hospital Course - Lab Results Lab Results: Most Recent Lab Values WBC 6.3 10^3/uL (4.5-11.0) D 05/14/18 06:00 RBC 3.70 10^6/uL (3.5-6.1) 05/14/18 06:00 Hgb 11.1 g/dL (12.0-16.0) L 05/14/18 06:00 Hct 33.7 % (36.0-48.0) L 05/14/18 06:00 MCV 91.1 fl (80.0-105.0) 05/14/18 06:00 MCH 30.0 pg (25.0-35.0) 05/14/18 06:00 MCHC 32.9 g/dl (31.0-37.0) 05/14/18 06:00 RDW 13.9 % (11.5-14.5) 05/14/18 06:00 Plt Count 272 10^3/uL (120.0-450.0) 05/14/18 06:00 MPV 9.6 fl (7.0-11.0) 05/14/18 06:00 Gran % 68.7 % (50.0-68.0) H 05/14/18 06:00 Lymph % (Auto) 26.2 % (22.0-35.0) 05/14/18 06:00 [place] % (Auto) 4.9 % (1.0-6.0) 05/14/18 06:00 Eos % (Auto) 0.2 % (1.5-5.0) L 05/14/18 06:00 Baso % (Auto) 0.0 % (0.0-3.0) 05/14/18 06:00 Gran # 4.35 (1.4-6.5) 05/14/18 06:00 Lymph # (Auto) 1.7 (1.2-3.4) 05/14/18 06:00 [place] # (Auto) 0.3 (0.1-0.6) 05/14/18 06:00 Eos # (Auto) 0.0 (0.0-0.7) 05/14/18 06:00 Baso # (Auto) 0.00 K/mm3 (0.0-2.0) 05/14/18 06:00 Sodium 139 mmol/L (132-148) 05/14/18 06:00 Potassium 3.2 mmol/L (3.6-5.0) L 05/14/18 06:00 Chloride 108 mmol/L (98-107) H 05/14/18 06:00 Carbon Dioxide 24 mmol/L (21-33) 05/14/18 06:00 Anion Gap 11 (10-20) 05/14/18 06:00 BUN 7 mg/dL (7-21) 05/14/18 06:00 Creatinine 0.5 mg/dl (0.7-1.2) L 05/14/18 06:00 Est GFR ( Amer) > 60 05/14/18 06:00 Est GFR (Non-Af Amer) > 60 05/14/18 06:00 POC Glucose (mg/dL) 118 mg/dL (65-110) H 05/13/18 08:34 Random Glucose 93 mg/dL (70-110) 05/14/18 06:00 Calcium 8.3 mg/dL (8.4-10.5) L 05/14/18 06:00 Total Bilirubin 0.7 mg/dL (0.2-1.3) 05/14/18 06:00 AST 47 U/L (14-36) H D 05/14/18 06:00 ALT 76 U/L (7-56) H 05/14/18 06:00 Alkaline Phosphatase 78 U/L (38-126) 05/14/18 06:00 Total Creatine Kinase 467 U/L (35-230) H 05/14/18 06:00 CK-MB (CK-2) 3.7 ng/mL (0.0-3.6) H 05/14/18 06:00 CK-MB (CK-2) % 1.1 % (2.5-3.0) L 05/13/18 10:30 Total Protein 6.8 g/dL (5.8-8.3) 05/14/18 06:00 Albumin 3.6 g/dL (3.0-4.8) 05/14/18 06:00 Globulin 3.2 gm/dL 05/14/18 06:00 Albumin/Globulin Ratio 1.1 (1.1-1.8) 05/14/18 06:00 Urine Color Yellow (YELLOW) 05/13/18 08:40 Urine Appearance Clear (CLEAR) 05/13/18 08:40 Urine pH 6.0 (4.7-8.0) 05/13/18 08:40 Ur Specific Micro <= 1.005 (1.005-1.035) 05/13/18 08:40 Urine Protein Negative mg/dL (<30 mg/dL) 05/13/18 08:40 Urine Glucose (UA) Negative mg/dL (NEGATIVE) 05/13/18 08:40 Urine Ketones Trace mg/dL (NEGATIVE) H 05/13/18 08:40 Urine Blood Negative (NEGATIVE) 05/13/18 08:40 Urine Nitrate Negative (NEGATIVE) 05/13/18 08:40 Urine Bilirubin Negative (NEGATIVE) 05/13/18 08:40 Urine Urobilinogen 0.2 E.U./dL (<1 E.U./dL) 05/13/18 08:40 Ur Leukocyte Esterase Small [place]acio/uL (NEGATIVE) H 05/13/18 08:40 Urine RBC 1 - 3 /hpf (0-2) 05/13/18 08:40 Urine WBC 10 - 15 /hpf (0-6) 05/13/18 08:40 Ur Epithelial Cells 6 - 8 /hpf (0-5) 05/13/18 08:40 Urine Bacteria Many (NEG) 05/13/18 08:40 Urine HCG, Qual Negative (NEGATIVE) 05/13/18 08:40 Salicylates < 1 mg/dL (2.0-20.0) L 05/13/18 09:27 Urine Opiates Screen Negative (NEGATIVE) 05/13/18 08:40 Urine Methadone Screen Negative (NEGATIVE) 05/13/18 08:40 Acetaminophen < 10.0 ug/ml (10.0-20.0) L 05/13/18 09:27 Ur Barbiturates Screen Negative (NEGATIVE) 05/13/18 08:40 Ur Phencyclidine Scrn Negative (NEGATIVE) 05/13/18 08:40 Ur Amphetamines Screen Negative (NEGATIVE) 05/13/18 08:40 U Benzodiazepines Scrn Negative (NEGATIVE) 05/13/18 08:40 U Oth Cocaine Metabols Negative (NEGATIVE) 05/13/18 08:40 U Cannabinoids Screen Negative (NEGATIVE) 05/13/18 08:40 Alcohol, Quantitative < 10 mg/dL (0-10) 05/13/18 09:27 Attending/Attestation - Attestation I have personally seen and examined this patient.: Yes I have fully participated in the care of the patient.: Yes I have reviewed all pertinent clinical information, including history, physical exam and plan: Yes Notes (Text): 05/14/18 18:50 Attending note; Patient seen and examined with resident. Patient is alert and awake. Denies any complaints. Tolerating diet well and denies any nausea, vomiting. Currently on one-to-one. Patient is a 42-year-old Romansh-speaking female with past medical history significant for rhabdomyolysis, transaminitis, low back pain, anemia, psychosis, schizophrenia, and depression that presented to the emergency room after being found by [place] [employer] wandering the streets. 1. Altered mental status likely secondary to psychosis. Patient restarted on Prozac and Seroquel. Psychiatric evaluation appreciated. One-to-one discontinued. Patient agreed to go to psychiatric Floor today for further psychiatric treatment. 2. Rhabdomyolysis. CPK improved. Treated with IV fluids. Encourage increased by mouth fluid intake. 3. Hypokalemia. Potassium replaced. 5. Transaminitis. Secondary to rhabdomyolysis. Improved significantly. Hepatitis panel at previous admission negative. Tylenol level less than 10. Alcohol level less than 10. Follow up repeat labs in a.m. Transferred to psychiatric floor today.
[2018-05-14] MEDS ORDERED: Potassium Chloride 20 mEq ER Tab PO ONE (12:00)
[2018-05-14 16:55] VITALS: BP 122/82; PULSE 97; RESP 20; TEMP 98; O2SAT 96
== END 2018-05-14 19:32 ==
LOC: ED 08:23 → ERH 11:13 → INTOOBSV 11:13 → ERH 14:59 → 3RSO 15:46
PROVIDERS: ADMIT Internal Medicine; ATTEND Internal Medicine
DX: M62.82 Rhabdomyolysis (principal); N39.0 Urinary tract infection, site not specified; E87.1 Hypo-osmolality and hyponatremia; E87.6 Hypokalemia; E86.0 Dehydration; E87.8 Other disorders of electrolyte and fluid balance, not elsewhere classified; F20.9 Schizophrenia, unspecified; F32.9 Major depressive disorder, single episode, unspecified
CPT/HCPCS: 36415; 70450; 71045; 80053; 80320; 80324; 80329; 80345; 80346; 80349; 80353; 80358; 80361; 81001; 82550; 82553; 82948; 83992; 84703; 85025; 87086; 93005; 96361; 96374; 99285; G0378; J2060; J7030

== ENCOUNTER 2018-05-14 19:30 | Inpatient (IN) | payer MEDICAID ==
[2018-05-13 16:32] VITALS: BMI 29.9
[2018-05-15] MEDS ORDERED: Alum-Mag Hydrox-Simethicone Susp (30 mL) PO PRN (05:36)
[2018-05-15] MEDS ORDERED: Magnesium Hydroxide Susp 30 ml UD PO PRN (05:36)
--- NOTE | 2018-05-15 05:43 | PCM.BM ---
<Aaron Bang O - Last Filed: 05/15/18 05:41> Treatment Plan Problems - Problems identified on initial assessmt Medication non-compliance Date Initiated: 05/14/18 Time Initiated: 20:00 Assessment reference: NA Status: Active Hopelesness Date Initiated: 05/14/18 Assessment reference: NA Status: Active Social isolation Date Initiated: 05/14/18 Time Initiated: 21:00 Assessment reference: NA Status: Active Treatment assets and liabiliti Patient Assests: cooperative, ADL independent (pt currently unable to tend to ADL's fully independently secondary to acute psychosis), physically healthy, good past tx response, strong mary anne Patient Liabilities: poor support system, imparied memory, language/speech - Milieu Protocol Maintain good personal hygiene: daily Encourage regular showers, daily Remind patient to perform daily oral care, daily Assist patient to perform ADL's Maintain personal safety: daily Educate patient to report safety concerns to staff, daily Monitor environment for contraband/sharps Medication safety: Monitor for expected outcome, potential side effects: daily, Assess barriers to learning: daily, Assess readiness for medication education: daily Family Contact Family involvement: Patient does not wish Family/SO involvement Discharge/Continuing Care - Education Needs Education Needs: Patient Medication, Patient Coping Skills, Patient Nutrition, Patient Personal Hygiene/Grooming - Discharge Discharge Criteria: Ability to care for self <Reyna Hardin Y - Last Filed: 05/16/18 09:09> Family Contact Family involvement: Famliy/SO not involved - Outside Agency Involuntary Outpatient Committment Care involvment: Following patient during stay, Information-sharing Agency contact name: Involuntary Outpatient Commitment Agency contact number: [phone] <Nikki Lockhart A - Last Filed: 05/16/18 15:00> - Diagnosis (1) Schizophrenia Status: Chronic Interventions: 05/16/18 14:59 Psychoeducation/psychotherapy Psychopharmacology/adjustment of medications as needed/ monitoring possible side effects Evaluate pt on daily basis Compliance with medications and follow up appointments Long acting medication if pt is noncompliant with pill form Suicide and homicide risk assessment and prevention, coping strategies, safety plan Relapse prevention Reduction of symptoms Improve functional status Possible assertive community treatment Cognitive behavioral therapy Family involvement Possible social skill training as outpatient
[2018-05-15] MEDS: Pantoprazole 40 mg EC Tab PO SCH ×2 (06:46→17:37)
[2018-05-15 07:17] LABS: HDL CHOLESTEROL 55 mg/dL (29-60)
[2018-05-15 07:27] LABS: LDL CHOLESTEROL 71 mg/dL (0-129)
[2018-05-15 07:31] LABS: BASO # 0.01 K/mm3 (0.0-2.0); BASO % 0.1 % (0.0-3.0); EOS # 0.1 (0.0-0.7); EOS % 0.7 % (1.5-5.0); GRAN # 4.29 (1.4-6.5); GRAN % 57.4 % (50.0-68.0); HEMOGLOBIN 12.2 g/dL (12.0-16.0); LYMPH # 2.7 (1.2-3.4); LYMPH % 36.6 % (22.0-35.0); MEAN CELL VOLUME 92.3 fl (80.0-105.0); MEAN CORPUSCULAR HEMOGLOBIN 30.5 pg (25.0-35.0); MEAN CORPUSCULAR HGB CONC 33.1 g/dl (31.0-37.0); MEAN PLATELET VOLUME 9.6 fl (7.0-11.0); MONO # 0.4 (0.1-0.6); MONO % 5.2 % (1.0-6.0); RED CELL DISTRIBUTION WIDTH 14.2 % (11.5-14.5); WHITE BLOOD COUNT 7.5 10^3/uL (4.5-11.0)
[2018-05-15 08:06] LABS: ALB/GLOB RATIO 1.2 (1.1-1.8); ALBUMIN 4.2 g/dL (3.0-4.8); ALT/SGPT 75 U/L (7-56); AST/SGOT 43 U/L (14-36); BLOOD UREA NITROGEN 10 mg/dL (7-21); CALCIUM 9.3 mg/dL (8.4-10.5); GFR NON-AFRICAN AMERICAN > 60
--- NOTE | 2018-05-15 14:47 | CP.PCM.PN ---
<Ken Whitten - Last Filed: 05/15/18 14:40> Subjective - Date & Time of Evaluation Date of Evaluation: 05/15/18 Time of Evaluation: 14:40 - Subjective Subjective: INTERNAL MEDICINE PROGRESS NOTE FOR DR. SUNSHINE Whitten PGY1 Pt seen and examined in psychiatry unit. She reports feeling cold, but denies any other complaints. She is seen resting in bed. She appears much calmer than previously seen in ED. 12 point ROS is negative Objective - Vital Signs/Intake and Output Vital Signs (last 24 hours): Temp Pulse Resp BP Pulse Ox 18 05/15/18 04:49 - Medications Medications: Current Medications Acetaminophen (Tylenol 325mg Tab) 325 mg PO Q6H PRN PRN Reason: Pain, Mild (1-3) Al Hydrox/Mg Hydrox/Simethicone (Maalox Plus 30 Ml) 30 ml PO DAILY PRN PRN Reason: Dyspepsia Fluoxetine HCl (Prozac) 40 mg PO DAILY [facility] Last Admin: 05/15/18 09:30 Dose: 40 mg Lorazepam (Ativan) 0.5 mg PO BID [facility]; Protocol Last Admin: 05/15/18 09:30 Dose: 0.5 mg Lorazepam (Ativan) 0.5 mg PO HS [facility]; Protocol Last Admin: 05/14/18 22:24 Dose: 0.5 mg Lorazepam (Ativan) 2 mg IM Q6 PRN; Protocol PRN Reason: Anxiety Lorazepam (Ativan) 2 mg PO Q6 PRN; Protocol PRN Reason: Anxiety Magnesium Hydroxide (Milk Of Magnesia) 30 ml PO DAILY PRN PRN Reason: Constipation Pantoprazole Sodium (Protonix Ec Tab) 40 mg PO 0600,1600 [facility] Last Admin: 05/15/18 06:46 Dose: 40 mg Quetiapine Fumarate (Seroquel) 200 mg PO HS [facility]; Protocol Last Admin: 05/14/18 22:23 Dose: 200 mg Quetiapine Fumarate (Seroquel) 100 mg PO QAM [facility]; Protocol Last Admin: 05/15/18 09:30 Dose: 100 mg Ziprasidone (Geodon Cap) 20 mg PO Q6 PRN; Protocol PRN Reason: Agitation Ziprasidone (Geodon Inj) 20 mg IM Q12 PRN; Protocol PRN Reason: Agitation - Labs Labs: 05/15/18 06:45 11/26/18 06:45 - Constitutional Appears: Well, Non-toxic, No Acute Distress - Head Exam Head Exam: NORMAL INSPECTION, NORMOCEPHALIC - Eye Exam Eye Exam: EOMI, Normal appearance - ENT Exam ENT Exam: Mucous Membranes Moist, Normal Exam - Neck Exam Neck Exam: Normal Inspection - Respiratory Exam Respiratory Exam: Clear to Ausculation Bilateral, NORMAL BREATHING PATTERN - Cardiovascular Exam Cardiovascular Exam: REGULAR RHYTHM, +S1, +S2 - GI/Abdominal Exam GI & Abdominal Exam: Soft. absent: Tenderness - Extremities Exam Extremities Exam: Normal Inspection. absent: Calf Tenderness - Back Exam Back Exam: NORMAL INSPECTION - Neurological Exam Neurological Exam: Alert, Awake, Oriented x3 - Psychiatric Exam Psychiatric exam: Flat Affect - Skin Skin Exam: Dry, Intact, Warm Assessment and Plan - Assessment and Plan (Free Text) Assessment: Patient is a 42-year-old Polish-speaking female with past medical history significant for rhabdomyolysis, transaminitis, low back pain, anemia, psychosis, schizophrenia, and depression that presented to the emergency room after being found by [place] [employer] wandering the streets. Plan: Rhabdomyolysis CPK improved. Treated with IV fluids. Encourage increased by mouth fluid intake. Transaminitis. Secondary to rhabdomyolysis. Improved significantly. Hepatitis panel at previous admission negative. Tylenol level less than 10. Alcohol level less than 10. Altered mental status likely secondary to psychosis. Patient restarted on Prozac and Seroquel. Psychiatry following Hypokalemia Potassium replaced. replete as necessary Dispo: Pt medical diagnoses have improved. She is clinically stable from medical standpoint. She is to be monitored in psychiatry for psychiatric conditions. We will sign off for now. Please re-consult if necessary. Case seen, examined and discussed with attending physician, Dr. Winkler <Santiago Winkler - Last Filed: 05/16/18 12:40> Objective - Vital Signs/Intake and Output Vital Signs (last 24 hours): Temp Pulse Resp BP Pulse Ox 98.5 F 86 20 108/63 05/16/18 07:19 05/16/18 07:19 05/16/18 07:19 05/16/18 07:19 - Medications Medications: Current Medications Acetaminophen (Tylenol 325mg Tab) 325 mg PO Q6H PRN PRN Reason: Pain, Mild (1-3) Al Hydrox/Mg Hydrox/Simethicone (Maalox Plus 30 Ml) 30 ml PO DAILY PRN PRN Reason: Dyspepsia Fluoxetine HCl (Prozac) 40 mg PO DAILY [facility] Last Admin: 05/16/18 10:28 Dose: 40 mg Lorazepam (Ativan) 0.5 mg PO BID [facility]; Protocol Last Admin: 05/16/18 10:28 Dose: 0.5 mg Lorazepam (Ativan) 0.5 mg PO HS [facility]; Protocol Last Admin: 05/15/18 21:16 Dose: 0.5 mg Lorazepam (Ativan) 2 mg IM Q6 PRN; Protocol PRN Reason: Anxiety Lorazepam (Ativan) 2 mg PO Q6 PRN; Protocol PRN Reason: Anxiety Magnesium Hydroxide (Milk Of Magnesia) 30 ml PO DAILY PRN PRN Reason: Constipation Pantoprazole Sodium (Protonix Ec Tab) 40 mg PO 0600,1600 [facility] Last Admin: 05/16/18 06:18 Dose: 40 mg Quetiapine Fumarate (Seroquel) 200 mg PO HS [facility]; Protocol Last Admin: 05/15/18 21:16 Dose: 200 mg Quetiapine Fumarate (Seroquel) 100 mg PO QAM [facility]; Protocol Last Admin: 05/16/18 10:29 Dose: 100 mg Ziprasidone (Geodon Cap) 20 mg PO Q6 PRN; Protocol PRN Reason: Agitation Ziprasidone (Geodon Inj) 20 mg IM Q12 PRN; Protocol PRN Reason: Agitation - Labs Labs: 05/15/18 06:45 05/15/18 06:45 Attending/Attestation - Attestation I have personally seen and examined this patient.: Yes I have fully participated in the care of the patient.: Yes I have reviewed all pertinent clinical information, including history, physical exam and plan: Yes Notes (Text): 05/16/18 12:33 Medical consult note; Attending note; Patient seen and examined with resident. Patient is alert and awake. Denies any complaints. Tolerating diet well and denies any nausea, vomiting. Denies any muscle ache. Ambulating fine. Patient is a 42-year-old Polish-speaking female with past medical history significant for rhabdomyolysis, transaminitis, low back pain, anemia, psychosis, schizophrenia, and depression was initially admitted to the medical floor for rhabdomyolysis. Patient was treated with IV fluids. Rhabdomyolysis improved. Patient was transferred to psychiatric floor last night. 1. Altered mental status likely secondary to psychosis. Improved significantly . Patient is able to answer questions appropriately. Continue medications per psychiatrist . 2. Rhabdomyolysis. resolved. CPK is normal. Encourage increased by mouth fluid intake. 3. Transaminitis. Secondary to rhabdomyolysis. Improved significantly. Hepatitis panel at previous admission negative. Patient is medically stable. Please reconsult as needed. Case discussed with psychiatrist in detail.
--- NOTE | 2018-05-15 15:56 | PCM.PYCHPN ---
Psychiatric Progress Note - Psychiatric Progress Note Patient seen today, length of contact: 30 minutes Patient Chief Complaint: "I was feeling weak" Problems Identified/Issues Discussed: Suicide/ homicide prevention, past psychiatric h/o, current psychiatric symptoms, medical problems, risk/benefits and alternatives of medications, medications compliance, coping strategies, substance abuse h/o, relapse prevention, importance of follow up with psychiatrist and therapist, discharge plan. Medical Problems: 05/15/18 06:45 05/15/18 06:45 Lab Results 05/15/18 06:45: WBC 7.5, RBC 4.00, Hgb 12.2, Hct 36.9, MCV 92.3, MCH 30.5, MCHC 33.1, RDW 14.2, Plt Count 302, MPV 9.6, Gran % 57.4, Lymph % (Auto) 36.6 H, [place] % (Auto) 5.2, Eos % (Auto) 0.7 L, Baso % (Auto) 0.1, Gran # 4.29, Lymph # (Auto) 2.7, [place] # (Auto) 0.4, Eos # (Auto) 0.1, Baso # (Auto) 0.01 05/15/18 06:45: Hemoglobin A1c 5.2 05/15/18 06:45: Sodium 140, Potassium 4.3, Chloride 106, Carbon Dioxide 24, Anion Gap 14, BUN 10, Creatinine 0.6 L, Est GFR ( Amer) > 60, Est GFR (Non-Af Amer) > 60, Random Glucose 104, Calcium 9.3, Phosphorus 3.5, Magnesium 2.3 H, Total Bilirubin 0.8, AST 43 H, ALT 75 H, Alkaline Phosphatase 91, Total Creatine Kinase 200, Total Protein 7.8, Albumin 4.2, Globulin 3.6, Albumin/Globulin Ratio 1.2, Triglycerides 59, Cholesterol 145, LDL Cholesterol Direct 71, HDL Cholesterol 55 Vital Signs Resp 05/15/18 04:49 18 Diagnostic Results: 05/15/18 06:45 05/15/18 06:45 Lab Results 05/15/18 06:45: WBC 7.5, RBC 4.00, Hgb 12.2, Hct 36.9, MCV 92.3, MCH 30.5, MCHC 33.1, RDW 14.2, Plt Count 302, MPV 9.6, Gran % 57.4, Lymph % (Auto) 36.6 H, [place] % (Auto) 5.2, Eos % (Auto) 0.7 L, Baso % (Auto) 0.1, Gran # 4.29, Lymph # (Auto) 2.7, [place] # (Auto) 0.4, Eos # (Auto) 0.1, Baso # (Auto) 0.01 05/15/18 06:45: Hemoglobin A1c 5.2 05/15/18 06:45: Sodium 140, Potassium 4.3, Chloride 106, Carbon Dioxide 24, Anion Gap 14, BUN 10, Creatinine 0.6 L, Est GFR ( Amer) > 60, Est GFR (Non-Af Amer) > 60, Random Glucose 104, Calcium 9.3, Phosphorus 3.5, Magnesium 2 .3 H, Total Bilirubin 0.8, AST 43 H, ALT 75 H, Alkaline Phosphatase 91, Total Creatine Kinase 200, Total Protein 7.8, Albumin 4.2, Globulin 3.6, Albumin/Globulin Ratio 1.2, Triglycerides 59, Cholesterol 145, LDL Cholesterol Direct 71, HDL Cholesterol 55 Vital Signs Resp 05/15/18 04:49 18 DSM 5 Symptoms Update: Refer to the Psychiatric Assess & History-Initial dated 04/27/18 for this H & P. Reviewed, no changes. pt was recently hospitalized into the psychiatric inpatient unit 04/26/18- 05/08/18, at the time of d/c pt presented well, pt was discharged back home with f/u appt at [facility] intensive outpatient program. please discharge summary for more detailed information. shortly, patient is 42 year old single [place] female with history of depression and psychosis, likely diagnosis of Schizoaffective disorder, four prior admissions at [facility] [place] in 02/2017, 01/2017 and 03/2016, 04/26/18, no reported history of suicidal attempts, h/o noncompliance with aftercare recommendations and medications who was transferred to the psychiatric unit after being treated for rhabdomyolysis on on the medical floor (of note this is second medical admission within last month for rabdomyolisis, pt was found wondering on streets as per ED report). ER notes indicate that patient was brought by [employer] after pt was wandering on the streets in a state of confusion. pt was medically stable, pt was willing to get treatment and was transferred to the psych unit, this write saw pt on the medical site, pt appeared to be catatonic, flat affect, mumbling something incoherently. Pt was educated about possible ECT treatment, pt was not able fully understand the procedure, risk/benefits and alternatives, please see medical site note for more detailed information. pt is very familiar to this marine underwriter and unit from multiple psych admissions. as per staff pt is compliant with her medications, denied discomfort or pain. Staff observe patient pacing on the unit. She keeps to herself without any motivation to interact with other patients. There were no behavioral issues ove victor m, pt seems to be in catatonic stage, barely talk, was observed whispering something to her self, pt also had flat affect. as per collaterals from the , pt currently under care of [facility], Intensive Day Treatment Program, as per report pt was last seen on Tuesday, then pt was admitted to [facility] [place]. pt was seen at the treatment team meeting, pt is [place]-speaking and that's why this marine underwriter utilized [employer] for translation. This marine underwriter attempted to explain ECT procedure but patient was not able to understand. as per staff patient mainly keeps to herself and has been in fair control on the unit. patient denied thoughts of harming herself or others, denied intent or plan. Diagnostic Results: Schizoaffective Disorder Medication Change: No (resumed) Medical Record Reviewed: Yes Consults ordered or reviewed: medical consult appreciated Mental Status Examination - Cognitive Function Orientation: Person, Place, Situation Attention: Poor Concentration: Poor Association: Loose Fund of Knowledge: Poor - Mood Mood: Depressed, Anxious - Affect Affect: Blunted, Flat - Speech Speech: Soft - Formal Thought Process Formal Thought Process: Hallucinations, Delusions, Paranoia - Suicidal Ideation Suicidal Ideation: No - Homicidal Ideation Homicidal Ideation: No Goal/Treatment Plan - Goal/Treatment Plan Need for Continued Stay: Remain at risks for inpatient hospitalization, Severe depression anxiety, Discharge may exacerbated symptoms, Failed transitioning, Severe functional impairment Progress Toward Problem(s) and Goals/Treatment Plan: group, milieu and supportive tx Prozac to 40 mg po daily for depression and anxiety Appreciate f/u by Reyna regarding patient's intensive day treatment program Invega Sustenna injection (156mg) pt got injection 05/01/18 Seroquel 100 mg AM and 200 mg po HS for psychosis/ Ativan 0.5 mg po bid and HS for for anxiety, catatonia possible ECT SW consultation for discharge plan and social issues Family involvement Follow up on labs Will monitor closely Pt was educated about risk/benefits and alternatives of medications, coping strategies (safety plan, suicide prevention), relapse prevention, importance of follow up with psychiatrist and therapist, stay away from drugs/alcohol/smoking Estimated Date of D/C: 05/26/18
[2018-05-16] MEDS: Pantoprazole 40 mg EC Tab PO SCH ×2 (06:18→16:35)
--- NOTE | 2018-05-16 15:10 | PCM.PYCHPN ---
Psychiatric Progress Note - Psychiatric Progress Note Patient seen today, length of contact: 30 minutes Patient Chief Complaint: "I M okay' Problems Identified/Issues Discussed: Suicide/ homicide prevention, past psychiatric h/o, current psychiatric symptoms, medical problems, risk/benefits and alternatives of medications, medications compliance, coping strategies, substance abuse h/o, relapse prevention, importance of follow up with psychiatrist and therapist, discharge plan. Medical Problems: 05/15/18 06:45 05/15/18 06:45 Lab Results 05/15/18 06:45: WBC 7.5, RBC 4.00, Hgb 12.2, Hct 36.9, MCV 92.3, MCH 30.5, MCHC 33.1, RDW 14.2, Plt Count 302, MPV 9.6, Gran % 57.4, Lymph % (Auto) 36.6 H, [place] % (Auto) 5.2, Eos % (Auto) 0.7 L, Baso % (Auto) 0.1, Gran # 4.29, Lymph # (Auto) 2.7, [place] # (Auto) 0.4, Eos # (Auto) 0.1, Baso # (Auto) 0.01 05/15/18 06:45: Hemoglobin A1c 5.2 05/15/18 06:45: Sodium 140, Potassium 4.3, Chloride 106, Carbon Dioxide 24, Anion Gap 14, BUN 10, Creatinine 0.6 L, Est GFR ( Amer) > 60, Est GFR (Non-Af Amer) > 60, Random Glucose 104, Calcium 9.3, Phosphorus 3.5, Magnesium 2.3 H, Total Bilirubin 0.8, AST 43 H, ALT 75 H, Alkaline Phosphatase 91, Total Creatine Kinase 200, Total Protein 7.8, Albumin 4.2, Globulin 3.6, Albumin/Globulin Ratio 1.2, Triglycerides 59, Cholesterol 145, LDL Cholesterol Direct 71, HDL Cholesterol 55 Vital Signs Resp 05/15/18 04:49 18 Diagnostic Results: 05/15/18 06:45 05/15/18 06:45 Lab Results 05/15/18 06:45: WBC 7.5, RBC 4.00, Hgb 12.2, Hct 36.9, MCV 92.3, MCH 30.5, MCHC 33.1, RDW 14.2, Plt Count 302, MPV 9.6, Gran % 57.4, Lymph % (Auto) 36.6 H, [place] % (Auto) 5.2, Eos % (Auto) 0.7 L, Baso % (Auto) 0.1, Gran # 4.29, Lymph # (Auto) 2.7, [place] # (Auto) 0.4, Eos # (Auto) 0.1, Baso # (Auto) 0.01 05/15/18 06:45: Hemoglobin A1c 5.2 05/15/18 06:45: Sodium 140, Potassium 4.3, Chloride 106, Carbon Dioxide 24, Anion Gap 14, BUN 10, Creatinine 0.6 L, Est GFR ( Amer) > 60, Est GFR (No n-Af Amer) > 60, Random Glucose 104, Calcium 9.3, Phosphorus 3.5, Magnesium 2.3 H, Total Bilirubin 0.8, AST 43 H, ALT 75 H, Alkaline Phosphatase 91, Total Creatine Kinase 200, Total Protein 7.8, Albumin 4.2, Globulin 3.6, Alb umin/Globulin Ratio 1.2, Triglycerides 59, Cholesterol 145, LDL Cholesterol Direct 71, HDL Cholesterol 55 Vital Signs Resp 05/15/18 04:49 18 DSM 5 Symptoms Update: shortly, patient is 42 year old single [place] female with history of depression and psychosis, likely diagnosis of Schizoaffective disorder, four prior admissions at [facility] in 02/2017, 01/2017 and 03/2016, 04/26/18, no reported history of suicidal attempts, h/o noncompliance with aftercare recommendations and medications who was transferred to the psychiatric unit after being treated for rhabdomyolysis on on the medical floor (of note this is second medical admission within last month for rabdomyolisis, pt was found wondering on streets as per ED report). ER notes indicate that patient was brought by [facility] after pt was wandering on the streets in a state of confusion. pt was medically stable, pt was willing to get treatment and was transferred to the psych unit, this write saw pt on the medical site, pt appeared to be catatonic, flat affect, mumbling something incoherently. Pt was educated about possible ECT treatment, pt was not able fully understand the procedure, risk/benefits and alternatives, please see medical site note for more detailed information. pt is very familiar to this documentation writer and unit from multiple psych admissions. pt was interviewed today at the treatment team meeting, utilized translation system [employer] for [place] interpretation ID #[id number] Patient presented to be disorganized, in the middle of the conversation started to whispers something to herself and had no eye contact. his documentation writer educated patient about ECT procedure, patient said that she does not want to have that procedure. Patient was visited by family readiness support assistant and patient presented to be disorganized, catatonic, whispering something to herself. as per staff there were no behavioral issues overnight, pt seems to be in catatonic stage, barely talk, was observed whispering something to her self, pt also had flat affect. as per collaterals from the , pt currently under care of [facility], Intensive Day Treatment Program, as per report pt was last seen on Tuesday, then pt was admitted to [facility]. patient denied thoughts of harming herself or others, denied intent or plan. ssocial for patient tolerates medications well, no side effects observed or reported, aims 0, no EPS.. Diagnostic Results: Schizoaffective Disorder Medication Change: Yes (Ativan increased, Seroquel increased) Medical Record Reviewed: Yes Mental Status Examination - Cognitive Function Orientation: Person, Place, Situation Attention: Poor Concentration: Poor Association: Loose Fund of Knowledge: Poor - Mood Mood: Depressed, Anxious - Affect Affect: Blunted, Flat - Speech Speech: Soft - Formal Thought Process Formal Thought Process: Hallucinations, Delusions, Paranoia - Suicidal Ideation Suicidal Ideation: No - Homicidal Ideation Homicidal Ideation: No Goal/Treatment Plan - Goal/Treatment Plan Need for Continued Stay: Remain at risks for inpatient hospitalization, Severe depression anxiety, Discharge may exacerbated symptoms, Failed transitioning, Severe functional impairment Progress Toward Problem(s) and Goals/Treatment Plan: group, milieu and supportive tx Prozac to 40 mg po daily for depression and anxiety Appreciate f/u by Reyna regarding patient's intensive day treatment program Invega Sustenna injection (156mg) pt got injection 05/01/18 Seroquel 200 mg AM and 200 mg po HS for psychosis/ Ativan 1mg po bid and 1HS for for anxiety, catatonia possible ECT consultation for discharge plan and social issues Family involvement Follow up on labs Will monitor closely Pt was educated about risk/benefits and alternatives of medications, coping st rategies (safety plan, suicide prevention), relapse prevention, importance of follow up with psychiatrist and therapist, stay away from drugs/alcohol/smoking Estimated Date of D/C: 05/26/18
[2018-05-17] MEDS: Pantoprazole 40 mg EC Tab PO SCH ×2 (06:45→17:03)
--- NOTE | 2018-05-17 16:05 | PCM.PYCHPN ---
Psychiatric Progress Note - Psychiatric Progress Note Patient seen today, length of contact: 30 minutes Patient Chief Complaint: "I feel sleepy" Problems Identified/Issues Discussed: Suicide/ homicide prevention, past psychiatric h/o, current psychiatric symptoms, medical problems, risk/benefits and alternatives of medications, medications compliance, coping strategies, substance abuse h/o, relapse prevention, importance of follow up with psychiatrist and therapist, discharge plan. Medical Problems: 05/15/18 06:45 05/15/18 06:45 Lab Results 05/15/18 06:45: WBC 7.5, RBC 4.00, Hgb 12.2, Hct 36.9, MCV 92.3, MCH 30.5, MCHC 33.1, RDW 14.2, Plt Count 302, MPV 9.6, Gran % 57.4, Lymph % (Auto) 36.6 H, Real % (Auto) 5.2, Eos % (Auto) 0.7 L, Baso % (Auto) 0.1, Gran # 4.29, Lymph # (Auto) 2.7, Real # (Auto) 0.4, Eos # (Auto) 0.1, Baso # (Auto) 0.01 05/15/18 06:45: Hemoglobin A1c 5.2 05/15/18 06:45: Sodium 140, Potassium 4.3, Chloride 106, Carbon Dioxide 24, Anion Gap 14, BUN 10, Creatinine 0.6 L, Est GFR ( Amer) > 60, Est GFR (Non-Af Amer) > 60, Random Glucose 104, Calcium 9.3, Phosphorus 3.5, Magnesium 2.3 H, Total Bilirubin 0.8, AST 43 H, ALT 75 H, Alkaline Phosphatase 91, Total Creatine Kinase 200, Total Protein 7.8, Albumin 4.2, Globulin 3.6, Albumin/Globulin Ratio 1.2, Triglycerides 59, Cholesterol 145, LDL Cholesterol Direct 71, HDL Cholesterol 55 Vital Signs Resp 05/15/18 04:49 18 Diagnostic Results: 05/15/18 06:45 05/15/18 06:45 Lab Results 05/15/18 06:45: WBC 7.5, RBC 4.00, Hgb 12.2, Hct 36.9, MCV 92.3, MCH 30.5, MCHC 33.1, RDW 14.2, Plt Count 302, MPV 9.6, Gran % 57.4, Lymph % (Auto) 36.6 H, Real % (Auto) 5.2, Eos % (Auto) 0.7 L, Baso % (Auto) 0.1, Gran # 4.29, Lymph # (Auto) 2.7, Real # (Auto) 0.4, Eos # (Auto) 0.1, Baso # (Auto) 0.01 05/15/18 06:45: Hemoglobin A1c 5.2 05/15/18 06:45: Sodium 140, Potassium 4.3, Chloride 106, Carbon Dioxide 24, A nion Gap 14, BUN 10, Creatinine 0.6 L, Est GFR ( Amer) > 60, Est GFR (Non-Af Amer) > 60, Random Glucose 104, Calcium 9.3, Phosphorus 3.5, Magnesium 2.3 H, Total Bilirubin 0.8, AST 43 H, ALT 75 H, Alkaline Phosphatase 91, Total Creatine Kinase 200, Total Protein 7.8, Albumin 4.2, Globulin 3.6, Albumin/Globulin Ratio 1.2, Triglycerides 59, Cholesterol 145, LDL Cholesterol Direct 71, HDL Cholesterol 55 Vital Signs Resp 05/15/18 04:49 18 DSM 5 Symptoms Update: shortly, patient is 42 year old single [place]ian female with history of depression and psychosis, likely diagnosis of Schizoaffective disorder, four prior admissions at [facility] [place] in 02/2017, 01/2017 and 03/2016, 04/26/18, no reported history of suicidal attempts, h/o noncompliance with aftercare recommendations and medications who was transferred to the psychiatric unit after being treated for rhabdomyolysis on on the medical floor (of note this is second medical admission within last month for rabdomyolisis, pt was found wondering on streets as per ED report). ER notes indicate that patient was brought by [facility] after pt was wandering on the streets in a state of confusion. pt was medically stable, pt was willing to get treatment and was transferred to the psych unit, this write saw pt on the medical site, pt appeared to be catatonic, flat affect, mumbling something incoherently. Pt was educated about possible ECT treatment, pt was not able fully understand the procedure, risk/benefits and alternatives, please see medical site note for more detailed information. pt was interviewed today in her room, pt did not want to talk, reported to feel "sleepy", may be it is related to the fact that seroquel was increased yesterday. as per staff patient is disorganized, in the middle of the conversation started to whispers something to herself and had no eye contact. his principal technical writer educated patient about ECT procedure again, patient said that she does not want to have that procedure. Patient was visited by photogrammetric technician and patient presented to be disorganized, catatonic, whispering something to herself. as per collaterals from the , pt currently under care of [facility], Intensive Day Treatment Program, as per report pt was last seen on Tuesday, then pt was admitted to [facility]. patient denied thoughts of harming herself or others, denied intent or plan. ssocial for patient tolerates medications well, no side effects observed or reported, aims 0, no EPS.. Diagnostic Results: Schizoaffective Disorder Medication Change: No (Ativan increased, Seroquel increased yesterday) Medical Record Reviewed: Yes Mental Status Examination - Cognitive Function Orientation: Person, Place, Situation Attention: Poor Concentration: Poor Association: Loose Fund of Knowledge: Poor - Mood Mood: Depressed, Anxious - Affect Affect: Blunted, Flat - Speech Speech: Soft - Formal Thought Process Formal Thought Process: Hallucinations, Delusions, Paranoia - Suicidal Ideation Suicidal Ideation: No - Homicidal Ideation Homicidal Ideation: No Goal/Treatment Plan - Goal/Treatment Plan Need for Continued Stay: Remain at risks for inpatient hospitalization, Severe depression anxiety, Discharge may exacerbated symptoms, Failed transitioning, Severe functional impairment Progress Toward Problem(s) and Goals/Treatment Plan: group, milieu and supportive tx Prozac to 40 mg po daily for depression and anxiety Appreciate f/u by Reyna regarding patient's intensive day treatment program Invega Sustenna injection (156mg) pt got injection 05/01/18 Seroquel 200 mg AM and 200 mg po HS for psychosis/ Ativan 1mg po bid and 1HS for for anxiety, catatonia possible ECT consultation for discharge plan and social issues Family involvement Follow up on labs Will monitor closely Pt was educated about risk/benefits and alternatives of medications, coping s trategies (safety plan, suicide prevention), relapse prevention, importance of follow up with psychiatrist and therapist, stay away from drugs/alcohol/smoking Estimated Date of D/C: 05/26/18
[2018-05-18] MEDS: Pantoprazole 40 mg EC Tab PO SCH ×2 (06:58→17:40)
--- NOTE | 2018-05-18 14:27 | PCM.PYCHPN ---
Psychiatric Progress Note - Psychiatric Progress Note Patient seen today, length of contact: 30 minutes Patient Chief Complaint: "I feel dizzy, nothing makes me feel happy Problems Identified/Issues Discussed: Suicide/ homicide prevention, past psychiatric h/o, current psychiatric symptoms, medical problems, risk/benefits and alternatives of medications, medications compliance, coping strategies, substance abuse h/o, relapse prevention, importance of follow up with psychiatrist and therapist, discharge plan. Medical Problems: 05/15/18 06:45 05/15/18 06:45 Lab Results 05/15/18 06:45: WBC 7.5, RBC 4.00, Hgb 12.2, Hct 36.9, MCV 92.3, MCH 30.5, MCHC 33.1, RDW 14.2, Plt Count 302, MPV 9.6, Gran % 57.4, Lymph % (Auto) 36.6 H, [place] % (Auto) 5.2, Eos % (Auto) 0.7 L, Baso % (Auto) 0.1, Gran # 4.29, Lymph # (Auto) 2.7, [place] # (Auto) 0.4, Eos # (Auto) 0.1, Baso # (Auto) 0.01 05/15/18 06:45: Hemoglobin A1c 5.2 05/15/18 06:45: Sodium 140, Potassium 4.3, Chloride 106, Carbon Dioxide 24, Anion Gap 14, BUN 10, Creatinine 0.6 L, Est GFR ( Amer) > 60, Est GFR (Non-Af Amer) > 60, Random Glucose 104, Calcium 9.3, Phosphorus 3.5, Magnesium 2.3 H, Total Bilirubin 0.8, AST 43 H, ALT 75 H, Alkaline Phosphatase 91, Total Creatine Kinase 200, Total Protein 7.8, Albumin 4.2, Globulin 3.6, Albumin/Globulin Ratio 1.2, Triglycerides 59, Cholesterol 145, LDL Cholesterol Direct 71, HDL Cholesterol 55 Vital Signs Resp 05/15/18 04:49 18 Diagnostic Results: 05/15/18 06:45 05/15/18 06:45 Lab Results 05/15/18 06:45: WBC 7.5, RBC 4.00, Hgb 12.2, Hct 36.9, MCV 92.3, MCH 30.5, MCHC 33.1, RDW 14.2, Plt Count 302, MPV 9.6, Gran % 57.4, Lymph % (Auto) 36.6 H, [place] % (Auto) 5.2, Eos % (Auto) 0.7 L, Baso % (Auto) 0.1, Gran # 4.29, Lymph # (Auto) 2.7, [place] # (Auto) 0.4, Eos # (Auto) 0.1, Baso # (Auto) 0.01 05/15/18 06:45: Hemoglobin A1c 5.2 05/15/18 06:45: Sodium 140, Potassium 4.3, Chloride 106, Carbon Dioxide 24, Anion Gap 14, BUN 10, Creatinine 0.6 L, Est GFR ( Amer) > 60, Est GFR (Non-Af Amer) > 60, Random Glucose 104, Calcium 9.3, Phosphorus 3.5, Magnesium 2.3 H, Total Bilirubin 0.8, AST 43 H, ALT 75 H, Alkaline Phosphatase 91, Total Creatine Kinase 200, Total Protein 7.8, Albumin 4.2, Globulin 3.6, Albumin/Globulin Ratio 1.2, Triglycerides 59, Cholesterol 145, LDL Cholesterol Direct 71, HDL Cholesterol 55 Vital Signs Resp 05/15/18 04:49 18 Temp Pulse Resp BP Pulse Ox 98.5 F 95 H 20 123/81 05/18/18 07:14 05/18/18 07:14 05/18/18 07:14 05/18/18 07:14 DSM 5 Symptoms Update: shortly, patient is 42 year old single [place] female with history of depression and psychosis, likely diagnosis of Schizoaffective disorder, four prior admissions at [facility] in 02/2017, 01/2017 and 03/2016, 04/26/18, no reported history of suicidal attempts, h/o noncompliance with aftercare r ecommendations and medications who was transferred to the psychiatric unit after being treated for rhabdomyolysis on on the medical floor (of note this is second medical admission within last month for rabdomyolisis, pt was found wondering on streets as per ED report). ER notes indicate that patient was brought by [employer] after pt was wandering on the streets in a state of confusion. pt was medically stable, pt was willing to get treatment and was transferred to the psych unit, this write saw pt on the medical site, pt appeared to be catatonic, flat affect, mumbling something incoherently. Pt was educated about possible ECT treatment, pt was not able fully understand the procedure, risk/benefits and alternatives, please see medical site note for more detailed information. pt was interviewed today at the treatment team meeting room, utilized translation system [employer] for interpretation, ID # [id number]. Patient presented to be depressed, disengaged, flat affect, still mumbling something to herself, when was asked wwhat did she say, patient said "not paying I'm just talking to myself". Patient presented to be psychotic, internal stimuli, flat affect, patient said nothing makes her feel happy, she is thinking about her family, patient reported to feel "lonely". as per staff patient is disorganized, in the middle of the conversation started to whispers something to herself and had no eye contact. his check writer salesperson educated patient about ECT procedure again, patient said that she does not want to have that procedure. As per collaterals from the , pt currently under care of [facility], Intensive Day Treatment Program, as per report pt was last seen on Tuesday, then pt was admitted to [facility]. patient denied thoughts of harming herself or others, denied intent or plan. patient tolerates medications well, no side effects observed or reported, aims 0, no EPS.. Diagnostic Results: Schizoaffective Disorder Medication Change: No (Ativan increased, Seroquel increased 05/16/18) Medical Record Reviewed: Yes Mental Status Examination - Cognitive Function Orientation: Person, Place, Situation Attention: Poor Concentration: Poor Association: Loose Fund of Knowledge: Poor - Mood Mood: Depressed, Anxious - Affect Affect: Blunted, Flat - Speech Speech: Soft - Formal Thought Process Formal Thought Process: Hallucinations, Delusions, Paranoia - Suicidal Ideation Suicidal Ideation: No - Homicidal Ideation Homicidal Ideation: No Goal/Treatment Plan - Goal/Treatment Plan Need for Continued Stay: Remain at risks for inpatient hospitalization, Severe depression anxiety, Discharge may exacerbated symptoms, Failed transitioning, Severe functional impairment Progress Toward Problem(s) and Goals/Treatment Plan: group, milieu and supportive tx Prozac to 40 mg po daily for depression and anxiety Appreciate f/u by Reyna regarding patient's intensive day treatment program Invega Sustenna injection (156mg) pt got injection 05/01/18 Seroquel 200 mg AM and 200 mg po HS for psychosis/ Ativan 1mg po bid and 1HS for for anxiety, catatonia possible ECT SW consultation for discharge plan and social issues Family involvement Follow up on labs Will monitor closely Pt was educated about risk/benefits and alternatives of medications, coping strategies (safety plan, suicide prevention), relapse prevention, importance of follow up with psychiatrist and therapist, stay away from drugs/alcohol/smoking Estimated Date of D/C: 05/26/18
[2018-05-19] MEDS: Pantoprazole 40 mg EC Tab PO SCH ×2 (06:47→17:41)
--- NOTE | 2018-05-19 13:11 | PCM.PYCHPN ---
Psychiatric Progress Note - Psychiatric Progress Note Patient seen today, length of contact: 30 minutes Patient Chief Complaint: "I don't understand what voices are saying, but I feel little better" Problems Identified/Issues Discussed: Suicide/ homicide prevention, past psychiatric h/o, current psychiatric symptoms, medical problems, risk/benefits and alternatives of medications, medications compliance, coping strategies, substance abuse h/o, relapse prevention, importance of follow up with psychiatrist and therapist, discharge plan. Medical Problems: 05/15/18 06:45 05/15/18 06:45 Lab Results 05/15/18 06:45: WBC 7.5, RBC 4.00, Hgb 12.2, Hct 36.9, MCV 92.3, MCH 30.5, MCHC 33.1, RDW 14.2, Plt Count 302, MPV 9.6, Gran % 57.4, Lymph % (Auto) 36.6 H, [place] % (Auto) 5.2, Eos % (Auto) 0.7 L, Baso % (Auto) 0.1, Gran # 4.29, Lymph # (Auto) 2.7, [place] # (Auto) 0.4, Eos # (Auto) 0.1, Baso # (Auto) 0.01 05/15/18 06:45: Hemoglobin A1c 5.2 05/15/18 06:45: Sodium 140, Potassium 4.3, Chloride 106, Carbon Dioxide 24, Anion Gap 14, BUN 10, Creatinine 0.6 L, Est GFR ( Amer) > 60, Est GFR (Non-Af Amer) > 60, Random Glucose 104, Calcium 9.3, Phosphorus 3.5, Magnesium 2.3 H, Total Bilirubin 0.8, AST 43 H, ALT 75 H, Alkaline Phosphatase 91, Total Creatine Kinase 200, Total Protein 7.8, Albumin 4.2, Globulin 3.6, Albumin/Globulin Ratio 1.2, Triglycerides 59, Cholesterol 145, LDL Cholesterol Direct 71, HDL Cholesterol 55 Vital Signs Resp 05/15/18 04:49 18 Diagnostic Results: 05/15/18 06:45 05/15/18 06:45 Lab Results 05/15/18 06:45: WBC 7.5, RBC 4.00, Hgb 12.2, Hct 36.9, MCV 92.3, MCH 30.5, MCHC 33.1, RDW 14.2, Plt Count 302, MPV 9.6, Gran % 57.4, Lymph % (Auto) 36.6 H, [place] % (Auto) 5.2, Eos % (Auto) 0.7 L, Baso % (Auto) 0.1, Gran # 4.29, Lymph # (Auto) 2.7, [place] # (Auto) 0.4, Eos # (Auto) 0.1, Baso # (Auto) 0.01 05/15/18 06:45: Hemoglobin A1c 5.2 05/15/18 06:45: Sodium 140, Potassium 4.3, Chloride 106, Carbon Dioxide 24, Anion Gap 14, BUN 10, Creatinine 0.6 L, Est GFR ( Amer) > 60, Est GFR (Non-Af Amer) > 60, Random Glucose 104, Calcium 9.3, Phosphorus 3.5, Magnesium 2.3 H, Total Bilirubin 0.8, AST 43 H, ALT 75 H, Alkaline Phosphatase 91, Total Creatine Kinase 200, Total Protein 7.8, Albumin 4.2, Globulin 3.6, Albumin/Globulin Ratio 1.2, Triglycerides 59, Cholesterol 145, LDL Cholesterol Direct 71, HDL Cholesterol 55 Vital Signs Resp 05/15/18 04:49 18 Temp Pulse Resp BP Pulse Ox 98.5 F 95 H 20 123/81 05/18/18 07:14 05/18/18 07:14 05/18/18 07:14 05/18/18 07:14 DSM 5 Symptoms Update: shortly, patient is 42 year old single [place] female with history of p ostpartum depression and psychosis, likely diagnosis of Schizoaffective disorder, four prior admissions at [facility] in 02/2017, 01/2017 and 03/2016, 04/26/18, no reported history of suicidal attempts, h/o noncompliance with aftercare recommendations and medications who was transferred to the psychiatric unit after being treated for rhabdomyolysis on on the medical floor (of note this is second medical admission within last month for rabdomyolisis, pt was found wondering on streets as per ED report). ER notes indicate that patient was brought by [employer] after pt was wandering on the streets in a state of confusion. pt was medically stable, pt was willing to get treatment and was transferred to the psych unit, this write saw pt on the medical site, pt appeared to be catatonic, flat affect, mumbling something incoherently. Pt was educated about possible ECT treatment, pt was not able fully understand the procedure, risk/benefits and alternatives, please see medical site note for more detailed information. pt was interviewed today at the treatment team meeting room, utilized translation system [employer] for interpretation, ID # [id number] Patient presented to be depressed, disengaged, flat affect, still mumbling something to herself, when was asked what did she say, patient said "not paying I'm just talking to myself". Patient presented to be psychotic, responding to internal stimuli, today pt said that she hears voices "I don't understand what they are saying", flat affect, patient said nothing makes her feel happy, she is thinking about her family, patient reported to feel "lonely". pt was educated about snf, pt agreed to that plan, it will be recommended for outpatient program. as per staff patient is disorganized, in the middle of the conversation started to whispers something to herself and had no eye contact. his comic writer educated patient about ECT procedure again, patient said that she does not want to have that procedure. As per collaterals from the , pt currently under care of [facility] [place], Intensive Day Treatment Program, as per report pt was last seen on Tuesday, then pt was admitted to [facility]. patient denied thoughts of harming herself or others, denied intent or plan. patient tolerates medications well, no side effects observed or reported, aims 0, no EPS.. Diagnostic Results: Schizoaffective Disorder Medication Change: Yes (seroquel increased) Medical Record Reviewed: Yes Mental Status Examination - Cognitive Function Orientation: Person, Place, Situation Attention: Poor Concentration: Poor Association: Loose Fund of Knowledge: Poor - Mood Mood: Depressed, Anxious - Affect Affect: Blunted, Flat - Speech Speech: Soft - Formal Thought Process Formal Thought Process: Hallucinations, Delusions, Paranoia - Suicidal Ideation Suicidal Ideation: No - Homicidal Ideation Homicidal Ideation: No Goal/Treatment Plan - Goal/Treatment Plan Need for Continued Stay: Remain at risks for inpatient hospitalization, Severe depression anxiety, Discharge may exacerbated symptoms, Failed transitioning, Severe functional impairment Progress Toward Problem(s) and Goals/Treatment Plan: group, milieu and supportive tx Prozac to 40 mg po daily for depression and anxiety Appreciate f/u by Reyna regarding patient's intensive day treatment program Invega Sustenna injection (156mg) pt got injection 05/01/18 Seroquel 200 mg AM and 300 mg po HS for psychosis/ Ativan 1mg po bid and 1HS for for anxiety, catatonia possible ECT SW consultation for discharge plan and social issues Family involvement Follow up on labs Will monitor closely Pt was educated about risk/benefits and alternatives of medications, coping strategies (safety plan, suicide prevention), relapse prevention, importance of follow up with psychiatrist and therapist, stay away from drugs/alcohol/smoking Estimated Date of D/C: 05/26/18
[2018-05-20] MEDS: Pantoprazole 40 mg EC Tab PO SCH ×2 (06:45→15:58)
--- NOTE | 2018-05-20 09:19 | PCM.PYCHPN ---
Psychiatric Progress Note - Psychiatric Progress Note Patient seen today, length of contact: 30 minutes Problems Identified/Issues Discussed: I reviewed recent notes and patient was interviewed in her room using speak and translate luz for b[place]i translation. Patient remains very superficial and calm during my visit. She is internally preoccupied and observed mumbling to herself in between my questioning. Patient denies any perceptual disturbance however staff notes indicate that she admitted to experiencing hallucinations yesterday. Affect is remains constricted, disengaged and withdrawn. Fluency and spontaneity of speech are impaired. She seems depressed but denies feeling depressed. During treatment team meeting on Tuesday, patient reported loneliness and that "nothing makes her feel happy". Patient remains disorganized. Patient denies any new concerns and doesn't comment when I review the option of ECT with her. She is compliant with her medications and denies s/e, discomfort or pain. Patient is visible on the unit however she keeps to herself without any lana vation to interact with other patients. There were no behavioral issues overnight. ~ Diagnostic Results: Schizoaffective Disorder Medication Change: Yes (seroquel decreased, started depakote) Medical Record Reviewed: Yes Mental Status Examination - Cognitive Function Orientation: Person, Place, Situation Attention: Poor Concentration: Poor Association: Loose Fund of Knowledge: Poor - Mood Mood: Depressed, Anxious - Affect Affect: Blunted, Flat - Speech Speech: Soft - Formal Thought Process Formal Thought Process: Hallucinations (denied but admitted to hallucinations yesterday. Seen mumbling to herself), Delusions, Paranoia - Suicidal Ideation Suicidal Ideation: No - Homicidal Ideation Homicidal Ideation: No Goal/Treatment Plan - Goal/Treatment Plan Need for Continued Stay: Remain at risks for inpatient hospitalization, Severe depression anxiety, Discharge may exacerbated symptoms, Failed transitioning, Severe functional impairment Progress Toward Problem(s) and Goals/Treatment Plan: * c/w current tx and plan * No new weekend lab results thus far * Vitals reviewed and noted below: Selected Entries 05/19/18 05/19/18 07:18 16:00 Temperature 98.0 F Pulse Rate 76 77 Respiratory 20 Rate Blood Pressure 111/66 115/62 Estimated Date of D/C: 05/26/18
[2018-05-21] MEDS: Pantoprazole 40 mg EC Tab PO SCH ×2 (06:25→16:20)
--- NOTE | 2018-05-21 09:32 | PCM.PYCHPN ---
Psychiatric Progress Note - Psychiatric Progress Note Patient seen today, length of contact: 30 minutes Problems Identified/Issues Discussed: I reviewed recent notes and patient was interviewed in her room using speak and translate luz for [employer] [place] translation. Patient remains very superficial and calm during my visit. She is unkempt and eye contact is poor. She remains internally preoccupied and observed mumbling to herself in between my questioning. Patient denies any perceptual disturbance however staff notes indicate that she admitted to experiencing hallucinations on Tuesday. Affect is remains constricted, disengaged and withdrawn. Fluency and spontaneity of speech are impaired. She seems depressed but again denies feeling depressed. During treatment team meeting on Tuesday, patient reported loneliness and that "nothing makes her feel happy". Patient remains disorganized. Patient denies any new concerns and doesn't comment when I review the benefits of ECT with her again today. She flatly nods her head. She is compliant with her medications and denies s/e, discomfort or pain. Patient is visible on the unit however she keeps to herself without any motivation to interact with other patients. There were no behavioral issues over the weekend. Diagnostic Results: Schizoaffective Disorder Medication Change: Yes (clozaril increased, depakote increased) Medical Record Reviewed: Yes Mental Status Examination - Cognitive Function Orientation: Person, Place, Situation Attention: Poor Concentration: Poor Association: Loose Fund of Knowledge: Poor - Mood Mood: Depressed, Anxious - Affect Affect: Blunted, Flat - Speech Speech: Soft - Formal Thought Process Formal Thought Process: Hallucinations (denied but admitted to hallucinations on Tuesday. Seen mumbling to herself), Delusions, Paranoia - Suicidal Ideation Suicidal Ideation: No - Homicidal Ideation Homicidal Ideation: No Goal/Treatment Plan - Goal/Treatment Plan Need for Continued Stay: Remain at risks for inpatient hospitalization, Severe depression anxiety, Discharge may exacerbated symptoms, Failed transitioning, Severe functional impairment Progress Toward Problem(s) and Goals/Treatment Plan: * c/w current tx and plan * No new weekend lab results * Vitals reviewed and noted below: 05/20/18 05/20/18 07:00 15:57 Temperature 97.4 F L Pulse Rate 87 87 Respiratory 16 Rate Blood Pressure 129/74 114/69 Estimated Date of D/C: 05/26/18
[2018-05-22] MEDS: Pantoprazole 40 mg EC Tab PO SCH ×2 (06:47→16:55)
--- NOTE | 2018-05-22 15:37 | PCM.PYCHPN ---
Psychiatric Progress Note - Psychiatric Progress Note Patient seen today, length of contact: 30 minutes Patient Chief Complaint: "I am okay" Problems Identified/Issues Discussed: Suicide/ homicide prevention, past psychiatric h/o, current psychiatric symptoms, medical problems, risk/benefits and alternatives of medications, medications compliance, coping strategies, substance abuse h/o, relapse prevention, importance of follow up with psychiatrist and therapist, discharge plan. Medical Problems: 05/15/18 06:45 05/15/18 06:45 Lab Results 05/15/18 06:45: WBC 7.5, RBC 4.00, Hgb 12.2, Hct 36.9, MCV 92.3, MCH 30.5, MCHC 33.1, RDW 14.2, Plt Count 302, MPV 9.6, Gran % 57.4, Lymph % (Auto) 36.6 H, Ross % (Auto) 5.2, Eos % (Auto) 0.7 L, Baso % (Auto) 0.1, Gran # 4.29, Lymph # (Auto) 2.7, Ross # (Auto) 0.4, Eos # (Auto) 0.1, Baso # (Auto) 0.01 05/15/18 06:45: Hemoglobin A1c 5.2 05/15/18 06:45: Sodium 140, Potassium 4.3, Chloride 106, Carbon Dioxide 24, Anion Gap 14, BUN 10, Creatinine 0.6 L, Est GFR ( Amer) > 60, Est GFR (Non-Af Amer) > 60, Random Glucose 104, Calcium 9.3, Phosphorus 3.5, Magnesium 2.3 H, Total Bilirubin 0.8, AST 43 H, ALT 75 H, Alkaline Phosphatase 91, Total Creatine Kinase 200, Total Protein 7.8, Albumin 4.2, Globulin 3.6, Albumin/Globulin Ratio 1.2, Triglycerides 59, Cholesterol 145, LDL Cholesterol Direct 71, HDL Cholesterol 55 Vital Signs Resp 05/15/18 04:49 18 Diagnostic Results: 05/15/18 06:45 05/15/18 06:45 Lab Results 05/15/18 06:45: WBC 7.5, RBC 4.00, Hgb 12.2, Hct 36.9, MCV 92.3, MCH 30.5, MCHC 33.1, RDW 14.2, Plt Count 302, MPV 9.6, Gran % 57.4, Lymph % (Auto) 36.6 H, Ross % (Auto) 5.2, Eos % (Auto) 0.7 L, Baso % (Auto) 0.1, Gran # 4.29, Lymph # (Auto) 2.7, Ross # (Auto) 0.4, Eos # (Auto) 0.1, Baso # (Auto) 0.01 05/15/18 06:45: Hemoglobin A1c 5.2 05/15/18 06:45: Sodium 140, Potassium 4.3, Chloride 106, Carbon Dioxide 24, Anion Gap 14, BUN 10, Creatinine 0.6 L, Est GFR ( Amer) > 60, Est GFR (No n-Af Amer) > 60, Random Glucose 104, Calcium 9.3, Phosphorus 3.5, Magnesium 2.3 H, Total Bilirubin 0.8, AST 43 H, ALT 75 H, Alkaline Phosphatase 91, Total Creatine Kinase 200, Total Protein 7.8, Albumin 4.2, Globulin 3.6, Alb umin/Globulin Ratio 1.2, Triglycerides 59, Cholesterol 145, LDL Cholesterol Direct 71, HDL Cholesterol 55 Vital Signs Resp 05/15/18 04:49 18 Temp Pulse Resp BP Pulse Ox 98.5 F 95 H 20 123/81 05/18/18 07:14 05/18/18 07:14 05/18/18 07:14 05/18/18 07:14 DSM 5 Symptoms Update: shortly, patient is 42 year old single [place] female with history of depression and psychosis, likely diagnosis of Schizoaffective disorder, four prior admissions at [facility] in 02/2017, 01/2017 and 03/2016, 04/26/18, no reported history of suicidal attempts, h/o noncompliance with aftercare recommendations and medications who was transferred to the psychiatric unit after being treated for rhabdomyolysis on on the medical floor (of note this is second medical admission within last month for rabdomyolisis, pt was found wo ndering on streets as per ED report). ER notes indicate that patient was brought by [facility] after pt was wandering on the streets in a state of confusion. pt was medically stable, pt was willing to get treatment and was transferred to the psych unit, this write saw pt on the medical site, pt appeared to be catatonic, flat affect, mumbling something incoherently. Pt was educated about possible ECT treatment, pt was not able fully understand the procedure, risk/benefits and alternatives, please see medical site note for more detailed information. pt was interviewed today at the treatment team meeting room, utilized Mohawk speaking RN Lavell. pt presented with acceptable personal hygiene, said that voices are not bothering her, reported that she had okay weekend. as per staff pt is still mumb ling something to herself, but no agitation, no aggression, pt is disengaged, withdrawn. pt denied any thoughts of harming self or others. pt was educated about residential, pt agreed to that plan, it will be recommended for outpatient program. as per staff patient is disorganized, in the middle of the conversation started to whispers something to herself and had no eye contact. his designer writer educated patient about ECT procedure again, patient said that she does not want to have that procedure. patient tolerates medications well, no side effects observed or reported, aims 0, no EPS.. Diagnostic Results: Schizoaffective Disorder Medication Change: Yes (seroquel decreased, started depakote) Medical Record Reviewed: Yes Mental Status Examination - Cognitive Function Orientation: Person, Place, Situation Attention: Poor (some improvement) Concentration: Poor (some improvement) Association: Loose (some improvement) Fund of Knowledge: Poor (baseline) - Mood Mood: Depressed ("I am okay"), Anxious - Affect Affect: Constricted (but more reactive. ) - Speech Speech: Soft - Formal Thought Process Formal Thought Process: Hallucinations (denied, but pt is mumbling something to herself. ), Delusions, Paranoia - Suicidal Ideation Suicidal Ideation: No - Homicidal Ideation Homicidal Ideation: No Goal/Treatment Plan - Goal/Treatment Plan Need for Continued Stay: Remain at risks for inpatient hospitalization, Severe depression anxiety, Discharge may exacerbated symptoms, Failed transitioning, Severe functional impairment Progress Toward Problem(s) and Goals/Treatment Plan: group, milieu and supportive tx Prozac to 40 mg po daily for depression and anxiety Appreciate f/u by Reyna regarding patient's intensive day treatment program Invega Sustenna injection (156mg) pt got injection 05/01/18 Seroquel 200 mg AM and 300 mg po HS for psychosis/ Ativan 1mg po bid and 1HS for for anxiety, catatonia possible ECT, pt declined that offer SW consultation for discharge plan and social issues Family involvement Follow up on labs Will monitor closely Pt was educated about risk/benefits and alternatives of medications, coping strategies (safety plan, suicide prevention), relapse prevention, importance of follow up with psychiatrist and therapist, stay away from drugs/alcohol/smoking Estimated Date of D/C: 05/26/18
[2018-05-23] MEDS: Pantoprazole 40 mg EC Tab PO SCH ×2 (06:29→16:42)
--- NOTE | 2018-05-23 15:28 | PCM.PYCHPN ---
Psychiatric Progress Note - Psychiatric Progress Note Patient seen today, length of contact: 30 minutes Patient Chief Complaint: "I am okay" Problems Identified/Issues Discussed: Suicide/ homicide prevention, past psychiatric h/o, current psychiatric symptoms, medical problems, risk/benefits and alternatives of medications, medications compliance, coping strategies, substance abuse h/o, relapse prevention, importance of follow up with psychiatrist and therapist, discharge plan. Medical Problems: 05/15/18 06:45 05/15/18 06:45 Lab Results 05/15/18 06:45: WBC 7.5, RBC 4.00, Hgb 12.2, Hct 36.9, MCV 92.3, MCH 30.5, MCHC 33.1, RDW 14.2, Plt Count 302, MPV 9.6, Gran % 57.4, Lymph % (Auto) 36.6 H, [place] % (Auto) 5.2, Eos % (Auto) 0.7 L, Baso % (Auto) 0.1, Gran # 4.29, Lymph # (Auto) 2.7, [place] # (Auto) 0.4, Eos # (Auto) 0.1, Baso # (Auto) 0.01 05/15/18 06:45: Hemoglobin A1c 5.2 05/15/18 06:45: Sodium 140, Potassium 4.3, Chloride 106, Carbon Dioxide 24, Anion Gap 14, BUN 10, Creatinine 0.6 L, Est GFR ( Amer) > 60, Est GFR (Non-Af Amer) > 60, Random Glucose 104, Calcium 9.3, Phosphorus 3.5, Magnesium 2.3 H, Total Bilirubin 0.8, AST 43 H, ALT 75 H, Alkaline Phosphatase 91, Total Creatine Kinase 200, Total Protein 7.8, Albumin 4.2, Globulin 3.6, Albumin/Globulin Ratio 1.2, Triglycerides 59, Cholesterol 145, LDL Cholesterol Direct 71, HDL Cholesterol 55 Vital Signs Resp 05/15/18 04:49 18 Diagnostic Results: 05/15/18 06:45 05/15/18 06:45 Lab Results 05/15/18 06:45: WBC 7.5, RBC 4.00, Hgb 12.2, Hct 36.9, MCV 92.3, MCH 30.5, MCHC 33.1, RDW 14.2, Plt Count 302, MPV 9.6, Gran % 57.4, Lymph % (Auto) 36.6 H, Hale % (Auto) 5.2, Eos % (Auto) 0.7 L, Baso % (Auto) 0.1, Gran # 4.29, Lymph # (Auto) 2.7, Hale # (Auto) 0.4, Eos # (Auto) 0.1, Baso # (Auto) 0.01 05/15/18 06:45: Hemoglobin A1c 5.2 05/15/18 06:45: Sodium 140, Potassium 4.3, Chloride 106, Carbon Dioxide 24, Anion Gap 14, BUN 10, Creatinine 0.6 L, Est GFR ( Amer) > 60, Est GFR (No n-Af Amer) > 60, Random Glucose 104, Calcium 9.3, Phosphorus 3.5, Magnesium 2.3 H, Total Bilirubin 0.8, AST 43 H, ALT 75 H, Alkaline Phosphatase 91, Total Creatine Kinase 200, Total Protein 7.8, Albumin 4.2, Globulin 3.6, Alb umin/Globulin Ratio 1.2, Triglycerides 59, Cholesterol 145, LDL Cholesterol Direct 71, HDL Cholesterol 55 Vital Signs Resp 05/15/18 04:49 18 Temp Pulse Resp BP Pulse Ox 98.5 F 95 H 20 123/81 05/18/18 07:14 05/18/18 07:14 05/18/18 07:14 05/18/18 07:14 DSM 5 Symptoms Update: cristamirian, patient is 42 year old single E[place] female with history of depression and psychosis, likely diagnosis of Schizoaffective disorder, four prior admissions at [facility] in 02/2017, 01/2017 and 03/2016, 04/26/18, no reported history of suicidal attempts, h/o noncompliance with aftercare recommendations and medications who was transferred to the psychiatric unit after being treated for rhabdomyolysis on on the medical floor (of note this is second medical admission within last month for rabdomyolisis, pt was found wo ndering on streets as per ED report). ER notes indicate that patient was brought by [facility] after pt was wandering on the streets in a state of confusion. pt was medically stable, pt was willing to get treatment and was transferred to the psych unit, this write saw pt on the medical site, pt appeared to be catatonic, flat affect, mumbling something incoherently. Pt was educated about possible ECT treatment, pt was not able fully understand the procedure, risk/benefits and alternatives, please see medical site note for more detailed information. pt was interviewed today at the treatment team meeting room, utilized [employer] translation system [employer] ID# [id number] pt presented with acceptable personal hygiene, said that voices are not bothering her, reported that she had okay weekend. as per staff pt is still mumbling something to herself, but no agitation, no aggression, pt is disengaged, withdrawn. pt denied any thoughts of harming self or others. pt was educated about detention, pt agreed to that plan, it will be recommended for outpatient program. as per staff patient is disorganized, in the middle of the conversation started to whispers something to herself and had no eye contact. his sql report writer educated patient about ECT procedure again, patient said that she does not want to have that procedure. patient tolerates medications well, no side effects observed or reported, aims 0, no EPS.. Diagnostic Results: Schizoaffective Disorder Medication Change: Yes (seroquel increased) Medical Record Reviewed: Yes Mental Status Examination - Cognitive Function Orientation: Person, Place, Situation Attention: Poor (some improvement) Concentration: Poor (some improvement) Association: Loose (some improvement) Fund of Knowledge: Poor (baseline) - Mood Mood: Depressed ("I am okay"), Anxious - Affect Affect: Constricted (but more reactive. ) - Speech Speech: Soft - Formal Thought Process Formal Thought Process: Hallucinations (denied, but pt is mumbling something to herself. ), Delusions, Paranoia - Suicidal Ideation Suicidal Ideation: No - Homicidal Ideation Homicidal Ideation: No Goal/Treatment Plan - Goal/Treatment Plan Need for Continued Stay: Remain at risks for inpatient hospitalization, Severe depression anxiety, Discharge may exacerbated symptoms, Failed transitioning, Severe functional impairment Progress Toward Problem(s) and Goals/Treatment Plan: group, milieu and supportive tx Prozac to 40 mg po daily for depression and anxiety Appreciate f/u by Reyna regarding patient's intensive day treatment program Invega Sustenna injection (156mg) pt got injection 05/01/18 Seroquel 300 mg AM and 300 mg po HS for psychosis/ Ativan 1mg po bid and 1HS for for anxiety, catatonia possible ECT, pt declined that offer SW consultation for discharge plan and social issues Family involvement Follow up on labs Will monitor closely Pt was educated about risk/benefits and alternatives of medications, coping strategies (safety plan, suicide prevention), relapse prevention, importance of follow up with psychiatrist and therapist, stay away from drugs/alcohol/smoking Estimated Date of D/C: 05/26/18
[2018-05-24] MEDS: Pantoprazole 40 mg EC Tab PO SCH ×2 (06:21→18:10)
--- NOTE | 2018-05-24 15:41 | PCM.PYCHPN ---
Psychiatric Progress Note - Psychiatric Progress Note Patient seen today, length of contact: 30 minutes Patient Chief Complaint: "I am okay" Problems Identified/Issues Discussed: Suicide/ homicide prevention, past psychiatric h/o, current psychiatric symptoms, medical problems, risk/benefits and alternatives of medications, medications compliance, coping strategies, substance abuse h/o, relapse prevention, importance of follow up with psychiatrist and therapist, discharge plan. Medical Problems: 05/15/18 06:45 05/15/18 06:45 Lab Results 05/15/18 06:45: WBC 7.5, RBC 4.00, Hgb 12.2, Hct 36.9, MCV 92.3, MCH 30.5, MCHC 33.1, RDW 14.2, Plt Count 302, MPV 9.6, Gran % 57.4, Lymph % (Auto) 36.6 H, [place] % (Auto) 5.2, Eos % (Auto) 0.7 L, Baso % (Auto) 0.1, Gran # 4.29, Lymph # (Auto) 2.7, [place] # (Auto) 0.4, Eos # (Auto) 0.1, Baso # (Auto) 0.01 05/15/18 06:45: Hemoglobin A1c 5.2 05/15/18 06:45: Sodium 140, Potassium 4.3, Chloride 106, Carbon Dioxide 24, Anion Gap 14, BUN 10, Creatinine 0.6 L, Est GFR ( Amer) > 60, Est GFR (Non-Af Amer) > 60, Random Glucose 104, Calcium 9.3, Phosphorus 3.5, Magnesium 2.3 H, Total Bilirubin 0.8, AST 43 H, ALT 75 H, Alkaline Phosphatase 91, Total Creatine Kinase 200, Total Protein 7.8, Albumin 4.2, Globulin 3.6, Albumin/Globulin Ratio 1.2, Triglycerides 59, Cholesterol 145, LDL Cholesterol Direct 71, HDL Cholesterol 55 Vital Signs Resp 05/15/18 04:49 18 Diagnostic Results: 05/15/18 06:45 05/15/18 06:45 Lab Results 05/15/18 06:45: WBC 7.5, RBC 4.00, Hgb 12.2, Hct 36.9, MCV 92.3, MCH 30.5, MCHC 33.1, RDW 14.2, Plt Count 302, MPV 9.6, Gran % 57.4, Lymph % (Auto) 36.6 H, [place] % (Auto) 5.2, Eos % (Auto) 0.7 L, Baso % (Auto) 0.1, Gran # 4.29, Lymph # (Auto) 2.7, [place] # (Auto) 0.4, Eos # (Auto) 0.1, Baso # (Auto) 0.01 05/15/18 06:45: Hemoglobin A1c 5.2 05/15/18 06:45: Sodium 140, Potassium 4.3, Chloride 106, Carbon Dioxide 24, Anion Gap 14, BUN 10, Creatinine 0.6 L, Est GFR ( Amer) > 60, Est GFR (No n-Af Amer) > 60, Random Glucose 104, Calcium 9.3, Phosphorus 3.5, Magnesium 2.3 H, Total Bilirubin 0.8, AST 43 H, ALT 75 H, Alkaline Phosphatase 91, Total Creatine Kinase 200, Total Protein 7.8, Albumin 4.2, Globulin 3.6, Alb umin/Globulin Ratio 1.2, Triglycerides 59, Cholesterol 145, LDL Cholesterol Direct 71, HDL Cholesterol 55 Vital Signs Resp 05/15/18 04:49 18 Temp Pulse Resp BP Pulse Ox 98.5 F 95 H 20 123/81 05/18/18 07:14 05/18/18 07:14 05/18/18 07:14 05/18/18 07:14 DSM 5 Symptoms Update: Shortly, patient is 42 year old single [place] female with history of depression and psychosis, likely diagnosis of Schizoaffective disorder, four prior admissions at [facility] [place], 01/2017 and 03/2016, 04/26/18, no reported history of suicidal attempts, h/o noncompliance with aftercare recommendations and medications who was transferred to the psychiatric unit after being treated for rhabdomyolysis on on the medical floor (of note this is second medical admission within last month for rabdomyolisis, pt was found wo ndering on streets as per ED report). ER notes indicate that patient was brought by [facility] after pt was wandering on the streets in a state of confusion. pt was medically stable, pt was willing to get treatment and was transferred to the psych unit, this write saw pt on the medical site, pt appeared to be catatonic, flat affect, mumbling something incoherently. Pt was educated about possible ECT treatment, pt was not able fully understand the procedure, risk/benefits and alternatives, please see medical site note for more detailed information. pt was interviewed today next to the nursing station, pt presented to be kind of withdrawn, as per staff, pt was saying that she is homeless which is not true, pt also reported to be confused. will hold discharge, will taper down serouel, start zyprexa. will check labs. as per staff pt is still mumbling something to herself, but no agitation, no aggression, pt is disengaged, withdrawn. pt denied any thoughts of harming self or others. pt was educated about [facility], pt agreed to that plan, it will be recommended for outpatient program. as per staff patient is disorganized, in the middle of the conversation started to whispers something to herself and had no eye contact. his teletypewriter installer educated patient about ECT procedure again, patient said that she does not want to have that procedure. patient tolerates medications well, no side effects observed or reported, aims 0, no EPS.. Diagnostic Results: Schizoaffective Disorder Medication Change: Yes (seroquel d/c, zyprexa) Medical Record Reviewed: Yes Mental Status Examination - Cognitive Function Orientation: Person, Place, Situation Attention: Poor (some improvement) Concentration: Poor (some improvement) Association: Loose (some improvement) Fund of Knowledge: Poor (baseline) - Mood Mood: Depressed ("I am okay"), Anxious - Affect Affect: Constricted (but more reactive. ) - Speech Speech: Soft - Formal Thought Process Formal Thought Process: Hallucinations (denied, but pt is mumbling something to herself. ), Delusions, Paranoia - Suicidal Ideation Suicidal Ideation: No - Homicidal Ideation Homicidal Ideation: No Goal/Treatment Plan - Goal/Treatment Plan Need for Continued Stay: Remain at risks for inpatient hospitalization, Severe depression anxiety, Discharge may exacerbated symptoms, Failed transitioning, Se tarsha functional impairment Progress Toward Problem(s) and Goals/Treatment Plan: group, milieu and supportive tx Prozac to 40 mg po daily for depression and anxiety Appreciate f/u by Reyna regarding patient's intensive day treatment program Invega Sustenna injection (156mg) pt got injection 05/01/18 Seroquel taper down zyprexa 5mg amhs CMP, CBC, UA stat to r/o delirum Ativan 1mg po bid and 1HS for for anxiety, catatonia possible ECT, pt declined that offer SW consultation for discharge plan and social issues Family involvement Follow up on labs Will monitor closely Pt was educated about risk/benefits and alternatives of medications, coping strategies (safety plan, suicide prevention), relapse prevention, importance of follow up with psychiatrist and therapist, stay away from drugs/alcohol/smoking Estimated Date of D/C: 05/26/18
[2018-05-24 16:43] LABS: BASO # 0.01 K/mm3 (0.0-2.0); BASO % 0.2 % (0.0-3.0); EOS # 0.1 (0.0-0.7); GRAN # 2.98 (1.4-6.5); GRAN % 56.6 % (50.0-68.0); HEMOGLOBIN 12.3 g/dL (12.0-16.0); LYMPH # 1.9 (1.2-3.4); LYMPH % 36.9 % (22.0-35.0); MEAN CELL VOLUME 90.4 fl (80.0-105.0); MEAN CORPUSCULAR HGB CONC 34.3 g/dl (31.0-37.0); MEAN PLATELET VOLUME 9.8 fl (7.0-11.0); MONO # 0.3 (0.1-0.6); MONO % 5.3 % (1.0-6.0); RBC 3.97 10^6/uL (3.5-6.1); RED CELL DISTRIBUTION WIDTH 12.9 % (11.5-14.5); WHITE BLOOD COUNT 5.3 10^3/uL (4.5-11.0)
[2018-05-24 16:52] LABS: ALB/GLOB RATIO 1.2 (1.1-1.8); ALBUMIN 4.2 g/dL (3.0-4.8); ALT/SGPT 43 U/L (7-56); AST/SGOT 18 U/L (14-36); BLOOD UREA NITROGEN 13 mg/dL (7-21); CALCIUM 8.9 mg/dL (8.4-10.5); GFR NON-AFRICAN AMERICAN > 60
[2018-05-24] MEDS: OLANZapine 5 mg Disintegrating Tab PO SCH (22:37)
[2018-05-25] MEDS: Pantoprazole 40 mg EC Tab PO SCH ×2 (06:53→17:06)
[2018-05-25] MEDS: OLANZapine 5 mg Disintegrating Tab PO SCH ×2 (09:18→23:06)
--- NOTE | 2018-05-25 14:05 | PCM.PYCHPN ---
Psychiatric Progress Note - Psychiatric Progress Note Patient seen today, length of contact: 30 minutes Patient Chief Complaint: "I am okay, thank you" Problems Identified/Issues Discussed: Suicide/ homicide prevention, past psychiatric h/o, current psychiatric symptoms, medical problems, risk/benefits and alternatives of medications, medications compliance, coping strategies, substance abuse h/o, relapse prevention, importance of follow up with psychiatrist and therapist, discharge plan. Medical Problems: 05/15/18 06:45 05/15/18 06:45 Lab Results 05/15/18 06:45: WBC 7.5, RBC 4.00, Hgb 12.2, Hct 36.9, MCV 92.3, MCH 30.5, MCHC 33.1, RDW 14.2, Plt Count 302, MPV 9.6, Gran % 57.4, Lymph % (Auto) 36.6 H, Eagle % (Auto) 5.2, Eos % (Auto) 0.7 L, Baso % (Auto) 0.1, Gran # 4.29, Lymph # (Auto) 2.7, Eagle # (Auto) 0.4, Eos # (Auto) 0.1, Baso # (Auto) 0.01 05/15/18 06:45: Hemoglobin A1c 5.2 05/15/18 06:45: Sodium 140, Potassium 4.3, Chloride 106, Carbon Dioxide 24, Anion Gap 14, BUN 10, Creatinine 0.6 L, Est GFR ( Amer) > 60, Est GFR (Non-Af Amer) > 60, Random Glucose 104, Calcium 9.3, Phosphorus 3.5, Magnesium 2.3 H, Total Bilirubin 0.8, AST 43 H, ALT 75 H, Alkaline Phosphatase 91, Total Creatine Kinase 200, Total Protein 7.8, Albumin 4.2, Globulin 3.6, Albumin/Globulin Ratio 1.2, Triglycerides 59, Cholesterol 145, LDL Cholesterol Direct 71, HDL Cholesterol 55 Vital Signs Resp 05/15/18 04:49 18 Temp Pulse Resp BP Pulse Ox 98.4 F 74 20 111/67 05/25/18 07:21 05/25/18 07:21 05/25/18 07:21 05/25/18 07:21 See HPI Diagnostic Results: 05/15/18 06:45 05/15/18 06:45 Lab Results 05/15/18 06:45: WBC 7.5, RBC 4.00, Hgb 12.2, Hct 36.9, MCV 92.3, MCH 30.5, MCHC 33.1, RDW 14.2, Plt Count 302, MPV 9.6, Gran % 57.4, Lymph % (Auto) 36.6 H, Eagle % (Auto) 5.2, Eos % (Auto) 0.7 L, Baso % (Auto) 0.1, Gran # 4.29, Lymph # (Auto) 2.7, Eagle # (Auto) 0.4, Eos # (Auto) 0.1, Baso # (Auto) 0.01 05/15/18 06:45: Hemoglobin A1c 5.2 05/15/18 06:45: Sodium 140, Potassium 4.3, Chloride 106, Carbon Dioxide 24, Anion Gap 14, BUN 10, Creatinine 0.6 L, Est GFR ( Amer) > 60, Est GFR (Non-Af Amer) > 60, Random Glucose 104, Calcium 9.3, Phosphorus 3.5, Magnesium 2.3 H, Total Bilirubin 0.8, AST 43 H, ALT 75 H, Alkaline Phosphatase 91, Total Creatine Kinase 200, Total Protein 7.8, Albumin 4.2, Globulin 3.6, Albumin/Globulin Ratio 1.2, Triglycerides 59, Cholesterol 145, LDL Cholesterol Direct 71, HDL Cholesterol 55 Vital Signs Resp 05/15/18 04:49 18 Temp Pulse Resp BP Pulse Ox 98.5 F 95 H 20 123/81 05/18/18 07:14 05/18/18 07:14 05/18/18 07:14 05/18/18 07:14 Temp Pulse Resp BP Pulse Ox 98.4 F 74 20 111/67 05/25/18 07:21 05/25/18 07:21 05/25/18 07:21 05/25/18 07:21 Abnormal Lab Results 05/24/18 05/24/18 16:36 16:36 WBC 5.3 D RBC 3.97 Hgb 12.3 Hct 35.9 L MCV 90.4 MCH 31.0 MCHC 34.3 RDW 12.9 Plt Count 286 MPV 9.8 Gran % 56.6 Lymph % (Auto) 36.9 H Eagle % (Auto) 5.3 Eos % (Auto) 1.0 L Baso % (Auto) 0.2 Gran # 2.98 Lymph # (Auto) 1.9 Eagle # (Auto) 0.3 Eos # (Auto) 0.1 Baso # (Auto) 0.01 Sodium 136 Potassium 4.0 Chloride 100 Carbon Dioxide 26 Anion Gap 14 BUN 13 Creatinine 0.7 Est GFR ( Amer) > 60 Est GFR (Non-Af Amer) > 60 Random Glucose 126 H Calcium 8.9 Total Bilirubin 0.3 AST 18 ALT 43 Alkaline Phosphatase 72 Total Protein 7.7 Albumin 4.2 Globulin 3.5 Albumin/Globulin Ratio 1.2 DSM 5 Symptoms Update: Shortly, patient is 42 year old single [place] female with history of depression and psychosis, likely diagnosis of Schizoaffective disorder, four prior admissions at [facility] in 02/2017, 01/2017 and 03/2016, 04/26/18, no reported history of suicidal attempts, h/o noncompliance with aftercare recommendations and medications who was transferred to the psychiatric unit after being treated for rhabdomyolysis on on the medical floor (of note this is second medical admission within last month for rabdomyolisis, pt was found wondering on streets as per ED report). ER notes indicate that patient was brought by [employer] after pt was wandering on the streets in a state of confusion. pt was medically stable, pt was willing to get treatment and was transferred to the psych unit, this write saw pt on the medical site, pt appeared to be catatonic, flat affect, mumbling something incoherently. Pt was educated about possible ECT treatment, pt was not able fully understand the procedure, risk/benefits and alternatives, please see medical site note for more detailed information. pt was interviewed today at the treatment team meeting room, [employer] translation Patient presented with good personal hygiene, at the beginning of the conversation affect was reactive, patient was more spontaneous, but when interview progressed patient presented more withdrawn, mumbling something to herself, patient is not sure if she has home or not. As per staff report patient presented to be calm, self isolating, no aggression, no agitation, at the same time patient was observed mumbling something to herself. This gag writer changed Seroquel for Zyprexa, so far patient tolerated that medication well, no side effects observed or reported. aims 0, no EPS.. pt was educated about [facility] again, pt agreed to that plan, it will be recommended for outpatient program. as per staff patient is disorganized, in the middle of the conversation started to whispers something to herself and had no eye contact. his gag writer educated patient about ECT procedure again, patient said that she does not want to have that procedure. Diagnostic Results: Schizoaffective Disorder Medication Change: Yes (seroquel d/c, zyprexa initiated 05/24/2018) Medical Record Reviewed: Yes Consults ordered or reviewed: medical consult appreciated Mental Status Examination - Cognitive Function Orientation: Person, Place, Situation Attention: Poor (some improvement) Concentration: Poor (some improvement) Association: Loose (some improvement) Fund of Knowledge: Poor (baseline) - Mood Mood: Depressed ("I am okay"), Anxious - Affect Affect: Constricted (but more reactive. ) - Speech Speech: Soft - Formal Thought Process Formal Thought Process: Hallucinations (denied, but pt is mumbling something to herself. ), Delusions, Paranoia - Suicidal Ideation Suicidal Ideation: No - Homicidal Ideation Homicidal Ideation: No Goal/Treatment Plan - Goal/Treatment Plan Need for Continued Stay: Remain at risks for inpatient hospitalization, Severe depression anxiety, Discharge may exacerbated symptoms, Failed transitioning, Severe functional impairment Progress Toward Problem(s) and Goals/Treatment Plan: group, milieu and supportive tx Prozac to 40 mg po daily for depression and anxiety Appreciate f/u by Reyna regarding patient's intensive day treatment program Invega Sustenna injection (156mg) pt got injection 05/01/18 Seroquel discontinued zyprexa 5mg amhs, most likely patient would require to increase the dose CMP, CBC, UA stat to r/o delirum, all labs came back -10/2017 Ativan 1mg po bid and 1HS for for anxiety, catatonia possible ECT, pt declined that offer SW consultation for discharge plan and social issues Family involvement Follow up on labs Will monitor closely Pt was educated about risk/benefits and alternatives of medications, coping strategies (safety plan, suicide prevention), relapse prevention, importance of follow up with psychiatrist and therapist, stay away from drugs/alcohol/smoking If patient will continue presenting this way, most likely patient was required to stay in the hospital over the weekend, off note ,patient has history of wandering in the community, patient still convinced that she has no home, which is not true, if patient will be discharged tomorrow most likely patient will be readmitted in the same condition. This gag writer would recommend to discharge patient on TuesdayMay [id number], and patient will start day treatment program which was court mandated. Estimated Date of D/C: 05/29/18
[2018-05-25 14:46] LABS: PH,URINE 7.5 (4.7-8.0); URINE APPEARANCE CLEAR (CLEAR); URINE BILIRUBIN NEGATIVE (NEGATIVE); URINE BLOOD NEGATIVE (NEGATIVE); URINE COLOR YELLOW (YELLOW); URINE GLUCOSE (UA) NEGATIVE (NEGATIVE); URINE LEUKOCYTE ESTERASE MODERATE Leu/uL (NEGATIVE); URINE PROTEIN NEGATIVE mg/dL (<30 mg/dL); URINE UROBILINOGEN 0.2 E.U./dL (<1 E.U./dL)
[2018-05-25 14:56] LABS: URINE BACTERIA FEW (NEG); URINE RBC NEGATIVE /hpf (0-2)
[2018-05-26] MEDS: Pantoprazole 40 mg EC Tab PO SCH ×2 (07:05→17:15)
[2018-05-26] MEDS: OLANZapine 5 mg Disintegrating Tab PO SCH ×2 (09:12→21:31)
--- NOTE | 2018-05-26 17:04 | PCM.PYCHPN ---
Psychiatric Progress Note - Psychiatric Progress Note Patient seen today, length of contact: 30 minutes Patient Chief Complaint: "I am okay, thank you" Problems Identified/Issues Discussed: Suicide/ homicide prevention, past psychiatric h/o, current psychiatric symptoms, medical problems, risk/benefits and alternatives of medications, medications compliance, coping strategies, substance abuse h/o, relapse prevention, importance of follow up with psychiatrist and therapist, discharge plan. Medical Problems: 05/15/18 06:45 05/15/18 06:45 Lab Results 05/15/18 06:45: WBC 7.5, RBC 4.00, Hgb 12.2, Hct 36.9, MCV 92.3, MCH 30.5, MCHC 33.1, RDW 14.2, Plt Count 302, MPV 9.6, Gran % 57.4, Lymph % (Auto) 36.6 H, [place]ster % (Auto) 5.2, Eos % (Auto) 0.7 L, Baso % (Auto) 0.1, Gran # 4.29, Lymph # (Auto) 2.7, [place] # (Auto) 0.4, Eos # (Auto) 0.1, Baso # (Auto) 0.01 05/15/18 06:45: Hemoglobin A1c 5.2 05/15/18 06:45: Sodium 140, Potassium 4.3, Chloride 106, Carbon Dioxide 24, Anion Gap 14, BUN 10, Creatinine 0.6 L, Est GFR ( Amer) > 60, Est GFR (Non-Af Amer) > 60, Random Glucose 104, Calcium 9.3, Phosphorus 3.5, Magnesium 2.3 H, Total Bilirubin 0.8, AST 43 H, ALT 75 H, Alkaline Phosphatase 91, Total Creatine Kinase 200, Total Protein 7.8, Albumin 4.2, Globulin 3.6, Albumin/Globulin Ratio 1.2, Triglycerides 59, Cholesterol 145, LDL Cholesterol Direct 71, HDL Cholesterol 55 Vital Signs Resp 05/15/18 04:49 18 Temp Pulse Resp BP Pulse Ox 98.4 F 74 20 111/67 05/25/18 07:21 05/25/18 07:21 05/25/18 07:21 05/25/18 07:21 See HPI Diagnostic Results: 05/15/18 06:45 05/15/18 06:45 Lab Results 05/15/18 06:45: WBC 7.5, RBC 4.00, Hgb 12.2, Hct 36.9, MCV 92.3, MCH 30.5, MCHC 33.1, RDW 14.2, Plt Count 302, MPV 9.6, Gran % 57.4, Lymph % (Auto) 36.6 H, [place] % (Auto) 5.2, Eos % (Auto) 0.7 L, Baso % (Auto) 0.1, Gran # 4.29, Lymph # (Auto) 2.7, Brewster # (Auto) 0.4, Eos # (Auto) 0.1, Baso # (Auto) 0.01 05/15/18 06:45: Hemoglobin A1c 5.2 05/15/18 06:45: Sodium 140, Potassium 4.3, Chloride 106, Carbon Dioxide 24, Anion Gap 14, BUN 10, Creatinine 0.6 L, Est GFR ( Amer) > 60, Est GFR (Non-Af Amer) > 60, Random Glucose 104, Calcium 9.3, Phosphorus 3.5, Magnesium 2.3 H, Total Bilirubin 0.8, AST 43 H, ALT 75 H, Alkaline Phosphatase 91, Total Creatine Kinase 200, Total Protein 7.8, Albumin 4.2, Globulin 3.6, Albumin/Globulin Ratio 1.2, Triglycerides 59, Cholesterol 145, LDL Cholesterol Direct 71, HDL Cholesterol 55 Vital Signs Resp 05/15/18 04:49 18 Temp Pulse Resp BP Pulse Ox 98.5 F 95 H 20 123/81 05/18/18 07:14 05/18/18 07:14 05/18/18 07:14 05/18/18 07:14 Temp Pulse Resp BP Pulse Ox 98.4 F 74 20 111/67 05/25/18 07:21 05/25/18 07:21 05/25/18 07:21 05/25/18 07:21 Abnormal Lab Results 05/24/18 05/24/18 16:36 16:36 WBC 5.3 D RBC 3.97 Hgb 12.3 Hct 35.9 L MCV 90.4 MCH 31.0 MCHC 34.3 RDW 12.9 Plt Count 286 MPV 9.8 Gran % 56.6 Lymph % (Auto) 36.9 H Brewster % (Auto) 5.3 Eos % (Auto) 1.0 L Baso % (Auto) 0.2 Gran # 2.98 Lymph # (Auto) 1.9 Brewster # (Auto) 0.3 Eos # (Auto) 0.1 Baso # (Auto) 0.01 Sodium 136 Potassium 4.0 Chloride 100 Carbon Dioxide 26 Anion Gap 14 BUN 13 Creatinine 0.7 Est GFR ( Amer) > 60 Est GFR (Non-Af Amer) > 60 Random Glucose 126 H Calcium 8.9 Total Bilirubin 0.3 AST 18 ALT 43 Alkaline Phosphatase 72 Total Protein 7.7 Albumin 4.2 Globulin 3.5 Albumin/Globulin Ratio 1.2 DSM 5 Symptoms Update: Shortly, patient is 42 year old single [place] female with history of depression and psychosis, likely diagnosis of Schizoaffective disorder, [place] [facility] [place] 03/2016, 04/26/18, no reported history of suicidal attempts, h/o noncompliance with aftercare recommendations and medications who was transferred to the psychiatric unit after being treated for rhabdomyolysis on on the medical floor (of note this is second medical admission within last month for rabdomyolisis, pt was found wondering on streets as per ED report). ER notes indicate that patient was brought by [employer] after pt was wandering on the streets in a state of confusion. pt was medically stable, pt was willing to get treatment and was transferred to the psych unit, this write saw pt on the medical site, pt appeared to be catatonic, flat affect, mumbling something incoherently. Pt was educated about possible ECT treatment, pt was not able fully understand the procedure, risk/benefits and alternatives, please see medical site note for more detailed information. pt was interviewed today in her room, patient presented to be withdrawn, not willing to talk, patient reported that she slept well, patient reported that she lives Zyprexa, denied hearing voices, but still internally preoccupied, mumbling something to herself. 05/25/2018 patient was interviewed with help [employer] Patient presented with good personal hygiene, at the beginning of the conversation affect was reactive, patient was more spontaneous, but when interview progressed patient presented more withdrawn, mumbling something to herself, patient is not sure if she has home or not. As per staff report patient presented to be calm, self isolating, no aggression, no agitation, at the same time patient was observed mumbling something to herself. This feature writer changed Seroquel for Zyprexa, so far patient tolerated that medication well, no side effects observed or reported. aims 0, no EPS.. pt was educated about [facility] again, pt agreed to that plan, it will be recommended for outpatient program. as per staff patient is disorganized, in the middle of the conversation started to whispers something to herself and had no eye contact. his feature writer educated patient about ECT procedure again, patient said that she does not want to have that procedure. Patient was confused 05/24/2018 and this feature writer ordered urine analysis which came back 05/25/2018 positive for leukocyte esterase as well as [place], hospitalist service was notified to follow on patient. Diagnostic Results: Schizoaffective Disorder Medication Change: No ( ) Medical Record Reviewed: Yes Consults ordered or reviewed: medical consult appreciated Follow-up was "05/26/2018 for positive leukocyte esterase in urine Mental Status Examination - Cognitive Function Orientation: Person, Place, Situation Attention: Poor (some improvement) Concentration: Poor (some improvement) Association: Loose (some improvement) Fund of Knowledge: Poor (baseline) - Mood Mood: Depressed ("I am okay"), Anxious - Affect Affect: Constricted (but more reactive. ) - Speech Speech: Soft - Formal Thought Process Formal Thought Process: Hallucinations (denied, but pt is mumbling something to herself. ), Delusions, Paranoia - Suicidal Ideation Suicidal Ideation: No - Homicidal Ideation Homicidal Ideation: No Goal/Treatment Plan - Goal/Treatment Plan Need for Continued Stay: Remain at risks for inpatient hospitalization, Severe depression anxiety, Discharge may exacerbated symptoms, Failed transitioning, Severe functional impairment Progress Toward Problem(s) and Goals/Treatment Plan: group, milieu and supportive tx Prozac to 40 mg po daily for depression and anxiety Appreciate f/u by Reyna regarding patient's intensive day treatment program Invega Sustenna injection (156mg) pt got injection 05/01/18, patient still has prescription for Invega Sustenna 156 mg which was given to the patient last admission Seroquel discontinued 05/24/2018 zyprexa 5mg amhs, most likely patient would require to increase the dose CMP, CBC, UA stat to r/o delirum, all labs came back -10/2017 Ativan 1mg po bid and 1HS for for anxiety, catatonia possible ECT, pt declined that offer SW consultation for discharge plan and social issues Family involvement Follow up on labs Will monitor closely Pt was educated about risk/benefits and alternatives of medications, coping strategies (safety plan, suicide prevention), relapse prevention, importance of follow up with psychiatrist and therapist, stay away from drugs/alcohol/smoking patient was required to stay in the hospital over the weekend, off note ,patient has history of wandering in the community, patient still convinced that she has no home, which is not true, if patient will be discharged tomorrow most likely patient will be readmitted in the same condition. This feature writer would recommend to discharge patient on TuesdayMay 292017, and patient will start day treatment program which was court mandated. Estimated Date of D/C: 05/29/18
[2018-05-27] MEDS: Pantoprazole 40 mg EC Tab PO SCH ×2 (06:44→16:46)
[2018-05-27] MEDS: OLANZapine 5 mg Disintegrating Tab PO SCH ×2 (09:16→22:19)
--- NOTE | 2018-05-27 10:33 | PCM.PYCHPN ---
Psychiatric Progress Note - Psychiatric Progress Note Patient seen today, length of contact: 30 minutes Problems Identified/Issues Discussed: I reviewed recent notes and patient was interviewed in her room with aid of player development executive. Patient remains very superficial and guarded during my visit. She is internally preoccupied and observed mumbling to herself in between my questioning. She denies this behavior when confronted about it multiple times during our interview. Affect is apathetic, constricted, withdrawn and dismissive. Fluency and spontaneity of speech are impaired though improved a little since admission. She seems depressed but denies feeling depressed. Patient denies any new concerns and has been refusing ECT treatment on the unit even with much education about its benefits. She is compliant with her medications and denies s/e, discomfort or pain. Jessica ent is visible pacing on the unit however she keeps to herself without any motivation to interact with other patients. There were no behavioral issues overnight. Diagnostic Results: Schizoaffective disorder Medication Change: No ( ) Medical Record Reviewed: Yes Mental Status Examination - Cognitive Function Orientation: Person, Place, Situation Attention: Poor (some improvement) Concentration: Poor (some improvement) Association: Loose (some improvement) Fund of Knowledge: Poor (baseline) - Mood Mood: Depressed ("I am okay"), Anxious - Affect Affect: Constricted (but more reactive. ) - Speech Speech: Soft - Formal Thought Process Formal Thought Process: Hallucinations (denied, but pt is mumbling something to herself. ), Delusions, Paranoia (quite guarded) - Suicidal Ideation Suicidal Ideation: No - Homicidal Ideation Homicidal Ideation: No Goal/Treatment Plan - Goal/Treatment Plan Need for Continued Stay: Remain at risks for inpatient hospitalization, Severe depression anxiety, Discharge may exacerbated symptoms, Failed transitioning, Se tarsha functional impairment Progress Toward Problem(s) and Goals/Treatment Plan: * c/w current tx and plan * Vitals reviewed and noted below: Selected Entries 05/26/18 05/27/18 07:32 07:22 Temperature 98.0 F 97.9 F Pulse Rate 81 79 Respiratory 20 20 Rate Blood Pressure 111/66 111/77 * No new lab results this weekend thus far * Per Dr. Lockhart: patient was required to stay in the hospital over the weekend, off note, patient has history of wandering in the community, patient still convinced that she has no home, which is not true, if patient will be discharged tomorrow most likely patient will be readmitted in the same condition. This database report writer would recommend to discharge patient on TuesdayMay 292017, and patient will start day treatment program which was court mandated. Estimated Date of D/C: 05/29/18
[2018-05-28] MEDS: Pantoprazole 40 mg EC Tab PO SCH ×2 (07:11→15:48)
--- NOTE | 2018-05-28 09:16 | PCM.PYCHPN ---
Psychiatric Progress Note - Psychiatric Progress Note Patient seen today, length of contact: 30 minutes Problems Identified/Issues Discussed: I reviewed recent notes and patient was interviewed in her room with aid of speak and translate luz. . Patient remains very superficial and guarded during my visit. She is internally preoccupied and observed mumbling to herself in between my questioning. She denies this behavior when confronted about it multiple times during interviews. Affect is apathetic, constricted, withdrawn and dismissive. Fluency and spontaneity of speech are impaired though improved a little since admission. She seems depressed but denies feeling depressed. I discuss discharge with her and she doesn't feel ready for discharge. Patient denies any new concerns and has been refusing ECT treatment on the unit even with much education about its benefits. She is compliant with her medications and denies s/e, discomfort or pain. Patient is visible pacing on the unit however she keeps to herself without any motivation to interact with other patients. There were no behavioral issues over the weekend. Diagnostic Results: Schizoaffective disorder Medication Change: No ( ) Medical Record Reviewed: Yes Mental Status Examination - Cognitive Function Orientation: Person, Place, Situation Attention: Poor (some improvement) Concentration: Poor (some improvement) Association: Loose (some improvement) Fund of Knowledge: Poor (baseline) - Mood Mood: Depressed ("I am okay"), Anxious - Affect Affect: Constricted (but more reactive. ) - Speech Speech: Soft - Formal Thought Process Formal Thought Process: Hallucinations (denied, but pt is mumbling something to herself. ), Delusions, Paranoia (quite guarded) - Suicidal Ideation Suicidal Ideation: No - Homicidal Ideation Homicidal Ideation: No Goal/Treatment Plan - Goal/Treatment Plan Need for Continued Stay: Remain at risks for inpatient hospitalization, Severe d epression anxiety, Discharge may exacerbated symptoms, Failed transitioning, Severe functional impairment Progress Toward Problem(s) and Goals/Treatment Plan: * c/w current tx and plan * Vitals reviewed and noted below: Selected Entries 05/26/18 05/27/18 07:32 07:22 Temperature 98.0 F 97.9 F Pulse Rate 81 79 Respiratory 20 20 Rate Blood Pressure 111/66 111/77 * No new lab results this weekend thus far * Per Dr. Lockhart: patient was required to stay in the hospital over the weekend, off note, patient has history of wandering in the community, patient still convinced that she has no home, which is not true, if patient will be discharged tomorrow most likely patient will be readmitted in the same condition. This comic book writer would recommend to discharge patient on TuesdayMay 292017, and patient will start day treatment program which was court mandated. Estimated Date of D/C: 05/29/18
[2018-05-28] MEDS: OLANZapine 5 mg Disintegrating Tab PO SCH ×2 (09:32→22:41)
--- NOTE | 2018-05-28 12:28 | CP.PCM.PN ---
<Adonis Mcdermott - Last Filed: 05/28/18 12:35> Subjective - Date & Time of Evaluation Date of Evaluation: 05/28/18 Time of Evaluation: 12:25 - Subjective Subjective: Internal Medicine Progress Note (Hospitalist's Service) Patient seen and assessed at bedside in U. Patient was noted to have signs of UTI on her UA and a reconsultation was asked of medicine team. Currently, patient is resting comfortably without complaints and denies any fevers, chills, dizziness, chest pain, SOB, abdominal pain, N/V/D/C, urinary frequency, changes in urine color, dysuria, or any numbness/tingling/weakness of any extremity. Objective - Vital Signs/Intake and Output Vital Signs (last 24 hours): Temp Pulse Resp BP Pulse Ox 97.8 F 72 20 110/66 05/28/18 07:00 05/28/18 07:00 05/28/18 07:00 05/28/18 07:00 - Medications Medications: Current Medications Acetaminophen (Tylenol 325mg Tab) 325 mg PO Q6H PRN PRN Reason: Pain, Mild (1-3) Al Hydrox/Mg Hydrox/Simethicone (Maalox Plus 30 Ml) 30 ml PO DAILY PRN PRN Reason: Dyspepsia Fluoxetine HCl (Prozac) 40 mg PO DAILY [facility] Last Admin: 05/28/18 09:31 Dose: 40 mg Lorazepam (Ativan) 2 mg IM Q6 PRN; Protocol PRN Reason: Anxiety Lorazepam (Ativan) 2 mg PO Q6 PRN; Protocol PRN Reason: Anxiety Lorazepam (Ativan) 1 mg PO HS [facility]; Protocol Last Admin: 05/27/18 22:20 Dose: 1 mg Lorazepam (Ativan) 1 mg PO BID [facility]; Protocol Last Admin: 05/28/18 09:31 Dose: 1 mg Magnesium Hydroxide (Milk Of Magnesia) 30 ml PO DAILY PRN PRN Reason: Constipation Olanzapine (Zyprexa Zydis) 5 mg PO AMHS [facility]; Protocol Last Admin: 05/28/18 09:32 Dose: 5 mg Pantoprazole Sodium (Protonix Ec Tab) 40 mg PO 0600,1600 [facility] Last Admin: 05/28/18 07:11 Dose: 40 mg Ziprasidone (Geodon Cap) 20 mg PO Q6 PRN; Protocol PRN Reason: Agitation Ziprasidone (Geodon Inj) 20 mg IM Q12 PRN; Protocol PRN Reason: Agitation - Labs Labs: 05/24/18 16:36 05/24/18 16:36 - Constitutional Appears: Non-toxic, No Acute Distress - Head Exam Head Exam: ATRAUMATIC, NORMOCEPHALIC - Eye Exam Eye Exam: EOMI, Normal appearance - ENT Exam ENT Exam: Mucous Membranes Moist - Neck Exam Neck Exam: Full ROM, Normal Inspection - Respiratory Exam Respiratory Exam: Clear to Ausculation Bilateral, NORMAL BREATHING PATTERN. absent: Accessory Muscle Use, Chest Wall Tenderness, Decreased Breath Sounds, Prolonged Expiratory Phase, Rales, Rhonchi, Wheezes, Respiratory Distress, Stridor - Cardiovascular Exam Cardiovascular Exam: REGULAR RHYTHM, RRR, +S1, +S2. absent: Bradycardia, Tachycardia, Clicks, Diastolic murmur, Gallop, Irregular Rhythm, JVD, Rubs, +S4, Murmur - GI/Abdominal Exam GI & Abdominal Exam: Soft, Normal Bowel Sounds. absent: Bruit, Distended, Firm, Guarding, Rigid, Tenderness, Diminished Bowel Sounds, Hernia, Hyperactive Bowel Sounds, Hypoactive Bowel Sounds, Organomegaly, Pulsatile Mass, Rebound, Mass - Exam Exam: absent: Bladder Distension - Extremities Exam Extremities Exam: absent: Calf Tenderness - Neurological Exam Neurological Exam: Alert, Awake, Oriented x3 - Psychiatric Exam Psychiatric exam: Normal Affect, Normal Mood - Skin Skin Exam: Dry, Intact, Normal Color, Warm Assessment and Plan - Assessment and Plan (Free Text) Assessment: 42 year old female with a past medical history significant for low back pain, anemia, psychosis, schizophrenia, and depression who is admitted to the B[facility] at [facility]. Internal Medicine was reconsulted for possible UTI. Plan: 1. Asymptomatic Bacteriuria -UA: Moderate LE, negative nitrates, 5-10 WBC, and few bacteria -Afebrile, and without tachycardia, tachypnea or leukocytosis -Patient currently without symptoms therefore no treatment with antibiotics is indicated at this time Disposition: As stated above, no antibiotic treatment is indicated at this time as patient is asymptomatic. Internal Medicine will be signing off of this patient at this time. Should she develop symptoms or have any issue needing to be addressed by Internal Medicine team, please feel free to reconsult. Patient seen and case discussed with attending, Dr. Donna Feldman. Adonis Mcdermott, PGY2 <Donna Feldman R - Last Filed: 05/29/18 14:13> Objective - Vital Signs/Intake and Output Vital Signs (last 24 hours): Temp Pulse Resp BP Pulse Ox 97.7 F 78 19 116/83 05/29/18 07:04 05/29/18 07:04 05/29/18 07:04 05/29/18 07:04 - Medications Medications: Current Medications Acetaminophen (Tylenol 325mg Tab) 325 mg PO Q6H PRN PRN Reason: Pain, Mild (1-3) Al Hydrox/Mg Hydrox/Simethicone (Maalox Plus 30 Ml) 30 ml PO DAILY PRN PRN Reason: Dyspepsia Fluoxetine HCl (Prozac) 40 mg PO DAILY [facility] Last Admin: 05/29/18 08:43 Dose: 40 mg Lorazepam (Ativan) 2 mg IM Q6 PRN; Protocol PRN Reason: Anxiety Lorazepam (Ativan) 2 mg PO Q6 PRN; Protocol PRN Reason: Anxiety Lorazepam (Ativan) 1 mg PO HS [facility]; Protocol Last Admin: 05/28/18 22:41 Dose: 1 mg Lorazepam (Ativan) 1 mg PO BID [facility]; Protocol Last Admin: 05/29/18 08:43 Dose: 1 mg Magnesium Hydroxide (Milk Of Magnesia) 30 ml PO DAILY PRN PRN Reason: Constipation Olanzapine (Zyprexa Zydis) 5 mg PO AMHS [facility]; Protocol Last Admin: 05/29/18 09:01 Dose: 5 mg Pantoprazole Sodium (Protonix Ec Tab) 40 mg PO 0600,1600 [facility] Last Admin: 05/29/18 06:36 Dose: 40 mg Ziprasidone (Geodon Cap) 20 mg PO Q6 PRN; Protocol PRN Reason: Agitation Ziprasidone (Geodon Inj) 20 mg IM Q12 PRN; Protocol PRN Reason: Agitation - Labs Labs: 05/24/18 16:36 05/24/18 16:36 Attending/Attestation - Attestation I have personally seen and examined this patient.: Yes I have fully participated in the care of the patient.: Yes I have reviewed all pertinent clinical information, including history, physical exam and plan: Yes Notes (Text): Patient seen and examined by me with resident at 11:15AM on 05/28/18. Case including HPI, physical exam, and assessment and plan discussed with resident. Agree with above with following additions/corrections. Patient is a 42 year old Vietnamese speaking female with past medical history significant for rhabdomyolysis, transaminitis, low back pain, anemia, psychosis, schizophrenia, and depression that was initially admitted to the hospital for rhabdomyolysis and was then transferred to psychiatric floor for schizophrenia. We are asked to see the patient today for abnormal urinalysis. frozen meat cutter used for translation. Patient states she is feeling ok. She denies any dysuria. No burning with urination. No increased urinary frequency. No lower abdominal pain. No chest pain or shortness of breath. No headaches or dizziness. No fevers or chills. No nausea, vomiting, or abdominal pain. Physical exam: General: Awake and alert lying in bed in no acute distress HEENT: Normocephalic, atraumatic. Extraocular muscles intact, pupils equal and reactive, no scleral icterus. Oropharynx is pink and moist. Neck is supple. Cardiovascular: Regular rhythm. Normal S1 and S2. No murmurs, rubs, or gallops appreciated Pulmonary: Normal respiratory effort. No rhonchi, rales, or wheezing appreciated. Gastrointestinal: Soft, nondistended. Nontender. Positive bowel sounds all 4 quadrants. No guarding. Musculoskeletal: Moves all extremities. No calf tenderness. No edema appreciated. Central nervous system: AAOx3, CN 2-12 grossly intact Dermatologic: Skin warm and dry. Assessment and plan: Patient is a 42 year old Vietnamese speaking female with past medical history significant for rhabdomyolysis, transaminitis, low back pain, anemia, psychosis, schizophrenia, and depression that was initially admitted to the hospital for rhabdomyolysis and was then transferred to psychiatric floor for schizophrenia. We are asked to see the patient today for abnormal urinalysis. 1. Abnormal urinalysis. Patient asymptomatic. Patient afebrile. No treatment i ndicated. 2. Schizophrenia. Care as per primary team Case was discussed in detail with the patient regarding current diagnosis and treatment plan. All questions answered. Patient is asymptomatic and does not require treatment. Please reconsult if needed. Thank you for allowing us to participate in the care of your patient.
[2018-05-29] MEDS: Pantoprazole 40 mg EC Tab PO SCH ×2 (06:36→17:01)
[2018-05-29] MEDS: OLANZapine 5 mg Disintegrating Tab PO SCH ×2 (09:01→21:25)
--- NOTE | 2018-05-29 15:39 | PCM.PYCHPN ---
Psychiatric Progress Note - Psychiatric Progress Note Patient seen today, length of contact: 30 minutes Problems Identified/Issues Discussed: I reviewed recent notes, patient has demonstrated minimal improvement over the weekend. Patient also indicates that she doesn't feel ready for discharge. Patient demonstrates poor motivation for grooming and communication. She remains superficial, passive and guarded during my visits. Staff and this provider both observe that she is internally preoccupied and mumbling to herself though denies this behavior when confronted about it. Affect is apathetic, constricted, withdrawn and dismissive. Fluency and spontaneity of speech are impaired (though a little improved a little since admission). She seems depressed but denies feeling depressed. Patient denies any new concerns and has been refusing ECT treatment on the unit even with much education about its benefits. She is compliant with her medications and denies s/e, discomfort or pain. Patient is visible pacing on the unit however she keeps to herself without any motivation to interact with other patients. There were no behavioral issues over the weekend and thus far today. Diagnostic Results: Schizoaffective disorder Medication Change: No ( ) Medical Record Reviewed: Yes Mental Status Examination - Cognitive Function Orientation: Person, Place, Situation Attention: Poor (some improvement) Concentration: Poor (some improvement) Association: Loose (some improvement) Fund of Knowledge: Poor (baseline) - Mood Mood: Depressed ("I am okay"), Anxious - Affect Affect: Constricted (but more reactive. ) - Speech Speech: Soft - Formal Thought Process Formal Thought Process: Hallucinations (denied, but pt is mumbling something to herself. ), Delusions, Paranoia (quite guarded) - Suicidal Ideation Suicidal Ideation: No - Homicidal Ideation Homicidal Ideation: No Goal/Treatment Plan - Goal/Treatment Plan Need for Continued Stay: Remain at risks for inpatient hospitalization, Severe depression anxiety, Discharge may exacerbated symptoms, Failed transitioning, Severe functional impairment Progress Toward Problem(s) and Goals/Treatment Plan: * c/w current tx and plan * Appreciate f/u by Dr. Mcdermott on 05/28/18~signed off * Vitals reviewed and noted below: Selected Entries 05/26/18 05/27/18 07:32 07:22 Temperature 98.0 F 97.9 F Pulse Rate 81 79 Respiratory 20 20 Rate Blood Pressure 111/66 111/77 * No new lab results this weekend and today thus far * Patient's discharge was held today as patient expressed that she didn't feel ready. Estimated Date of D/C: 05/29/18
[2018-05-30 07:04] VITALS: RESP 20
[2018-05-30] MEDS: OLANZapine 5 mg Disintegrating Tab PO SCH ×2 (09:27→21:08)
[2018-05-30] MEDS: Pantoprazole 40 mg EC Tab PO SCH (09:39)
--- NOTE | 2018-05-30 16:28 | PCM.PYCHPN ---
Psychiatric Progress Note - Psychiatric Progress Note Patient seen today, length of contact: 30 minutes Patient Chief Complaint: "I am okay, thank you" Problems Identified/Issues Discussed: Suicide/ homicide prevention, past psychiatric h/o, current psychiatric symptoms, medical problems, risk/benefits and alternatives of medications, medications compliance, coping strategies, substance abuse h/o, relapse prevention, importance of follow up with psychiatrist and therapist, discharge plan. Medical Problems: 05/15/18 06:45 05/15/18 06:45 Lab Results 05/15/18 06:45: WBC 7.5, RBC 4.00, Hgb 12.2, Hct 36.9, MCV 92.3, MCH 30.5, MCHC 33.1, RDW 14.2, Plt Count 302, MPV 9.6, Gran % 57.4, Lymph % (Auto) 36.6 H, Linn % (Auto) 5.2, Eos % (Auto) 0.7 L, Baso % (Auto) 0.1, Gran # 4.29, Lymph # (Auto) 2.7, Linn # (Auto) 0.4, Eos # (Auto) 0.1, Baso # (Auto) 0.01 05/15/18 06:45: Hemoglobin A1c 5.2 05/15/18 06:45: Sodium 140, Potassium 4.3, Chloride 106, Carbon Dioxide 24, Anion Gap 14, BUN 10, Creatinine 0.6 L, Est GFR ( Amer) > 60, Est GFR (Non-Af Amer) > 60, Random Glucose 104, Calcium 9.3, Phosphorus 3.5, Magnesium 2.3 H, Total Bilirubin 0.8, AST 43 H, ALT 75 H, Alkaline Phosphatase 91, Total Creatine Kinase 200, Total Protein 7.8, Albumin 4.2, Globulin 3.6, Albumin/Globulin Ratio 1.2, Triglycerides 59, Cholesterol 145, LDL Cholesterol Direct 71, HDL Cholesterol 55 Vital Signs Resp 05/15/18 04:49 18 Temp Pulse Resp BP Pulse Ox 98.4 F 74 20 111/67 05/25/18 07:21 05/25/18 07:21 05/25/18 07:21 05/25/18 07:21 See HPI Diagnostic Results: 05/15/18 06:45 05/15/18 06:45 Lab Results 05/15/18 06:45: WBC 7.5, RBC 4.00, Hgb 12.2, Hct 36.9, MCV 92.3, MCH 30.5, MCHC 33.1, RDW 14.2, Plt Count 302, MPV 9.6, Gran % 57.4, Lymph % (Auto) 36.6 H, Linn % (Auto) 5.2, Eos % (Auto) 0.7 L, Baso % (Auto) 0.1, Gran # 4.29, Lymph # (Auto) 2.7, Linn # (Auto) 0.4, Eos # (Auto) 0.1, Baso # (Auto) 0.01 05/15/18 06:45: Hemoglobin A1c 5.2 05/15/18 06:45: Sodium 140, Potassium 4.3, Chloride 106, Carbon Dioxide 24, Anion Gap 14, BUN 10, Creatinine 0.6 L, Est GFR ( Amer) > 60, Est GFR (Non-Af Amer) > 60, Random Glucose 104, Calcium 9.3, Phosphorus 3.5, Magnesium 2.3 H, Total Bilirubin 0.8, AST 43 H, ALT 75 H, Alkaline Phosphatase 91, Total Creatine Kinase 200, Total Protein 7.8, Albumin 4.2, Globulin 3.6, Albumin/Globulin Ratio 1.2, Triglycerides 59, Cholesterol 145, LDL Cholesterol Direct 71, HDL Cholesterol 55 Vital Signs Resp 05/15/18 04:49 18 Temp Pulse Resp BP Pulse Ox 98.5 F 95 H 20 123/81 05/18/18 07:14 05/18/18 07:14 05/18/18 07:14 05/18/18 07:14 Temp Pulse Resp BP Pulse Ox 98.4 F 74 20 111/67 05/25/18 07:21 05/25/18 07:21 05/25/18 07:21 05/25/18 07:21 Abnormal Lab Results 05/24/18 05/24/18 16:36 16:36 WBC 5.3 D RBC 3.97 Hgb 12.3 Hct 35.9 L MCV 90.4 MCH 31.0 MCHC 34.3 RDW 12.9 Plt Count 286 MPV 9.8 Gran % 56.6 Lymph % (Auto) 36.9 H Linn % (Auto) 5.3 Eos % (Auto) 1.0 L Baso % (Auto) 0.2 Gran # 2.98 Lymph # (Auto) 1.9 Linn # (Auto) 0.3 Eos # (Auto) 0.1 Baso # (Auto) 0.01 Sodium 136 Potassium 4.0 Chloride 100 Carbon Dioxide 26 Anion Gap 14 BUN 13 Creatinine 0.7 Est GFR ( Amer) > 60 Est GFR (Non-Af Amer) > 60 Random Glucose 126 H Calcium 8.9 Total Bilirubin 0.3 AST 18 ALT 43 Alkaline Phosphatase 72 Total Protein 7.7 Albumin 4.2 Globulin 3.5 Albumin/Globulin Ratio 1.2 Temp Pulse Resp BP Pulse Ox 98.2 F 80 20 100/36 L 05/30/18 07:03 05/30/18 07:03 05/30/18 07:03 05/30/18 07:03 DSM 5 Symptoms Update: Shortly, patient is 42 year old single [place]ian female with history of postpa rtum depression and psychosis, likely diagnosis of Schizoaffective disorder, four prior admissions at [facility] in 02/2017, 01/2017 and 03/2016, 04/26/18, no reported history of suicidal attempts, h/o noncompliance with aftercare recommendations and medications who was transferred to the psychiatric unit after being treated for rhabdomyolysis on on the medical floor (of note this is second medical admission within last month for rabdomyolisis, pt was found wondering on streets as per ED report). ER notes indicate that patient was brought by [employer] after pt was wandering on the streets in a state of confusion. pt was medically stable, pt was willing to get treatment and was transferred to the psych unit, this write saw pt on the medical site, pt appeared to be catatonic, flat affect, mumbling something incoherently. Pt was educated about possible ECT treatment, pt was not able fully understand the procedure, risk/benefits and alternatives, please see medical site note for more detailed information. Patient was seen today next to the nursing station, hygiene is good, patient affect was reactive and mood congruent. Patient asked about her discharge, but as per bottle caser Sophy patient supposed to have injection of Invega Sustenna because patient will be not able to see psychiatrist for a while. Due date is for tomorrow May 31, 2018. This ad copy writer called in to [facility] pharmacy for Invega Sustenna 156 mg, medication was delivered, injection is scheduled for tomorrow. Patient will be discharged right after injection and will be picked up by Sophy, the bottle caser. So far patient is doing well, no agitation, no aggression, patient is still withdrawing, internally preoccupied. So far patient tolerated medications well, no side effects observed or reported, aims 0, no EPS. Diagnostic Results: Schizoaffective Disorder Medication Change: Yes (Invega Sustenna 156 mg for tomorrow 05/31/2018) Medical Record Reviewed: Yes Consults ordered or reviewed: medical consult appreciated Follow-up was "05/26/2018 for positive leukocyte esterase in urine Mental Status Examination - Cognitive Function Orientation: Person, Place, Situation Attention: Poor (some improvement) Concentration: Poor (some improvement) Association: Loose (some improvement) Fund of Knowledge: Poor (baseline) - Mood Mood: Depressed ("I am okay"), Anxious - Affect Affect: Constricted (but more reactive. ) - Speech Speech: Soft - Formal Thought Process Formal Thought Process: Hallucinations (denied, but pt is mumbling something to herself. ), Delusions, Paranoia (quite guarded) - Suicidal Ideation Suicidal Ideation: No - Homicidal Ideation Homicidal Ideation: No Goal/Treatment Plan - Goal/Treatment Plan Need for Continued Stay: Remain at risks for inpatient hospitalization, Severe depression anxiety, Discharge may exacerbated symptoms, Failed transitioning, Severe functional impairment Progress Toward Problem(s) and Goals/Treatment Plan: group, milieu and supportive tx Prozac to 40 mg po daily for depression and anxiety Appreciate f/u by Reyna regarding patient's intensive day treatment program Invega Sustenna injection (156mg) pt got injection 05/01/18, injection scheduled for 05/31/2018 Seroquel discontinued 05/24/2018 zyprexa 5mg amhs, most likely patient would require to increase the dose CMP, CBC, UA stat to r/o delirum, all labs came back -10/2017 Ativan 1mg po bid and 1HS for for anxiety, catatonia possible ECT, pt declined that offer SW consultation for discharge plan and social issues Family involvement Follow up on labs Will monitor closely Pt was educated about risk/benefits and alternatives of medications, coping strategies (safety plan, suicide prevention), relapse prevention, importance of follow up with psychiatrist and therapist, stay away from drugs/alcohol/smoking Estimated Date of D/C: 05/31/18
[2018-05-31 07:10] VITALS: BP 104/59; PULSE 76; TEMP 98.5
[2018-05-31] MEDS: OLANZapine 5 mg Disintegrating Tab PO SCH (09:27)
[2018-05-31] MEDS ORDERED: INVEGA 156 MG IM SCH (10:00)
--- NOTE | 2018-05-31 17:08 | PCM.PYCHDC ---
Mental Status Examination - Mental Status Examination Orientation: Person, Place, Situation, Time Memory: Intact Mood: Neutral Affect: Constricted Speech: Appropriate (Poverty of speech) Attention: Poor (Mild better) Concentration: Poor (Much better) Association: Loose (Baseline) Fund of Knowledge: Poor (Baseline) Formal Thought Process: Other (Some disorganized thoughts which seems to be substitute nurse janae) Description of patient's judgement and insight: Pt has improved insight into mental and medical illness, pt was compliant with medications and unit rules and regulations, pt was going to groups, was calm, cooperative, socially appropriate, no behavioral incidents, no agitation, no aggression. Psychotic Thoughts and Behaviors: Pt denied v/a/t hallucinations, denied paranoid ideations, pt does not appear to be psychotic, and thought process is goal directed. Suicidal Ideation: No Current Homicidal Ideation?: No Plan: pt adamantly denied thoughts of harming self or others denied intent or plan. Discharge Summary - Discharge Note Reason for Hospitalization: Please see admission note, patient was wandering on the streets, disorganized thoughts and disorganized behavior Psychiatric History (includes Medical, Family, Personal Hx): Long history of schizophrenia Laboratory Data: 05/24/18 16:36 05/24/18 16:36 Lab Results 05/25/18 14:20: Urine Color Yellow, Urine Appearance Clear, Urine pH 7.5, Ur Specific [place] 1.010, Urine Protein Negative, Urine Glucose (UA) Negative, Urine Ketones Negative, Urine Blood Negative, Urine Nitrate Negative, Urine Bilirubin Negative, Urine Urobilinogen 0.2, Ur Leukocyte Esterase Moderate H, Urine RBC Negative, Urine WBC 5 - 10, Ur Epithelial Cells 6 - 8, Urine Bacteria Few, Urine Other [place] 05/24/18 16:36: Sodium 136, Potassium 4.0, Chloride 100, Carbon Dioxide 26, Anion Gap 14, BUN 13, Creatinine 0.7, Est GFR ( Amer) > 60, Est GFR (Non- Af Amer) > 60, Random Glucose 126 H, Calcium 8.9, Total Bilirubin 0.3, AST 18, ALT 43, Alkaline Phosphatase 72, Total Protein 7.7, Albumin 4.2, Globulin 3.5, Albumin/Globulin Ratio 1.2 05/24/18 16:36: WBC 5.3 D, RBC 3.97, Hgb 12.3, Hct 35.9 L, MCV 90.4, MCH 31.0, MCHC 34.3, RDW 12.9, Plt Count 286, MPV 9.8, Gran % 56.6, Lymph % (Auto) 36.9 H, [place] % (Auto) 5.3, Eos % (Auto) 1.0 L, Baso % (Auto) 0.2, Gran # 2.98, Lymph # (Auto) 1.9, [place] # (Auto) 0.3, Eos # (Auto) 0.1, Baso # (Auto) 0.01 05/15/18 06:45: WBC 7.5, RBC 4.00, Hgb 12.2, Hct 36.9, MCV 92.3, MCH 30.5, MCHC 33.1, RDW 14.2, Plt Count 302, MPV 9.6, Gran % 57.4, Lymph % (Auto) 36.6 H, [place] % (Auto) 5.2, Eos % (Auto) 0.7 L, Baso % (Auto) 0.1, Gran # 4.29, Lymph # (Auto) 2.7, [place] # (Auto) 0.4, Eos # (Auto) 0.1, Baso # (Auto) 0.01 05/15/18 06:45: Hemoglobin A1c 5.2 05/15/18 06:45: Sodium 140, Potassium 4.3, Chloride 106, Carbon Dioxide 24, Anion Gap 14, BUN 10, Creatinine 0.6 L, Est GFR ( Amer) > 60, Est GFR (Non-Af Amer) > 60, Random Glucose 104, Calcium 9.3, Phosphorus 3.5, Magnesium 2.3 H, Total Bilirubin 0.8, AST 43 H, ALT 75 H, Alkaline Phosphatase 91, Total Creatine Kinase 200, Total Protein 7.8, Albumin 4.2, Globulin 3.6, Album in/Globulin Ratio 1.2, Triglycerides 59, Cholesterol 145, LDL Cholesterol Direct 71, HDL Cholesterol 55 Vital Signs Temp Pulse Resp BP 05/31/18 07:00 98.5 F 76 20 104/59 L 05/30/18 16:00 69 111/85 05/30/18 07:03 98.2 F 80 20 100/36 L 05/29/18 15:00 97.5 F L 72 16 105/62 05/29/18 07:04 97.7 F 78 19 116/83 05/28/18 17:23 64 116/77 05/28/18 07:00 97.8 F 72 20 110/66 05/27/18 07:22 97.9 F 79 20 111/77 05/26/18 07:32 98.0 F 81 20 111/66 05/25/18 16:00 62 115/71 05/25/18 07:21 98.4 F 74 20 111/67 05/24/18 15:00 81 118/72 05/24/18 07:07 98.0 F 93 H 20 103/69 05/23/18 15:00 85 112/66 05/23/18 06:44 97.6 F 93 H 20 113/69 05/22/18 07:27 98.0 F 87 20 111/73 05/21/18 16:36 77 122/74 05/21/18 07:09 98.5 F 72 20 125/71 05/21/18 07:08 98.5 F 72 18 05/20/18 15:57 87 114/69 05/20/18 07:00 97.4 F L 87 16 129/74 05/19/18 16:00 77 115/62 05/19/18 07:18 98.0 F 76 20 111/66 05/18/18 15:00 82 120/72 05/18/18 07:14 98.5 F 95 H 20 123/81 05/17/18 15:34 83 124/79 05/17/18 07:12 98.3 F 82 20 125/77 05/16/18 16:00 82 124/79 05/16/18 07:19 98.5 F 86 20 108/63 05/15/18 04:49 18 Consultations:: List each consultation separately and include: 1. Reason for request. 2. Findings. 3. Follow-up Consultations: medical consult appreciated Follow-up was 05/26/2018 for positive leukocyte esterase in urine Summary of Hospital Course include:: 1. Description of specific treatment plan utilized for patients during their course of treatmen. 2. Summarize the time- course for resolution of acute symptoms and/or regressed behaviors. 3. Describe issues identified and worked on during hospitalization. 4. Describe medication utilized. 5. Describe medical problems identified and treated. 6. Reassessment of suicide risk Summary of Hospital Course: Refer to the Psychiatric Assess & History-Initial dated 04/27/18 for this H & P. Reviewed, no changes. pt was recently hospitalized into the psychiatric inpatient unit 04/26/18- 05/08/18, at the time of d/c pt presented well, pt was discharged back home with f/u appt at [facility] [place]. please discharge summary for more detailed information. shortly, patient is 42 year old single [place] female with history of depression and psychosis, likely diagnosis of Schizoaffective disorde r, four prior admissions at [facility] in 02/2017, 01/2017 and 03/2016, 04/26/18, no reported history of suicidal attempts, h/o noncompliance with aftercare recommendations and medications who was transferred to the psychiatric unit after being treated for rhabdomyolysis on on the medical floor (of note this is second medical admission within last month for rabdomyolisis, pt was found wondering on streets as per ED report). ER notes indicate that patient was brought by [employer] after pt was wandering on the streets in a state of confusion. pt was medically stable, pt was willing to get treatment and was transferred to the psych unit, this write saw pt on the medical site, pt appeared to be catatonic, flat affect, mumbling something incoherently. Pt was educated about possible ECT treatment, pt was not able fully understand the procedure, risk/benefits and alternatives, please see medical site note for more detailed information. pt is very familiar to this freelance copywriter and unit from multiple psych admissions. Please see admission note for more detailed information. Patient was stabilized on the following medications: Prozac to 40 mg po daily for depression and anxiety Invega Sustenna injection (156mg) pt got injection 05/01/18, injection scheduled for 05/31/2018 This freelance copywriter left prescriptions for this patient last TuesdayMay 26, with the plan for the patient to be discharged on Tuesday, during the weekend Seroquel was discontinued and Zyprexa was started, by mistake Seroquel was filled for this patient prior to discharge, Zyprexa prescriptions was not given to the patient, patient was tolerated Seroquel well, will call rn case manager hospice tomorrow to clarify the situation. Patient tolerated medications well, no side effects observed or reported, aims 0, no EPS. Over the course of this hospitalization pt was attending groups, pt also had medication management, had therapeutic milieu. Overall pt improved but still has poverty of thoughts, poverty of speech, patient was socially withdrawn, but no agitated or aggressive. Patient also has episodes of talking to herself, but patient was not acutely psychotic. Patient was educated about potential ECT for the future, patient made it clear that she does not want to have ECT treatment. At the time of the discharge pt denied been depressed, denied thoughts of harming self or others, denied psychotic symptoms, and pt does not appeared to be psychotic, denied been anxious, pt is not in imminent danger to self or others, pt was referred to Day Treatment Program at [facility] on 06/01/18 at 8:30am, information about follow up appointment, time and address provided to the pt, it is patient responsibility to follow up with outpatient clinic, PMD as well as specialists (see SW note for more detailed information). In case pt will need to obtain results of studies pending at discharge pt was provided with contact information of Psychiatric Inpatient unit [phone] as well as Medical Record Department [phone]. Patient is not using drugs, does not smoke pt was provided with prescriptions for all of medications (please see medication reconciliation form) Pt was educated about safety plan in case of worsening of symptoms or in case of suicidal or homicidal ideation call 911 or go to the nearest ER, also was educated to take meds as prescribed and stay away from drugs, pt verbalized understanding. - Diagnosis (1) Schizophrenia Status: Chronic Priority: High - Final Diagnosis (DSM 5) Condition upon Discharge: GOOD Disposition: HOME/ ROUTINE Follow-up Treatment Plan: At the time of the discharge pt denied been depressed, denied thoughts of harming self or others, denied psychotic symptoms, and pt does not appeared to be psychotic, denied been anxious, pt is not in imminent danger to self or others, pt was referred to Day Treatment Program at [facility] on 06/01/18 at 8:30am, information about follow up appointment, time and address provided to the pt, it is patient responsibility to follow up with outpatient clinic, PMD as well as specialists (see SW note for more detailed information). In case pt will need to obtain results of studies pending at discharge pt was provided with contact information of Psychiatric Inpatient unit [phone] as well as Medical Record Department [phone]. Patient is not using drugs, does not smoke pt was provided with prescriptions for all of medications (please see medication reconciliation form) Pt was educated about safety plan in case of worsening of symptoms or in case of suicidal or homicidal ideation call 911 or go to the nearest ER, also was educated to take meds as prescribed and stay away from drugs, pt verbalized understanding. Prescriptions/Medication Reconciliation: Fluoxetine HCl [Prozac] 40 mg PO DAILY #14 capsule LORazepam [Ativan] 1 mg PO BID #30 tab Pantoprazole [Protonix EC Tab] 40 mg PO 0600,1600 #14 ect Quetiapine Fumarate [Seroquel] 200 mg PO DAILY #14 tablet Quetiapine Fumarate [Seroquel] 300 mg PO HS #14 tablet - Smoking Cessation Smoking Cessation Medication prescribed: No Reason for not providing: Patient does not smoke - Antipsychotic Medications Pt discharged on 2 or more routine antipsychotic medications: No
== END 2018-05-31 13:15 | disposition home or self-care (01) | DRG 430 ==
LOC: PSYC 19:30
PROVIDERS: ADMIT Psychiatry & Neurology Psychiatry; ATTEND Psychiatry & Neurology Psychiatry
PROC: GZ3ZZZZ Medication Management (ICD-10-PCS; principal; 2018-05-15)
DX: F25.9 Schizoaffective disorder, unspecified (principal); M62.82 Rhabdomyolysis; E87.6 Hypokalemia; F32.9 Major depressive disorder, single episode, unspecified; F41.9 Anxiety disorder, unspecified; Z91.19 Patient's noncompliance with other medical treatment and regimen